=== PATIENT | female | born 1990 | race Two or more races ===

== ENCOUNTER 2020-05-29 12:18 | Inpatient (IN) | payer OTHER, SELFPAY ==
[2020-05-29 12:41] VITALS: BP 118/76; PULSE 97; RESP 19; TEMP 37.2; O2SAT 98; BMI 33.9
[2020-05-29 12:47] VITALS: BP 118/76; PULSE 97; RESP 19; TEMP 37.2; O2SAT 98
--- NOTE | 2020-05-29 12:51 | PC.NURSE ---
Pt cooperative with traveler changer, states she has been off her medications for months and that she lost her phone so she cannot fill her prescriptions. Pt reports that she took old medications this morning to try and calm her mind but that it made her body tired but did not stop the racing thoughts, pt took fluoxetine 20mg. depakote 500mg, olanzapine 10mg, clonazepan 1mg, prazosin 2mg . Pt reports auditory and visual hallucinations. Pt reports history of bipolar with psychosis, severe PTSD, and severe anxiety.
--- NOTE | 2020-05-29 13:00 | ED_ITS ---
HPI - Psych General Chief Complaint: Psychiatric Symptoms Stated Complaint: crisis Time Seen by Provider: 05/29/20 12:55 Source: patient Mode of arrival: ambulatory Limitations: no limitations History of Present Illness HPI Narrative: Annamarie at this point is 30 years old with past medical history that is significant for bipolar 2 disorder, PTSD, cannabis use with severe dependence presents via EMS c c/o SI/ Depression with plan to OD. Related Data Home Medications Medication Instructions Recorded Confirmed No Known Home Meds 05/29/20 05/29/20 Allergies Allergy/AdvReac Type Severity Reaction Status Date / Time Benadryl Allergy Severe anaphylaxis Unverified 11/14/19 00:00 diphenhydramine Allergy Severe ANAPHYLAXIS Unverified 04/19/20 19:20 [From BENADRYL] risperidone [RISPERIDONE] Allergy Severe PSYCHOTIC/HARMFUL Unverified 04/19/20 19:20 BEHAVIOR/BLACKOUTS latex [LATEX] Allergy Intermediate RASH Unverified 04/19/20 19:20 latex Allergy Unknown Unverified 11/14/19 00:00 Review of Systems Review of Systems: Constitutional: No Weight loss, No Fever, No Chills, No Night Sweats, No Fatigue, No Malaise ENT/Mouth: No Hearing loss, No Ear Pain, No Nasal Congestion, No Sinus Pain, No Hoarseness, No sore throat, No Rhinorrhea, No Swallowing Difficulty Eyes: No Eye Pain, No Swelling, No Redness, No Foreign Body, No Discharge, No Vision Changes Cardiovascular: No Chest Pain, No SOB, No Dyspnea on Exertion, No Orthopnea, No Edema, No Palpitations Respiratory: No Cough, No Sputum, No Wheezing, No Smoke Exposure, No Dyspnea Gastrointestinal: No Nausea, No Vomiting, No Diarrhea, No Constipation, No abdominal Pain, No Hematochezia, No Melena Genitourinary: no irregular bleeding, No Dysuria, No Urinary Frequency, No Hematuria, No Urinary Incontinence, No Urgency, No Flank Pain, No Urinary Flow Changes, No Hesitancy Musculoskeletal: No joint pain, No Myalgias, No Joint Swelling Skin: No Skin Lesions, No rash Neuro: No Weakness, No Numbness, No Paresthesias, No Loss of Consciousness, No Dizziness, No Headache Psych: As noted Heme/Lymph: No Bruising, No Bleeding,No Lymphadenopathy Endocrine: No Polyuria, No Polydipsia, No Temperature Intolerance Yes all other systems are reviewed and are negative [facility] Past Medical History Attestation statement: The following information was validated with the patient. Medical History (Updated 05/29/20 @ 21:32 by Mason Wade NP) Anxiety Bipolar disorder Psychosis PTSD (post-traumatic stress disorder) Social History Social History Alcohol intake: unknown Smoking Status: Former smoker Smoked in Last 30 Days: No Use of substances other than those prescribed or required for medical reasons: No Advance Directives: No Advance Directives Information Provided: No Physical Exam 2 Vital Signs: Vital Signs: Vital Signs Temp Pulse Resp BP Pulse Ox 05/29/20 19:05 97.9 F 66 20 110/65 100 05/29/20 16:29 98 F 78 20 109/68 99 05/29/20 12:47 98.9 F 97 19 118/76 98 05/29/20 12:41 98.9 F 97 19 118/76 98 Body Mass Index 33.9 Reviewed Const: General: cooperative and healthy appearing; No acute distress or intoxicated appearing Nutritional Appearance: average body habitus Orientation/consciousness: patient oriented x3 HENMT: Head: Yes normal to inspection Ears: hearing grossly normal bilaterally Eyes: General: appearance normal, both eyes and all related structures Visual Thompson: normal visual thomspon by confrontation Neck: Neck: Yes normal visual inspection and No tender Thyroid: Thyroid normal Chest: Chest palpation & inspection: normal inspection of the chest Resp: Effort & Inspection: normal respiratory effort Cardio: Jugular venous distension: no JVD GI: Inspection: Yes normal to inspection Percussion: Yes normal to percussion Auscultation: normal bowel sounds : General: Yes no CVA tenderness Back/Spine/Pelvis: Back: no CVA tenderness Skin: General skin exam: no rashes or lesions noted Neuro: General: patient oriented x3 Extrem: General: Yes normal to inspection Course Course Course Narrative: Labs stable. Resting comfortably pending psych eval 2131 s/o pending BHN eval MDM - Psych Restraints Face to Face Assessment: Face to Face Assessment: Current Situation: After assessment of the patient, a review of the pertinent medical record and a discussion with nursing staff, I feel the patient requires a restrain intervention. Reaction To: [] Medical Condition: [] Behavioral State: [] Continued Need: [] Lab Data Attestation: I reviewed the patient's lab results. Result diagrams: 05/29/20 13:26 05/29/20 13:26 Labs: Lab Results 05/29/20 05/29/20 05/29/20 Range/Units 13:06 13:06 13:26 WBC (4.8-10.8) X10*3/uL RBC (4.20-5.50) X10*6/uL Hgb (12.0-16.0) g/dl Hct (37-47) % MCV (80-98) fL MCH (27.0-33.0) pg MCHC (31.0-35.0) g/dl RDW (11.0-16.0) % Plt Count (160-400) X10*3/uL MPV (9.4-12.3) fL Immature Gran % (Auto) (0.0-0.4) % Neut % (Auto) (45-73) % Lymph % (Auto) (20-40) % [place] % (Auto) (2-11) % Eos % (Auto) (0-4) % Baso % (Auto) (0-2) % Lymph # (Auto) (1.2-4.9) X10*3/uL [place] # (Auto) (0.1-1.2) X10*3/uL Eos # (Auto) (0.0-0.4) X10*3/uL Baso # (Auto) (0.0-0.2) X10*3/uL Abs Immat Gran (auto) (0.00-0.03) X10*3/uL Absolute Neuts (auto) (2.0-8.3) X10*3/uL Absolute Nucleated RBC (0.0-0.012) X10*3/uL Nucleated RBC % (auto) (0.0-0.2) /100WBC PT (10.8-13.0) SEC INR (0.9-1.1) APTT (24.1-38.0) SEC Sodium (135-145) mmol/L Potassium (3.3-5.1) mmol/l Chloride (96-108) mmol/L Carbon Dioxide (22-29) mmol/L Anion Gap (12-20) BUN (9-16) mg/dL Creatinine (0.5-1.4) mg/dL Estim Creat Clear Calc Estimated GFR Random Glucose (60-115) mg/dL Calcium (8.4-10.2) mg/dL Total Bilirubin (0.0-1.0) mg/dL AST (5-31) U/L ALT (0-31) U/L Alkaline Phosphatase (39-117) U/L Total Protein (6.5-8.0) g/dL Albumin (3.5-5.0) g/dL Urine Color YELLOW Urine Appearance HAZY Urine pH 7.0 (5.0-8.0) Ur Specific [place] 1.020 (1.005-1.025) Urine Protein NEG (NEG-TRACE) MG/DL Urine Glucose (UA) NEG (NEG) MG/DL Urine Ketones NEG (NEG) MG/DL Urine Blood NEG (NEG) Urine Nitrite POS H (NEG) Ur Leukocyte Esterase NEG (NEG) Urine RBC 0 (0) /HPF Urine WBC 10-14 H (0-4) /HPF Ur Squamous Epith Cells 2+ /LPF Urine Bacteria 1+ /LPF Urine Mucus 2+ /LPF Urine Test NEGATIVE (NEGATIVE) Salicylates < 5.0 L (15-30) mg/dL Urine Opiates Screen Not Detected (Not Detect) Acetaminophen < 1 (<30) mcg/mL Ur Barbiturates Screen Not Detected (Not Detect) Valproic Acid 11.8 L (50.0-100.0) mcg/mL Ur Phencyclidine Scrn Not Detected (Not Detect) Ur Amphetamines Screen Not Detected (Not Detect) U Benzodiazepines Scrn Not Detected (Not Detect) Urine Cocaine Screen Not Detected (Not Detect) U Marijuana (THC) Screen POSITIVE H (Not Detect) Ethyl Alcohol mg/dL 05/29/20 05/29/20 05/29/20 Range/Units 13:26 13:26 13:26 WBC 7.0 (4.8-10.8) X10*3/uL RBC 4.40 (4.20-5.50) X10*6/uL Hgb 12.2 (12.0-16.0) g/dl Hct 36.8 L (37-47) % MCV 83.6 (80-98) fL MCH 27.7 (27.0-33.0) pg MCHC 33.2 (31.0-35.0) g/dl RDW 14.0 (11.0-16.0) % Plt Count 211 (160-400) X10*3/uL MPV 10.8 (9.4-12.3) fL Immature Gran % (Auto) 0.3 (0.0-0.4) % Neut % (Auto) 58.4 (45-73) % Lymph % (Auto) 30.4 (20-40) % [place] % (Auto) 5.0 (2-11) % Eos % (Auto) 5.3 H (0-4) % Baso % (Auto) 0.6 (0-2) % Lymph # (Auto) 2.1 (1.2-4.9) X10*3/uL [place] # (Auto) 0.4 (0.1-1.2) X10*3/uL Eos # (Auto) 0.4 (0.0-0.4) X10*3/uL Baso # (Auto) 0.0 (0.0-0.2) X10*3/uL Abs Immat Gran (auto) 0.02 (0.00-0.03) X10*3/uL Absolute Neuts (auto) 4.1 (2.0-8.3) X10*3/uL Absolute Nucleated RBC 0.000 (0.0-0.012) X10*3/uL Nucleated RBC % (auto) 0.0 (0.0-0.2) /100WBC PT 12.7 (10.8-13.0) SEC INR 1.1 (0.9-1.1) APTT 36.2 (24.1-38.0) SEC Sodium 138 (135-145) mmol/L Potassium 3.8 (3.3-5.1) mmol/l Chloride 106 (96-108) mmol/L Carbon Dioxide 23 (22-29) mmol/L Anion Gap 13 (12-20) BUN 12 (9-16) mg/dL Creatinine 0.78 (0.5-1.4) mg/dL Estim Creat Clear Calc 122.7 Estimated GFR > 60 Random Glucose 89 (60-115) mg/dL Calcium 8.8 (8.4-10.2) mg/dL Total Bilirubin 0.5 (0.0-1.0) mg/dL AST 22 (5-31) U/L ALT 21 (0-31) U/L Alkaline Phosphatase 63 (39-117) U/L Total Protein 7.0 (6.5-8.0) g/dL Albumin 4.1 (3.5-5.0) g/dL Urine Color Urine Appearance Urine pH (5.0-8.0) Ur Specific [place] (1.005-1.025) Urine Protein (NEG-TRACE) MG/DL Urine Glucose (UA) (NEG) MG/DL Urine Ketones (NEG) MG/DL Urine Blood (NEG) Urine Nitrite (NEG) Ur Leukocyte Esterase (NEG) Urine RBC (0) /HPF Urine WBC (0-4) /HPF Ur Squamous Epith Cells /LPF Urine Bacteria /LPF Urine Mucus /LPF Urine Test (NEGATIVE) Salicylates (15-30) mg/dL Urine Opiates Screen (Not Detect) Acetaminophen (<30) mcg/mL Ur Barbiturates Screen (Not Detect) Valproic Acid (50.0-100.0) mcg/mL Ur Phencyclidine Scrn (Not Detect) Ur Amphetamines Screen (Not Detect) U Benzodiazepines Scrn (Not Detect) Urine Cocaine Screen (Not Detect) U Marijuana (THC) Screen (Not Detect) Ethyl Alcohol mg/dL 05/29/20 Range/Units 13:26 WBC (4.8-10.8) X10*3/uL RBC (4.20-5.50) X10*6/uL Hgb (12.0-16.0) g/dl Hct (37-47) % MCV (80-98) fL MCH (27.0-33.0) pg MCHC (31.0-35.0) g/dl RDW (11.0-16.0) % Plt Count (160-400) X10*3/uL MPV (9.4-12.3) fL Immature Gran % (Auto) (0.0-0.4) % Neut % (Auto) (45-73) % Lymph % (Auto) (20-40) % [place] % (Auto) (2-11) % Eos % (Auto) (0-4) % Baso % (Auto) (0-2) % Lymph # (Auto) (1.2-4.9) X10*3/uL [place] # (Auto) (0.1-1.2) X10*3/uL Eos # (Auto) (0.0-0.4) X10*3/uL Baso # (Auto) (0.0-0.2) X10*3/uL Abs Immat Gran (auto) (0.00-0.03) X10*3/uL Absolute Neuts (auto) (2.0-8.3) X10*3/uL Absolute Nucleated RBC (0.0-0.012) X10*3/uL Nucleated RBC % (auto) (0.0-0.2) /100WBC PT (10.8-13.0) SEC INR (0.9-1.1) APTT (24.1-38.0) SEC Sodium (135-145) mmol/L Potassium (3.3-5.1) mmol/l Chloride (96-108) mmol/L Carbon Dioxide (22-29) mmol/L Anion Gap (12-20) BUN (9-16) mg/dL Creatinine (0.5-1.4) mg/dL Estim Creat Clear Calc Estimated GFR Random Glucose (60-115) mg/dL Calcium (8.4-10.2) mg/dL Total Bilirubin (0.0-1.0) mg/dL AST (5-31) U/L ALT (0-31) U/L Alkaline Phosphatase (39-117) U/L Total Protein (6.5-8.0) g/dL Albumin (3.5-5.0) g/dL Urine Color Urine Appearance Urine pH (5.0-8.0) Ur Specific [place] (1.005-1.025) Urine Protein (NEG-TRACE) MG/DL Urine Glucose (UA) (NEG) MG/DL Urine Ketones (NEG) MG/DL Urine Blood (NEG) Urine Nitrite (NEG) Ur Leukocyte Esterase (NEG) Urine RBC (0) /HPF Urine WBC (0-4) /HPF Ur Squamous Epith Cells /LPF Urine Bacteria /LPF Urine Mucus /LPF Urine Test (NEGATIVE) Salicylates (15-30) mg/dL Urine Opiates Screen (Not Detect) Acetaminophen (<30) mcg/mL Ur Barbiturates Screen (Not Detect) Valproic Acid (50.0-100.0) mcg/mL Ur Phencyclidine Scrn (Not Detect) Ur Amphetamines Screen (Not Detect) U Benzodiazepines Scrn (Not Detect) Urine Cocaine Screen (Not Detect) U Marijuana (THC) Screen (Not Detect) Ethyl Alcohol < 10 mg/dL ECG Data Attestation: I personally reviewed and interpreted this ECG as follows: Interpretation: NSR HR [address] sig changes No chnage since 01/12/2019 Discharge Plan Discharge Clinical Impression: Depression, Bipolar disorder, Acute anxiety Prescriptions: No Action No Known Home Meds RF: 0
--- NOTE | 2020-05-29 13:03 | ECG_ITS ---
Test Reason : OVERDOSE Blood Pressure : / mmHG Vent. Rate : 077 BPM Atrial Rate : 077 BPM P-R Int : 152 ms QRS Dur : 080 ms QT Int : 392 ms P-R-T Axes : 046 053 038 degrees QTc Int : 443 ms Normal sinus rhythm Normal ECG When compared with ECG of 12-JAN-2019 10:09, No significant change was found Referred By: Mason Wade Electronically Signed By:HARRY RALPH MD
[2020-05-29 13:33] LABS: MANUAL DIFF FLAG NO
[2020-05-29 13:35] LABS: Basophils Percent Auto 0.6 % (0-2); Eosinophils Absolute Auto 0.4 X10*3/uL (0.0-0.4); Eosinophils Percent Auto 5.3 % (0-4); Hematocrit 36.8 % (37-47); Hemoglobin 12.2 g/dl (12.0-16.0); Imm Gran Abs Auto 0.02 X10*3/uL (0.00-0.03); Imm Gran Pct Auto 0.3 % (0.0-0.4); Lymphocytes Absolute Auto 2.1 X10*3/uL (1.2-4.9); Lymphocytes Percent Auto 30.4 % (20-40); Mean Corpuscular HGB Conc 33.2 g/dl (31.0-35.0); Mean Corpuscular Hemoglobin 27.7 pg (27.0-33.0); Mean Corpuscular Volume 83.6 fL (80-98); Mean Platelet Volume 10.8 fL (9.4-12.3); Monocytes Absolute Auto 0.4 X10*3/uL (0.1-1.2); Neutrophils Absolute Auto 4.1 X10*3/uL (2.0-8.3); Neutrophils Percent Auto 58.4 % (45-73); Platelet Count 211 X10*3/uL (160-400)
[2020-05-29 13:37] LABS: Glucose Urine UA NEG (NEG); Leukocyte Esterase Urine NEG (NEG); Nitrite Urine POS (NEG); Urine Blood NEG (NEG); Urine Ketones NEG (NEG); Urine Protein NEG (NEG-TRACE)
[2020-05-29 13:44] LABS: INTERNATIONAL NORM RATIO 1.1 (0.9-1.1); Prothrombin Time 12.7 SEC (10.8-13.0)
[2020-05-29 13:47] LABS: Partial Thromboplastin Time 36.2 SEC (24.1-38.0)
[2020-05-29 13:51] LABS: Appearance Urine HAZY; Color Urine YELLOW
[2020-05-29 13:52] LABS: Bacteria Urine 1+ /LPF; Mucus Urine 2+ /LPF; RBC Urine 0 /HPF (0); Squamous Epithelial Cell Urine 2+ /LPF
[2020-05-29 13:53] LABS: UPreg QC Valid YES; Urine Pregnancy NEGATIVE (NEGATIVE)
[2020-05-29 13:56] LABS: Ethanol < 10 mg/dL
[2020-05-29 13:57] LABS: Amphetamine Screen Urine Not Detected (Not Detect); Barbiturates, Urine Not Detected (Not Detect); Benzodiazepines Screen Urine Not Detected (Not Detect); Cannabinoid Screen Urine POSITIVE (Not Detect); Cocaine Screen Urine Not Detected (Not Detect); Opiate Screen Urine Not Detected (Not Detect); Phencyclidine Screen Urine Not Detected (Not Detect)
[2020-05-29 13:57] LABS: Acetaminophen LAB < 1 mcg/mL (<30); Salicylate < 5.0 mg/dL (15-30)
[2020-05-29 13:59] LABS: Alanine Aminotransferase 21 U/L (0-31); Albumin Level 4.1 g/dL (3.5-5.0); Alkaline Phosphatase 63 U/L (39-117); Anion Gap 13 (12-20); Aspartate Amino Transferase 22 U/L (5-31); Bilirubin Total 0.5 mg/dL (0.0-1.0); Blood Urea Nitrogen 12 mg/dL (9-16); Calcium 8.8 mg/dL (8.4-10.2); Carbon Dioxide 23 mmol/L (22-29); Chloride 106 mmol/L (96-108); Creatinine Clr Calc Pharmacy 122.7; Estimated Glomerular Filt Rate > 60; Glucose Random 89 mg/dL (60-115); Potassium 3.8 mmol/l (3.3-5.1); Sodium 138 mmol/L (135-145)
[2020-05-29 14:04] LABS: Valproate 11.8 mcg/mL (50.0-100.0)
[2020-05-29 16:29] VITALS: BP 109/68; PULSE 78; RESP 20; TEMP 36.6; O2SAT 99
[2020-05-29 19:05] VITALS: BP 110/65; PULSE 66; RESP 20; TEMP 36.6; O2SAT 100
[2020-05-29] MEDS: LORazepam 1 MG TABLET PO (19:21)
--- NOTE | 2020-05-29 20:20 | PC.NURSE ---
pt sleeping, door open lights and noise low. pt given a warm blanket and is now sleeping. skin pink warm and dry, rr even and reg. no s/s of distress, [plan pt is still waiting to be seen and understands it will be a while. pt is ok with this and is resting comfortably calm and cooperative steady gait. pt visable on the monitor.
--- NOTE | 2020-05-29 22:07 | PC.NURSE ---
CHAIM called/spoke with Ruby to check on patient's status, reported clinician is on the way. Per report, patient had good shift. Will continue to monitor.
[2020-05-29] MEDS: Nitrofurantoin Monohyd/M-Cryst 100 MG CAPSULE PO (22:36)
--- NOTE | 2020-05-29 23:48 | PC.NURSE ---
BHN completed assessment, section 12 in patient bed search.
[2020-05-30] VITALS (13 sets, daily range): BP systolic 103–148; BP diastolic 50–85; PULSE 77–107; RESP 16–20; TEMP 35.9–36.9; O2SAT 94–99
[2020-05-30] MEDS: traZODone HCL 50 MG TABLET PO (00:33)
--- NOTE | 2020-05-30 00:36 | PC.NURSE ---
Patient requested medication for help her sleep, patient reported she used to take Trazadone, checked past record, per record patient takes Trazadone 50 mg at bedtime for sleep, provider notified/ordered trazadone 50 mg/administered as ordered/compliant. Will continue to monitor.
--- NOTE | 2020-05-30 02:11 | PC.NURSE ---
Patient in bed appears sleeping, no distress observed/reported, respiration +/=/non-labored bilaterally. Will continue to monitor.
--- NOTE | 2020-05-30 04:05 | PC.NURSE ---
Patient in bed appears sleeping comfortably, no distress observed/reported, respiration +/=/non-labored bilaterally. Will continue to monitor.
--- NOTE | 2020-05-30 06:04 | PC.NURSE ---
Patient in bed appears sleeping, no distress observed/reported, respiration +/=/non-labored bilaterally, will continue to monitor and provide comfort.
--- NOTE | 2020-05-30 06:49 | PC.NURSE ---
Report recieved. Pt currently in the bathroom, calm and cooperative, denies complaints at this time. PT is inpatient bedsearch.
[2020-05-30] MEDS: LORazepam 1 MG TABLET PO (07:49)
[2020-05-30] MEDS: Nitrofurantoin Monohyd/M-Cryst 100 MG CAPSULE PO ×2 (09:06→22:33)
[2020-05-30] MEDS: OLANZapine 5 MG TABLET PO ×2 (09:06→14:33)
--- NOTE | 2020-05-30 09:10 | PC.NURSE ---
Addendum entered by Darleen Hyde 05/30/20 13:17: Pt appears to be responding internally, holding her head, crying and shaking. Provider aware, PT medicated per emar. Original Note: Pt appears to be responding internally, holding her head, crying and shaking. Provider aware
--- NOTE | 2020-05-30 12:20 | PC.NURSE ---
PT heard yelling in her room, pt shaking, crying, appears to be responding internally. Pt noted to hit her head against the wall, pt redirected. Provider aware.
[2020-05-30] MEDS: LORazepam 1 MG TABLET 2 MG PO ×2 (14:26→19:35)
--- NOTE | 2020-05-30 15:29 | P.CNPS_ITS ---
History of Present Illness Chief Complaint: crisis Reason for Consult: increasing agitation, self harming behaviors Requesting physician: Silvestre Jonas Discussed with referring provider: Yes Sources of Information: patient interviewed and chart reviewed HPI Narrative: Patient is a 30 year old female with history of PTSD. Currently in area of ED following suicidal statements in the community. Consult requested as patient was noted to be increasing anxious and agitated and at one point began banging her head against her wall and crying. Pt seen in common area of ED. Visibly anxious, wringing her hands, somewhat pressured describing sx, but clearly distressed as well. Pt stating that she is having racing thoughts, hearing voices, and having significant flashbacks of past trauma. She rpeorts that she had been taking her medications up until 2 months ago when she lost her phone and was unable to get in contact with her provider. She states she found and old prescription and took some medications in hopes that it would help the voices, but it did not. She reports that her suicidal ideation is related to not wanting to feel the abuse during her flashbacks, I just feel like I need to get out of this body, it's so disgusting . Past Psychiatric History: History of psychiatric admissions Medical Evaluation Reviewed: Yes Review of Systems Psychiatric: Reports abnormal sleep pattern, Reports anxiety, Reports depression, Reports difficulty concentrating, Reports auditory hallucinations, Reports hopelessness, Reports tactile hallucinations, Reports homicidal ideation (her parents ) and Reports suicidal ideation [facility] Medical History (Updated 05/30/20 @ 15:58 by Latosha Mittal CNP) Anxiety Bipolar disorder Psychosis PTSD (post-traumatic stress disorder) Diagnostics Vital Signs (24Hr): Vital Signs - 24 hr 05/29/20 16:29 05/29/20 19:05 05/30/20 00:10 Temperature 98 F 97.9 F 96.7 F L Pulse Rate 78 66 83 Respiratory Rate 20 20 16 Blood Pressure 109/68 110/65 110/60 Pulse Oximetry 99 100 99 05/30/20 06:53 05/30/20 07:50 05/30/20 09:19 Temperature 96.9 F 97.7 F 97 F Pulse Rate 86 90 85 Respiratory Rate 18 16 Blood Pressure 111/60 148/85 H 110/58 L Pulse Oximetry 98 98 Body Mass Index 33.9 Labs Results: 05/29/20 13:26 05/29/20 13:26 Labs: Laboratory Results - last 48 hr 05/29/20 05/29/20 05/29/20 13:06 13:06 13:26 WBC RBC Hgb Hct MCV MCH MCHC RDW Plt Count MPV Immature Gran % (Auto) Neut % (Auto) Lymph % (Auto) [place] % (Auto) Eos % (Auto) Baso % (Auto) Lymph # (Auto) [place] # (Auto) Eos # (Auto) Baso # (Auto) Abs Immat Gran (auto) Absolute Neuts (auto) Absolute Nucleated RBC Nucleated RBC % (auto) PT INR APTT Sodium Potassium Chloride Carbon Dioxide Anion Gap BUN Creatinine Estim Creat Clear Calc Estimated GFR Random Glucose Calcium Total Bilirubin AST ALT Alkaline Phosphatase Total Protein Albumin Urine Color YELLOW Urine Appearance HAZY Urine pH 7.0 Ur Specific [place] 1.020 Urine Protein NEG Urine Glucose (UA) NEG Urine Ketones NEG Urine Blood NEG Urine Nitrite POS H Ur Leukocyte Esterase NEG Urine RBC 0 Urine WBC 10-14 H Ur Squamous Epith Cells 2+ Urine Bacteria 1+ Urine Mucus 2+ Urine Test NEGATIVE Salicylates < 5.0 L Urine Opiates Screen Not Detected Acetaminophen < 1 Ur Barbiturates Screen Not Detected Valproic Acid 11.8 L Ur Phencyclidine Scrn Not Detected Ur Amphetamines Screen Not Detected U Benzodiazepines Scrn Not Detected Urine Cocaine Screen Not Detected U Marijuana (THC) Screen POSITIVE H Ethyl Alcohol 05/29/20 05/29/20 05/29/20 13:26 13:26 13:26 WBC 7.0 RBC 4.40 Hgb 12.2 Hct 36.8 L MCV 83.6 MCH 27.7 MCHC 33.2 RDW 14.0 Plt Count 211 MPV 10.8 Immature Gran % (Auto) 0.3 Neut % (Auto) 58.4 Lymph % (Auto) 30.4 [place] % (Auto) 5.0 Eos % (Auto) 5.3 H Baso % (Auto) 0.6 Lymph # (Auto) 2.1 [place] # (Auto) 0.4 Eos # (Auto) 0.4 Baso # (Auto) 0.0 Abs Immat Gran (auto) 0.02 Absolute Neuts (auto) 4.1 Absolute Nucleated RBC 0.000 Nucleated RBC % (auto) 0.0 PT 12.7 INR 1.1 APTT 36.2 Sodium 138 Potassium 3.8 Chloride 106 Carbon Dioxide 23 Anion Gap 13 BUN 12 Creatinine 0.78 Estim Creat Clear Calc 122.7 Estimated GFR > 60 Random Glucose 89 Calcium 8.8 Total Bilirubin 0.5 AST 22 ALT 21 Alkaline Phosphatase 63 Total Protein 7.0 Albumin 4.1 Urine Color Urine Appearance Urine pH Ur Specific [place] Urine Protein Urine Glucose (UA) Urine Ketones Urine Blood Urine Nitrite Ur Leukocyte Esterase Urine RBC Urine WBC Ur Squamous Epith Cells Urine Bacteria Urine Mucus Urine Test Salicylates Urine Opiates Screen Acetaminophen Ur Barbiturates Screen Valproic Acid Ur Phencyclidine Scrn Ur Amphetamines Screen U Benzodiazepines Scrn Urine Cocaine Screen U Marijuana (THC) Screen Ethyl Alcohol 05/29/20 13:26 WBC RBC Hgb Hct MCV MCH MCHC RDW Plt Count MPV Immature Gran % (Auto) Neut % (Auto) Lymph % (Auto) [place] % (Auto) Eos % (Auto) Baso % (Auto) Lymph # (Auto) [place] # (Auto) Eos # (Auto) Baso # (Auto) Abs Immat Gran (auto) Absolute Neuts (auto) Absolute Nucleated RBC Nucleated RBC % (auto) PT INR APTT Sodium Potassium Chloride Carbon Dioxide Anion Gap BUN Creatinine Estim Creat Clear Calc Estimated GFR Random Glucose Calcium Total Bilirubin AST ALT Alkaline Phosphatase Total Protein Albumin Urine Color Urine Appearance Urine pH Ur Specific [place] Urine Protein Urine Glucose (UA) Urine Ketones Urine Blood Urine Nitrite Ur Leukocyte Esterase Urine RBC Urine WBC Ur Squamous Epith Cells Urine Bacteria Urine Mucus Urine Test Salicylates Urine Opiates Screen Acetaminophen Ur Barbiturates Screen Valproic Acid Ur Phencyclidine Scrn Ur Amphetamines Screen U Benzodiazepines Scrn Urine Cocaine Screen U Marijuana (THC) Screen Ethyl Alcohol < 10 Mental Status Exam Mental Status Exam Patient Appearance: Well Grooomed Level of Consciousness: Awake, Appropriate and Alert Patient Behavior: Appropriate, Cooperative and Anxious Mood Description: Fearful and Anxious Affect Description: Fearful and Anxious Ability to Follow Directions: Excellent Speech Pattern: Clear Hallucinations: Auditory and Tactile Thought Process: Racing Thought Content: positive for Racing, positive for Obsessional Thoughts and positive for Perseveration Depressive Symptoms: Difficulty Sleeping, Feelings of Worthlessness, H opelessness and Thoughts of /Suicide Abnormal Motor Activity Signs and Symptoms: Agitation Judgement: Fair Medications Medications Current Medications Generic Name Dose Route Start Last Admin Trade Name Freq PRN Reason Stop Dose Admin Clonazepam 0.5 mg 05/31/20 09:00 Clonazepam 0.5 Mg Tablet PO BID@0900,1700 CATHERINE Nitrofurantoin Macrocrystals 100 mg 05/29/20 22:20 05/30/20 09:06 Nitrofurantoin Monohyd/M-Cryst 100 Mg Capsule PO 06/04/20 23:00 100 mg BID CATHERINE Administration Olanzapine 10 mg 05/31/20 21:00 Olanzapine 10 Mg Tablet PO BEDTIME CATHERINE Olanzapine 5 mg 05/31/20 09:00 Olanzapine 5 Mg Tablet PO DAILY CATHERINE Olanzapine 5 mg 05/30/20 21:00 Olanzapine 5 Mg Tablet PO BEDTIME PRN anxiety/restlessness Allergies Allergies Allergy/AdvReac Type Severity Reaction Status Date / Time Benadryl Allergy Severe anaphylaxis Verified 05/30/20 06:42 diphenhydramine Allergy Severe ANAPHYLAXIS Unverified 04/19/20 19:20 [From BENADRYL] risperidone [RISPERIDONE] Allergy Severe PSYCHOTIC/HARMFUL Unverified 04/19/20 19:20 BEHAVIOR/BLACKOUTS latex [LATEX] Allergy Intermediate RASH Unverified 04/19/20 19:20 latex Allergy Unknown Rash Unverified 05/30/20 06:42 Assessment & Plan Assessment & Plan (1) PTSD (post-traumatic stress disorder): Status: Acute Code(s): F43.10 - Post-traumatic stress disorder, unspecified Recommendations: Based on patient interview and chart review the following medications were restarted to address acute sx: * Olanzapine 5mg QD and 10mg QHS * Klonopin 0.5mg BID * If necessary may have 2.5mg Olanzapine as PRN for agitation/anxiety * Encouraged patient to use grounding and other coping strategies to deal with traumatic memories as they come up * Awaiting inpt admission. Greater than 50% of the session was spent on counseling and/or coordination of care
[2020-05-30] MEDS: LORazepam 2 MG/ML VIAL IM (18:10)
[2020-05-30] MEDS: Haloperidol Lactate 5 MG/ML VIAL IM (18:10)
--- NOTE | 2020-05-30 18:16 | PC.NURSE ---
After meeting with Nichelle pt became agitated, demanding to leave, pt yelling at staff, pushed open door and attempted to elope, pt struck security and was escorted back into the pod. PT continued fighting with staff and yelling, pt placed in restraints. Pt stated that she got upset after a phone call with her fiance, she stated that she thinks he is cheating on her so she wants to leave so she can get her kids. Pt apologetic for her behavior.
--- NOTE | 2020-05-30 19:54 | PC.NURSE ---
PT released from restraints at 1916. Agreement to comply with staff and the rules. Patient is calm and cooperative. Requested additional medications for anxiety after restraints were released. PT skin is pink, warm, dry, and intact at restraint sites. No other complaints at this time.
[2020-05-31 01:25] VITALS: RESP 17
--- NOTE | 2020-05-31 07:06 | PC.NURSE ---
Report received from SAHIL Solitario. Pt awake, affect even.
[2020-05-31 07:59] VITALS: BP 116/74; PULSE 92; RESP 17; TEMP 36.9; O2SAT 98
[2020-05-31] MEDS: OLANZapine 5 MG TABLET PO ×2 (08:00→17:16)
[2020-05-31] MEDS: Nitrofurantoin Monohyd/M-Cryst 100 MG CAPSULE PO ×2 (08:00→21:54)
[2020-05-31] MEDS: clonazePAM 0.5 MG TABLET PO ×2 (08:01→16:20)
--- NOTE | 2020-05-31 09:48 | PC.NURSE ---
Pt resting, resp unlabored.
[2020-05-31 14:16] LABS: SARS COV2 PCR INHOUSE NEGATIVE (Negative)
[2020-05-31 16:39] VITALS: BP 126/65; PULSE 70; RESP 20; TEMP 36.1; O2SAT 99
--- NOTE | 2020-05-31 16:58 | PC.NURSE ---
Report given to SAHIL Knox on M5.
--- NOTE | 2020-05-31 17:18 | PC.NURSE ---
Care team in to speak w/ pt
[2020-05-31] MEDS: LORazepam 1 MG TABLET PO (17:34)
--- NOTE | 2020-05-31 17:36 | PC.NURSE ---
Pt anxious, reports increase in AH, tearful. PRN zyprexa given early per provider. Pt continued to rock, and pace. Provider notified, given ativan as ordered.
[2020-05-31 18:00] VITALS: BP 118/80; PULSE 104; RESP 18; TEMP 36.6; O2SAT 99
[2020-05-31] MEDS: OLANZapine 10 MG TABLET PO (21:53)
[2020-05-31] MEDS: Flu Vacc QS2020-21(6mos up)/PF 0.5 ML SYRINGE IM (21:54)
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
--- NOTE | 2020-06-01 | XR_ITS ---
EXAMINATION: C-SPINE AND FACIAL BONES CLINICAL INFORMATION: Neck pain and facial pain status post trauma COMPARISON: None TECHNIQUE: 4 views cervical spine, 4 views facial bones FINDINGS: C-spine: Mild straightening of the cervical spine. Disc spaces are well preserved. No soft tissue swelling, fractures or subluxations are seen. The visualized lung apices are unremarkable. Facial bones: The patients meagan producing marked artifact overlying imaging. The paranasal sinuses are well aerated. No fractures are XR/XR cervical spine 3V IMPRESSION: No evidence of traumatic injury. The facial bone study is somewhat limited by the patient's meagan.
[2020-06-01 05:30] VITALS: BP 121/73; PULSE 101; RESP 18; TEMP 35.9; O2SAT 98
[2020-06-01] MEDS: Nicotine Polacrilex 2 MG GUM BUCCAL (05:35)
[2020-06-01] MEDS: clonazePAM 0.5 MG TABLET PO ×2 (06:51→19:12)
[2020-06-01] MEDS: Nitrofurantoin Monohyd/M-Cryst 100 MG CAPSULE PO ×2 (08:37→20:34)
[2020-06-01] MEDS: OLANZapine 5 MG TABLET PO (08:37)
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
[2020-06-01] MEDS: risperiDONE 1 MG TABLET PO ×2 (14:14→20:33)
[2020-06-01] MEDS: Lithium Carbonate 300 MG CAPSULE PO ×2 (14:14→20:34)
[2020-06-01 18:00] VITALS: BP 116/68; PULSE 99; TEMP 36.1
[2020-06-01] MEDS: Acetaminophen 325 MG TABLET 650 MG PO (19:12)
[2020-06-01] MEDS: traZODone HCL 50 MG TABLET PO (21:01)
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
[2020-06-02] MEDS: traZODone HCL 50 MG TABLET PO (01:12)
[2020-06-02 06:20] VITALS: BP 142/65; PULSE 107; RESP 18; TEMP 36.5
[2020-06-02] MEDS: Nitrofurantoin Monohyd/M-Cryst 100 MG CAPSULE PO ×2 (08:29→20:54)
[2020-06-02] MEDS: risperiDONE 1 MG TABLET PO ×2 (08:29→20:54)
[2020-06-02] MEDS: Lithium Carbonate 300 MG CAPSULE PO ×2 (08:29→20:54)
[2020-06-02] MEDS: clonazePAM 0.5 MG TABLET PO ×2 (08:29→16:49)
[2020-06-02] MEDS: Acetaminophen 325 MG TABLET 650 MG PO ×2 (09:47→17:39)
--- NOTE | 2020-06-02 10:58 | P.PNPSI_ITS ---
Subjective Subjective Date of Service: 06/02/20 Reason For Visit: mood/anxiety Subjective Notes: Conditional Voluntary Interim History: reporting am anxiety, after awakening in am after night terrors. also some anxiety thru day - would like another med for that had had prazosin in past would like to try clonidine for night casas, we discusse propranlol prn for physiologic sys of anxiety Medication Compliance: Yes Side effects from medications: No Attending Groups: Yes Review of Systems Acute medical concerns: No no hx asthma ok for beta george Medical Review of Systems: unchanged Review of Systems Review of Systems Yes all other systems are reviewed and are negative Mental Status Exam Mental Status Exam Patient Appearance: Well Grooomed and Appropriate Patient Orientation: Person, Place, Time and Situation Level of Consciousness: Awake and Appropriate Patient Behavior: Appropriate, Cooperative and Good Eye Contact Mood Description: Depressed and Anxious Affect Description: Constricted Patient Cognition Impaired: No Ability to Follow Directions: Good Speech Pattern: Clear Hallucinations: None Thought Process: Intact and Goal Oriented Thought Content: positive for Intact and positive for Goal Oriented Depressive Symptoms: Increased Anxiety, Muscle Tension, Difficulty Sleeping and Unhappiness Judgement: Fair Diagnostics Vital Signs (24Hr): Vital Signs - 24 hr 06/01/20 18:00 06/02/20 06:20 Temperature 96.9 F 97.7 F Pulse Rate 99 107 H Respiratory Rate 18 Blood Pressure 116/68 142/65 H Body Mass Index 33.9 Labs Results: 05/29/20 13:26 05/29/20 13:26 Labs: Laboratory Results - last 48 hr 05/31/20 11:40 Coronavirus (PCR) NEGATIVE Imaging Radiology Impressions: ITS Impressions Cervical Spine X-Ray 06/01/20 00:00 IMPRESSION: No evidence of traumatic injury. The facial bone study is somewhat limited by the patient's meagan. Face X-Ray 06/01/20 00:00 IMPRESSION: No evidence of traumatic injury. The facial bone study is somewhat limited by the patient's meagan. Medications Medications Current Medications Generic Name Dose Route Start Last Admin Trade Name Freq PRN Reason Stop Dose Admin Acetaminophen 650 mg 05/31/20 17:59 06/02/20 09:47 Acetaminophen 325 Mg Tablet PO 650 mg Q6H PRN Administration Headache/Pain Mild Scale (1-3) Al Hydroxide/Mg Hydroxide 30 ml 05/31/20 17:59 Magnesium Hydrox/Alum Hydrox 30 Ml Oral.Susp PO Q6H PRN Heartburn/Nausea Clonazepam 0.5 mg 05/31/20 09:00 06/02/20 08:29 Clonazepam 0.5 Mg Tablet PO 0.5 mg BID@0900,1700 CATHERINE Administration Ibuprofen 600 mg 06/01/20 21:23 Ibuprofen 600 Mg Tablet PO Q8H PRN Pain, Severe (Pain Scale 7-10) Winifred Carbonate 300 mg 06/01/20 13:55 06/02/20 08:29 Winifred Carbonate 300 Mg Capsule PO 300 mg BID CATHERINE Administration Magnesium Hydroxide 30 ml 05/31/20 17:59 Milk Of Magnesia 30 Ml Oral.Susp PO DAILY PRN Constipation Nicotine Polacrilex 2 mg 05/31/20 17:59 06/01/20 05:35 Nicotine Polacrilex 2 Mg Gum BUCCAL 2 mg Q2H PRN Administration Nicotine Cravings Nitrofurantoin Macrocrystals 100 mg 05/29/20 22:20 06/02/20 08:29 Nitrofurantoin Monohyd/M-Cryst 100 Mg Capsule PO 06/04/20 23:00 100 mg BID CATHERINE Administration Risperidone 1 mg 06/01/20 14:00 06/02/20 08:29 Risperidone 1 Mg Tablet PO 1 mg BID CATHERINE Administration Trazodone HCl 50 mg 06/01/20 20:47 06/02/20 01:12 Trazodone Hcl 50 Mg Tablet PO 50 mg BEDTIME MRX1 PRN Administration insomnia Allergies Allergies Allergy/AdvReac Type Severity Reaction Status Date / Time Benadryl Allergy Severe anaphylaxis Verified 05/30/20 06:42 diphenhydramine Allergy Severe ANAPHYLAXIS Unverified 04/19/20 19:20 [From BENADRYL] risperidone [RISPERIDONE] Allergy Severe PSYCHOTIC/HARMFUL Unverified 04/19/20 19:20 BEHAVIOR/BLACKOUTS latex [LATEX] Allergy Intermediate RASH Unverified 04/19/20 19:20 latex Allergy Unknown Rash Unverified 05/30/20 06:42 Assessment & Plan Assessment & Plan (1) PTSD (post-traumatic stress disorder): Status: Acute Code(s): F43.10 - Post-traumatic stress disorder, unspecified Assessment and Plan: compounded by restraint in ER - some muscle stiffness co night terrors and heightened anxiety discussed medication appraoches going to try clonidine at night for night terrors and propranlol in day (2) Bipolar disorder: Qualifiers: Active/Remission status: currently active Current bipolar episode type: depressed Current episode severity: severe Psychotic features: without psychotic features Qualified Code(s): F31.4 - Bipolar disorder, current episode depressed, severe, without psychotic features Status: Acute Code(s): F31.9 - Bipolar disorder, unspecified Assessment and Plan: taking lithium and risperdione denying any s/e (3) Jaw pain: Status: Acute Code(s): R68.84 - Jaw pain Assessment and Plan: no finding on xray of bones (4) Neck pain: Status: Acute Code(s): M54.2 - Cervicalgia Assessment and Plan: possibly muscular or soft tisshe pain -taking tylenol prn Greater than 50% of the session was spent on counseling and/or coordination of care
[2020-06-02 13:19] VITALS: BP 134/79; PULSE 100
[2020-06-02] MEDS: Propranolol HCL 10 MG TABLET PO (13:19)
[2020-06-02 20:54] VITALS: BP 127/76; PULSE 83
[2020-06-02] MEDS: cloNIDine HCL 0.1 MG TABLET PO (20:54)
[2020-06-02 20:56] VITALS: TEMP 36.2
[2020-06-03] MEDS: traZODone HCL 50 MG TABLET PO (00:16)
[2020-06-03 06:10] VITALS: BP 113/69; PULSE 113; RESP 16; TEMP 36.4
[2020-06-03 06:14] VITALS: BP 113/69; PULSE 113
[2020-06-03] MEDS: Propranolol HCL 10 MG TABLET PO ×2 (06:14→11:35)
[2020-06-03] MEDS: risperiDONE 1 MG TABLET PO (08:05)
[2020-06-03] MEDS: Lithium Carbonate 300 MG CAPSULE PO ×2 (08:05→20:47)
[2020-06-03] MEDS: clonazePAM 0.5 MG TABLET PO ×2 (08:05→16:44)
[2020-06-03] MEDS: Nitrofurantoin Monohyd/M-Cryst 100 MG CAPSULE PO ×2 (08:05→20:46)
[2020-06-03 11:35] VITALS: BP 118/72; PULSE 92
--- NOTE | 2020-06-03 15:06 | HO.PSYCHPN ---
Subjective Subjective Date of Service: 06/03/20 Reason For Visit: mood/anxiety Subjective Notes: Conditional Voluntary Interim History: felt clonidine helped - but woke up late , can take repeat dose already on risperidone 1mg bid - anxiety a bit better Medication Compliance: Yes Side effects from medications: No Attending Groups: Intermittent Review of Systems Review of Systems Yes all other systems are reviewed and are negative Mental Status Exam Mental Status Exam Narrative: Alert, walking the lovett, had visit with parents- reports ongoing anxiety and depression Patient Appearance: Well Grooomed Patient Orientation: Person, Place, Time and Situation Level of Consciousness: Awake Patient Behavior: Appropriate Mood Description: Anxious Affect Description: Depressed Patient Cognition Impaired: No Ability to Follow Directions: Good Speech Pattern: Clear Thought Process: Intact Thought Content: positive for Intact Depressive Symptoms: Difficulty Concentrating Judgement: Fair Diagnostics Vital Signs (24Hr): Vital Signs - 24 hr 06/02/20 20:54 06/02/20 20:56 06/03/20 06:10 Temperature 97.1 F 97.5 F Pulse Rate 83 113 H Respiratory Rate 16 Blood Pressure 127/76 113/69 06/03/20 06:14 06/03/20 11:35 Temperature Pulse Rate 113 H 92 Respiratory Rate Blood Pressure 113/69 118/72 Body Mass Index 33.9 Labs Results: 05/29/20 13:26 05/29/20 13:26 Imaging Radiology Impressions: ITS Impressions Cervical Spine X-Ray 06/01/20 00:00 IMPRESSION: No evidence of traumatic injury. The facial bone study is somewhat limited by the patient's meagan. Face X-Ray 06/01/20 00:00 IMPRESSION: No evidence of traumatic injury. The facial bone study is somewhat limited by the patient's meagan. Medications Medications Current Medications Generic Name Dose Route Start Last Admin Trade Name Freq PRN Reason Stop Dose Admin Acetaminophen 650 mg 05/31/20 17:59 06/02/20 17:39 Acetaminophen 325 Mg Tablet PO 650 mg Q6H PRN Administration Headache/Pain Mild Scale (1-3) Al Hydroxide/Mg Hydroxide 30 ml 05/31/20 17:59 Magnesium Hydrox/Alum Hydrox 30 Ml Oral.Susp PO Q6H PRN Heartburn/Nausea Clonazepam 0.5 mg 05/31/20 09:00 06/03/20 08:05 Clonazepam 0.5 Mg Tablet PO 0.5 mg BID@0900,1700 CATHERINE Administration Clonidine HCl 0.1 mg 06/02/20 21:00 06/03/20 05:39 Clonidine Hcl 0.1 Mg Tablet PO Not Given BEDTIME MRX1 CATHERINE Protocol [place] Carbonate 300 mg 06/01/20 13:55 06/03/20 08:05 [place] Carbonate 300 Mg Capsule PO 300 mg BID CATHERINE Administration Magnesium Hydroxide 30 ml 05/31/20 17:59 Milk Of Magnesia 30 Ml Oral.Susp PO DAILY PRN Constipation Nicotine Polacrilex 4 mg 06/03/20 11:53 Nicotine Polacrilex 2 Mg Gum BUCCAL Q2H PRN Nicotine Cravings Nitrofurantoin Macrocrystals 100 mg 05/29/20 22:20 06/03/20 08:05 Nitrofurantoin Monohyd/M-Cryst 100 Mg Capsule PO 06/04/20 23:00 100 mg BID CATHERINE Administration Propranolol HCl 10 mg 06/02/20 12:02 06/03/20 11:35 Propranolol Hcl 10 Mg Tablet PO 10 mg TID PRN Administration anxiety/racing heart Protocol Risperidone 1 mg 06/01/20 14:00 06/03/20 08:05 Risperidone 1 Mg Tablet PO 1 mg BID CATHERINE Administration Allergies Allergies Allergy/AdvReac Type Severity Reaction Status Date / Time Benadryl Allergy Severe anaphylaxis Verified 05/30/20 06:42 diphenhydramine Allergy Severe ANAPHYLAXIS Unverified 04/19/20 19:20 [From BENADRYL] risperidone [RISPERIDONE] Allergy Severe PSYCHOTIC/HARMFUL Unverified 04/19/20 19:20 BEHAVIOR/BLACKOUTS latex [LATEX] Allergy Intermediate RASH Unverified 04/19/20 19:20 latex Allergy Unknown Rash Unverified 05/30/20 06:42 Assessment & Plan Assessment & Plan (1) PTSD (post-traumatic stress disorder): Status: Acute Code(s): F43.10 - Post-traumatic stress disorder, unspecified Assessment and Plan: tolerating clonidine, and propranlol (2) Bipolar disorder: Qualifiers: Active/Remission status: currently active Current bipolar episode type: depressed Current episode severity: severe Psychotic features: without psychotic features Qualified Code(s): F31.4 - Bipolar disorder, current episode depressed, severe, without psychotic features Status: Acute Code(s): F31.9 - Bipolar disorder, unspecified Assessment and Plan: tolerating risperidone seroquel was the one she had a bad reaction to Greater than 50% of the session was spent on counseling and/or coordination of care
[2020-06-03 20:47] VITALS: BP 112/72; PULSE 94
[2020-06-03] MEDS: cloNIDine HCL 0.1 MG TABLET PO (20:47)
[2020-06-03 20:48] VITALS: TEMP 35.8
[2020-06-04 05:10] VITALS: BP 113/59; PULSE 105
[2020-06-04] MEDS: Propranolol HCL 10 MG TABLET PO ×2 (05:10→14:02)
[2020-06-04 05:13] VITALS: BP 113/59; PULSE 105; RESP 16; TEMP 36.2
[2020-06-04 08:13] LABS: Lithium 0.38 mmol/L (0.60-1.20)
[2020-06-04] MEDS: risperiDONE 1 MG TABLET PO ×2 (08:40→20:47)
[2020-06-04] MEDS: Lithium Carbonate 300 MG CAPSULE PO ×2 (08:40→20:47)
[2020-06-04] MEDS: clonazePAM 0.5 MG TABLET PO ×2 (08:40→17:25)
[2020-06-04] MEDS: Nitrofurantoin Monohyd/M-Cryst 100 MG CAPSULE PO ×2 (09:07→20:47)
--- NOTE | 2020-06-04 09:23 | P.PNPSI_ITS ---
Subjective Subjective Date of Service: 06/04/20 Reason For Visit: mood/anxiety Subjective Notes: Conditional Voluntary Interim History: Annamarie reports that she is is feeling signficantly improved. Medication Compliance: Yes Side effects from medications: No Attending Groups: Yes Review of Systems Acute medical concerns: No Medical Review of Systems: unchanged Mental Status Exam Mental Status Exam Narrative: Alert, walking the lovett Patient Appearance: Well Grooomed Patient Orientation: Person, Place, Time and Situation Level of Consciousness: Awake Patient Behavior: Appropriate Mood Description: Anxious Affect Description: Depressed Patient Cognition Impaired: No Ability to Follow Directions: Good Speech Pattern: Clear Memory Description: Intact Diagnostics Vital Signs (24Hr): Vital Signs - 24 hr 06/03/20 11:35 06/03/20 20:47 06/03/20 20:48 Temperature 96.5 F L Pulse Rate 92 94 Respiratory Rate Blood Pressure 118/72 112/72 06/04/20 05:10 06/04/20 05:13 Temperature 97.2 F Pulse Rate 105 H 105 H Respiratory Rate 16 Blood Pressure 113/59 L 113/59 L Body Mass Index 33.9 Labs Results: 05/29/20 13:26 05/29/20 13:26 Labs: Laboratory Results - last 48 hr 06/04/20 07:38 [place] 0.38 L Imaging Radiology Impressions: ITS Impressions Cervical Spine X-Ray 06/01/20 00:00 IMPRESSION: No evidence of traumatic injury. The facial bone study is somewhat limited by the patient's meagan. Face X-Ray 06/01/20 00:00 IMPRESSION: No evidence of traumatic injury. The facial bone study is somewhat limited by the patient's meagan. Medications Medications Current Medications Generic Name Dose Route Start Last Admin Trade Name Freq PRN Reason Stop Dose Admin Acetaminophen 650 mg 05/31/20 17:59 06/02/20 17:39 Acetaminophen 325 Mg Tablet PO 650 mg Q6H PRN Administration Headache/Pain Mild Scale (1-3) Al Hydroxide/Mg Hydroxide 30 ml 05/31/20 17:59 Magnesium Hydrox/Alum Hydrox 30 Ml Oral.Susp PO Q6H PRN Heartburn/Nausea Clonazepam 0.5 mg 05/31/20 09:00 06/04/20 08:40 Clonazepam 0.5 Mg Tablet PO 0.5 mg BID@0900,1700 CATHERINE Administration Clonidine HCl 0.1 mg 06/02/20 21:00 06/04/20 05:12 Clonidine Hcl 0.1 Mg Tablet PO Not Given BEDTIME MRX1 CATHERINE Protocol [place] Carbonate 300 mg 06/01/20 13:55 06/04/20 08:40 [place] Carbonate 300 Mg Capsule PO 300 mg BID CATHERINE Administration Magnesium Hydroxide 30 ml 05/31/20 17:59 Milk Of Magnesia 30 Ml Oral.Susp PO DAILY PRN Constipation Nicotine Polacrilex 4 mg 06/03/20 11:53 Nicotine Polacrilex 2 Mg Gum BUCCAL Q2H PRN Nicotine Cravings Nitrofurantoin Macrocrystals 100 mg 05/29/20 22:20 06/04/20 09:07 Nitrofurantoin Monohyd/M-Cryst 100 Mg Capsule PO 06/04/20 23:00 100 mg BID CATHERINE Administration Propranolol HCl 10 mg 06/02/20 12:02 06/04/20 05:10 Propranolol Hcl 10 Mg Tablet PO 10 mg TID PRN Administration anxiety/racing heart Protocol Risperidone 1 mg 06/01/20 14:00 06/04/20 08:40 Risperidone 1 Mg Tablet PO 1 mg BID CATHERINE Administration Allergies Allergies Allergy/AdvReac Type Severity Reaction Status Date / Time Benadryl Allergy Severe anaphylaxis Verified 05/30/20 06:42 diphenhydramine Allergy Severe ANAPHYLAXIS Unverified 04/19/20 19:20 [From BENADRYL] latex [LATEX] Allergy Intermediate RASH Unverified 04/19/20 19:20 latex Allergy Unknown Rash Unverified 05/30/20 06:42 Assessment & Plan Assessment & Plan (1) PTSD (post-traumatic stress disorder): Status: Acute Code(s): F43.10 - Post-traumatic stress disorder, unspecified Assessment and Plan: tolerating clonidine, and propranlol (2) Bipolar disorder: Qualifiers: Active/Remission status: currently active Current bipolar episode type: depressed Current episode severity: severe Psychotic features: without psychotic features Qualified Code(s): F31.4 - Bipolar disorder, current episode depressed, severe, without psychotic features Status: Acute Code(s): F31.9 - Bipolar disorder, unspecified Assessment and Plan: tolerating risperidone seroquel was the one she had a bad reaction to Greater than 50% of the session was spent on counseling and/or coordination of care
[2020-06-04 14:02] VITALS: BP 109/68; PULSE 103
[2020-06-04 14:07] VITALS: BP 109/68; PULSE 103
[2020-06-04 18:00] VITALS: BP 124/71; PULSE 94; TEMP 36.4
[2020-06-04 20:47] VITALS: BP 124/71; PULSE 94
[2020-06-04] MEDS: cloNIDine HCL 0.1 MG TABLET PO (20:47)
[2020-06-05 00:47] VITALS: BP 132/83; PULSE 97
[2020-06-05] MEDS: cloNIDine HCL 0.1 MG TABLET PO (00:47)
[2020-06-05 06:00] VITALS: BP 97/60; PULSE 84; RESP 16; TEMP 37.1
[2020-06-05 06:47] VITALS: BP 97/60; PULSE 84
[2020-06-05] MEDS: Propranolol HCL 10 MG TABLET PO (06:47)
[2020-06-05] MEDS: Lithium Carbonate 300 MG CAPSULE PO (08:30)
[2020-06-05] MEDS: clonazePAM 0.5 MG TABLET PO (08:30)
[2020-06-05] MEDS: risperiDONE 1 MG TABLET PO ×2 (08:30→21:07)
--- NOTE | 2020-06-05 09:30 | P.PNPSI_ITS ---
Subjective Subjective Date of Service: 06/05/20 Reason For Visit: mood/anxiety Subjective Notes: Conditional Voluntary Interim History: Annamarie reports that she is is feeling signficantly improved. However she is struggling with insomnia still and she would like to take all of the clonidine in one dose. Her BP will not support this with propranolol as a prn, and so will switch to ativan. Medication Compliance: Yes Side effects from medications: No Attending Groups: Yes Review of Systems Acute medical concerns: No Medical Review of Systems: unchanged Mental Status Exam Mental Status Exam Narrative: Appears comfortable and ease Patient Appearance: Well Grooomed Patient Orientation: Person, Place, Time and Situation Level of Consciousness: Awake Patient Behavior: Appropriate Mood Description: Anxious Affect Description: Depressed Patient Cognition Impaired: No Ability to Follow Directions: Good Speech Pattern: Clear Memory Description: Intact Hallucinations: None Delusions: Not Present Thought Process: Intact Thought Content: positive for Circumstantial, negative for Suicidal Ideation and negative for Homicidal Ideation Judgement: Fair Diagnostics Vital Signs (24Hr): Vital Signs - 24 hr 06/04/20 14:02 06/04/20 14:07 06/04/20 18:00 Temperature 97.5 F Pulse Rate 103 H 103 H 94 Respiratory Rate Blood Pressure 109/68 109/68 124/71 06/04/20 20:47 06/05/20 00:47 06/05/20 06:00 Temperature 98.7 F Pulse Rate 94 97 84 Respiratory Rate 16 Blood Pressure 124/71 132/83 97/60 06/05/20 06:47 Temperature Pulse Rate 84 Respiratory Rate Blood Pressure 97/60 Body Mass Index 33.9 Labs Results: 05/29/20 13:26 05/29/20 13:26 Labs: Laboratory Results - last 48 hr 06/04/20 07:38 [place] 0.38 L Imaging Radiology Impressions: ITS Impressions Cervical Spine X-Ray 06/01/20 00:00 IMPRESSION: No evidence of traumatic injury. The facial bone study is somewhat limited by the patient's meagan. Face X-Ray 06/01/20 00:00 IMPRESSION: No evidence of traumatic injury. The facial bone study is somewhat limited by the patient's meagan. Medications Medications Current Medications Generic Name Dose Route Start Last Admin Trade Name Freq PRN Reason Stop Dose Admin Acetaminophen 650 mg 05/31/20 17:59 06/02/20 17:39 Acetaminophen 325 Mg Tablet PO 650 mg Q6H PRN Administration Headache/Pain Mild Scale (1-3) Al Hydroxide/Mg Hydroxide 30 ml 05/31/20 17:59 Magnesium Hydrox/Alum Hydrox 30 Ml Oral.Susp PO Q6H PRN Heartburn/Nausea Clonidine HCl 0.1 mg 06/02/20 21:00 06/05/20 00:47 Clonidine Hcl 0.1 Mg Tablet PO 0.1 mg BEDTIME MRX1 CATHERINE Administration Protocol [place] Carbonate 300 mg 06/01/20 13:55 06/05/20 08:30 [place] Carbonate 300 Mg Capsule PO 300 mg BID CATHERINE Administration Magnesium Hydroxide 30 ml 05/31/20 17:59 Milk Of Magnesia 30 Ml Oral.Susp PO DAILY PRN Constipation Nicotine Polacrilex 4 mg 06/03/20 11:53 Nicotine Polacrilex 2 Mg Gum BUCCAL Q2H PRN Nicotine Cravings Propranolol HCl 10 mg 06/02/20 12:02 06/05/20 06:47 Propranolol Hcl 10 Mg Tablet PO 10 mg TID PRN Administration anxiety/racing heart Protocol Risperidone 1 mg 06/01/20 14:00 06/05/20 08:30 Risperidone 1 Mg Tablet PO 1 mg BID CATHERINE Administration Allergies Allergies Allergy/AdvReac Type Severity Reaction Status Date / Time Benadryl Allergy Severe anaphylaxis Verified 05/30/20 06:42 diphenhydramine Allergy Severe ANAPHYLAXIS Unverified 04/19/20 19:20 [From BENADRYL] latex [LATEX] Allergy Intermediate RASH Unverified 04/19/20 19:20 latex Allergy Unknown Rash Unverified 05/30/20 06:42 Assessment & Plan Assessment & Plan (1) PTSD (post-traumatic stress disorder): Status: Acute Code(s): F43.10 - Post-traumatic stress disorder, unspecified (2) Bipolar disorder: Qualifiers: Active/Remission status: currently active Current bipolar episode type: depressed Current episode severity: severe Psychotic features: without psychotic features Qualified Code(s): F31.4 - Bipolar disorder, current episode depressed, severe, without psychotic features Status: Acute Code(s): F31.9 - Bipolar disorder, unspecified Assessment and Plan: DC propranolol Ativan prn Refer to PHP Greater than 50% of the session was spent on counseling and/or coordination of care Patient educated on: diagnosis and medication risk/benefits Informed Consent: further education needed Reason for contiued inpatient stay Substantial Risk for: rapid decompensation
[2020-06-05 16:39] VITALS: BP 117/58; PULSE 112; TEMP 36.6
[2020-06-05] MEDS: LORazepam 0.5 MG TABLET PO ×2 (17:41→22:24)
[2020-06-05] MEDS: Lithium Carbonate 300 MG CAPSULE 600 MG PO (21:07)
[2020-06-05 21:08] VITALS: BP 117/58; PULSE 112
[2020-06-05] MEDS: cloNIDine HCL 0.1 MG TABLET 0.2 MG PO (21:08)
[2020-06-06] MEDS: LORazepam 0.5 MG TABLET PO ×3 (02:20→12:02)
[2020-06-06 06:00] VITALS: BP 97/54; PULSE 82; RESP 18; TEMP 36.8
[2020-06-06] MEDS: Lithium Carbonate 300 MG CAPSULE 600 MG PO (08:31)
[2020-06-06] MEDS: risperiDONE 1 MG TABLET PO (08:31)
[2020-06-06 08:47] LABS: Estimated Average Glucose 94 mg/dL; Hemoglobin A1c % 4.9 %
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
[2020-06-06 09:38] LABS: Cholesterol 135 mg/dL; HDL Cholesterol 45 mg/dL; LDL Cholesterol Calculated 80 mg/dl; Triglycerides 53 mg/dL
== END 2020-06-06 13:04 | disposition home or self-care (01) | DRG 753 ==
LOC: HO.ED 05-31 18:20 → HO.PM5 05-31 18:22
PROVIDERS: Nurse Practitioner Primary Care; Physician Assistant; Admitting Provider Psychiatry & Neurology Psychiatry; Emergency Provider Internal Medicine; PCP Physician Assistant; Visit Provider Psychiatry & Neurology Psychiatry
DX: F31.81 Bipolar II disorder (principal); F12.20 Cannabis dependence, uncomplicated; F17.210 Nicotine dependence, cigarettes, uncomplicated; F43.10 Post-traumatic stress disorder, unspecified; J45.909 Unspecified asthma, uncomplicated; M54.2 Cervicalgia; R68.84 Jaw pain; Z20.828 Contact with and (suspected) exposure to other viral communicable diseases; Z86.11 Personal history of tuberculosis; Z71.6 Tobacco abuse counseling; Z79.899 Other long term (current) drug therapy
CPT/HCPCS: 36415; 70150; 72040; 80053; 80061; 80164; 80178; 80307; 80320; 81001; 81025; 83036; 83695; 85025; 85610; 85730; 87635; 90686; 93005; 96372; 99232; 99233; 99283; 99285; G0480; J2060

== ENCOUNTER 2020-06-13 08:40 | Outpatient (REF) | payer OTHER, SELFPAY ==
[2020-06-13 09:49] LABS: Lithium 0.83 mmol/L (0.60-1.20)
== END 2020-06-13 08:41 | disposition home or self-care (01) ==
LOC: HO.LAB 08:40
PROVIDERS: PCP Physician Assistant; Visit Provider Psychiatry & Neurology Psychiatry
DX: F43.10 Post-traumatic stress disorder, unspecified (principal); F31.9 Bipolar disorder, unspecified
CPT/HCPCS: 80178

== ENCOUNTER 2020-06-15 09:59 | Outpatient (REF) | payer OTHER, SELFPAY ==
[2020-06-15 11:22] LABS: Lithium 0.79 mmol/L (0.60-1.20)
[2020-06-15 11:28] LABS: Anion Gap 11 (12-20); Blood Urea Nitrogen 14 mg/dL (9-16); Carbon Dioxide 25 mmol/L (22-29); Chloride 105 mmol/L (96-108); Estimated Glomerular Filt Rate > 60; Glucose Fasting 77 mg/dL (60-99); Potassium 4.4 mmol/l (3.3-5.1); Sodium 137 mmol/L (135-145)
[2020-06-15 11:52] LABS: Thyroid Stimulating Hormone 2.19 uIU/mL (0.32-4.0)
--- NOTE | 2020-06-15 15:16 | P.PNPSP_ITS ---
Subjective Subjective Date of Service: 06/15/20 Reason For Visit: F31.4 Interim History: Annamarie reports some decrease in symptoms with anxiety/insomnia still effecting her. Labs today, Li level 0.79. Finding group helpful and supportive. Review of medications-finding Risperdal useful. Discussed titration. Medication Compliance: Yes Side effects from medications: No Attending Groups: Yes Review of Systems Review of Systems Yes all other systems are reviewed and are negative Psychiatric: Reports abnormal sleep pattern and Reports anxiety Mental Status Exam Mental Status Exam Patient Orientation: Person, Place, Time and Situation Level of Consciousness: Awake, Appropriate and Alert Patient Behavior: Appropriate Mood Description: Anxious Affect Description: Flat Patient Cognition Impaired: No Ability to Follow Directions: Excellent Speech Pattern: Clear and Long Pauses Memory Description: Intact Hallucinations: None Delusions: Not Present Thought Content: positive for Intact and positive for Slowed Thinking (at times) Depressive Symptoms: Increased Anxiety, Insomnia and Difficulty Sleeping Judgement: Fair Diagnostics Labs Results: 06/15/20 10:16 06/15/20 10:16 Labs: Laboratory Results - last 48 hr 06/15/20 06/15/20 10:16 10:16 Sodium 137 Potassium 4.4 Chloride 105 Carbon Dioxide 25 Anion Gap 11 L BUN 14 Creatinine 1.00 Estim Creat Clear Calc Not Reportable Estimated GFR > 60 Fasting Glucose 77 Calcium 9.0 TSH 2.19 [place] 0.79 Assessment & Plan Patient educated on: medication risk/benefits (Increase Risperdal to 1 mg a.m. 1.5 mg HS) and therapeutic strategies Informed Consent: further education needed Reason for contiued partial hosp. stay Substantial Risk for: inability to function and rapid decompensation Certification I certify that partial hospital treatment is medically necessary due to the symptoms and problems resulting from the patient's mental illness and the failure to treat the patient at the partial hospital level of care would likely result in the patient requiring inpatient psychiatric care which could not be prevented at a less intensive level of care. Greater than 50% of the session was spent on counseling and/or coordination of care Discharge Plan Discharge Primary Care Provider: Humberto Morrow Patient Disposition: Home, Self-Care Discharge Date/Time: 06/15/20 10:00 Referrals: Humberto Morrow PA-C [Primary Care Provider] - Discharge Medications: New risperidone [Risperdal] 1 mg tablet 1 mg PO QAM Qty: 14 RF: 1 risperidone [Risperdal] 1 mg tablet 1.5 mg PO BEDTIME Qty: 21 RF: 1 Continued clonidine HCl 0.1 mg Tablet 0.2 mg PO BEDTIME Qty: 15 RF: 1 lithium carbonate 300 mg capsule 600 mg PO BID Qty: 60 RF: 0 oxcarbazepine [Trileptal] 300 mg tablet 300 mg PO BID Qty: 14 RF: 1 Discontinued risperidone 1 mg Tablet 1 mg PO BID Qty: 60 RF: 0 No Action lorazepam 0.5 mg Tablet 0.5 mg PO Q4H PRN (Reason: Anxiety) Qty: 30 RF: 0
--- NOTE | 2020-07-09 15:18 | HO.PHPPROGNO ---
Subjective Subjective Date of Service: 07/09/20 Reason For Visit: F31.4 Interim History: Yen plans discharge today. She will meet with her out patient med provider Aug 2020. Reports she has been struggling over the weekend with anger, night terrors, feeling uncomfortable and unprotected in her home due to PTSD exacerbation. Reports mid-day she feels agitated. Sleep is increased in consideration of sx of night terrors. Reports a decrease in shaking/tremor SE experienced from ? Risperdal. Has not had labs completed yet. States she will go this week for levels. Discussed medication changes to address current sx. Medication Compliance: Yes Side effects from medications: No Attending Groups: Yes Review of Systems Psychiatric: Reports abnormal sleep pattern (night terrors), Reports anxiety, Reports depression, Reports difficulty concentrating, Reports irritability, Reports anhedonia, Reports mood swings, Reports panic attacks and Reports other (PTSD sx exacerbation) Mental Status Exam Mental Status Exam Patient Orientation: Person, Place, Time and Situation Level of Consciousness: Awake, Appropriate and Alert Patient Behavior: Appropriate, Talkative, Cooperative, Anxious, Fearful (at times, when alone she reports), Fatigued, Distractible and Isolative Mood Description: Withdrawn, Appropriate, Depressed, Fearful, Anxious, Flat, Nervous and Apprehensive Affect Description: Anxious, Nervous and Apprehensive Patient Cognition Impaired: No Ability to Follow Directions: Excellent Speech Pattern: Clear, Appropriate, Spontaneous Speech and Soft-Spoken Memory Description: Intact Hallucinations: None Delusions: Not Present Thought Process: Intact Thought Content: positive for Intact Depressive Symptoms: Increased Anxiety, Increased Irritability, Difficulty Sleeping (night terrors), Hopelessness and Increased Fatigue Judgement: Good Diagnostics Labs Results: 06/15/20 10:16 06/15/20 10:16 Labs: Annamarie reports she has not had labs drawn yet. Plans to attend to this during the coming week. Assessment & Plan Assessment & Plan (1) Bipolar disorder: Status: Acute Code(s): F31.9 - Bipolar disorder, unspecified Assessment and Plan: Annamarie has not had her labs completed as yet. We discussed the importance of this and she will complete them this week. Continue [place] 600 mg bid Olanzapine 10 mg hs Trileptal 600 mg bid Benztropine 1 mg daily Lorazepam 0.5 mg bid prn Begin Olanzapine 5 mg a.m. to assist in lability, PTSD sx mgt Discontinue Clonidine as pt is experiencing night terrors. Begin Prazosin 1 mg hs to assist in mgt of night terrors. Pt plans discharge today. She will meet with her out pt team in Aug 2019. She will call as needed. Call to [facility] to review regime, changes, additions and discontinuations of medications. Prescriptions sent to [facility] (2) PTSD (post-traumatic stress disorder): Status: Acute Code(s): F43.10 - Post-traumatic stress disorder, unspecified Assessment and Plan: Discontinue Clonidine. Begin Prazosin 1 mg hs to assist in mgt of night terrors. Begin Olanzapine 5 mg in a.m. to assist in lability, PTSD sx mgt. Certification I certify that partial hospital treatment is medically necessary due to the symptoms and problems resulting from the patient's mental illness and the failure to treat the patient at the partial hospital level of care would likely result in the patient requiring inpatient psychiatric care which could not be prevented at a less intensive level of care. Greater than 50% of the session was spent on counseling and/or coordination of care Discharge Plan Discharge Primary Care Provider: Humberto Morrow Patient Disposition: Home, Self-Care Discharge Date/Time: 06/15/20 10:00 Referrals: Humberto Morrow PA-C [Primary Care Provider] - Discharge Medications: New olanzapine 10 mg tablet 10 mg PO BEDTIME Qty: 14 RF: 0 lithium carbonate 600 mg capsule 600 mg PO BID Qty: 30 RF: 0 oxcarbazepine [Trileptal] 600 mg tablet 600 mg PO BID Qty: 14 RF: 0 Continued prazosin 1 mg capsule 1 mg PO BEDTIME Qty: 14 RF: 1 olanzapine 5 mg tablet 5 mg PO QAM Qty: 30 RF: 0 olanzapine 10 mg tablet 10 mg PO BEDTIME Qty: 30 RF: 0 lithium carbonate 600 mg capsule 600 mg PO BID Qty: 60 RF: 0 benztropine 1 mg tablet 1 mg PO DAILY Qty: 30 RF: 0 oxcarbazepine [Trileptal] 600 mg tablet 600 mg PO BID Qty: 60 RF: 0 Discontinued lithium carbonate 300 mg capsule 600 mg PO BID RF: 0 clonidine HCl 0.1 mg Tablet 0.2 mg PO BEDTIME RF: 0 No Action lorazepam 0.5 mg Tablet 0.5 mg PO Q4H PRN (Reason: Anxiety) Qty: 14 RF: 0
== END 2020-06-15 10:00 | disposition home or self-care (01) ==
LOC: HO.LAB 09:59
PROVIDERS: PCP Physician Assistant; Visit Provider Clinical Nurse Specialist Psychiatric/Mental Health, Adult
DX: F31.4 Bipolar disorder, current episode depressed, severe, without psychotic features (principal); Z79.899 Other long term (current) drug therapy
CPT/HCPCS: 80048; 80178; 84443; 99213

== ENCOUNTER 2020-07-11 09:15 | Outpatient (RCR) | payer OTHER, SELFPAY ==
--- NOTE | 2020-06-07 11:55 | PC.NURSE ---
I tried to call pt after the first group. I received a message that the phone is no longer in service ([phone]). I sent pt an email letting her know this, and giving her my number.
--- NOTE | 2020-06-07 14:32 | PC.NURSE ---
Unable to get a hold of patient by telephone, as telephone recording states phone is not active.
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
--- NOTE | 2020-06-08 09:45 | PC.NURSE ---
Pt called out for PHP this morning. 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 She also shared about getting a call from [facility] yesterday stating her new therapist will longer be a therapist there , and that [facility] will now assign her to someone else. She reported feeling upset that she will again have to repeat her story to a new therapist, but said she is not sad about losing this therapist.
[2020-06-08 09:48] VITALS: BMI 32.3
--- NOTE | 2020-06-08 10:14 | PC.ADMIT ---
Patient is a 30 year old female who started the PHP program yesterday. Unable to contact patient via phone yesterday as the number the patient gave to staff was not active. Patient gave new number to staff that is active and was able to call patient today to complete nursing assessment. 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 Unable to complete medication reconciliation at this time as patient stated she will be home at 1400 and will call me back to complete as her medications are at home. Patient was referred to [facility] by M/5 where patient was hospitalized d/t depression and was making suicidal statements. Patient reportedly stopped her medications and was experiencing AH. She was feeling overwhelmed taking care of 5 children during the pandemic and recently lost her therapist with who she had a connection with. Patient is alert and oriented x4. Calm and cooperative. Denied SI of thoughts to harm herself, Denied AH. Patient stated she is here, to get better and to get more support . Reports poor sleep and appetite. Patient gave verbal permission to email her a copy of her safety plan and agrees to utilize this if needed. Patient also stated she has the crisis number if needed.
--- NOTE | 2020-06-08 14:13 | PC.NURSE ---
Segundo Young APRN is aware that patient is taking [place] 600 BID. Patient stated she will be starting Trileptal tonight.
--- NOTE | 2020-06-11 15:12 | HO.PHPPROGNO ---
Subjective Subjective Date of Service: 06/11/20 Reason For Visit: depression Interim History: Yen reports some improvement, however, is still experiencing anxiety, panic and lability of mood. Trileptal is tolerated and helpful with sleep. Discussed adding a daytime dosage for assistance with mood symptoms which she agrees is worth a trial Medication Compliance: Yes Side effects from medications: No Attending Groups: Yes Review of Systems Review of Systems Yes all other systems are reviewed and are negative Psychiatric: Reports anxiety, Reports irritability, Reports mood swings and Reports panic attacks Mental Status Exam Mental Status Exam Patient Orientation: Person, Place, Time and Situation Level of Consciousness: Awake and Alert Patient Behavior: Appropriate, Talkative, Cooperative and Anxious Mood Description: Anxious Affect Description: Constricted Patient Cognition Impaired: No Ability to Follow Directions: Excellent Speech Pattern: Clear, Appropriate and Spontaneous Speech Memory Description: Intact Hallucinations: None Delusions: Not Present Thought Process: Intact and Goal Oriented Thought Content: positive for Intact Depressive Symptoms: Increased Anxiety and Increased Irritability Judgement: Good Diagnostics Vital Signs (24Hr): Body Mass Index 32.3 Assessment & Plan Patient educated on: medication risk/benefits and therapeutic strategies Informed Consent: understands and further education needed Reason for contiued partial hosp. stay Substantial Risk for: rapid decompensation Certification I certify that partial hospital treatment is medically necessary due to the symptoms and problems resulting from the patient's mental illness and the failure to treat the patient at the partial hospital level of care would likely result in the patient requiring inpatient psychiatric care which could not be prevented at a less intensive level of care. Greater than 50% of the session was spent on counseling and/or coordination of care Discharge Plan Discharge Attending provider: Austyn Stephens Additional Instructions: Increase Trileptal to 300 mg bid for attention to mood lability, anxiety Medications: New oxcarbazepine [Trileptal] 300 mg tablet 300 mg PO BID Qty: 14 RF: 0 No Action lorazepam 0.5 mg Tablet 0.5 mg PO Q4H PRN (Reason: Anxiety) Qty: 30 RF: 0 risperidone 1 mg Tablet 1 mg PO BID Qty: 60 RF: 0 lithium carbonate 300 mg capsule 600 mg PO BID RF: 0 clonidine HCl 0.1 mg Tablet 0.2 mg PO BEDTIME RF: 0
--- NOTE | 2020-06-11 15:42 | PC.NURSE ---
Pt informed staff that her new therapist at [facility] (Tayla Egan) has left the agency and will no longer be seeing pt. Pt called and spoke to me about this, and expressed concern about getting a new therapist in a timely manner. I called [facility] at pt's request. I spoke to Yaneth, who informed me that [facility] will be assigning pt to a therapist by the name of Eri Lucas. I was transferred to [facility] and left her a message asking if I can get an appt for pt to see [facility] for aftercare. I asked her to pls call me back.
--- NOTE | 2020-06-19 14:52 | P.PNPSP_ITS ---
Subjective Subjective Date of Service: 06/19/20 Reason For Visit: depression Interim History: Sleep is so hard for me. Reports [place] 3-4 a.m, denies napping. Reports struggling for 4 months and still feeling tired with mind racing. Reports lauren is at home to respond to the children if needed at night. Discussed making a change to Olanzapine to assist in decreasing racing thoughts and assist her in sleep. Also, reports some SE- feels twitching of neck, mouth at times. Medication Compliance: Yes Side effects from medications: Yes (as noted) Attending Groups: Yes Review of Systems Constitutional: Reports difficulty sleeping, Reports fatigue and Reports lethargy Reports Neuro-related abnormal movements (intermittent twitching of neck, mouth) Psychiatric: Reports abnormal sleep pattern Endocrine: Reports fatigue Mental Status Exam Mental Status Exam Patient Orientation: Person, Place, Time and Situation Level of Consciousness: Awake, Appropriate and Alert Patient Behavior: Appropriate and Talkative Mood Description: Flat Affect Description: Flat Patient Cognition Impaired: No Ability to Follow Directions: Good Speech Pattern: Clear, Appropriate and Spontaneous Speech Memory Description: Intact Hallucinations: None Delusions: Not Present Thought Process: Intact and Goal Oriented Thought Content: positive for Intact and positive for Racing (per report) Depressive Symptoms: Insomnia, Difficulty Sleeping, Increased Fatigue and Loss of Energy Judgement: Good Diagnostics Vital Signs (24Hr): Body Mass Index 32.3 Assessment & Plan Patient educated on: medication risk/benefits Informed Consent: further education needed Reason for contiued partial hosp. stay Substantial Risk for: inability to function and rapid decompensation Certification I certify that partial hospital treatment is medically necessary due to the symptoms and problems resulting from the patient's mental illness and the failure to treat the patient at the partial hospital level of care would likely result in the patient requiring inpatient psychiatric care which could not be prevented at a less intensive level of care. Greater than 50% of the session was spent on counseling and/or coordination of care Discharge Plan Discharge Attending provider: Austyn Stephens Additional Instructions: Increase Trileptal to 300 mg bid for attention to mood lability, anxiety *Appt with Jose Alberto Addison for medication management at [facility] on 06/26/2020 06/19/20: Discontinue Risperdal- SE of twitching of neck, mouth-intermittent and not assisting with calming racing thoughts at 2.5 md daily. Begin Olanzapine 5 mg hs. Medications: New oxcarbazepine [Trileptal] 300 mg tablet 300 mg PO BID Qty: 14 RF: 0 olanzapine 5 mg tablet 5 mg PO BEDTIME Qty: 10 RF: 0 Discontinued risperidone 1 mg Tablet 1 mg PO BID Qty: 60 RF: 0 No Action lorazepam 0.5 mg Tablet 0.5 mg PO Q4H PRN (Reason: Anxiety) Qty: 30 RF: 0 clonidine HCl 0.1 mg Tablet 0.2 mg PO BEDTIME Qty: 15 RF: 1 lithium carbonate 300 mg capsule 600 mg PO BID Qty: 60 RF: 0
--- NOTE | 2020-06-21 15:39 | HO.PHPPROGNO ---
Subjective Subjective Date of Service: 06/21/20 Reason For Visit: depression Interim History: Yen has taken one dose of Olanzapine. She reports minimal sleep, ongoing tremor and asks for changes. She did miss one night of dosing between changing Risperdal to Olanzapine Medication Compliance: Yes Side effects from medications: Yes Attending Groups: Yes Review of Systems Constitutional: Reports difficulty sleeping, Reports fatigue, Reports lethargy and Reports malaise Musculoskeletal: Reports other (tremor) Reports Neuro-related abnormal movements (intermittent twitching of neck, mouth) and Reports tremor(s) Comments: Reports twitching in hands and feet Psychiatric: Reports abnormal sleep pattern, Reports depression, Reports difficulty concentrating, Reports hopelessness and Reports irritability Endocrine: Reports fatigue Mental Status Exam Mental Status Exam Patient Orientation: Person, Place, Time and Situation Level of Consciousness: Awake, Appropriate and Alert Patient Behavior: Appropriate, Talkative, Cooperative and Restless Mood Description: Depressed and Angry Affect Description: Flat Patient Cognition Impaired: No Ability to Follow Directions: Excellent Speech Pattern: Clear, Appropriate, Spontaneous Speech and Soft-Spoken Memory Description: Intact Hallucinations: None Delusions: Not Present Thought Process: Intact Thought Content: positive for Intact, positive for [place], positive for Circumstantial and positive for Logical Depressive Symptoms: Insomnia, Increased Irritability and Difficulty Sleeping Judgement: Good Diagnostics Vital Signs (24Hr): Body Mass Index 32.3 Assessment & Plan Patient educated on: medication risk/benefits and therapeutic strategies Informed Consent: understands Reason for contiued partial hosp. stay Substantial Risk for: inability to function and rapid decompensation Certification I certify that partial hospital treatment is medically necessary due to the symptoms and problems resulting from the patient's mental illness and the failure to treat the patient at the partial hospital level of care would likely result in the patient requiring inpatient psychiatric care which could not be prevented at a less intensive level of care. Greater than 50% of the session was spent on counseling and/or coordination of care Discharge Plan Discharge Attending provider: Austyn Stephens Additional Instructions: Increase Trileptal to 300 mg bid for attention to mood lability, anxiety *Appt with Jose Alberto Addison for medication management at [facility] on 06/26/2020 06/19/20: Discontinue Risperdal- SE of twitching of neck, mouth-intermittent and not assisting with calming racing thoughts at 2.5 md daily. Begin Olanzapine 5 mg hs. 06/21/20: Increase Olanzapine to 10 mg hs Begin Benztropine 1 mg hs To address pt reports of insomnia w/racing thoughts, twitching/?akathesia sx. Medications: New oxcarbazepine [Trileptal] 300 mg tablet 300 mg PO BID Qty: 14 RF: 0 olanzapine 10 mg tablet 10 mg PO BEDTIME Qty: 14 RF: 0 benztropine 1 mg tablet 1 mg PO DAILY Qty: 14 RF: 0 Discontinued risperidone 1 mg Tablet 1 mg PO BID Qty: 60 RF: 0 No Action lorazepam 0.5 mg Tablet 0.5 mg PO Q4H PRN (Reason: Anxiety) Qty: 30 RF: 0 clonidine HCl 0.1 mg Tablet 0.2 mg PO BEDTIME Qty: 15 RF: 1 lithium carbonate 300 mg capsule 600 mg PO BID Qty: 60 RF: 0
--- NOTE | 2020-06-25 15:43 | P.PNPSP_ITS ---
Subjective Subjective Date of Service: 06/25/20 Reason For Visit: depression Interim History: Annamarie reports improvement. She reports she is able to sleep from 12am-6am without interruption. She denies feeling sedate during the day and believes we are on the appropriate track for mood stabilization. Discussed having labs this week and she concurs. Denies SE, Reports twitching experienced last week is diminished. Medication Compliance: Yes Side effects from medications: Yes ( twitching is decreasing) Attending Groups: Yes Review of Systems Reports Neuro-related abnormal movements (intermittent twitching of neck, mouth has decreased) Psychiatric: Reports no additional psychiatric complaints, Reports as per HPI and Reports other (denies sx today, Reports feeling improved.) Mental Status Exam Mental Status Exam Patient Orientation: Person, Place, Time and Situation Level of Consciousness: Awake, Appropriate and Alert Patient Behavior: Passive Mood Description: Calm Affect Description: Calm Patient Cognition Impaired: No Ability to Follow Directions: Good Speech Pattern: Clear, Appropriate, Spontaneous Speech and Soft-Spoken Memory Description: Intact Hallucinations: None Delusions: Not Present Thought Process: Intact Thought Content: positive for Intact Depressive Symptoms: Increased Anxiety (PTSD related she reports) Judgement: Good Diagnostics Vital Signs (24Hr): Body Mass Index 32.3 Labs Labs: Will order for pt this week. Assessment & Plan Assessment & Plan (1) Bipolar disorder: Status: Acute Code(s): F31.9 - Bipolar disorder, unspecified Assessment and Plan: Continue current regime Labs this week- [place], CMP, CBC, A1C, TSH, FT4 Patient educated on: diagnosis and therapeutic strategies (continue [facility] plan of care) Informed Consent: understands Reason for contiued partial hosp. stay Substantial Risk for: harm to self, inability to function and rapid decompensation Certification I certify that partial hospital treatment is medically necessary due to the symptoms and problems resulting from the patient's mental illness and the failure to treat the patient at the partial hospital level of care would likely result in the patient requiring inpatient psychiatric care which could not be prevented at a less intensive level of care. Greater than 50% of the session was spent on counseling and/or coordination of care Discharge Plan Discharge Attending provider: Austyn Stephens Additional Instructions: Increase Trileptal to 300 mg bid for attention to mood lability, anxiety *Appt with Jose Alberto Addison for medication management at [facility] on 06/26/2020 06/19/20: Discontinue Risperdal- SE of twitching of neck, mouth-intermittent and not assisting with calming racing thoughts at 2.5 md daily. Begin Olanzapine 5 mg hs. 06/21/20: Increase Olanzapine to 10 mg hs Begin Benztropine 1 mg hs To address pt reports of insomnia w/racing thoughts, twitching/?akathesia sx. 06/25/20: Continue current plan. Medications: New oxcarbazepine [Trileptal] 300 mg tablet 300 mg PO BID Qty: 14 RF: 0 olanzapine 10 mg tablet 10 mg PO BEDTIME Qty: 14 RF: 0 benztropine 1 mg tablet 1 mg PO DAILY Qty: 14 RF: 0 Continued lorazepam 0.5 mg Tablet 0.5 mg PO Q4H PRN (Reason: Anxiety) Qty: 14 RF: 0 Discontinued risperidone 1 mg Tablet 1 mg PO BID Qty: 60 RF: 0 No Action clonidine HCl 0.1 mg Tablet 0.2 mg PO BEDTIME Qty: 15 RF: 1 lithium carbonate 300 mg capsule 600 mg PO BID Qty: 60 RF: 0
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
--- NOTE | 2020-07-02 09:18 | PC.NURSE ---
Pt did not show for morning meeting. I called and a man answered. He said she is out grocery shopping.
--- NOTE | 2020-07-02 16:45 | HO.PHPPROGNO ---
Subjective Subjective Date of Service: 07/03/20 Reason For Visit: depression Interim History: Annamarie reports she did not receive her medicine delivery on 06/27 and as a result has been out of medication since 06/29. We reviewed her regime and sent in Clonidine 0.2 mg HS; Lorazepam 0.5 mg bid prn, [place] 600 mg bid, Olanzapine 10 mg HS, Trileptal 600 mg bid. Benztropine was not sent as she believes tremors, possibly from Risperdal are resolved. Review of Systems Reports behavioral changes Psychiatric: Reports abnormal sleep pattern, Reports anxiety, Reports behavioral changes, Reports depression, Reports difficulty concentrating, Reports hopelessness and Reports mood swings Mental Status Exam Mental Status Exam Patient Orientation: Person, Place, Time and Situation Level of Consciousness: Awake, Appropriate and Alert Patient Behavior: Appropriate, Talkative, Cooperative and Anxious Mood Description: Withdrawn, Depressed, Anxious and Flat Affect Description: Flat Patient Cognition Impaired: No Ability to Follow Directions: Good Speech Pattern: Clear, Perseverating, Appropriate, Soft-Spoken and Delayed Memory Description: Intact Hallucinations: None Delusions: Not Present Perceptual Disturbances: Depersonalization (PTSD sx intermittent) Thought Process: Rumination Thought Content: positive for [place] Depressive Symptoms: Increased Anxiety, Insomnia, Crying Spells, Loss of Int. in Activity, Hopelessness and Unhappiness Judgement: Good Diagnostics Vital Signs (24Hr): Body Mass Index 32.3 Labs Labs: No results available. Labs ordered 06/27/20. Pt did not follow up yet. Assessment & Plan Assessment & Plan (1) Bipolar disorder: Status: Acute Code(s): F31.9 - Bipolar disorder, unspecified Assessment and Plan: Re-establish medication doses-Clonidine, [place], Lorazepam, Olanzapine, Trileptal. Encouraged pt to complete her lab work. Certification I certify that partial hospital treatment is medically necessary due to the symptoms and problems resulting from the patient's mental illness and the failure to treat the patient at the partial hospital level of care would likely result in the patient requiring inpatient psychiatric care which could not be prevented at a less intensive level of care. Greater than 50% of the session was spent on counseling and/or coordination of care Discharge Plan Discharge Attending provider: Austyn Stephens Additional Instructions: Increase Trileptal to 300 mg bid for attention to mood lability, anxiety *Appt with JoseA lberto Addison for medication management at [facility] on 06/26/2020 06/19/20: Discontinue Risperdal- SE of twitching of neck, mouth-intermittent and not assisting with calming racing thoughts at 2.5 md daily. Begin Olanzapine 5 mg hs. 06/21/20: Increase Olanzapine to 10 mg hs Begin Benztropine 1 mg hs To address pt reports of insomnia w/racing thoughts, twitching/?akathesia sx. 06/25/20: Continue current plan. Medications: New benztropine 1 mg tablet 1 mg PO DAILY Qty: 14 RF: 0 oxcarbazepine [Trileptal] 600 mg tablet 600 mg PO BID Qty: 30 RF: 0 olanzapine 10 mg tablet 10 mg PO BEDTIME Qty: 14 RF: 0 lithium carbonate 600 mg capsule 600 mg PO BID Qty: 30 RF: 0 clonidine HCl 0.2 mg tablet 0.2 mg PO BEDTIME Qty: 14 RF: 0 Continued lorazepam 0.5 mg Tablet 0.5 mg PO Q4H PRN (Reason: Anxiety) Qty: 14 RF: 0 Discontinued risperidone 1 mg Tablet 1 mg PO BID Qty: 60 RF: 0 lorazepam 0.5 mg tablet 0.5 mg PO BID PRN (Reason: anxiety) Qty: 14 RF: 0
--- NOTE | 2020-07-03 10:59 | PC.NURSE ---
I called and spoke to pt. because she did not attend group today or yesterday. She sounded anxious and reported shes having a very bad day. She said she did not attend group because she went to the pharmacy with her 5 kids this morning and was not back in time. She did leave a message on my voicemail at 9:30, asking if she might be able to get into group anyway. 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 She said she received a call from a very rude woman at the pharmacy who said they could not fill her meds because they have questions. She said she ended up hanging up on this woman. Annamarie said she is starting to see things and that shes not sleeping, and feels somewhat out of control of her thoughts. She said she is safe, and that her is home, and that she is going to take a bath. She was able to say the number for [facility] crisis and said she would call if unsafe. I let her know that if she does not attend tx tomorrow, we will have to discharge her. I spoke to Ruba Glover APRN, who is calling the pharmacy.
--- NOTE | 2020-07-04 13:43 | PC.NURSE ---
Pt did not attend the 3rd group today, and appeared to be struggling emotionally while in groups. I called and left her a message. After consulting with staff, I called and spoke with her emergency contact (her fiance). He said he is at work, but that he will call her to check on her and ask her to call me.
--- NOTE | 2020-07-05 15:47 | PC.NURSE ---
I called and spoke to pt to assess for safety and to create a plan for if she were to dissociate when her kids are home. She reported feeling safe and present now, and was able to list coping skills she has applied. She said her fiantwon works long hours and expressed fear that he might loose his job if he were to come home to care for her, but that she'd rather this happen than be at further risk for losing her kids. I let her know that we would have to call DCF if we cannot come up with a safe plan, and she shared that DCF is already involved and that she spoke to her DCF worker yesterday and told her about struggling with spacing out and losing time. Pt also shared that she feels much better, and less dissociated, since getting her medications and since they have had time to take effect. She agreed to talk to her fiance and ask him to come home from work if staff asked him to or of she needs him to. She agreed for me to call her fiance also, and for me to call her DCF worker. I called Pt's stef 9release on file) and he agreed to return home from work if staff calls or if pt calls him feeling unsafe in any way. he said he is eligible for FMLA, and I spoke to him about using it if needed so that he can protect his job.
--- NOTE | 2020-07-09 13:18 | HO.PHPPROGNO ---
Subjective Subjective Date of Service: 07/09/20 Reason For Visit: depression Review of Systems Reports Neuro-related abnormal movements (intermittent twitching of neck, mouth has decreased), Reports behavioral changes and Reports tremor(s) Psychiatric: Reports behavioral changes Diagnostics Vital Signs (24Hr): Body Mass Index 32.3 Assessment & Plan Certification I certify that partial hospital treatment is medically necessary due to the symptoms and problems resulting from the patient's mental illness and the failure to treat the patient at the partial hospital level of care would likely result in the patient requiring inpatient psychiatric care which could not be prevented at a less intensive level of care. Greater than 50% of the session was spent on counseling and/or coordination of care Discharge Plan Discharge Attending provider: Austyn Stephens Additional Instructions: Increase Trileptal to 300 mg bid for attention to mood lability, anxiety *Appt with Jose Alberto Addison for medication management at [facility] on 06/26/2020 06/19/20: Discontinue Risperdal- SE of twitching of neck, mouth-intermittent and not assisting with calming racing thoughts at 2.5 md daily. Begin Olanzapine 5 mg hs. 06/21/20: Increase Olanzapine to 10 mg hs Begin Benztropine 1 mg hs To address pt reports of insomnia w/racing thoughts, twitching/?akathesia sx. 06/25/20: Continue current plan. Medications: New prazosin 1 mg capsule 1 mg PO BEDTIME Qty: 14 RF: 1 olanzapine 5 mg tablet 5 mg PO QAM Qty: 30 RF: 0 Continued lorazepam 0.5 mg Tablet 0.5 mg PO Q4H PRN (Reason: Anxiety) Qty: 14 RF: 0 olanzapine 10 mg tablet 10 mg PO BEDTIME Qty: 30 RF: 0 lithium carbonate 600 mg capsule 600 mg PO BID Qty: 60 RF: 0 benztropine 1 mg tablet 1 mg PO DAILY Qty: 30 RF: 0 oxcarbazepine [Trileptal] 600 mg tablet 600 mg PO BID Qty: 60 RF: 0 Discontinued risperidone 1 mg Tablet 1 mg PO BID Qty: 60 RF: 0 lorazepam 0.5 mg tablet 0.5 mg PO BID PRN (Reason: anxiety) Qty: 14 RF: 0
--- NOTE | 2020-07-09 15:21 | PC.NURSE ---
At staff's request, I called [facility] to see if pt might get an earlier med visit than the one she has in August. I was transferred to Ernestina, steam trap man in [place], and I left a detailed msg.
--- NOTE | 2020-07-10 14:42 | PC.NURSE ---
Pt informed staff that she will ne absent from program tomorrow. Tomorrow is her scheduled last day. I called and left a message lettign ehr know that if she's out tomorrow she can come in for her last day. I asked her to pls. call me and let me know.
--- NOTE | 2020-07-11 14:53 | PC.NURSE ---
I called and LM for Eri pt's new therapist at [facility]
== END 2020-07-11 23:55 | disposition home or self-care (01) ==
LOC: HO.PHPA 09:15
PROVIDERS: Visit Provider Psychiatry & Neurology Psychiatry
DX: F31.9 Bipolar disorder, unspecified (principal); F43.10 Post-traumatic stress disorder, unspecified; Z79.899 Other long term (current) drug therapy
CPT/HCPCS: 90792; 90853; 99213; 99214

== ENCOUNTER 2021-11-18 12:25 | Inpatient (IN) | payer OTHER, SELFPAY ==
[2021-11-18 12:46] VITALS: BP 106/69; PULSE 82; RESP 16; TEMP 36.7; O2SAT 98; BMI 36.6
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
[2021-11-18 13:49] LABS: Appearance Urine CLOUDY; Color Urine YELLOW; Glucose Urine UA NEG (NEG); Leukocyte Esterase Urine NEG (NEG); Nitrite Urine NEG (NEG); Specific Gravity - Urine >= 1.030 (1.005-1.025); Urine Blood NEG (NEG); Urine Ketones NEG (NEG); Urine Protein NEG (NEG-TRACE)
[2021-11-18 13:52] LABS: UPreg QC Valid YES; Urine Pregnancy NEGATIVE (NEGATIVE)
[2021-11-18 13:57] LABS: MANUAL DIFF FLAG NO
[2021-11-18 13:58] LABS: Amphetamine Screen Urine Not Detected (Not Detect); Barbiturates, Urine Not Detected (Not Detect); Benzodiazepines Screen Urine POSITIVE (Not Detect); Cannabinoid Screen Urine POSITIVE (Not Detect); Cocaine Screen Urine POSITIVE (Not Detect); Fentanyl, urine Not Detected (Not Detect); Opiate Screen Urine Not Detected (Not Detect); Phencyclidine Screen Urine Not Detected (Not Detect)
[2021-11-18 14:03] LABS: Basophils Percent Auto 0.4 % (0-2); Eosinophils Absolute Auto 0.6 X10*3/uL (0.0-0.4); Eosinophils Percent Auto 6.1 % (0-4); Hematocrit 38.4 % (37.0-47.0); Hemoglobin 12.7 g/dl (12.0-16.0); Imm Gran Abs Auto 0.02 X10*3/uL (0.00-0.03); Imm Gran Pct Auto 0.2 % (0.0-0.4); Lymphocytes Absolute Auto 3.5 X10*3/uL (1.2-4.9); Lymphocytes Percent Auto 38.1 % (20-40); Mean Corpuscular HGB Conc 33.1 g/dl (31.0-35.0); Mean Corpuscular Hemoglobin 26.7 pg (27.0-33.0); Mean Corpuscular Volume 80.8 fL (80.0-98.0); Mean Platelet Volume 10.6 fL (9.4-12.3); Monocytes Absolute Auto 0.5 X10*3/uL (0.1-1.2); Monocytes Percent Auto 5.8 % (2-11); Neutrophils Absolute Auto 4.6 x10*3/uL (2.0-8.3); Neutrophils Percent Auto 49.4 % (45-73); Platelet Count 313 X10*3/uL (160-400); Red Blood Count 4.75 X10*6/uL (4.20-5.50); Red Cell Distribution Width 14.4 % (11.0-16.0); White Blood Count 9.3 X10*3/uL (4.8-10.8)
[2021-11-18 14:11] LABS: Ethanol < 10 mg/dL
[2021-11-18 14:13] LABS: Alanine Aminotransferase 16 U/L (0-31); Albumin Level 4.4 g/dL (3.5-5.0); Alkaline Phosphatase 65 U/L (39-117); Anion Gap 12 (12-20); Aspartate Amino Transferase 15 U/L (5-31); Bilirubin Direct 0.3 mg/dL (0.0-0.5); Bilirubin Total 0.6 mg/dL (0.0-1.0); Blood Urea Nitrogen 13 mg/dL (9-16); Calcium 9.8 mg/dL (8.4-10.2); Carbon Dioxide 21 mmol/L (22-29); Chloride 108 mmol/L (96-108); Creatinine Clr Calc Pharmacy 121.8; Estimated Glomerular Filt Rate > 60; Glucose Random 83 mg/dL (60-115); Magnesium 1.9 mg/dL (1.6-2.6); Sodium 137 mmol/L (135-145); Total Protein 7.6 g/dL (6.5-8.0)
[2021-11-18 14:15] LABS: COVID-19 Test Negative (Negative)
[2021-11-18] MEDS: LORazepam 1 MG TABLET PO (14:33)
--- NOTE | 2021-11-18 14:45 | PC.NURSE ---
N crisis referral completed
--- NOTE | 2021-11-18 14:51 | PHA.MEDREC ---
Pharmacy Consult ? Medication Reconciliation Pharmacy has completed the medication reconciliation. TALKED WITH PT AND REVIEWED HER BOTTLES
[2021-11-18] MEDS: Benztropine Mesylate 1 MG TABLET PO (20:27)
[2021-11-18] MEDS: Prazosin HCL 1 MG CAPSULE 4 MG PO (20:27)
[2021-11-18] MEDS: OLANZapine 10 MG TABLET 20 MG PO (20:27)
[2021-11-18 20:29] VITALS: BP 102/62; PULSE 83; RESP 20; TEMP 36.5; O2SAT 100
--- NOTE | 2021-11-19 | ECG_ITS ---
Test Reason : MEDICAL CLEARANCE Blood Pressure : / mmHG Vent. Rate : 081 BPM Atrial Rate : 081 BPM P-R Int : 176 ms QRS Dur : 080 ms QT Int : 380 ms P-R-T Axes : 044 061 052 degrees QTc Int : 441 ms Normal sinus rhythm Normal ECG When compared with ECG of 29-MAY-2020 13:14, No significant change was found Referred By: Hermila Cunningham Electronically Signed By:LONI PEREZ MD
[2021-11-19 03:53] VITALS: BP 108/77; PULSE 89; RESP 17; TEMP 36.4; O2SAT 100
[2021-11-19] MEDS: clonazePAM 0.5 MG TABLET PO ×2 (03:53→16:44)
[2021-11-19] MEDS: Acetaminophen 325 MG TABLET 650 MG PO (05:45)
[2021-11-19] MEDS: hydrOXYzine HCL 50 MG TABLET PO ×2 (05:45→23:38)
--- NOTE | 2021-11-19 05:54 | PC.NURSE ---
PT reported increased stress and anxiety, triggered by flashbacks from her past and thoughts of her children at home.
[2021-11-19 07:53] VITALS: BP 105/66; PULSE 116; RESP 16; TEMP 36.6; O2SAT 97
[2021-11-19] MEDS: Benztropine Mesylate 1 MG TABLET PO ×2 (08:09→20:19)
[2021-11-19] MEDS: Propranolol HCL 20 MG TABLET PO ×2 (08:09→13:32)
[2021-11-19 18:00] VITALS: BP 119/60; PULSE 76; TEMP 36.5
[2021-11-19 20:15] VITALS: BP 127/58; PULSE 84; RESP 18; TEMP 36.6; O2SAT 98
[2021-11-19] MEDS: OLANZapine 10 MG TABLET 20 MG PO (20:19)
[2021-11-19] MEDS: Prazosin HCL 1 MG CAPSULE 4 MG PO (20:19)
[2021-11-19] MEDS: traZODone HCL 50 MG TABLET PO (23:38)
[2021-11-20] MEDS: clonazePAM 0.5 MG TABLET PO (03:06)
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
[2021-11-20 08:17] VITALS: BP 108/64; PULSE 93; RESP 17; TEMP 36.4; O2SAT 98
[2021-11-20] MEDS: Propranolol HCL 20 MG TABLET PO ×2 (08:46→14:17)
[2021-11-20] MEDS: Benztropine Mesylate 1 MG TABLET PO ×2 (08:46→20:31)
[2021-11-20 09:21] LABS: Alanine Aminotransferase 14 U/L (0-31); Albumin Level 4.1 g/dL (3.5-5.0); Alkaline Phosphatase 64 U/L (39-117); Anion Gap 13 (12-20); Aspartate Amino Transferase 15 U/L (5-31); Bilirubin Total 0.3 mg/dL (0.0-1.0); Blood Urea Nitrogen 15 mg/dL (9-16); Calcium 9.8 mg/dL (8.4-10.2); Carbon Dioxide 21 mmol/L (22-29); Chloride 107 mmol/L (96-108); Cholesterol 147 mg/dL; Creatinine Clr Calc Pharmacy 110.8; Estimated Glomerular Filt Rate > 60; Glucose Fasting 91 mg/dL (60-99); HDL Cholesterol 43 mg/dL; LDL Cholesterol Calculated 96 mg/dl; Potassium 4.5 mmol/L (3.3-5.1); Sodium 136 mmol/L (135-145); Total Protein 7.2 g/dL (6.5-8.0); Triglycerides 44 mg/dL
[2021-11-20] MEDS: hydrOXYzine HCL 50 MG TABLET PO ×2 (10:35→21:48)
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
--- NOTE | 2021-11-20 18:27 | PC.NURSE ---
Patient reported to be a smoker for a pack a day. Patient declined nicotine replacement stating I don't need anything, I am not having any cravings .
[2021-11-20 20:18] VITALS: BP 119/80; PULSE 88; RESP 17; TEMP 36.6; O2SAT 100
[2021-11-20] MEDS: OLANZapine 10 MG TABLET 20 MG PO (20:31)
[2021-11-20] MEDS: Prazosin HCL 5 MG CAPSULE PO (20:32)
[2021-11-20] MEDS: traZODone HCL 50 MG TABLET PO (20:32)
[2021-11-21 07:00] VITALS: BMI 36.4
[2021-11-21 08:05] VITALS: BP 107/67; PULSE 126; RESP 17; TEMP 36.4; O2SAT 95
[2021-11-21] MEDS: Propranolol HCL 20 MG TABLET PO ×2 (08:07→14:48)
[2021-11-21] MEDS: Benztropine Mesylate 1 MG TABLET PO ×2 (08:07→20:59)
[2021-11-21] MEDS: clonazePAM 0.5 MG TABLET PO (12:09)
--- NOTE | 2021-11-21 14:37 | P.PNPSI_ITS ---
Subjective Subjective Date of Service: 11/21/21 Reason For Visit: psychosis self harm Interim History: pt reports she slept well last night, feels at ease and without anxiety, which she finds surprising. denies any nightmares last night. agreeable to continue with current regimen for the time being. per staff, had an anxiety attack yesterday morning as well as once in the evening. reported anx 8 and dep 6 yesterday morning, along with nightmares the night prior, sleeping only 1 hour. attending groups. took atarax with HS meds and slept through the night. Mental Status Exam Mental Status Exam Narrative: appropriately dressed, make-up. cooperative, no PMA/PMR. speech nml in rate, amount, loudness, tone, latency. thoughts linear and logical. affect constricted, normo-intense, non-labile. mood at ease. no SI/HI/AVH expressed. Diagnostics Vital Signs (24Hr): Vital Signs - 24 hr 11/20/21 20:18 11/21/21 08:05 Temperature 97.9 F 97.6 F Pulse Rate 88 126 H Respiratory Rate 17 17 Blood Pressure 119/80 107/67 Pulse Oximetry 100 95 BMI result Body Mass Index 36.6 Labs Results: 11/18/21 13:49 11/20/21 08:10 Labs: Laboratory Results - last 48 hr 11/20/21 08:10 Sodium 136 Potassium 4.5 Chloride 107 Carbon Dioxide 21 L Anion Gap 13 BUN 15 Creatinine 0.89 Estim Creat Clear Calc 110.8 Estimated GFR > 60 Fasting Glucose 91 Calcium 9.8 Total Bilirubin 0.3 AST 15 ALT 14 Alkaline Phosphatase 64 Total Protein 7.2 Albumin 4.1 Triglycerides 44 Cholesterol 147 LDL Cholesterol, Calc 96 HDL Cholesterol 43 Medications Medications Current Medications Acetaminophen (Acetaminophen 325 Mg Tablet) 650 mg PO Q6H PRN PRN Reason: Headache/Pain Mild Scale (1-3) Al Hydroxide/Mg Hydroxide (Magnesium Hydrox/Alum Hydrox 30 Ml Oral.Susp) 30 ml PO Q6H PRN PRN Reason: Heartburn/Nausea Benztropine Mesylate (Benztropine Mesylate 1 Mg Tablet) 1 mg PO BID CATHERINE Last Admin: 11/21/21 08:07 Dose: 1 mg Documented by: Clonazepam (Clonazepam 0.5 Mg Tablet) 0.5 mg PO BID PRN PRN Reason: anxiety Last Admin: 11/21/21 12:09 Dose: 0.5 mg Documented by: Hydroxyzine HCl (Hydroxyzine Hcl 50 Mg Tablet) 50 mg PO TID PRN PRN Reason: ANXIETY,PANIC,TWITCHING Last Admin: 11/20/21 21:48 Dose: 50 mg Documented by: Magnesium Hydroxide (Milk Of Magnesia 30 Ml Oral.Susp) 30 ml PO DAILY PRN PRN Reason: Constipation Olanzapine (Olanzapine 10 Mg Tablet) 20 mg PO BEDTIME CATHERINE Last Admin: 11/20/21 20:31 Dose: 20 mg Documented by: Prazosin HCl (Prazosin Hcl 5 Mg Capsule) 5 mg PO BEDTIME CATHERINE; Protocol Last Admin: 11/20/21 20:32 Dose: 5 mg Documented by: Propranolol HCl (Propranolol Hcl 20 Mg Tablet) 20 mg PO BID@0900,1400 [facility]; Protocol Last Admin: 11/21/21 08:07 Dose: 20 mg Documented by: Trazodone HCl (Trazodone Hcl 50 Mg Tablet) 50 mg PO BEDTIME PRN PRN Reason: Insomnia Last Admin: 11/20/21 20:32 Dose: 50 mg Documented by: Allergies Allergies Allergy/AdvReac Type Severity Reaction Status Date / Time Benadryl Allergy Severe anaphylaxis Verified 09/26/20 10:12 diphenhydramine Allergy Severe ANAPHYLAXIS Verified 09/26/20 10:12 [From BENADRYL] latex [LATEX] Allergy Intermediate RASH Verified 09/26/20 10:12 latex Allergy Unknown Rash Verified 09/26/20 10:12 Assessment & Plan Assessment & Plan (1) PTSD (post-traumatic stress disorder): Status: Acute Code(s): F43.10 - Post-traumatic stress disorder, unspecified Plan continue home regimen for now with the following exception: increased prazosin 4 mg to 5 mg at HS as of 11/20. I spent ___20___ minutes with the patient and/or on the patient floor today, greater than?50% of which was spent counseling/coordinating care. Reason for contiued inpatient stay Substantial Risk for: inability to function and rapid decompensation
[2021-11-21] MEDS: hydrOXYzine HCL 50 MG TABLET PO (19:05)
[2021-11-21 20:27] VITALS: BP 121/73; PULSE 90; RESP 17; TEMP 36.4; O2SAT 100
[2021-11-21] MEDS: OLANZapine 10 MG TABLET 20 MG PO (20:59)
[2021-11-21] MEDS: Prazosin HCL 5 MG CAPSULE PO (20:59)
[2021-11-22] MEDS: traZODone HCL 50 MG TABLET PO ×2 (01:54→21:16)
[2021-11-22] MEDS: clonazePAM 0.5 MG TABLET PO (04:25)
[2021-11-22] MEDS: Acetaminophen 325 MG TABLET 650 MG PO ×2 (06:06→21:16)
[2021-11-22] MEDS: Benztropine Mesylate 1 MG TABLET PO ×2 (08:19→21:17)
[2021-11-22] MEDS: Propranolol HCL 20 MG TABLET PO ×2 (08:19→14:19)
[2021-11-22 08:23] VITALS: BP 110/68; PULSE 80; RESP 17; TEMP 36.3; O2SAT 100
[2021-11-22] MEDS: hydrOXYzine HCL 50 MG TABLET PO ×2 (12:36→17:24)
[2021-11-22 14:18] VITALS: BP 112/63; PULSE 87
--- NOTE | 2021-11-22 15:05 | HO.PSYCHPN ---
Subjective Subjective Date of Service: 11/22/21 Reason For Visit: psychosis self harm Interim History: pt continues to feel well. went from 100 voices to 5 or 6 voices. starting to kind of clear out. feeling less overwhelmed, not anxious. denies SI/HI. feels her lack of sleep last night was circumstantial, having to do with getting a new roommate, and an anxious one at that, in the middle of the night. per staff, attending groups. periods of increased anxiety triggered by agitated manic peer. does better after taking PRNs. polite, pleasant. zero sleep last night. Mental Status Exam Mental Status Exam Narrative: appropriately dressed, make-up. cooperative, no PMA/PMR. speech nml in rate, amount, loudness, tone, latency. thoughts linear and logical. affect more flexible, normo-intense, non-labile. mood not anxious. no SI/HI. no AVH expressed. Diagnostics Vital Signs (24Hr): Vital Signs - 24 hr 11/21/21 20:27 11/22/21 08:23 11/22/21 14:18 Temperature 97.6 F 97.3 F Pulse Rate 90 80 87 Respiratory Rate 17 17 Blood Pressure 121/73 110/68 112/63 Pulse Oximetry 100 100 BMI result Body Mass Index 36.4 Labs Results: 11/18/21 13:49 11/20/21 08:10 Medications Medications Current Medications Acetaminophen (Acetaminophen 325 Mg Tablet) 650 mg PO Q6H PRN PRN Reason: Headache/Pain Mild Scale (1-3) Last Admin: 11/22/21 06:06 Dose: 650 mg Documented by: Al Hydroxide/Mg Hydroxide (Magnesium Hydrox/Alum Hydrox 30 Ml Oral.Susp) 30 ml PO Q6H PRN PRN Reason: Heartburn/Nausea Benztropine Mesylate (Benztropine Mesylate 1 Mg Tablet) 1 mg PO BID CATHERINE Last Admin: 11/22/21 08:19 Dose: 1 mg Documented by: Clonazepam (Clonazepam 0.5 Mg Tablet) 0.5 mg PO BID PRN PRN Reason: anxiety Last Admin: 11/22/21 04:25 Dose: 0.5 mg Documented by: Hydroxyzine HCl (Hydroxyzine Hcl 50 Mg Tablet) 50 mg PO TID PRN PRN Reason: ANXIETY,PANIC,TWITCHING Last Admin: 11/22/21 12:36 Dose: 50 mg Documented by: Magnesium Hydroxide (Milk Of Magnesia 30 Ml Oral.Susp) 30 ml PO DAILY PRN PRN Reason: Constipation Olanzapine (Olanzapine 10 Mg Tablet) 20 mg PO BEDTIME CATHERINE Last Admin: 11/21/21 20:59 Dose: 20 mg Documented by: Prazosin HCl (Prazosin Hcl 5 Mg Capsule) 5 mg PO BEDTIME CATHERINE; Protocol Last Admin: 11/21/21 20:59 Dose: 5 mg Documented by: Propranolol HCl (Propranolol Hcl 20 Mg Tablet) 20 mg PO BID@0900,1400 [facility]; Protocol Last Admin: 11/22/21 14:19 Dose: 20 mg Documented by: Trazodone HCl (Trazodone Hcl 50 Mg Tablet) 50 mg PO BEDTIME PRN PRN Reason: Insomnia Last Admin: 11/22/21 01:54 Dose: 50 mg Documented by: Allergies Allergies Allergy/AdvReac Type Severity Reaction Status Date / Time Benadryl Allergy Severe anaphylaxis Verified 09/26/20 10:12 diphenhydramine Allergy Severe ANAPHYLAXIS Verified 09/26/20 10:12 [From BENADRYL] latex [LATEX] Allergy Intermediate RASH Verified 09/26/20 10:12 latex Allergy Unknown Rash Verified 09/26/20 10:12 Assessment & Plan Assessment & Plan (1) PTSD (post-traumatic stress disorder): Status: Acute Code(s): F43.10 - Post-traumatic stress disorder, unspecified Plan continue home regimen for now with the following exception: increased prazosin 4 mg to 5 mg at HS as of 11/20. I spent __20____ minutes with the patient and/or on the patient floor today, greater than?50% of which was spent counseling/coordinating care. Reason for contiued inpatient stay Substantial Risk for: harm to self, inability to function and rapid decompensation
[2021-11-22 18:00] VITALS: BP 103/63; PULSE 93; RESP 18; TEMP 36.7; O2SAT 99
[2021-11-22] MEDS: OLANZapine 10 MG TABLET 20 MG PO (21:15)
[2021-11-22] MEDS: Prazosin HCL 5 MG CAPSULE PO (21:15)
[2021-11-23 07:55] VITALS: BP 128/61; PULSE 130; RESP 17; TEMP 36.3; O2SAT 97
[2021-11-23] MEDS: Benztropine Mesylate 1 MG TABLET PO ×2 (08:05→21:30)
[2021-11-23] MEDS: Propranolol HCL 20 MG TABLET PO ×2 (08:05→14:07)
[2021-11-23] MEDS: hydrOXYzine HCL 50 MG TABLET PO ×2 (08:05→19:48)
--- NOTE | 2021-11-23 11:16 | HO.PSYCHPN ---
Subjective Subjective Date of Service: 11/23/21 Reason For Visit: psychosis self harm Subjective Notes: Conditional Voluntary Interim History: 11/22:pt continues to feel well. went from 100 voices to 5 or 6 voices. starting to kind of clear out. feeling less overwhelmed, not anxious. denies SI/HI. feels her lack of sleep last night was circumstantial, having to do with getting a new roommate, and an anxious one at that, in the middle of the night. per staff, attending groups. periods of increased anxiety triggered by agitated manic peer. does better after taking PRNs. polite, pleasant. zero sleep last night. 11/23: Mood steadily improving but triggered by male peer flipping table. AH are better and reduced. Using coping skills. Visible in milieu. No increase in BB given current BP Medication Compliance: Yes Side effects from medications: No Review of Systems Review of Systems Constitutional: No Fever, No Chills ENT/Mouth: No sore throat, No Rhinorrhea, No Swallowing Difficulty Eyes: No Eye Pain, No Swelling, No Redness Cardiovascular: No Chest Pain, No SOB, No Orthopnea, No Edema Respiratory: No Cough, No Sputum, No Wheezing, No dyspnea Gastrointestinal: No Nausea, No Vomiting, No Diarrhea, No abdominal Pain, No Hematochezia, No Melena Genitourinary: No Dysuria, No Urinary Frequency, No Hematuria Musculoskeletal: No joint pain, No Myalgias Skin: No Skin Lesions, No rash Neuro: No Weakness, No Numbness, No Dizziness, + Headache Psych: + Anxiety/Panic, + Depression, +SI, +HI, +AH, +VH, +tactile hallucinations Heme/Lymph: No Bruising, No Lymphadenopathy Endocrine: No Polyuria, No Polydipsia Mental Status Exam Mental Status Exam Narrative: appropriately dressed, make-up. cooperative, no PMA/PMR. speech nml in rate, amount, loudness, tone, latency. thoughts linear and logical. affect more flexible, normo-intense, non-labile. mood not anxious. no SI/HI. no AVH expressed. Diagnostics Vital Signs (24Hr): Vital Signs - 24 hr 11/22/21 14:18 11/22/21 18:00 11/23/21 07:55 Temperature 98.1 F 97.4 F Pulse Rate 87 93 130 H Respiratory Rate 18 17 Blood Pressure 112/63 103/63 128/61 Pulse Oximetry 99 97 BMI result Body Mass Index 36.4 Labs Results: 11/18/21 13:49 11/20/21 08:10 Medications Medications Current Medications Acetaminophen (Acetaminophen 325 Mg Tablet) 650 mg PO Q6H PRN PRN Reason: Headache/Pain Mild Scale (1-3) Last Admin: 11/22/21 21:16 Dose: 650 mg Documented by: Al Hydroxide/Mg Hydroxide (Magnesium Hydrox/Alum Hydrox 30 Ml Oral.Susp) 30 ml PO Q6H PRN PRN Reason: Heartburn/Nausea Benztropine Mesylate (Benztropine Mesylate 1 Mg Tablet) 1 mg PO BID CATHERINE Last Admin: 11/23/21 08:05 Dose: 1 mg Documented by: Capsaicin (Capsaicin 0.025% Cream 60 Gm Tube) 1 appl TOPICAL TID PRN; Protocol PRN Reason: left shoulder Clonazepam (Clonazepam 0.5 Mg Tablet) 0.5 mg PO BID PRN PRN Reason: anxiety Last Admin: 11/22/21 04:25 Dose: 0.5 mg Documented by: Hydroxyzine HCl (Hydroxyzine Hcl 50 Mg Tablet) 50 mg PO TID PRN PRN Reason: ANXIETY,PANIC,TWITCHING Last Admin: 11/23/21 08:05 Dose: 50 mg Documented by: Magnesium Hydroxide (Milk Of Magnesia 30 Ml Oral.Susp) 30 ml PO DAILY PRN PRN Reason: Constipation Olanzapine (Olanzapine 10 Mg Tablet) 20 mg PO BEDTIME CATHERINE Last Admin: 11/22/21 21:15 Dose: 20 mg Documented by: Prazosin HCl (Prazosin Hcl 5 Mg Capsule) 5 mg PO BEDTIME CATHERINE; Protocol Last Admin: 11/22/21 21:15 Dose: 5 mg Documented by: Propranolol HCl (Propranolol Hcl 20 Mg Tablet) 20 mg PO BID@0900,1400 [facility]; Protocol Last Admin: 11/23/21 08:05 Dose: 20 mg Documented by: Trazodone HCl (Trazodone Hcl 50 Mg Tablet) 50 mg PO BEDTIME PRN PRN Reason: Insomnia Last Admin: 11/22/21 21:16 Dose: 50 mg Documented by: Allergies Allergies Allergy/AdvReac Type Severity Reaction Status Date / Time Benadryl Allergy Severe anaphylaxis Verified 09/26/20 10:12 diphenhydramine Allergy Severe ANAPHYLAXIS Verified 09/26/20 10:12 [From BENADRYL] latex [LATEX] Allergy Intermediate RASH Verified 09/26/20 10:12 latex Allergy Unknown Rash Verified 09/26/20 10:12 Assessment & Plan Assessment & Plan (1) PTSD (post-traumatic stress disorder): Status: Acute Code(s): F43.10 - Post-traumatic stress disorder, unspecified Plan continue home regimen for now with the following exception: increased prazosin 4 mg to 5 mg at HS as of 11/20. 11/23: Ct current plan I spent minutes with the patient and/or on the patient floor today, greater than?50% of which was spent counseling/coordinating care. Reason for contiued inpatient stay Substantial Risk for: harm to self and rapid decompensation
[2021-11-23] MEDS: clonazePAM 0.5 MG TABLET PO (16:01)
[2021-11-23 21:15] VITALS: BP 114/78; PULSE 83; RESP 18; TEMP 36.4; O2SAT 98
[2021-11-23] MEDS: traZODone HCL 50 MG TABLET PO ×2 (21:29→23:33)
[2021-11-23] MEDS: Prazosin HCL 5 MG CAPSULE PO (21:29)
[2021-11-23] MEDS: OLANZapine 10 MG TABLET 20 MG PO (21:30)
[2021-11-23] MEDS: Acetaminophen 325 MG TABLET 650 MG PO (23:33)
[2021-11-23] MEDS: Capsaicin 0.025% Cream 60 GM TUBE 1 APPL TOPICAL (23:34)
[2021-11-24] MEDS: Propranolol HCL 20 MG TABLET PO ×2 (08:26→13:24)
[2021-11-24] MEDS: Benztropine Mesylate 1 MG TABLET PO ×2 (08:26→22:37)
[2021-11-24] MEDS: Capsaicin 0.025% Cream 60 GM TUBE 1 APPL TOPICAL ×2 (08:26→20:05)
[2021-11-24 08:28] VITALS: BP 111/68; PULSE 108; RESP 17; TEMP 36.3; O2SAT 95
[2021-11-24 13:24] VITALS: BP 110/68; PULSE 95
[2021-11-24] MEDS: hydrOXYzine HCL 50 MG TABLET PO (14:13)
--- NOTE | 2021-11-24 15:01 | HO.PSYCHPN ---
Subjective Subjective Date of Service: 11/24/21 Reason For Visit: psychosis self harm Subjective Notes: Conditional Voluntary Interim History: 11/22:pt continues to feel well. went from 100 voices to 5 or 6 voices. starting to kind of clear out. feeling less overwhelmed, not anxious. denies SI/HI. feels her lack of sleep last night was circumstantial, having to do with getting a new roommate, and an anxious one at that, in the middle of the night. per staff, attending groups. periods of increased anxiety triggered by agitated manic peer. does better after taking PRNs. polite, pleasant. zero sleep last night 11/24: Much improved. AH are less. Slept better. Thoughts are clearer. Pleased with care on M3. Using coping skills Review of Systems Review of Systems Constitutional: No Fever, No Chills ENT/Mouth: No sore throat, No Rhinorrhea, No Swallowing Difficulty Eyes: No Eye Pain, No Swelling, No Redness Cardiovascular: No Chest Pain, No SOB, No Orthopnea, No Edema Respiratory: No Cough, No Sputum, No Wheezing, No dyspnea Gastrointestinal: No Nausea, No Vomiting, No Diarrhea, No abdominal Pain, No Hematochezia, No Melena Genitourinary: No Dysuria, No Urinary Frequency, No Hematuria Musculoskeletal: No joint pain, No Myalgias Skin: No Skin Lesions, No rash Neuro: No Weakness, No Numbness, No Dizziness, + Headache Psych: + Anxiety/Panic, + Depression, +SI, +HI, +AH, +VH, +tactile hallucinations Heme/Lymph: No Bruising, No Lymphadenopathy Endocrine: No Polyuria, No Polydipsia Mental Status Exam Mental Status Exam Narrative: appropriately dressed, make-up. cooperative, no PMA/PMR. speech nml in rate, amount, loudness, tone, latency. thoughts linear and logical. affect more flexible, normo-intense, non-labile. mood not anxious. no SI/HI. no AVH expressed. Diagnostics Vital Signs (24Hr): Vital Signs - 24 hr 11/23/21 21:15 11/24/21 08:28 11/24/21 13:24 Temperature 97.6 F 97.3 F Pulse Rate 83 108 H 95 Respiratory Rate 18 17 Blood Pressure 114/78 111/68 110/68 Pulse Oximetry 98 95 BMI result Body Mass Index 36.4 Labs Results: 11/18/21 13:49 11/20/21 08:10 Medications Medications Current Medications Acetaminophen (Acetaminophen 325 Mg Tablet) 650 mg PO Q6H PRN PRN Reason: Headache/Pain Mild Scale (1-3) Last Admin: 11/23/21 23:33 Dose: 650 mg Documented by: Al Hydroxide/Mg Hydroxide (Magnesium Hydrox/Alum Hydrox 30 Ml Oral.Susp) 30 ml PO Q6H PRN PRN Reason: Heartburn/Nausea Benztropine Mesylate (Benztropine Mesylate 1 Mg Tablet) 1 mg PO BID CATHERINE Last Admin: 11/24/21 08:26 Dose: 1 mg Documented by: Capsaicin (Capsaicin 0.025% Cream 60 Gm Tube) 1 appl TOPICAL TID PRN; Protocol PRN Reason: left shoulder Last Admin: 11/24/21 08:26 Dose: 1 appl Documented by: Hydroxyzine HCl (Hydroxyzine Hcl 50 Mg Tablet) 50 mg PO TID PRN PRN Reason: ANXIETY,PANIC,TWITCHING Last Admin: 11/24/21 14:13 Dose: 50 mg Documented by: Magnesium Hydroxide (Milk Of Magnesia 30 Ml Oral.Susp) 30 ml PO DAILY PRN PRN Reason: Constipation Olanzapine (Olanzapine 10 Mg Tablet) 20 mg PO BEDTIME CATHERINE Last Admin: 11/23/21 21:30 Dose: 20 mg Documented by: Prazosin HCl (Prazosin Hcl 5 Mg Capsule) 5 mg PO BEDTIME CATHERINE; Protocol Last Admin: 11/23/21 21:29 Dose: 5 mg Documented by: Propranolol HCl (Propranolol Hcl 20 Mg Tablet) 20 mg PO BID@0900,1400 [facility]; Protocol Last Admin: 11/24/21 13:24 Dose: 20 mg Documented by: Trazodone HCl (Trazodone Hcl 50 Mg Tablet) 50 mg PO BEDTIME PRN PRN Reason: Insomnia Last Admin: 11/23/21 23:33 Dose: 50 mg Documented by: Allergies Allergies Allergy/AdvReac Type Severity Reaction Status Date / Time Benadryl Allergy Severe anaphylaxis Verified 09/26/20 10:12 diphenhydramine Allergy Severe ANAPHYLAXIS Verified 09/26/20 10:12 [From BENADRYL] latex [LATEX] Allergy Intermediate RASH Verified 09/26/20 10:12 latex Allergy Unknown Rash Verified 09/26/20 10:12 Assessment & Plan Assessment & Plan (1) PTSD (post-traumatic stress disorder): Status: Acute Code(s): F43.10 - Post-traumatic stress disorder, unspecified Plan continue home regimen for now with the following exception: increased prazosin 4 mg to 5 mg at HS as of 11/20. 11/23: Ct current plan 11/24: Ct plan I spent minutes with the patient and/or on the patient floor today, greater than?50% of which was spent counseling/coordinating care. Reason for contiued inpatient stay Substantial Risk for: harm to self and inability to function
[2021-11-24] MEDS: clonazePAM 0.5 MG TABLET PO (20:02)
[2021-11-24 22:35] VITALS: BP 106/68; PULSE 81; RESP 18; TEMP 36.3; O2SAT 98
[2021-11-24] MEDS: Prazosin HCL 5 MG CAPSULE PO (22:37)
[2021-11-24] MEDS: traZODone HCL 50 MG TABLET PO (22:37)
[2021-11-24] MEDS: OLANZapine 10 MG TABLET 20 MG PO (22:37)
[2021-11-25 08:20] VITALS: BP 113/68; PULSE 85; RESP 17; TEMP 36.6; O2SAT 97
[2021-11-25] MEDS: Benztropine Mesylate 1 MG TABLET PO ×2 (08:37→21:45)
[2021-11-25] MEDS: Propranolol HCL 20 MG TABLET PO ×2 (08:37→15:51)
[2021-11-25] MEDS: Capsaicin 0.025% Cream 60 GM TUBE 1 APPL TOPICAL ×3 (08:37→21:42)
--- NOTE | 2021-11-25 15:34 | HO.PSYCHPN ---
Subjective Subjective Date of Service: 11/25/21 Reason For Visit: psychosis self harm Interim History: pt feeling well, interested in discharge tomorrow. no nightmares, no anxiety, no panic attacks. per staff, slept well. no nightmares, no anxiety. +AH, but i can handle them. relaxed, socializing. got trazodoen PRN and slept all NOC. Mental Status Exam Mental Status Exam Narrative: appropriately dressed, make-up. cooperative, no PMA/PMR. speech nml in rate, amount, loudness, tone, latency. thoughts linear and logical. affect more flexible, normo-intense, non-labile. mood not anxious. no SI/HI. no AVH expressed. Diagnostics Vital Signs (24Hr): Vital Signs - 24 hr 11/24/21 22:35 11/25/21 08:20 Temperature 97.3 F 97.8 F Pulse Rate 81 85 Respiratory Rate 18 17 Blood Pressure 106/68 113/68 Pulse Oximetry 98 97 BMI result Body Mass Index 36.4 Labs Results: 11/18/21 13:49 11/20/21 08:10 Medications Medications Current Medications Acetaminophen (Acetaminophen 325 Mg Tablet) 650 mg PO Q6H PRN PRN Reason: Headache/Pain Mild Scale (1-3) Last Admin: 11/23/21 23:33 Dose: 650 mg Documented by: Al Hydroxide/Mg Hydroxide (Magnesium Hydrox/Alum Hydrox 30 Ml Oral.Susp) 30 ml PO Q6H PRN PRN Reason: Heartburn/Nausea Benztropine Mesylate (Benztropine Mesylate 1 Mg Tablet) 1 mg PO BID CATHERINE Last Admin: 11/25/21 08:37 Dose: 1 mg Documented by: Capsaicin (Capsaicin 0.025% Cream 60 Gm Tube) 1 appl TOPICAL TID PRN; Protocol PRN Reason: left shoulder Last Admin: 11/25/21 13:41 Dose: 1 appl Documented by: Clonazepam (Clonazepam 0.5 Mg Tablet) 0.5 mg PO BID PRN PRN Reason: Anxiety Last Admin: 11/24/21 20:02 Dose: 0.5 mg Documented by: Hydroxyzine HCl (Hydroxyzine Hcl 50 Mg Tablet) 50 mg PO TID PRN PRN Reason: ANXIETY,PANIC,TWITCHING Last Admin: 11/24/21 14:13 Dose: 50 mg Documented by: Magnesium Hydroxide (Milk Of Magnesia 30 Ml Oral.Susp) 30 ml PO DAILY PRN PRN Reason: Constipation Olanzapine (Olanzapine 10 Mg Tablet) 20 mg PO BEDTIME CATHERINE Last Admin: 11/24/21 22:37 Dose: 20 mg Documented by: Prazosin HCl (Prazosin Hcl 5 Mg Capsule) 5 mg PO BEDTIME CATHERINE; Protocol Last Admin: 11/24/21 22:37 Dose: 5 mg Documented by: Propranolol HCl (Propranolol Hcl 20 Mg Tablet) 20 mg PO BID@0900,1400 CATHERINE; Protocol Last Admin: 11/25/21 08:37 Dose: 20 mg Documented by: Trazodone HCl (Trazodone Hcl 50 Mg Tablet) 50 mg PO BEDTIME PRN PRN Reason: Insomnia Last Admin: 11/24/21 22:37 Dose: 50 mg Documented by: Allergies Allergies Allergy/AdvReac Type Severity Reaction Status Date / Time Benadryl Allergy Severe anaphylaxis Verified 09/26/20 10:12 diphenhydramine Allergy Severe ANAPHYLAXIS Verified 09/26/20 10:12 [From BENADRYL] latex [LATEX] Allergy Intermediate RASH Verified 09/26/20 10:12 latex Allergy Unknown Rash Verified 09/26/20 10:12 Assessment & Plan Assessment & Plan (1) PTSD (post-traumatic stress disorder): Status: Acute Code(s): F43.10 - Post-traumatic stress disorder, unspecified Plan continue home regimen for now with the following exception: increased prazosin 4 mg to 5 mg at HS as of 11/20. 11/23: Ct current plan 11/24: Ct plan I spent __20____ minutes with the patient and/or on the patient floor today, greater than?50% of which was spent counseling/coordinating care. Reason for contiued inpatient stay Substantial Risk for: harm to self
[2021-11-25 21:35] VITALS: BP 120/83; PULSE 100; RESP 18; TEMP 36.6; O2SAT 99
[2021-11-25] MEDS: Prazosin HCL 5 MG CAPSULE PO (21:45)
[2021-11-25] MEDS: OLANZapine 10 MG TABLET 20 MG PO (21:45)
[2021-11-25] MEDS: traZODone HCL 50 MG TABLET PO ×2 (21:45→23:25)
[2021-11-25] MEDS: clonazePAM 0.5 MG TABLET PO (23:25)
[2021-11-25] MEDS: hydrOXYzine HCL 50 MG TABLET PO (23:26)
[2021-11-26] MEDS: Acetaminophen 325 MG TABLET 650 MG PO (08:21)
[2021-11-26] MEDS: Capsaicin 0.025% Cream 60 GM TUBE 1 APPL TOPICAL (08:21)
[2021-11-26] MEDS: Benztropine Mesylate 1 MG TABLET PO (08:22)
[2021-11-26] MEDS: Propranolol HCL 20 MG TABLET PO (08:22)
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
--- NOTE | 2021-11-26 11:03 | PC.NURSE ---
Patient is alert, fully oriented, pleasant and cooperative with discharge process. She denies ideation, plan or intent to harm self or others. She denies perceptual disturbance. Annamarie reports sleep sleep is significantly improved, good appetite and focus is notably good as well. She verbalizes understanding of prescribed medications and upcoming appointments. She denies physical complaint.
== END 2021-11-26 11:33 | disposition home or self-care (01) | DRG 756 ==
LOC: HO.ED 11-19 12:27 → HO.PADLT16 11-19 14:40
PROVIDERS: Physician Assistant; Psychiatry & Neurology Psychiatry; Admitting Provider Psychiatry & Neurology Psychiatry; Emergency Provider Emergency Medicine; Visit Provider Psychiatry & Neurology Psychiatry
DX: F41.9 Anxiety disorder, unspecified (principal); R45.851 Suicidal ideations; R45.850 Homicidal ideations; F43.12 Post-traumatic stress disorder, chronic; F17.210 Nicotine dependence, cigarettes, uncomplicated; M79.7 Fibromyalgia; J45.909 Unspecified asthma, uncomplicated; G43.909 Migraine, unspecified, not intractable, without status migrainosus; Z20.822 Contact with and (suspected) exposure to COVID-19; Z23 Encounter for immunization; Z87.820 Personal history of traumatic brain injury; Z98.51 Tubal ligation status; Z71.6 Tobacco abuse counseling; Z91.040 Latex allergy status; Z88.8 Allergy status to other drugs, medicaments and biological substances; Z79.899 Other long term (current) drug therapy
CPT/HCPCS: 36415; 80048; 80053; 80061; 80076; 80307; 81003; 81025; 82077; 83735; 85025; 87635; 90686; 93005; 99285

== ENCOUNTER 2022-05-27 13:44 | Inpatient (IN) | payer OTHER, SELFPAY ==
--- NOTE | 2022-05-27 | ECG_ITS ---
Test Reason : MED CLEAR Blood Pressure : / mmHG Vent. Rate : 067 BPM Atrial Rate : 067 BPM P-R Int : 154 ms QRS Dur : 082 ms QT Int : 378 ms P-R-T Axes : 007 054 049 degrees QTc Int : 399 ms Normal sinus rhythm with sinus arrhythmia Normal ECG When compared with ECG of 19-NOV-2021 13:48, No significant change was found Referred By: Coco Hutton Electronically Signed By:HARRY RALPH MD
[2022-05-27 13:49] VITALS: BP 137/79; PULSE 109; RESP 20; TEMP 35.9; O2SAT 97; BMI 35.8
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
[2022-05-27 16:00] VITALS: RESP 18
[2022-05-27] MEDS: LORazepam 1 MG TABLET 2 MG PO (16:03)
[2022-05-27 17:46] LABS: UPreg QC Valid YES; Urine Pregnancy NEGATIVE (NEGATIVE)
[2022-05-27 18:00] VITALS: RESP 18
[2022-05-27 18:03] LABS: Amphetamine Screen Urine Not Detected (Not Detect); Barbiturates, Urine Not Detected (Not Detect); Benzodiazepines Screen Urine Not Detected (Not Detect); COVID-19 Test Negative (Negative); Cannabinoid Screen Urine POSITIVE (Not Detect); Cocaine Screen Urine Not Detected (Not Detect); Fentanyl, urine Not Detected (Not Detect); IDNOW Serial# 16C4AD1C; Opiate Screen Urine Not Detected (Not Detect); Phencyclidine Screen Urine Not Detected (Not Detect)
[2022-05-27 18:53] LABS: IDNOW Serial# 16C4AD1C; Influenza A Negative (Negative); Influenza B2 Negative (Negative)
[2022-05-27 22:44] VITALS: BP 126/63; PULSE 72; RESP 16; TEMP 36.3; O2SAT 99
[2022-05-27 22:47] VITALS: TEMP 36.6
[2022-05-27] MEDS: hydrOXYzine HCL 25 MG TABLET PO (23:49)
[2022-05-27] MEDS: Acetaminophen 325 MG TABLET 650 MG PO (23:49)
[2022-05-27] MEDS: OLANZapine 5 MG TABLET PO (23:49)
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
[2022-05-28] MEDS: OLANZapine 5 MG TABLET PO ×5 (04:50→23:33)
[2022-05-28] MEDS: hydrOXYzine HCL 25 MG TABLET PO ×3 (08:28→23:32)
[2022-05-28 09:58] LABS: Estimated Average Glucose 94 mg/dL; Hemoglobin A1c % 4.9 %
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
[2022-05-28 10:48] LABS: Cholesterol 144 mg/dL; HDL Cholesterol 40 mg/dL; LDL Cholesterol Calculated 94 mg/dl; Magnesium 1.8 mg/dL (1.6-2.6); Triglycerides 54 mg/dL
[2022-05-28 11:01] LABS: Free T4 (Free Thyroxine) 1.05 ng/dL (0.71-1.85); Thyroid Stimulating Hormone 1.37 uIU/mL (0.32-4.0)
[2022-05-28 11:24] LABS: Folate 4.8 ng/mL (> or = 4.0); Vitamin B12 389 pg/mL (200-900)
[2022-05-28 11:48] VITALS: BP 114/59; PULSE 83; RESP 16; TEMP 36.6; O2SAT 99
[2022-05-28] MEDS: Baclofen 10 MG TABLET PO ×2 (16:10→20:49)
[2022-05-28] MEDS: LORazepam 1 MG TABLET 2 MG PO (16:10)
[2022-05-28 20:45] VITALS: BP 118/69; PULSE 99; RESP 18; TEMP 36.3; O2SAT 97
[2022-05-28] MEDS: Acetaminophen 325 MG TABLET 650 MG PO (20:49)
[2022-05-28] MEDS: Prazosin HCL 1 MG CAPSULE 2 MG PO (20:50)
[2022-05-28] MEDS: LORazepam 0.5 MG TABLET PO (20:51)
[2022-05-28] MEDS: chlorproMAZINE HCl 25 MG TABLET PO (20:54)
[2022-05-29] MEDS: OLANZapine 5 MG TABLET PO ×4 (06:55→21:09)
[2022-05-29] MEDS: hydrOXYzine HCL 25 MG TABLET PO ×3 (06:55→21:10)
[2022-05-29 08:00] VITALS: BP 117/69; PULSE 110; TEMP 36.6; O2SAT 98; BMI 35.4
[2022-05-29] MEDS: Baclofen 10 MG TABLET PO ×3 (08:28→21:09)
[2022-05-29] MEDS: Prazosin HCL 1 MG CAPSULE 2 MG PO ×3 (08:29→21:10)
[2022-05-29] MEDS: LORazepam 0.5 MG TABLET PO ×3 (08:30→21:09)
--- NOTE | 2022-05-29 10:14 | P.PNPSI_ITS ---
Subjective Subjective Date of Service: 05/29/22 Reason For Visit: Paranoia disorganized Subjective Notes: Conditional Voluntary and 3 Day Interim History: Pt reports feeling slightly less anxious. She reports less AH, mainly voices calling her name. She reports nightmares. She reports less anxiety during the day. She states she hopes she is better by next Thursday now that she restarted medications that she knows have worked in the past. No SI/HI. Still restless and pacing when meeting with this junior technical writer. Some cogwheel which is related to antipsychotic, so will lower dose of olanzapine. give dose of c Medication Compliance: Yes Review of Systems Review of Systems Yes all other systems are reviewed and are negative Mental Status Exam Mental Status Exam Narrative: Appearance: casually groomed, fair hygiene in NAD Behavior: cooperative psychomotor: pacing, restless Speech:clear, normal rate/rhythm, spontaneous Thought process:linear Thought content:hopeless, anxious Mood: anxious Affect: congruent SI:passive HI:none VH/AH:+AH, no VH. No CAH Delusions:none Insight/judgment:fair x 2. Memory/cog: alert, oriented x 3. grossly intact to conversational testing. but not formally tested. Diagnostics Vital Signs (24Hr): Vital Signs - 24 hr 05/29/22 21:01 05/30/22 09:50 Temperature 97.0 F 98.1 F Pulse Rate 93 100 Respiratory Rate 18 16 Blood Pressure 114/65 134/72 Pulse Oximetry 99 97 Oxygen Delivery Method Room Air Room Air BMI result Body Mass Index 35.4 Labs Labs: Laboratory Results - last 48 hr 05/28/22 05/28/22 09:16 09:16 Magnesium 1.8 Triglycerides 54 Cholesterol 144 LDL Cholesterol, Calc 94 HDL Cholesterol 40 Vitamin B12 389 Folate 4.8 TSH 1.37 Free T4 1.05 Medications Medications Current Medications Acetaminophen (Acetaminophen 325 Mg Tablet) 650 mg PO Q6H PRN PRN Reason: Headache/Pain Mild Scale (1-3) Last Admin: 05/30/22 08:31 Dose: 650 mg Al Hydroxide/Mg Hydroxide (Magnesium Hydrox/Alum Hydrox 30 Ml Oral.Susp) 30 ml PO Q6H PRN PRN Reason: Heartburn/Nausea Baclofen (Baclofen 10 Mg Tablet) 10 mg PO TID [facility] Last Admin: 05/30/22 08:31 Dose: 10 mg Gabapentin (Gabapentin 300 Mg Capsule) 300 mg PO BID [facility] Last Admin: 05/30/22 08:31 Dose: 300 mg Hydroxyzine HCl (Hydroxyzine Hcl 25 Mg Tablet) 25 mg PO Q6H PRN PRN Reason: Anxiety Last Admin: 05/29/22 21:10 Dose: 25 mg Lorazepam (Lorazepam 0.5 Mg Tablet) 0.5 mg PO TID [facility] Last Admin: 05/30/22 08:31 Dose: 0.5 mg Magnesium Hydroxide (Milk Of Magnesia 30 Ml Oral.Susp) 30 ml PO DAILY PRN PRN Reason: Constipation Olanzapine (Olanzapine 5 Mg Tablet) 5 mg PO Q4H PRN PRN Reason: agitation, psychosis, anxiety Last Admin: 05/30/22 08:31 Dose: 5 mg Olanzapine (Olanzapine 2.5 Mg Tablet) 2.5 mg PO TID [facility] Last Admin: 05/30/22 08:31 Dose: 2.5 mg Prazosin HCl (Prazosin Hcl 1 Mg Capsule) 2 mg PO TID [facility]; Protocol Last Admin: 05/30/22 08:31 Dose: 2 mg Trazodone HCl (Trazodone Hcl 100 Mg Tablet) 100 mg PO BEDTIME PRN PRN Reason: Insomnia Last Admin: 05/29/22 23:39 Dose: 100 mg Allergies Allergies Allergy/AdvReac Type Severity Reaction Status Date / Time Benadryl Allergy Severe anaphylaxis Verified 09/26/20 10:12 diphenhydramine Allergy Severe ANAPHYLAXIS Verified 09/26/20 10:12 [From BENADRYL] latex [LATEX] Allergy Intermediate RASH Verified 09/26/20 10:12 latex Allergy Unknown Rash Verified 09/26/20 10:12 Assessment & Plan Assessment & Plan (1) PTSD (post-traumatic stress disorder): Status: Acute Code(s): F43.10 - Post-traumatic stress disorder, unspecified Plan Ms. davalos is a 32 year-old woman with hx of PTSD, known to through previous admission back in 11/2021. Self presented reporting SI, context of not having active psych prescriber and note able to take her usual medications. We discussed risks, benefits and alternative treatment options PLAN 1. Admit to , CV 15 min checks 2. restart olanzapine, prazosin, ativan 3. aftercare planning. 05/29 lower olanzapine to 2.5mg po TID, continue prazosin 2mg po TID, ativan 0.5mg po TID, baclofen for muscle spasm. I spent minutes with the patient and/or on the patient floor today, greater than?50% of which was spent counseling/coordinating care. Reason for contiued inpatient stay Substantial Risk for: harm to self
[2022-05-29] MEDS: Benztropine Mesylate 1 MG TABLET PO (11:53)
[2022-05-29] MEDS: Gabapentin 300 MG CAPSULE PO ×2 (11:54→21:09)
[2022-05-29] MEDS: OLANZapine 2.5 MG TABLET PO ×2 (15:06→21:09)
[2022-05-29 21:01] VITALS: BP 114/65; PULSE 93; RESP 18; TEMP 36.1; O2SAT 99
[2022-05-29] MEDS: traZODone HCL 100 MG TABLET PO ×2 (21:11→23:39)
[2022-05-30] MEDS: LORazepam 0.5 MG TABLET PO ×3 (08:31→19:30)
[2022-05-30] MEDS: OLANZapine 2.5 MG TABLET PO ×3 (08:31→19:30)
[2022-05-30] MEDS: Acetaminophen 325 MG TABLET 650 MG PO (08:31)
[2022-05-30] MEDS: Gabapentin 300 MG CAPSULE PO ×2 (08:31→19:30)
[2022-05-30] MEDS: Prazosin HCL 1 MG CAPSULE 2 MG PO ×2 (08:31→14:42)
[2022-05-30] MEDS: OLANZapine 5 MG TABLET PO (08:31)
[2022-05-30] MEDS: Baclofen 10 MG TABLET PO ×3 (08:31→19:29)
--- NOTE | 2022-05-30 09:31 | PC.NURSE ---
Patient offered nicotine replacement and she refused.
[2022-05-30 09:50] VITALS: BP 134/72; PULSE 100; RESP 16; TEMP 36.7; O2SAT 97
[2022-05-30] MEDS: hydrOXYzine HCL 25 MG TABLET PO (11:16)
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
[2022-05-30 18:00] VITALS: BP 142/68; PULSE 78; RESP 16; TEMP 36.6; O2SAT 97
[2022-05-30] MEDS: Divalproex Sodium 250 MG TABLET.DR PO (19:29)
[2022-05-30] MEDS: hydrOXYzine HCL 50 MG TABLET PO (19:30)
[2022-05-30] MEDS: Benztropine Mesylate 1 MG TABLET PO (19:30)
[2022-05-30] MEDS: Prazosin HCL 1 MG CAPSULE 3 MG PO (19:31)
[2022-05-31] MEDS: traZODone HCL 100 MG TABLET PO ×2 (00:01→23:40)
[2022-05-31] MEDS: hydrOXYzine HCL 50 MG TABLET PO ×8 (00:02→23:00)
[2022-05-31] MEDS: Prazosin HCL 1 MG CAPSULE 3 MG PO ×3 (08:10→21:06)
[2022-05-31] MEDS: Baclofen 10 MG TABLET PO ×3 (08:10→21:07)
[2022-05-31] MEDS: Divalproex Sodium 250 MG TABLET.DR PO ×2 (08:10→21:07)
[2022-05-31] MEDS: LORazepam 0.5 MG TABLET PO ×3 (08:11→21:08)
[2022-05-31] MEDS: Benztropine Mesylate 1 MG TABLET PO ×2 (08:11→21:08)
[2022-05-31] MEDS: OLANZapine 2.5 MG TABLET PO ×3 (08:11→21:08)
[2022-05-31] MEDS: Gabapentin 300 MG CAPSULE PO ×2 (08:11→21:08)
[2022-05-31 08:13] VITALS: BP 117/63; PULSE 121; RESP 18; TEMP 36.4; O2SAT 94
[2022-05-31] MEDS: OLANZapine 5 MG TABLET PO ×4 (09:00→22:57)
--- NOTE | 2022-05-31 12:32 | HO.PSYCHPN ---
Subjective Subjective Date of Service: 05/31/22 Reason For Visit: Paranoia disorganized Interim History: Patient seen and discussed. Says she is feeling anxious, having flashbacks and I have to wait another hour for my PRN medication. Upon review patient on anxiolytics, alpha agonist, Zyprexa and Hydroxyzine. Encouraged to use coping skills. Pt reports she had nightmares, hypervigilant, very anxious. Pt reports passive SI, no plan or intent. No HI. No AH. Review of Systems Review of Systems Yes all other systems are reviewed and are negative Mental Status Exam Mental Status Exam Narrative: Appearance: casually groomed, fair hygiene in NAD Behavior: cooperative psychomotor: pacing, restless Speech:clear, normal rate/rhythm, spontaneous Thought process:linear Thought content:hopeless, anxious Mood: anxious Affect: congruent SI:passive HI:none VH/AH:+AH, no VH. No CAH Delusions:none Insight/judgment:fair x 2. Memory/cog: alert, oriented x 3. grossly intact to conversational testing. but not formally tested. Diagnostics Vital Signs (24Hr): Vital Signs - 24 hr 05/30/22 18:00 05/31/22 08:13 Temperature 97.8 F 97.6 F Pulse Rate 78 121 H Respiratory Rate 16 18 Blood Pressure 142/68 H 117/63 Pulse Oximetry 97 94 Oxygen Delivery Method Room Air Room Air BMI result Body Mass Index 35.4 Medications Medications Current Medications Acetaminophen (Acetaminophen 325 Mg Tablet) 650 mg PO Q6H PRN PRN Reason: Headache/Pain Mild Scale (1-3) Last Admin: 05/30/22 08:31 Dose: 650 mg Al Hydroxide/Mg Hydroxide (Magnesium Hydrox/Alum Hydrox 30 Ml Oral.Susp) 30 ml PO Q6H PRN PRN Reason: Heartburn/Nausea Baclofen (Baclofen 10 Mg Tablet) 10 mg PO TID [facility] Last Admin: 05/31/22 08:10 Dose: 10 mg Benztropine Mesylate (Benztropine Mesylate 1 Mg Tablet) 1 mg PO BID [facility] Last Admin: 05/31/22 08:11 Dose: 1 mg Divalproex Sodium (Divalproex Sodium 250 Mg Tablet.Dr) 250 mg PO BID [facility] Last Admin: 05/31/22 08:10 Dose: 250 mg Gabapentin (Gabapentin 300 Mg Capsule) 300 mg PO BID [facility] Last Admin: 05/31/22 08:11 Dose: 300 mg Hydroxyzine HCl (Hydroxyzine Hcl 50 Mg Tablet) 50 mg PO Q4H PRN PRN Reason: Anxiety Last Admin: 05/31/22 09:01 Dose: 50 mg Hydroxyzine HCl (Hydroxyzine Hcl 50 Mg Tablet) 50 mg PO TID [facility] Last Admin: 05/31/22 08:11 Dose: 50 mg Lorazepam (Lorazepam 0.5 Mg Tablet) 0.5 mg PO TID [facility] Last Admin: 05/31/22 08:11 Dose: 0.5 mg Magnesium Hydroxide (Milk Of Magnesia 30 Ml Oral.Susp) 30 ml PO DAILY PRN PRN Reason: Constipation Olanzapine (Olanzapine 5 Mg Tablet) 5 mg PO Q4H PRN PRN Reason: agitation, psychosis, anxiety Last Admin: 05/31/22 09:00 Dose: 5 mg Olanzapine (Olanzapine 2.5 Mg Tablet) 2.5 mg PO TID [facility] Last Admin: 05/31/22 08:11 Dose: 2.5 mg Prazosin HCl (Prazosin Hcl 1 Mg Capsule) 3 mg PO TID [facility]; Protocol Last Admin: 05/31/22 08:10 Dose: 3 mg Trazodone HCl (Trazodone Hcl 100 Mg Tablet) 100 mg PO BEDTIME PRN PRN Reason: Insomnia Last Admin: 05/31/22 00:01 Dose: 100 mg Allergies Allergies Allergy/AdvReac Type Severity Reaction Status Date / Time Benadryl Allergy Severe anaphylaxis Verified 09/26/20 10:12 diphenhydramine Allergy Severe ANAPHYLAXIS Verified 09/26/20 10:12 [From BENADRYL] latex [LATEX] Allergy Intermediate RASH Verified 09/26/20 10:12 latex Allergy Unknown Rash Verified 09/26/20 10:12 Assessment & Plan Assessment & Plan (1) PTSD (post-traumatic stress disorder): Status: Acute Code(s): F43.10 - Post-traumatic stress disorder, unspecified Plan Ms. davalos is a 32 year-old woman with hx of PTSD, known to through previous admission back in 11/2021. Self presented reporting SI, context of not having active psych prescriber and note able to take her usual medications. We discussed risks, benefits and alternative treatment options PLAN 1. Admit to , CV 15 min checks 2. restart olanzapine, prazosin, ativan 3. aftercare planning. 05/29 lower olanzapine to 2.5mg po TID, continue prazosin 2mg po TID, ativan 0.5mg po TID, baclofen for muscle spasm. 05/30 increase prazosin to 3mg po TID, continue ativan, add scheduled hydroxizyne 50mg po TID, cogentin 1mg po BID. she wants to be restarted on depakote. 05/31: Continue current treatment plan. Encourage coping skills. I spent minutes with the patient and/or on the patient floor today, greater than?50% of which was spent counseling/coordinating care. Reason for contiued inpatient stay Substantial Risk for: harm to self and rapid decompensation
[2022-05-31 14:31] VITALS: BP 111/82; PULSE 102
[2022-05-31 15:02] LABS: Anti Nuclear Antibody Screen NEGATIVE (NEGATIVE)
[2022-05-31 21:05] VITALS: BP 107/61; PULSE 112; TEMP 36.4
[2022-06-01] MEDS: OLANZapine 5 MG TABLET PO ×3 (06:41→15:52)
[2022-06-01] MEDS: hydrOXYzine HCL 50 MG TABLET PO ×7 (06:41→23:29)
[2022-06-01] MEDS: Divalproex Sodium 250 MG TABLET.DR PO ×2 (08:02→21:25)
[2022-06-01] MEDS: Gabapentin 300 MG CAPSULE PO ×2 (08:02→21:26)
[2022-06-01] MEDS: LORazepam 0.5 MG TABLET PO ×3 (08:02→21:26)
[2022-06-01] MEDS: Baclofen 10 MG TABLET PO ×3 (08:02→21:24)
[2022-06-01] MEDS: OLANZapine 2.5 MG TABLET PO ×3 (08:02→21:24)
[2022-06-01] MEDS: Benztropine Mesylate 1 MG TABLET PO ×2 (08:02→21:25)
[2022-06-01] MEDS: Prazosin HCL 1 MG CAPSULE 3 MG PO ×3 (08:02→21:22)
[2022-06-01 08:07] VITALS: BP 112/63; PULSE 115; RESP 16; TEMP 36.2; O2SAT 97
--- NOTE | 2022-06-01 14:15 | P.PNPSI_ITS ---
Subjective Subjective Date of Service: 06/01/22 Reason For Visit: Paranoia disorganized Interim History: Patient seen and discussed. Says that today she feels better than she did yesterday. Says she needs combination of Zyprexa and Hydroxyzine together to help her. Says she continues to have flashbacks and anxiety but able to tolerate better. Pt reports passive SI, no plan or intent. No HI. No AH. Review of Systems Review of Systems Yes all other systems are reviewed and are negative Mental Status Exam Mental Status Exam Narrative: Appearance: casually groomed, fair hygiene in NAD Behavior: cooperative psychomotor: pacing, restless Speech:clear, normal rate/rhythm, spontaneous Thought process:linear Thought content:hopeless, anxious Mood: anxious Affect: congruent SI:passive HI:none VH/AH:+AH, no VH. No CAH Delusions:none Insight/judgment:fair x 2. Memory/cog: alert, oriented x 3. grossly intact to conversational testing. but not formally tested. Diagnostics Vital Signs (24Hr): Vital Signs - 24 hr 05/31/22 21:05 06/01/22 08:07 06/01/22 14:26 Temperature 97.5 F 97.2 F Pulse Rate 112 H 115 H 115 H Respiratory Rate 16 Blood Pressure 107/61 112/63 105/65 Pulse Oximetry 97 Oxygen Delivery Method Room Air BMI result Body Mass Index 35.4 Labs Labs: Laboratory Results - last 48 hr 05/29/22 07:53 DWAYNE Screen NEGATIVE DWAYNE Titer TNP DWAYNE Titer 2 TNP [facility] Titer 3 TNP [facility] Pattern TNP [facility] Pattern 2 TNP [facility] Pattern 3 TNP Medications Medications Current Medications Acetaminophen (Acetaminophen 325 Mg Tablet) 650 mg PO Q6H PRN PRN Reason: Headache/Pain Mild Scale (1-3) Last Admin: 05/30/22 08:31 Dose: 650 mg Al Hydroxide/Mg Hydroxide (Magnesium Hydrox/Alum Hydrox 30 Ml Oral.Susp) 30 ml PO Q6H PRN PRN Reason: Heartburn/Nausea Baclofen (Baclofen 10 Mg Tablet) 10 mg PO TID [facility] Last Admin: 06/01/22 14:23 Dose: 10 mg Benztropine Mesylate (Benztropine Mesylate 1 Mg Tablet) 1 mg PO BID [facility] Last Admin: 06/01/22 08:02 Dose: 1 mg Divalproex Sodium (Divalproex Sodium 250 Mg Tablet.Dr) 250 mg PO BID [facility] Last Admin: 06/01/22 08:02 Dose: 250 mg Gabapentin (Gabapentin 300 Mg Capsule) 300 mg PO BID [facility] Last Admin: 06/01/22 08:02 Dose: 300 mg Hydroxyzine HCl (Hydroxyzine Hcl 50 Mg Tablet) 50 mg PO Q4H PRN PRN Reason: Anxiety Last Admin: 06/01/22 15:49 Dose: 50 mg Hydroxyzine HCl (Hydroxyzine Hcl 50 Mg Tablet) 50 mg PO TID [facility] Last Admin: 06/01/22 14:23 Dose: 50 mg Lorazepam (Lorazepam 0.5 Mg Tablet) 0.5 mg PO TID [facility] Last Admin: 06/01/22 14:23 Dose: 0.5 mg Magnesium Hydroxide (Milk Of Magnesia 30 Ml Oral.Susp) 30 ml PO DAILY PRN PRN Reason: Constipation Olanzapine (Olanzapine 5 Mg Tablet) 5 mg PO Q4H PRN PRN Reason: agitation, psychosis, anxiety Last Admin: 06/01/22 15:52 Dose: 5 mg Olanzapine (Olanzapine 2.5 Mg Tablet) 2.5 mg PO TID [facility] Last Admin: 06/01/22 14:23 Dose: 2.5 mg Prazosin HCl (Prazosin Hcl 1 Mg Capsule) 3 mg PO TID [facility]; Protocol Last Admin: 06/01/22 14:23 Dose: 3 mg Trazodone HCl (Trazodone Hcl 100 Mg Tablet) 100 mg PO BEDTIME PRN PRN Reason: Insomnia Last Admin: 05/31/22 23:40 Dose: 100 mg Allergies Allergies Allergy/AdvReac Type Severity Reaction Status Date / Time Benadryl Allergy Severe anaphylaxis Verified 09/26/20 10:12 diphenhydramine Allergy Severe ANAPHYLAXIS Verified 09/26/20 10:12 [From BENADRYL] latex [LATEX] Allergy Intermediate RASH Verified 09/26/20 10:12 latex Allergy Unknown Rash Verified 09/26/20 10:12 Assessment & Plan Assessment & Plan (1) PTSD (post-traumatic stress disorder): Status: Acute Code(s): F43.10 - Post-traumatic stress disorder, unspecified Plan Ms. davalos is a 32 year-old woman with hx of PTSD, known to through previous admission back in 11/2021. Self presented reporting SI, context of not having active psych prescriber and note able to take her usual medications. We dis cussed risks, benefits and alternative treatment options PLAN 1. Admit to M3, CV 15 min checks 2. restart olanzapine, prazosin, ativan 3. aftercare planning. 05/29 lower olanzapine to 2.5mg po TID, continue prazosin 2mg po TID, ativan 0.5mg po TID, baclofen for muscle spasm. 05/30 increase prazosin to 3mg po TID, continue ativan, add scheduled hydroxizyne 50mg po TID, cogentin 1mg po BID. she wants to be restarted on depakote. 05/31: Continue current treatment plan. Encourage coping skills. 06/01: Continue treatment plan. I spent minutes with the patient and/or on the patient floor today, greater than?50% of which was spent counseling/coordinating care. Reason for contiued inpatient stay Substantial Risk for: harm to self, inability to function and rapid decompensation
[2022-06-01 14:26] VITALS: BP 105/65; PULSE 115
[2022-06-01 20:20] VITALS: BP 111/56; PULSE 101; TEMP 36.4
[2022-06-01] MEDS: traZODone HCL 100 MG TABLET PO (23:29)
[2022-06-02] MEDS: OLANZapine 5 MG TABLET PO ×2 (05:35→12:33)
[2022-06-02] MEDS: hydrOXYzine HCL 50 MG TABLET PO ×3 (05:35→12:32)
[2022-06-02 06:00] VITALS: BP 115/74; PULSE 95; RESP 18; TEMP 36.6; O2SAT 99
[2022-06-02] MEDS: Prazosin HCL 1 MG CAPSULE 3 MG PO (08:45)
[2022-06-02] MEDS: OLANZapine 2.5 MG TABLET PO (08:45)
[2022-06-02] MEDS: Benztropine Mesylate 1 MG TABLET PO (08:46)
[2022-06-02] MEDS: Baclofen 10 MG TABLET PO (08:46)
[2022-06-02] MEDS: Gabapentin 300 MG CAPSULE PO (08:46)
[2022-06-02] MEDS: Divalproex Sodium 250 MG TABLET.DR PO (08:46)
[2022-06-02] MEDS: LORazepam 0.5 MG TABLET PO (08:46)
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
== END 2022-06-02 14:18 | disposition home or self-care (01) | DRG 755 ==
LOC: HO.ED 16:43 → HO.PADLT16 22:57 → HO.PM5 05-30 10:15
PROVIDERS: Registered Nurse; Admitting Provider Psychiatry & Neurology Psychiatry; Emergency Provider Emergency Medicine Emergency Medical Services; Visit Provider Social Worker
DX: F43.10 Post-traumatic stress disorder, unspecified (principal); R45.850 Homicidal ideations; R45.851 Suicidal ideations; F17.210 Nicotine dependence, cigarettes, uncomplicated; M79.7 Fibromyalgia; Z71.6 Tobacco abuse counseling; Z98.51 Tubal ligation status; Z20.822 Contact with and (suspected) exposure to COVID-19; Z62.810 Personal history of physical and sexual abuse in childhood; Z23 Encounter for immunization; Z91.52 Personal history of nonsuicidal self-harm; Z91.040 Latex allergy status; Z88.0 Allergy status to penicillin; Z79.899 Other long term (current) drug therapy
CPT/HCPCS: 36415; 80061; 80307; 81025; 82607; 82746; 83036; 83735; 84439; 84443; 86038; 86039; 87502; 87635; 90686; 93005; 99285

== ENCOUNTER 2022-07-22 11:15 | Emergency (ER) | payer OTHER, SELFPAY ==
[2022-07-22 11:28] VITALS: BP 111/67; PULSE 83; RESP 18; TEMP 36.6; O2SAT 97; BMI 32.3
[2022-07-22 12:23] LABS: Amphetamine Screen Urine Not Detected (Not Detect); Barbiturates, Urine Not Detected (Not Detect); Benzodiazepines Screen Urine Not Detected (Not Detect); Cannabinoid Screen Urine POSITIVE (Not Detect); Cocaine Screen Urine Not Detected (Not Detect); Fentanyl, urine Not Detected (Not Detect); Opiate Screen Urine Not Detected (Not Detect); Phencyclidine Screen Urine Not Detected (Not Detect)
[2022-07-22 12:28] LABS: COVID-19 Test Negative (Negative); IDNOW Serial# 9DB6401D
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
== END 2022-07-22 14:21 | disposition home or self-care (01) ==
PROVIDERS: Emergency Provider Emergency Medicine Emergency Medical Services; PCP Physician Assistant
DX: F32.A Depression, unspecified (principal); Z20.822 Contact with and (suspected) exposure to COVID-19; F17.210 Nicotine dependence, cigarettes, uncomplicated; F12.90 Cannabis use, unspecified, uncomplicated; F43.10 Post-traumatic stress disorder, unspecified; Z72.89 Other problems related to lifestyle; Z63.4 Disappearance and death of family member; Z79.899 Other long term (current) drug therapy
CPT/HCPCS: 80307; 87635; 99284

== ENCOUNTER 2022-08-07 16:22 | Emergency (ER) | payer OTHER, SELFPAY ==
[2022-08-07 16:55] VITALS: BP 105/84; PULSE 101; RESP 20; TEMP 36.8; O2SAT 99; BMI 32.3
[2022-08-07 17:30] LABS: MANUAL DIFF FLAG NO
[2022-08-07 17:39] LABS: Appearance Urine Clear; Color Urine Dark Yellow; Glucose Urine UA Negative (Negative); Leukocyte Esterase Urine Trace (Negative); Nitrite Urine Negative (Negative); PH 5.5 (5.0-9.0); Specific Gravity - Urine >= 1.030 (1.005-1.025); UMIC TRIGGER UACC YES; Urine Blood Negative (Negative); Urine Ketones 15 mg/dL (Negative); Urine Protein 100 (2+) mg/dL (Neg-Trace)
[2022-08-07 17:41] LABS: UPreg QC Valid YES; Urine Pregnancy NEGATIVE (NEGATIVE)
[2022-08-07 17:42] LABS: Basophils Percent Auto 0.2 % (0-2); Eosinophils Absolute Auto 0.1 X10*3/uL (0.0-0.4); Eosinophils Percent Auto 1.1 % (0-4); Hematocrit 38.3 % (37.0-47.0); Hemoglobin 12.7 g/dl (12.0-16.0); Imm Gran Abs Auto 0.04 X10*3/uL (0.00-0.03); Imm Gran Pct Auto 0.3 % (0.0-0.4); Lymphocytes Percent Auto 41.2 % (20-40); Mean Corpuscular HGB Conc 33.2 g/dl (31.0-35.0); Mean Corpuscular Hemoglobin 26.7 pg (27.0-33.0); Mean Corpuscular Volume 80.6 fL (80.0-98.0); Mean Platelet Volume 10.5 fL (9.4-12.3); Monocytes Absolute Auto 0.7 X10*3/uL (0.1-1.2); Neutrophils Absolute Auto 6.2 x10*3/uL (2.0-8.3); Neutrophils Percent Auto 51.2 % (45-73); Platelet Count 249 X10*3/uL (160-400); Red Blood Count 4.75 X10*6/uL (4.20-5.50)
[2022-08-07 17:42] LABS: Bacteria Urine Trace (None Seen); RBC Urine 0-2 /HPF (0-2); WBC Urine 0-5 /HPF (0-5)
[2022-08-07 17:51] LABS: Alanine Aminotransferase 14 U/L (0-31); Albumin Level 4.3 g/dL (3.5-5.0); Alkaline Phosphatase 64 U/L (39-117); Anion Gap 13 (12-20); Aspartate Amino Transferase 12 U/L (5-31); Bilirubin Total 0.3 mg/dL (0.0-1.0); Blood Urea Nitrogen 11 mg/dL (9-16); Calcium 9.3 mg/dL (8.4-10.2); Carbon Dioxide 22 mmol/L (22-29); Chloride 107 mmol/L (96-108); Creatinine Clr Calc Pharmacy 97.4; Estimated Glomerular Filt Rate > 60; Glucose Random 88 mg/dL (60-115); Potassium 3.5 mmol/L (3.3-5.1); Sodium 138 mmol/L (135-145); Total Protein 7.2 g/dL (6.5-8.0)
[2022-08-07 18:31] LABS: Influenza A PCR NEGATIVE (Negative); Influenza B PCR NEGATIVE (Negative); Resp Syncy Virus RNA Qual PCR NEGATIVE (Negative); SARS COV2 PCR INHOUSE NEGATIVE (Negative)
[2022-08-07 20:58] VITALS: BP 96/67; PULSE 67; RESP 16; TEMP 36.7; O2SAT 96
--- NOTE | 2022-08-07 21:37 | ED_ITS ---
HPI - Nausea/Vomiting/Diarrhea General Chief complaint: Nausea/Vomiting/Diarrhea Stated complaint: Abdominal Pain/ Vomiting Blood/ Chest Pain Time Seen by Provider: 08/07/22 21:36 Source: patient Mode of arrival: ambulatory Limitations: no limitations History of Present Illness HPI Narrative: Patient history of depression, bipolar disorder, asthma, PTSD comes here for nausea vomiting diarrhea last 4 days patient does smoke marijuana Related Data Previous Rx's Medication Instructions Recorded acetaminophen 325 mg tablet 650 mg PO Q6H PRN Headache/Pain 06/02/22 Mild Scale (1-3) #30 tabs baclofen 10 mg tablet 10 mg PO TID #90 tabs 06/02/22 benztropine 1 mg tablet 1 mg PO BID #60 tabs 07/23/22 divalproex 250 mg tablet,delayed 250 mg PO BID #60 tabs 07/23/22 release (Depakote) gabapentin 300 mg capsule 300 mg PO BID #60 caps 07/29/22 hydroxyzine HCl 50 mg tablet 50 mg PO QID PRN anxiety #60 tabs 07/29/22 lorazepam 0.5 mg tablet 0.5 mg PO TID PRN anxiety #42 tabs 07/29/22 mirtazapine 7.5 mg tablet 7.5 mg PO BEDTIME #7 tabs 07/29/22 prazosin 1 mg capsule 1 mg PO BID #60 caps 07/29/22 prazosin 2 mg capsule 2 mg PO BID #60 caps 07/29/22 olanzapine 5 mg tablet See Rx Instructions .Route 08/05/22 .COMPLEX #21 tabs ondansetron 4 mg disintegrating 4 mg PO Q6-8H PRN nausea and 08/07/22 tablet vomiting #10 tabs Allergies Allergy/AdvReac Type Severity Reaction Status Date / Time Benadryl Allergy Severe anaphylaxis Verified 09/26/20 10:12 diphenhydramine Allergy Severe ANAPHYLAXIS Verified 09/26/20 10:12 [From BENADRYL] latex [LATEX] Allergy Intermediate RASH Verified 09/26/20 10:12 latex Allergy Unknown Rash Verified 09/26/20 10:12 Review of Systems Review of Systems: Yes all other systems are reviewed and are negative PMFSH Past Medical History Medical History Anemia Anxiety Asthma Bipolar disorder Breast cyst Fibromyalgia Migraine Psychosis PTSD (post-traumatic stress disorder) TBI (traumatic brain injury) Surgical History History of surgery History of tubal ligation Hx of section Family History Family History Father No problems noted. Mother Liver cancer Sister Breast cancer Maternal Grandmother Breast cancer Social History Social History Household Members: Significant Other and Children Housing: Apartment Housing Other:: section 8 Do you presently have visiting nurse or other home services: No Alcohol intake: unknown Patient Tobacco Use Status: Current everyday Tobacco user Tobacco use type: Cigarette Cigarette Packs Per Day: 1 Cigarettes Per Day: 5 Years Smoked: 23 e-Cigarette/Vaping Use: Currently Using Second Hand Smoke Exposure: Yes Substance Use Type: Marijuana Advance Directives: No Advance Directives Information Provided: Yes service: No Sexual orientation: Don't Know Physical Exam Vital Signs: Vital Signs: Last Vital Signs Temp 98.0 F 08/07/22 22:00 Pulse 68 08/07/22 22:00 Resp 16 08/07/22 22:00 BP 92/63 08/07/22 22:00 Pulse Ox 98 08/07/22 22:00 O2 Del Method 08/07/22 22:00 BMI result Body Mass Index 32.3 Appearance: Alert. Oriented X3. No acute distress. Eyes: PERRLA, No Nystagmus ENT: Pharynx normal. Oral Mucosa moist Neck: Normal inspection. Neck supple. CVS: Normal heart rate and rhythm. Pulses normal. Respiratory: No respiratory distress. Equal air entry bilateral, no wheezing/rales/rhonchi Abdomen: Soft and nontender. Bowel sounds are present, no mass palpable, no CVA tenderness Skin: Skin warm and dry. Normal skin color. Normal skin turgor. Extremities: No lower extremity edema. No calf tenderness Neuro: Oriented X 3. No motor deficit. No sensory deficit.No cerebellar signs , cranial nerves II-XII intact Medications Administered Discontinued Medications Generic Name Dose Route Start Last Admin Trade Name Freq PRN Reason Stop Dose Admin Ondansetron HCl 4 mg 08/07/22 21:50 08/07/22 22:11 Ondansetron Odt 4 Mg Tab.Rapdis TRANSLINGU 08/07/22 21:51 4 mg ONCE ONE Administration Medical Decision Making Lab Data 08/07/22 17:22 08/07/22 17:22 Labs: Lab Results 08/07/22 08/07/22 08/07/22 Range/Units 17:20 17:20 17:22 WBC 12.0 H (4.8-10.8) X10*3/uL RBC 4.75 (4.20-5.50) X10*6/uL Hgb 12.7 (12.0-16.0) g/dl Hct 38.3 (37.0-47.0) % MCV 80.6 (80.0-98.0) fL MCH 26.7 L (27.0-33.0) pg MCHC 33.2 (31.0-35.0) g/dl RDW 15.0 (11.0-16.0) % Plt Count 249 (160-400) X10*3/uL MPV 10.5 (9.4-12.3) fL Immature Gran % (Auto) 0.3 (0.0-0.4) % Neut % (Auto) 51.2 (45-73) % Lymph % (Auto) 41.2 H (20-40) % [place] % (Auto) 6.0 (2-11) % Eos % (Auto) 1.1 (0-4) % Baso % (Auto) 0.2 (0-2) % Lymph # (Auto) 5.0 H (1.2-4.9) X10*3/uL [place] # (Auto) 0.7 (0.1-1.2) X10*3/uL Eos # (Auto) 0.1 (0.0-0.4) X10*3/uL Baso # (Auto) 0.0 (0.0-0.2) X10*3/uL Abs Immat Gran (auto) 0.04 H (0.00-0.03) X10*3/uL Absolute Neuts (auto) 6.2 (2.0-8.3) x10*3/uL Absolute Nucleated RBC 0.000 (0.0-0.012) X10*3/uL Nucleated RBC % (auto) 0.0 (0.0-0.2) /100WBC Sodium (135-145) mmol/L Potassium (3.3-5.1) mmol/L Chloride (96-108) mmol/L Carbon Dioxide (22-29) mmol/L Anion Gap (12-20) BUN (9-16) mg/dL Creatinine (0.5-1.4) mg/dL Estim Creat Clear Calc Estimated GFR Random Glucose (60-115) mg/dL Calcium (8.4-10.2) mg/dL Total Bilirubin (0.0-1.0) mg/dL AST (5-31) U/L ALT (0-31) U/L Alkaline Phosphatase (39-117) U/L Total Protein (6.5-8.0) g/dL Albumin (3.5-5.0) g/dL Urine Color Dark Yellow Urine Appearance Clear Urine pH 5.5 (5.0-9.0) Ur Specific [place] >= 1.030 H (1.005-1.025) Urine Protein 100 (2+) H (Neg-Trace) mg/dL Urine Glucose (UA) Negative (Negative) mg/dL Urine Ketones 15 (Negative) mg/dL Urine Blood Negative (Negative) Urine Nitrite Negative (Negative) Ur Leukocyte Esterase Trace H (Negative) Urine RBC 0-2 (0-2) /HPF Urine WBC 0-5 (0-5) /HPF Ur Squamous Epith Cells 11-20 (0-2) /HPF Urine Bacteria Trace (None Seen) Hyaline Casts 3-5 (0-2) /LPF Urine Test NEGATIVE (NEGATIVE) Influenza Type A (PCR) (Negative) Influenza Type B (PCR) (Negative) RSV RNA Qual (PCR) (Negative) SARS-CoV-2 RNA (RT-PCR) (Negative) 08/07/22 08/07/22 Range/Units 17:22 17:22 WBC (4.8-10.8) X10*3/uL RBC (4.20-5.50) X10*6/uL Hgb (12.0-16.0) g/dl Hct (37.0-47.0) % MCV (80.0-98.0) fL MCH (27.0-33.0) pg MCHC (31.0-35.0) g/dl RDW (11.0-16.0) % Plt Count (160-400) X10*3/uL MPV (9.4-12.3) fL Immature Gran % (Auto) (0.0-0.4) % Neut % (Auto) (45-73) % Lymph % (Auto) (20-40) % [place] % (Auto) (2-11) % Eos % (Auto) (0-4) % Baso % (Auto) (0-2) % Lymph # (Auto) (1.2-4.9) X10*3/uL [place] # (Auto) (0.1-1.2) X10*3/uL Eos # (Auto) (0.0-0.4) X10*3/uL Baso # (Auto) (0.0-0.2) X10*3/uL Abs Immat Gran (auto) (0.00-0.03) X10*3/uL Absolute Neuts (auto) (2.0-8.3) x10*3/uL Absolute Nucleated RBC (0.0-0.012) X10*3/uL Nucleated RBC % (auto) (0.0-0.2) /100WBC Sodium 138 (135-145) mmol/L Potassium 3.5 D (3.3-5.1) mmol/L Chloride 107 (96-108) mmol/L Carbon Dioxide 22 (22-29) mmol/L Anion Gap 13 (12-20) BUN 11 (9-16) mg/dL Creatinine 0.94 (0.5-1.4) mg/dL Estim Creat Clear Calc 97.4 Estimated GFR > 60 Random Glucose 88 (60-115) mg/dL Calcium 9.3 (8.4-10.2) mg/dL Total Bilirubin 0.3 (0.0-1.0) mg/dL AST 12 (5-31) U/L ALT 14 (0-31) U/L Alkaline Phosphatase 64 (39-117) U/L Total Protein 7.2 (6.5-8.0) g/dL Albumin 4.3 (3.5-5.0) g/dL Urine Color Urine Appearance Urine pH (5.0-9.0) Ur Specific [place] (1.005-1.025) Urine Protein (Neg-Trace) mg/dL Urine Glucose (UA) (Negative) mg/dL Urine Ketones (Negative) mg/dL Urine Blood (Negative) Urine Nitrite (Negative) Ur Leukocyte Esterase (Negative) Urine RBC (0-2) /HPF Urine WBC (0-5) /HPF Ur Squamous Epith Cells (0-2) /HPF Urine Bacteria (None Seen) Hyaline Casts (0-2) /LPF Urine Test (NEGATIVE) Influenza Type A (PCR) NEGATIVE (Negative) Influenza Type B (PCR) NEGATIVE (Negative) RSV RNA Qual (PCR) NEGATIVE (Negative) SARS-CoV-2 RNA (RT-PCR) NEGATIVE (Negative) Discharge Plan Discharge Clinical Impression: Cannabis abuse, Vomiting Patient Disposition: Home, Self-Care Instructions: Cannabis Abuse (ED) Additional Instructions: 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 Do not use cannabis Nausea medication as prescribed Prescriptions: New ondansetron 4 mg tablet,disintegrating 4 mg PO Q6-8H PRN (Reason: nausea and vomiting) Qty: 10 0RF No Action acetaminophen 325 mg Tablet 650 mg PO Q6H PRN (Reason: Headache/Pain Mild Scale (1-3)) Qty: 30 0RF baclofen 10 mg Tablet 10 mg PO TID Qty: 90 0RF benztropine 1 mg tablet 1 mg PO BID Qty: 60 0RF divalproex [Depakote] 250 mg tablet,delayed release (DR/EC) 250 mg PO BID Qty: 60 0RF gabapentin 300 mg capsule 300 mg PO BID Qty: 60 0RF prazosin 1 mg capsule 1 mg PO BID Qty: 60 0RF Rx Instructions: take with prazosin 2mg BID, for total daily dose of 3mg BID. Hold for systolic BP <90 prazosin 2 mg capsule 2 mg PO BID Qty: 60 0RF Rx Instructions: take with prazosin 1mg for total daily dose prazosin 3mg BID. Hold for systolic BP <90 hydroxyzine HCl 50 mg tablet 50 mg PO QID PRN (Reason: anxiety) Qty: 60 0RF mirtazapine 7.5 mg tablet 7.5 mg PO BEDTIME Qty: 7 0RF lorazepam 0.5 mg tablet 0.5 mg PO TID PRN (Reason: anxiety) Qty: 42 0RF olanzapine 5 mg tablet See Rx Instructions .ROUTE .COMPLEX Qty: 21 0RF Rx Instructions: Take 5mg twice daily scheduled, and an additional 5mg once daily as needed for paranaoia, intrusive thoughts, auditory and visual hallucinations Interventions: ED Discharge Assessment Last Done: 08/07/22 23:07 Discharge Date/Time: 08/07/22 23:07
[2022-08-07 22:00] VITALS: BP 92/63; PULSE 68; RESP 16; TEMP 36.7; O2SAT 98
[2022-08-07] MEDS: Ondansetron ODT 4 MG TAB.RAPDIS TRANSLINGU (22:11)
== END 2022-08-07 23:07 | disposition home or self-care (01) ==
PROVIDERS: Emergency Provider Internal Medicine; PCP Physician Assistant
DX: F12.188 Cannabis abuse with other cannabis-induced disorder (principal); R11.10 Vomiting, unspecified; Z20.822 Contact with and (suspected) exposure to COVID-19; Z79.899 Other long term (current) drug therapy
CPT/HCPCS: 0241U; 80053; 81001; 81025; 85025; 99283

== ENCOUNTER 2022-08-13 10:58 | Outpatient (REF) | payer OTHER, SELFPAY ==
[2022-08-13 11:11] LABS: MANUAL DIFF FLAG NO
[2022-08-13 11:24] LABS: Ammonia 21 umol/L (13-55)
[2022-08-13 11:55] LABS: Basophils Percent Auto 0.4 % (0-2); Eosinophils Absolute Auto 0.2 X10*3/uL (0.0-0.4); Eosinophils Percent Auto 1.9 % (0-4); Hematocrit 37.6 % (37.0-47.0); Hemoglobin 12.2 g/dl (12.0-16.0); Imm Gran Abs Auto 0.02 X10*3/uL (0.00-0.03); Imm Gran Pct Auto 0.2 % (0.0-0.4); Lymphocytes Absolute Auto 3.7 X10*3/uL (1.2-4.9); Lymphocytes Percent Auto 39.1 % (20-40); Mean Corpuscular HGB Conc 32.4 g/dl (31.0-35.0); Mean Corpuscular Hemoglobin 26.5 pg (27.0-33.0); Mean Corpuscular Volume 81.7 fL (80.0-98.0); Mean Platelet Volume 11.2 fL (9.4-12.3); Monocytes Absolute Auto 0.5 X10*3/uL (0.1-1.2); Monocytes Percent Auto 5.2 % (2-11); Neutrophils Percent Auto 53.2 % (45-73); Platelet Count 274 X10*3/uL (160-400); Red Cell Distribution Width 14.9 % (11.0-16.0); White Blood Count 9.4 X10*3/uL (4.8-10.8)
[2022-08-13 12:28] LABS: Valproate 48.1 mcg/mL (50.0-100.0)
[2022-08-13 13:30] LABS: Alanine Aminotransferase 17 U/L (0-31); Albumin Level 4.2 g/dL (3.5-5.0); Alkaline Phosphatase 60 U/L (39-117); Anion Gap 14 (12-20); Aspartate Amino Transferase 15 U/L (5-31); Bilirubin Total 0.3 mg/dL (0.0-1.0); Blood Urea Nitrogen 13 mg/dL (9-16); Calcium 9.5 mg/dL (8.4-10.2); Carbon Dioxide 24 mmol/L (22-29); Chloride 106 mmol/L (96-108); Estimated Glomerular Filt Rate > 60; Glucose Random 78 mg/dL (60-115); Potassium 3.9 mmol/L (3.3-5.1); Sodium 140 mmol/L (135-145); Total Protein 7.2 g/dL (6.5-8.0)
[2022-08-13 13:36] LABS: Thyroid Stimulating Hormone 1.03 uIU/mL (0.32-4.0)
== END 2022-08-13 10:59 | disposition home or self-care (01) ==
LOC: HO.LAB 10:58
PROVIDERS: PCP Physician Assistant; Visit Provider Nurse Practitioner Psychiatric/Mental Health
DX: Z79.899 Other long term (current) drug therapy (principal)
CPT/HCPCS: 36415; 80053; 80164; 82140; 84443; 85025

== ENCOUNTER 2022-08-29 11:00 | Outpatient (RCR) | payer OTHER, SELFPAY ==
--- NOTE | 2022-07-22 11:12 | P.EN_ITS ---
Event Note Date of Service: 07/22/22 Event Note: This fiction and nonfiction prose writer met with patient at 10:45 today to complete initial evaluation for PHP, as she started program today. However, patient reports she has not been able to take her medications for past 3 weeks due to unable to get them refilled. Reports auditory and visual hallucinations constantly. States she has had these since she found her brother On Thanksgiving. Active SI at this time with a plan to slit wrists in an X pattern so that ?it cannot be stitched up ?, and that ?if it does not work, I am going to jump off a bridge ?. Care team notified, PHP safety and health manager notified. Clinician walking patient over to be assessed by care team at this time. Time Spent With Patient Time: Total time managing care of this patient today __15__ minutes.
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
--- NOTE | 2022-07-24 15:55 | HO.PHPIOP ---
Case opened in treatment team.
--- NOTE | 2022-07-25 10:55 | PC.NURSE ---
Patient did not show up to the program today. I called and staff called patient several times and left voice messages for patient to call us back. Patient has not returned phone calls. Called patient's emergency casino floor person Jennie however unable to get hold of him or leave a message as there is no voice mail. Called [place] [employer] and gave them patient information and requested a wellness check as we are concerned about her safety. They will have the patient reach out to me. [facility] staff are aware.
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
[2022-07-29 12:01] VITALS: BP 116/64; PULSE 96; TEMP 37.1; BMI 34.7
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
--- NOTE | 2022-08-05 13:25 | P.PNPSP_ITS ---
Subjective Subjective Date of Service: 08/05/22 Reason For Visit: PTSD,MDD Medical Problems Affecting Mental Status: No Interim History: States I have been experiencing so many emotions, feel drained . Intrusive thoughts, some paranoia. Auditory and visual hallucinations, voices, faces. Frequent dissociation. No SI, feels safe. Sleep and appetite improved. Current prazosin dose working well, no nightmares. Medication Compliance: Yes Side effects from medications: No Attending Groups: Yes Review of Systems Acute medical concerns: No Medical Review of Systems: changed Review of Systems Review of Systems Yes all other systems are reviewed and are negative Constitutional: Reports no additional constitutional complaints Psychiatric: Reports visual hallucinations and Reports hallucinations Mental Status Exam Mental Status Exam Narrative: +AH, +VH, seeing faces, thinking her baby is crawling under her feet when really not there. No SI/HI, feels safe. Patient Appearance: Unkempt Patient Orientation: Person, Place, Time and Situation Level of Consciousness: Appropriate Patient Behavior: Appropriate, Cooperative and Good Eye Contact Mood Description: Depressed Affect Description: Withdrawn and Depressed Patient Cognition Impaired: No Ability to Follow Directions: Good Speech Pattern: Clear Memory Description: Intact Hallucinations: Auditory and Visual Delusions: Paranoid Ideation and Present (afraid to eat meat, believes will get food poisoning from it.) Perceptual Disturbances: Depersonalization Thought Process: Intact Thought Content: positive for [place] Depressive Symptoms: Increased Anxiety, Loss of Int. in Activity, Feelings of Guilt, Increased Fatigue, Low Self Esteem and Loss of Energy Judgement: Fair Diagnostics Vital Signs (24Hr): BMI result Body Mass Index 34.7 Assessment & Plan Assessment & Plan (1) Bipolar disorder: Qualifiers: Active/Remission status: currently active Current bipolar episode type: depressed Current episode severity: moderate Qualified Code(s): F31.32 - Bipolar disorder, current episode depressed, moderate Status: Acute Code(s): F31.9 - Bipolar disorder, unspecified Assessment and Plan: States I have been experiencing so many emotions, feel drained . Glad holidays are over. Kids and house back to regular routine, which she says helps her. Intrusive thoughts, some paranoia. We discussed changing olanzapine dose to 5mg BID, with 5mg as a daily prn. She was agreeable to this. Auditory and visual hallucinations, voices, faces. Says they come and go . Envisions her brothers face, and imagines her baby is crawling in front of her on the floor. Frequent dissociation. PTSD related. Aware when she is doing it, using grounding techniques. No SI, feels safe. Sleep and appetite improved. Has not been utilizing both scheduled and p.r.n. hydroxyzine, states that she does not need it scheduled. Current prazosin dose working well, no nightmares. No side effects. (2) PTSD (post-traumatic stress disorder): Status: Acute Code(s): F43.10 - Post-traumatic stress disorder, unspecified Plan 1. Continue with current [facility] plan of care. 2. Discontinue scheduled hydroxyzine, as she has p.r.n. doses available. 3. Increase olanzapine to 5 mg b.i.d., keep 5 mg p.r.n. as needed for breakthrough symptoms. 4. Follow-up as per protocol. Patient educated on: diagnosis, medication risk/benefits and therapeutic strategies Informed Consent: understands Reason for contiued partial hosp. stay Substantial Risk for: harm to self, inability to function and rapid decompensation Certification I certify that partial hospital treatment is medically necessary due to the symptoms and problems resulting from the patient's mental illness and the failure to treat the patient at the partial hospital level of care would likely result in the patient requiring inpatient psychiatric care which could not be prevented at a less intensive level of care. Total time managing care of this patient today ___20_ minutes. Discharge Plan Discharge Attending provider: Dylon Trinidad Medications: New benztropine 1 mg tablet 1 mg PO BID Qty: 60 0RF divalproex [Depakote] 250 mg tablet,delayed release (DR/EC) 250 mg PO BID Qty: 60 0RF gabapentin 300 mg capsule 300 mg PO BID Qty: 60 0RF prazosin 1 mg capsule 1 mg PO BID Qty: 60 0RF Rx Instructions: take with prazosin 2mg BID, for total daily dose of 3mg BID. Hold for systolic BP <90 prazosin 2 mg capsule 2 mg PO BID Qty: 60 0RF Rx Instructions: take with prazosin 1mg for total daily dose prazosin 3mg BID. Hold for systolic BP <90 hydroxyzine HCl 50 mg tablet 50 mg PO QID PRN (Reason: anxiety) Qty: 60 0RF mirtazapine 7.5 mg tablet 7.5 mg PO BEDTIME Qty: 7 0RF lorazepam 0.5 mg tablet 0.5 mg PO TID PRN (Reason: anxiety) Qty: 42 0RF olanzapine 5 mg tablet See Rx Instructions .ROUTE .COMPLEX Qty: 21 0RF Rx Instructions: Take 5mg twice daily scheduled, and an additional 5mg once daily as needed for [place], intrusive thoughts, auditory and visual hallucinations Discontinued divalproex 250 mg Tablet,Delayed Release (Dr/Ec) 250 mg PO BID Qty: 60 0RF prazosin 1 mg Capsule 3 mg PO TID Qty: 189 0RF Protocol: Hold for SBP< HOLD for SBP < : 90 hydroxyzine HCl 50 mg Tablet 50 mg PO TID Qty: 90 0RF olanzapine 2.5 mg Tablet 2.5 mg PO TID Qty: 90 0RF lorazepam 0.5 mg Tablet 0.5 mg PO TID Qty: 45 0RF trazodone 100 mg Tablet 100 mg PO BEDTIME PRN (Reason: Insomnia) Qty: 30 0RF benztropine 1 mg Tablet 1 mg PO BID Qty: 60 0RF gabapentin 300 mg Capsule 300 mg PO BID Qty: 60 0RF olanzapine 5 mg Tablet 5 mg PO Q4H PRN (Reason: agitation, psychosis, anxiety) Qty: 60 0RF hydroxyzine HCl 50 mg Tablet 50 mg PO Q4H PRN (Reason: Anxiety) Qty: 30 0RF No Action acetaminophen 325 mg Tablet 650 mg PO Q6H PRN (Reason: Headache/Pain Mild Scale (1-3)) Qty: 30 0RF baclofen 10 mg Tablet 10 mg PO TID Qty: 90 0RF Stand Alone Forms: Patient Portal Discharge page
--- NOTE | 2022-08-07 11:31 | PC.NURSE ---
Patient reports she has been vomiting since Thursday and thought she had food poisoning however no one in her family is sick. She stated she vomited up blood yesterday and has not been able to keep any food in her system. She did state she has been drinking a lot of water however vomits this up at times. Stated she has stomach cramps and heartburn. Patient did not want to go to the ER. She did however call her PCP's office at [facility] and reviewed the above symptoms with them. She is waiting for a call back from [facility] regarding a f/u appointment.
--- NOTE | 2022-08-08 12:59 | PC.NURSE ---
Patient did not show up to the program this morning. I called and spoke to Annamarie who stated she went to the ER yesterday after the program to f/u with GI issues. She stated she was diagnosed with Cannabis Hyperemesis Syndrome and was discharged at 2:00 am. Stated she was tired and would be back on Thursday. Spoke to Annamarie about having her fiance manage her medications until she feels more stable. She reports he has done this in the past and she is in agreement with the plan. Her fiance is also in agreement with the plan. PHP team is aware of above information.
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
--- NOTE | 2022-08-12 12:30 | HO.PHPPROGNO ---
Subjective Subjective Date of Service: 08/12/22 Reason For Visit: PTSD,MDD Medical Problems Affecting Mental Status: No Interim History: Has been struggling with PTSD sx, depressed mood. Confusion over medications, has not been taking them as ordered. Experiencing AH,VH, more dissociation. States I lost the whole weekend Describes current stressor as new police /DCF involvement, court date in 2 days. Medication Compliance: Intermittent Side effects from medications: No Attending Groups: Yes Review of Systems Acute medical concerns: No Medical Review of Systems: unchanged Review of Systems Review of Systems Yes all other systems are reviewed and are negative Constitutional: Reports no additional constitutional complaints Mental Status Exam Mental Status Exam Narrative: +AH, +VH, thoughts of wanting to harm others (no plan or intent). No SI/HI, feels safe. Patient Appearance: Appropriate Patient Orientation: Person, Place, Time and Situation Level of Consciousness: Appropriate Patient Behavior: Appropriate, Cooperative and Poor Eye Contact (intermittent eye contact) Mood Description: Depressed Affect Description: Withdrawn and Depressed Patient Cognition Impaired: No Ability to Follow Directions: Good Speech Pattern: Clear Memory Description: Intact Hallucinations: Auditory and Visual Delusions: Paranoid Ideation Perceptual Disturbances: Depersonalization and Hallucinations Thought Process: Intact Thought Content: positive for [place] and positive for Obsessional Thoughts Depressive Symptoms: Increased Anxiety, Loss of Int. in Activity, Feelings of Guilt, Increased Fatigue, Low Self Esteem, Loss of Energy and Difficulty Concentrating Judgement: Fair Diagnostics Vital Signs (24Hr): BMI result Body Mass Index 34.7 Assessment & Plan Assessment & Plan (1) PTSD (post-traumatic stress disorder): Status: Acute Code(s): F43.10 - Post-traumatic stress disorder, unspecified Assessment and Plan: Continues anxious. No SI/HI, no safety concerns. Appetite okay, sleep good. Increased hydroxyzine helping, but not enough. Tolerating lamotrigine well, no concerns. Continues with hypervigilance, irritability, hyperarousal. Reviewed medication schedule with patient. Has not been taking olanzapine, prazosin, depakote as ordered. Instructed patient regarding what to take, when. She had difficulty following along, overwhelmed. Has multiple medications at home, some with changed doses, some discontinued, etc. (2) Depression: Status: Acute Code(s): F32.A - Depression, unspecified (3) Bipolar disorder: Qualifiers: Active/Remission status: currently active Current bipolar episode type: depressed Current episode severity: moderate Qualified Code(s): F31.32 - Bipolar disorder, current episode depressed, moderate Status: Acute Code(s): F31.9 - Bipolar disorder, unspecified Assessment and Plan: Has not been taking prescribed depokote as ordered. Has had some mood fluctuations. Plan 1. Continue current [facility] plan of care. 2. Patient instructed (and provided written instructions regarding medication regime. 3. Mirtazapine discontinued. 4. Patient to bring in medications tomorrow, to be sorted and organized with nurse or myself. 5. Follow-up as per protocol. Patient educated on: diagnosis, medication risk/benefits and therapeutic strategies Informed Consent: further education needed Reason for contiued partial hosp. stay Substantial Risk for: harm to self, harm to others, inability to function, rapid decompensation and med/psych decompensation Certification I certify that partial hospital treatment is medically necessary due to the symptoms and problems resulting from the patient's mental illness and the failure to treat the patient at the partial hospital level of care would likely result in the patient requiring inpatient psychiatric care which could not be prevented at a less intensive level of care. Total time managing care of this patient today __30__ minutes. Discharge Plan Discharge Attending provider: Dylon Trinidad Medications: New benztropine 1 mg tablet 1 mg PO BID Qty: 60 0RF divalproex [Depakote] 250 mg tablet,delayed release (DR/EC) 250 mg PO BID Qty: 60 0RF gabapentin 300 mg capsule 300 mg PO BID Qty: 60 0RF prazosin 1 mg capsule 1 mg PO BID Qty: 60 0RF Rx Instructions: take with prazosin 2mg BID, for total daily dose of 3mg BID. Hold for systolic BP <90 prazosin 2 mg capsule 2 mg PO BID Qty: 60 0RF Rx Instructions: take with prazosin 1mg for total daily dose prazosin 3mg BID. Hold for systolic BP <90 hydroxyzine HCl 50 mg tablet 50 mg PO QID PRN (Reason: anxiety) Qty: 60 0RF lorazepam 0.5 mg tablet 0.5 mg PO TID PRN (Reason: anxiety) Qty: 42 0RF olanzapine 5 mg tablet See Rx Instructions .ROUTE .COMPLEX Qty: 21 0RF Rx Instructions: Take 5mg twice daily scheduled, and an additional 5mg once daily as needed for [place], intrusive thoughts, auditory and visual hallucinations Discontinued divalproex 250 mg Tablet,Delayed Release (Dr/Ec) 250 mg PO BID Qty: 60 0RF prazosin 1 mg Capsule 3 mg PO TID Qty: 189 0RF Protocol: Hold for SBP< HOLD for SBP < : 90 hydroxyzine HCl 50 mg Tablet 50 mg PO TID Qty: 90 0RF olanzapine 2.5 mg Tablet 2.5 mg PO TID Qty: 90 0RF lorazepam 0.5 mg Tablet 0.5 mg PO TID Qty: 45 0RF trazodone 100 mg Tablet 100 mg PO BEDTIME PRN (Reason: Insomnia) Qty: 30 0RF benztropine 1 mg Tablet 1 mg PO BID Qty: 60 0RF gabapentin 300 mg Capsule 300 mg PO BID Qty: 60 0RF olanzapine 5 mg Tablet 5 mg PO Q4H PRN (Reason: agitation, psychosis, anxiety) Qty: 60 0RF hydroxyzine HCl 50 mg Tablet 50 mg PO Q4H PRN (Reason: Anxiety) Qty: 30 0RF No Action ondansetron 4 mg tablet,disintegrating 4 mg PO Q6-8H PRN (Reason: nausea and vomiting) Qty: 10 0RF acetaminophen 325 mg Tablet 650 mg PO Q6H PRN (Reason: Headache/Pain Mild Scale (1-3)) Qty: 30 0RF baclofen 10 mg Tablet 10 mg PO TID Qty: 90 0RF Stand Alone Forms: Patient Portal Discharge page
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
--- NOTE | 2022-08-18 16:01 | HO.PHPPROGNO ---
Subjective Subjective Date of Service: 08/18/22 Reason For Visit: PTSD,MDD Medical Problems Affecting Mental Status: No Interim History: Describes mood as anxious, depressed. Broke up with stef on Thursday. Continues abstinent from cannabis. Finding groups helpful, opening up in sharing, reports she is working to be more active, accept feedback. No SI, no HI, feels safe. Taking medications as prescribed, no concerns. Medication Compliance: Yes Side effects from medications: No Attending Groups: Yes Review of Systems Acute medical concerns: No Medical Review of Systems: unchanged Review of Systems Review of Systems Yes all other systems are reviewed and are negative Constitutional: Reports no additional constitutional complaints Mental Status Exam Mental Status Exam Narrative: Well-developed, well-nourished, in NAD. Fully engaged in conversation. Patient Appearance: Appropriate Patient Orientation: Person, Place, Time and Situation Level of Consciousness: Appropriate and Alert Patient Behavior: Appropriate, Cooperative and Good Eye Contact Mood Description: Depressed and Anxious Affect Description: Depressed (less so) and Anxious Patient Cognition Impaired: No Ability to Follow Directions: Good Speech Pattern: Clear, Appropriate and Coherent Memory Description: Intact Delusions: Not Present Perceptual Disturbances: Depersonalization Thought Process: Intact Thought Content: positive for Intact Depressive Symptoms: Increased Anxiety, Loss of Int. in Activity, Increased Fatigue, Low Self Esteem and Difficulty Concentrating Judgement: Fair Diagnostics Vital Signs (24Hr): BMI result Body Mass Index 34.7 Assessment & Plan Assessment & Plan (1) PTSD (post-traumatic stress disorder): Status: Acute Code(s): F43.10 - Post-traumatic stress disorder, unspecified Assessment and Plan: Patient has had medications schedule clarified last week. Since then, she appears more clear, engageable, less depressed, less anxious. No AH/VH, no SI. Feels safe. Has broken up with boyfriend, feels this decision good be beneficial to both her and her children. Finding herself participating more in groups today. Satisfied with current medication regimen. (2) Cannabis use disorder: Status: Acute Code(s): F12.90 - Cannabis use, unspecified, uncomplicated Assessment and Plan: Continues to remain abstinent from cannabis. Denies any concerns. (3) Bipolar disorder: Qualifiers: Active/Remission status: currently active Current bipolar episode type: depressed Current episode severity: moderate Qualified Code(s): F31.32 - Bipolar disorder, current episode depressed, moderate Status: Acute Code(s): F31.9 - Bipolar disorder, unspecified Plan 1. Continue with current [facility] plan of care. 2. Continue with current medications as prescribed. 3. Follow-up as per protocol. Patient educated on: diagnosis, medication risk/benefits, substance abuse and therapeutic strategies Informed Consent: understands Reason for contiued partial hosp. stay Substantial Risk for: harm to self, inability to function and rapid decompensation Certification I certify that partial hospital treatment is medically necessary due to the symptoms and problems resulting from the patient's mental illness and the failure to treat the patient at the partial hospital level of care would likely result in the patient requiring inpatient psychiatric care which could not be prevented at a less intensive level of care. Total time managing care of this patient today ___20_ minutes. Discharge Plan Discharge Attending provider: Dylon Trinidad Medications: New benztropine 1 mg tablet 1 mg PO BID Qty: 60 0RF divalproex [Depakote] 250 mg tablet,delayed release (DR/EC) 250 mg PO BID Qty: 60 0RF gabapentin 300 mg capsule 300 mg PO BID Qty: 60 0RF prazosin 1 mg capsule 1 mg PO BID Qty: 60 0RF Rx Instructions: take with prazosin 2mg BID, for total daily dose of 3mg BID. Hold for systolic BP <90 prazosin 2 mg capsule 2 mg PO BID Qty: 60 0RF Rx Instructions: take with prazosin 1mg for total daily dose prazosin 3mg BID. Hold for systolic BP <90 hydroxyzine HCl 50 mg tablet 50 mg PO QID PRN (Reason: anxiety) Qty: 60 0RF lorazepam 0.5 mg tablet 0.5 mg PO TID PRN (Reason: anxiety) Qty: 42 0RF olanzapine 5 mg tablet See Rx Instructions .ROUTE .COMPLEX Qty: 21 0RF Rx Instructions: Take 5mg twice daily scheduled, and an additional 5mg once daily as needed for [place], intrusive thoughts, auditory and visual hallucinations lorazepam 0.5 mg tablet 0.5 mg PO TID PRN (Reason: anxiety) Qty: 60 0RF Discontinued divalproex 250 mg Tablet,Delayed Release (Dr/Ec) 250 mg PO BID Qty: 60 0RF prazosin 1 mg Capsule 3 mg PO TID Qty: 189 0RF Protocol: Hold for SBP< HOLD for SBP < : 90 hydroxyzine HCl 50 mg Tablet 50 mg PO TID Qty: 90 0RF olanzapine 2.5 mg Tablet 2.5 mg PO TID Qty: 90 0RF lorazepam 0.5 mg Tablet 0.5 mg PO TID Qty: 45 0RF trazodone 100 mg Tablet 100 mg PO BEDTIME PRN (Reason: Insomnia) Qty: 30 0RF benztropine 1 mg Tablet 1 mg PO BID Qty: 60 0RF gabapentin 300 mg Capsule 300 mg PO BID Qty: 60 0RF olanzapine 5 mg Tablet 5 mg PO Q4H PRN (Reason: agitation, psychosis, anxiety) Qty: 60 0RF hydroxyzine HCl 50 mg Tablet 50 mg PO Q4H PRN (Reason: Anxiety) Qty: 30 0RF No Action ondansetron 4 mg tablet,disintegrating 4 mg PO Q6-8H PRN (Reason: nausea and vomiting) Qty: 10 0RF acetaminophen 325 mg Tablet 650 mg PO Q6H PRN (Reason: Headache/Pain Mild Scale (1-3)) Qty: 30 0RF baclofen 10 mg Tablet 10 mg PO TID Qty: 90 0RF Stand Alone Forms: Patient Portal Discharge page
--- NOTE | 2022-08-20 09:33 | PC.NURSE ---
Patient stated she is feeling better after quitting marijuana for the past 2 weeks. GI issues improved. Stated her fiance is having a hard time with her quitting as she stated he uses marijuana as well. Reports he is controlling. Reports getting support from the groups at [facility].
--- NOTE | 2022-08-29 10:29 | HO.PHPPROGNO ---
Subjective Subjective Date of Service: 08/29/22 Reason For Visit: PTSD,MDD Medical Problems Affecting Mental Status: No Interim History: Describes mood as ?aggravated?. Multiple life stressors continue. No SI, no safety concerns. States that ?I feel safe ?. Taking medications as prescribed. Working with therapist weekly. Overall ready for discharge from [facility] today. Medication Compliance: Yes Side effects from medications: No Attending Groups: Yes Review of Systems Acute medical concerns: No Medical Review of Systems: unchanged Review of Systems Review of Systems Yes all other systems are reviewed and are negative Constitutional: Reports no additional constitutional complaints Mental Status Exam Mental Status Exam Narrative: NAD Patient Appearance: Appropriate Patient Orientation: Person, Place, Time and Situation Level of Consciousness: Appropriate and Alert Patient Behavior: Appropriate, Cooperative and Good Eye Contact Mood Description: Anxious Affect Description: Anxious Patient Cognition Impaired: No Ability to Follow Directions: Good Speech Pattern: Clear, Appropriate and Coherent Memory Description: Intact Hallucinations: None Delusions: Not Present Perceptual Disturbances: Depersonalization Thought Process: Intact Thought Content: positive for Intact Depressive Symptoms: Increased Anxiety, Low Self Esteem and Difficulty Concentrating Judgement: Good Diagnostics Vital Signs (24Hr): BMI result Body Mass Index 34.7 Assessment & Plan Assessment & Plan (1) PTSD (post-traumatic stress disorder): Status: Acute Code(s): F43.10 - Post-traumatic stress disorder, unspecified Assessment and Plan: Describes mood as ?aggravated?. Multiple life stressors continue. Working with DCF, who have removed children from her custody. Broke up with lauren. Working with outreach workers regarding housing, etc.. No SI, no safety concerns. States that ?I feel safe ?. No evidence of any type of hallucinations during visit, none reported. Taking medications as prescribed. That satisfied with current medication regimen, will discuss this with outpatient provider going forward. Needs refill of olanzapine. Working with therapist weekly, finding this helpful. Overall ready for discharge from [facility] today. (2) Cannabis use disorder: Status: Acute Code(s): F12.90 - Cannabis use, unspecified, uncomplicated Assessment and Plan: Patient has been actively working to reduce/stop cannabis use. Plan 1. Patient appears ready for discharge from [facility] at this time. 2. Refill of olanzapine sent to pharmacy. 3. Patient to follow-up with outpatient providers going forward. Patient educated on: diagnosis, medication risk/benefits, substance abuse and therapeutic strategies Reason for contiued partial hosp. stay Substantial Risk for: stable for discharge Certification I certify that partial hospital treatment is medically necessary due to the symptoms and problems resulting from the patient's mental illness and the failure to treat the patient at the partial hospital level of care would likely result in the patient requiring inpatient psychiatric care which could not be prevented at a less intensive level of care. Total time managing care of this patient today __20__ minutes. Discharge Plan Discharge Attending provider: Dylon Trinidad Medications: New benztropine 1 mg tablet 1 mg PO BID Qty: 60 0RF divalproex [Depakote] 250 mg tablet,delayed release (DR/EC) 250 mg PO BID Qty: 60 0RF gabapentin 300 mg capsule 300 mg PO BID Qty: 60 0RF prazosin 1 mg capsule 1 mg PO BID Qty: 60 0RF Rx Instructions: take with prazosin 2mg BID, for total daily dose of 3mg BID. Hold for systolic BP <90 prazosin 2 mg capsule 2 mg PO BID Qty: 60 0RF Rx Instructions: take with prazosin 1mg for total daily dose prazosin 3mg BID. Hold for systolic BP <90 hydroxyzine HCl 50 mg tablet 50 mg PO QID PRN (Reason: anxiety) Qty: 60 0RF lorazepam 0.5 mg tablet 0.5 mg PO TID PRN (Reason: anxiety) Qty: 42 0RF lorazepam 0.5 mg tablet 0.5 mg PO TID PRN (Reason: anxiety) Qty: 60 0RF olanzapine 5 mg tablet See Rx Instructions .ROUTE .COMPLEX Qty: 90 0RF Rx Instructions: 5 mg orally twice daily scheduled, and and additional 5 mg once daily as needed for breakthrough symptoms of paranoia, intrusive thoughts, auditory and visual hallucinations. Discontinued divalproex 250 mg Tablet,Delayed Release (Dr/Ec) 250 mg PO BID Qty: 60 0RF prazosin 1 mg Capsule 3 mg PO TID Qty: 189 0RF Protocol: Hold for SBP< HOLD for SBP < : 90 hydroxyzine HCl 50 mg Tablet 50 mg PO TID Qty: 90 0RF olanzapine 2.5 mg Tablet 2.5 mg PO TID Qty: 90 0RF lorazepam 0.5 mg Tablet 0.5 mg PO TID Qty: 45 0RF trazodone 100 mg Tablet 100 mg PO BEDTIME PRN (Reason: Insomnia) Qty: 30 0RF benztropine 1 mg Tablet 1 mg PO BID Qty: 60 0RF gabapentin 300 mg Capsule 300 mg PO BID Qty: 60 0RF olanzapine 5 mg Tablet 5 mg PO Q4H PRN (Reason: agitation, psychosis, anxiety) Qty: 60 0RF hydroxyzine HCl 50 mg Tablet 50 mg PO Q4H PRN (Reason: Anxiety) Qty: 30 0RF No Action ondansetron 4 mg tablet,disintegrating 4 mg PO Q6-8H PRN (Reason: nausea and vomiting) Qty: 10 0RF acetaminophen 325 mg Tablet 650 mg PO Q6H PRN (Reason: Headache/Pain Mild Scale (1-3)) Qty: 30 0RF baclofen 10 mg Tablet 10 mg PO TID Qty: 90 0RF Stand Alone Forms: Patient Portal Discharge page Patient Education: Depression (DC), Cannabis Abuse (DC)
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
== END 2022-08-29 23:59 | disposition home or self-care (01) ==
LOC: HO.PHPA 11:00
PROVIDERS: Visit Provider Psychiatry & Neurology Psychiatry
DX: F43.10 Post-traumatic stress disorder, unspecified (principal); F31.32 Bipolar disorder, current episode depressed, moderate
CPT/HCPCS: 90791; 90853

== ENCOUNTER 2022-09-02 19:43 | Inpatient (IN) | payer OTHER, SELFPAY ==
[2022-09-02 19:49] VITALS: BP 117/73; PULSE 105; RESP 18; TEMP 36.5; O2SAT 98; BMI 35.5
--- NOTE | 2022-09-02 20:29 | ED.PSYCH ---
HPI - Psych General Chief Complaint: Psychiatric Symptoms <TRANG Smith - Last Filed: 09/02/22 22:00> Stated Complaint: Crisis <TRANG Smith - Last Filed: 09/02/22 22:00> Time Seen by Provider: 09/02/22 20:09 <TRANG Smith - Last Filed: 09/02/22 22:00> Source: patient <TRANG Smith - Last Filed: 09/02/22 22:00> Mode of arrival: ambulatory <TRANG Smith - Last Filed: 09/02/22 22:00> Limitations: no limitations <TRANG Smith - Last Filed: 09/02/22 22:00> History of Present Illness HPI Narrative: This is a 32-year-old female history of bipolar disorder, migraines, asthma, fibromyalgia, PTSD, depression, cannabis use disorder presenting to the emergency department requesting a psychiatric evaluation, patient tells me for the past few months she has been struggling with her mental health. Patient tells me she is having visual and auditory hallucinations, suicidal ideation, homicidal ideation, anxiety, depression. Patient reports increasing life stressors, she tells me she found her brother on Thanksgiving, she has been hallucinating and talking to her brother, she tells me she is hearing voices and seeing shadows. Patient reports that she has a therapist and a psychiatrist and is currently enrolled in outpatient psychiatric program which has not been helping her she tells me it may be making it worse, they have made a few medication adjustments which patient reports have not helped her. Patient does not have a specific plan on how she would want to harm herself nor does she have a plan on how she would want to harm others. She tells me he is having command auditory hallucinations that are telling her to kill herself and others. Denies drugs, alcohol and tobacco. No medical complaints at this time. Seeking psychiatric admission. <TRANG Smith - Last Filed: 09/02/22 22:00> Related Data Home Medications: Home Medications Medication Instructions Recorded Confirmed benztropine 1 mg tablet 1 tab PO BID 09/02/22 09/02/22 divalproex 250 mg tablet,delayed 1 tab PO BID 09/02/22 09/02/22 release gabapentin 300 mg capsule 300 mg PO BID 09/02/22 09/02/22 hydroxyzine HCl 50 mg tablet 1 tab PO QID PRN Anxiety 09/02/22 09/02/22 olanzapine 2.5 mg tablet 2.5 mg PO TID PRN Agitation 09/02/22 09/02/22 prazosin 1 mg capsule 1 cap PO BID 09/02/22 09/02/22 prazosin 2 mg capsule 1 cap PO BID 09/02/22 09/02/22 Previous Rx's Medication Instructions Recorded acetaminophen 325 mg tablet 650 mg PO Q6H PRN Headache/Pain 06/02/22 Mild Scale (1-3) #30 tabs lorazepam 0.5 mg tablet 0.5 mg PO TID PRN anxiety #42 tabs 07/29/22 <TRANG Smith - Last Filed: 09/02/22 22:00> Allergies/Adverse Reactions: Allergies Allergy/AdvReac Type Severity Reaction Status Date / Time Benadryl Allergy Severe anaphylaxis Verified 09/02/22 19:54 diphenhydramine Allergy Severe ANAPHYLAXIS Verified 09/02/22 19:54 [From BENADRYL] latex [LATEX] Allergy Intermediate RASH Verified 09/02/22 19:54 latex Allergy Unknown Rash Verified 09/02/22 19:54 <TRANG Smith - Last Filed: 09/02/22 22:00> Review of Systems Review of Systems: Constitutional : No Weight loss, No Fever, No Chills, No Fatigue, No Malaise ENT/Mouth : No sore throat, No Rhinorrhea Eyes: No Eye Pain, No Swelling, No Redness Cardiovascular : No Chest Pain, No SOB, No Dyspnea on Exertion, No Orthopnea, No Edema, No Palpitations Respiratory : No Cough, No Sputum, No Wheezing Gastrointestinal : No Nausea, No Vomiting, No Diarrhea, No Constipation, No abdominal Pain, No Hematochezia, No Melena Genitourinary : No Dysuria, No Urinary Frequency, No Hematuria, Musculoskeletal : No joint pain, No Myalgias, No Joint Swelling Skin : No Skin Lesions, No rash Neuro : No Weakness, No Numbness, No Dizziness, No Headache Psych : + Anxiety/Panic, + Depression, + VH/AH, + SI and HI All other systems reviewed and are negative <TRANG Smith - Last Filed: 09/02/22 22:00> Yes all other systems are reviewed and are negative <TRANG Smith - Last Filed: 09/02/22 22:00> [facility] Past Medical History Attestation statement: The following information was validated with the patient. <TRANG Smith - Last Filed: 09/02/22 22:00> Source: old records reviewed and nursing notes reviewed <TRANG Smith - Last Filed: 09/02/22 22:00> Medical History: Medical History Anemia Anxiety Asthma Bipolar disorder Breast cyst Fibromyalgia Migraine Psychosis PTSD (post-traumatic stress disorder) TBI (traumatic brain injury) <TRANG Smith - Last Filed: 09/02/22 22:00> Surgical History: Surgical History History of surgery History of tubal ligation Hx of section <TRANG Smith - Last Filed: 09/02/22 22:00> Family History Family History: Family History Father No problems noted. Mother Liver cancer Sister Breast cancer Maternal Grandmother Breast cancer <TRANG Smith - Last Filed: 09/02/22 22:00> Social History Social History: Social History Household Members: Significant Other and Children Housing: Apartment Housing Other:: section 8 Do you presently have visiting nurse or other home services: No Alcohol intake: unknown Patient Tobacco Use Status: Current everyday Tobacco user Tobacco use type: Cigarette Cigarette Packs Per Day: 1 Cigarettes Per Day: 5 Years Smoked: 23 e-Cigarette/Vaping Use: Currently Using Second Hand Smoke Exposure: Yes Substance Use Type: Marijuana Advance Directives: No Advance Directives Information Provided: Yes service: No Sexual orientation: Don't Know <TRANG Smith - Last Filed: 09/02/22 22:00> Physical Exam Vital Signs: Vital Signs: Last Vital Signs Temp 97.7 F 09/02/22 19:49 Pulse 105 H 09/02/22 19:49 Resp 18 09/02/22 19:49 BP 117/73 09/02/22 19:49 Pulse Ox 98 09/02/22 19:49 O2 Del Method 09/02/22 19:49 BMI result Body Mass Index 35.5 Vital signs stable <TRANG Smith - Last Filed: 09/02/22 22:00> Vital Signs: Last Vital Signs Temp 97.7 F 09/02/22 19:49 Pulse 105 H 09/02/22 19:49 Resp 18 09/02/22 19:49 BP 117/73 09/02/22 19:49 Pulse Ox 98 09/02/22 19:49 O2 Del Method 09/02/22 19:49 BMI result Body Mass Index 35.5 <Analia Patrick MD - Last Filed: 09/03/22 06:48> Appearance: Alert.? Oriented X3.? No acute distress.? Head: Normocephalic, atraumatic, no step-offs or deformities Eyes: Pupils equal, round and reactive to light.? ENT: Pharynx normal.? Neck: Normal inspection.? Neck supple.? CVS: Normal heart rate and rhythm.? Pulses normal.? Respiratory: No respiratory distress.? Breath sounds normal.? Abdomen: Soft and nontender.? Skin: Skin warm and dry.? Normal skin color.? Normal skin turgor.? Extremities: No lower extremity edema.? No calf ttp. 5/5 strength to bilateral upper and lower extremities Neuro: Oriented X 3.? No motor deficit.? No sensory deficit. CN 2-12 intact <TRANG Smith - Last Filed: 09/02/22 22:00> Course Reevaluation(s) Reevaluation #1: CBC appears to be within normal limits. Chemistry with no acute findings requiring intervention. UA without infection. Urine toxicology positive for cocaine and marijuana. Salicylates acetaminophen negative. At this time patient will be placed into physician observation to allow more time to be evaluated by the behavioral health team. At time observation was started patient common cooperative no acute distress with a 1 on 1 sitter at the bedside. <TRANG Smith - Last Filed: 09/02/22 22:00> Time: 21:58 <TRANG Smith - Last Filed: 09/02/22 22:00> Reevaluation #2: Continued physician observation, no acute events overnight, pending care team evaluation, patient's presentation for suicidal and homicidal ideation <Analia Patrick MD - Last Filed: 09/03/22 06:48> Time: 06:46 <Analia Patrick MD - Last Filed: 09/03/22 06:48> Medications Administered Generic Name Dose Route Start Last Admin Trade Name Freq PRN Reason Stop Dose Admin Lorazepam 0.5 mg 09/02/22 21:56 09/02/22 22:31 Lorazepam 0.5 Mg Tablet PO 0.5 mg TID PRN Administration anxiety Olanzapine 2.5 mg 09/02/22 21:56 09/02/22 22:31 Olanzapine 2.5 Mg Tablet PO 2.5 mg TID PRN Administration Agitation <TRANG Smith - Last Filed: 09/02/22 22:00> Medications Administered Generic Name Dose Route Start Last Admin Trade Name Freq PRN Reason Stop Dose Admin Lorazepam 0.5 mg 09/02/22 21:56 09/02/22 22:31 Lorazepam 0.5 Mg Tablet PO 0.5 mg TID PRN Administration anxiety Olanzapine 2.5 mg 09/02/22 21:56 09/02/22 22:31 Olanzapine 2.5 Mg Tablet PO 2.5 mg TID PRN Administration Agitation <Analia Patrick MD - Last Filed: 09/03/22 06:48> Medical Decision Making Medical Decision Making MDM Narrative: 2030 This is a 32-year-old female presenting with anxiety, depression, suicidal ideation, homicidal ideation, visual and auditory hallucinations times a few months. Reports increasing life stressors. Physical exam benign. Likely bipolar disorder with depression and PTSD. Unlikely metabolic causes. Plan medical clearance evaluation by the behavioral health team. Will place patient on a 1-1 <TRANG Smith Last Filed: 09/02/22 22:00> Differential Diagnosis Differential Diagnoses: The differential diagnosis associated with the presentation includes <TRANG Smith Last Filed: 09/02/22 22:00> Likely bipolar disorder with depression and PTSD. Unlikely metabolic causes. <TRANG Smith - Last Filed: 09/02/22 22:00> Admission/Observation Consideration of admission/observation: Escalation of care including admission/observation considered <TRANG Smith - Last Filed: 09/02/22 22:00> Likely indicated <TRANG Smith - Last Filed: 09/02/22 22:00> Lab Data MDM Lab Attestation statement: I reviewed the patient's lab results. <TRANG Smith - Last Filed: 09/02/22 22:00> Result Diagrams: 09/02/22 21:22 09/02/22 21:22 <TRANG Smith - Last Filed: 09/02/22 22:00> Labs: Lab Results 09/02/22 09/02/22 09/02/22 Range/Units 20:01 20:32 20:32 WBC (4.8-10.8) X10*3/uL RBC (4.20-5.50) X10*6/uL Hgb (12.0-16.0) g/dl Hct (37.0-47.0) % MCV (80.0-98.0) fL MCH (27.0-33.0) pg MCHC (31.0-35.0) g/dl RDW (11.0-16.0) % Plt Count (160-400) X10*3/uL MPV (9.4-12.3) fL Absolute Nucleated RBC (0.0-0.012) X10*3/uL Nucleated RBC % (auto) (0.0-0.2) /100WBC Sodium (135-145) mmol/L Potassium (3.3-5.1) mmol/L Chloride (96-108) mmol/L Carbon Dioxide (22-29) mmol/L Anion Gap (12-20) BUN (9-16) mg/dL Creatinine (0.5-1.4) mg/dL Estim Creat Clear Calc Estimated GFR Random Glucose (60-115) mg/dL Calcium (8.4-10.2) mg/dL Total Bilirubin (0.0-1.0) mg/dL AST (5-31) U/L ALT (0-31) U/L Alkaline Phosphatase (39-117) U/L Total Protein (6.5-8.0) g/dL Albumin (3.5-5.0) g/dL Urine Color Yellow Urine Appearance Clear Urine pH 5.5 (5.0-9.0) Ur Specific [place] 1.020 (1.005-1.025) Urine Protein Negative (Neg-Trace) mg/dL Urine Glucose (UA) Negative (Negative) mg/dL Urine Ketones Trace (Negative) mg/dL Urine Blood Negative (Negative) Urine Nitrite Negative (Negative) Ur Leukocyte Esterase Negative (Negative) Urine Test NEGATIVE (NEGATIVE) Salicylates (15-30) mg/dL Urine Opiates Screen (Not Detect) Urine Fentanyl Screen (Not Detect) Acetaminophen (<30) mcg/mL Ur Barbiturates Screen (Not Detect) Valproic Acid (50.0-100.0) mcg/mL Ur Phencyclidine Scrn (Not Detect) Ur Amphetamines Screen (Not Detect) U Benzodiazepines Scrn (Not Detect) Urine Cocaine Screen (Not Detect) U Marijuana (THC) Screen (Not Detect) Ethyl Alcohol mg/dL COVID-19 (BALDO) Negative (Negative) COVID-19 Clin Com See Note 09/02/22 09/02/22 09/02/22 Range/Units 21:22 21:22 21:24 WBC 7.7 (4.8-10.8) X10*3/uL RBC 4.48 (4.20-5.50) X10*6/uL Hgb 12.0 (12.0-16.0) g/dl Hct 35.9 L (37.0-47.0) % MCV 80.1 (80.0-98.0) fL MCH 26.8 L (27.0-33.0) pg MCHC 33.4 (31.0-35.0) g/dl RDW 15.1 (11.0-16.0) % Plt Count 223 (160-400) X10*3/uL MPV 11.0 (9.4-12.3) fL Absolute Nucleated RBC 0.000 (0.0-0.012) X10*3/uL Nucleated RBC % (auto) 0.0 (0.0-0.2) /100WBC Sodium 141 (135-145) mmol/L Potassium 3.7 (3.3-5.1) mmol/L Chloride 108 (96-108) mmol/L Carbon Dioxide 22 (22-29) mmol/L Anion Gap 15 (12-20) BUN 10 (9-16) mg/dL Creatinine 0.78 (0.5-1.4) mg/dL Estim Creat Clear Calc 123.3 Estimated GFR > 60 Random Glucose 82 (60-115) mg/dL Calcium 9.4 (8.4-10.2) mg/dL Total Bilirubin 0.3 (0.0-1.0) mg/dL AST 11 (5-31) U/L ALT 9 (0-31) U/L Alkaline Phosphatase 56 (39-117) U/L Total Protein 6.9 (6.5-8.0) g/dL Albumin 4.1 (3.5-5.0) g/dL Urine Color Urine Appearance Urine pH (5.0-9.0) Ur Specific [place] (1.005-1.025) Urine Protein (Neg-Trace) mg/dL Urine Glucose (UA) (Negative) mg/dL Urine Ketones (Negative) mg/dL Urine Blood (Negative) Urine Nitrite (Negative) Ur Leukocyte Esterase (Negative) Urine Test (NEGATIVE) Salicylates < 5.0 L (15-30) mg/dL Urine Opiates Screen (Not Detect) Urine Fentanyl Screen (Not Detect) Acetaminophen < 17 (<30) mcg/mL Ur Barbiturates Screen (Not Detect) Valproic Acid (50.0-100.0) mcg/mL Ur Phencyclidine Scrn (Not Detect) Ur Amphetamines Screen (Not Detect) U Benzodiazepines Scrn (Not Detect) Urine Cocaine Screen (Not Detect) U Marijuana (THC) Screen (Not Detect) Ethyl Alcohol < 10 mg/dL COVID-19 (BALDO) (Negative) COVID-19 Clin Com 09/02/22 09/02/22 Range/Units 21:26 21:58 WBC (4.8-10.8) X10*3/uL RBC (4.20-5.50) X10*6/uL Hgb (12.0-16.0) g/dl Hct (37.0-47.0) % MCV (80.0-98.0) fL MCH (27.0-33.0) pg MCHC (31.0-35.0) g/dl RDW (11.0-16.0) % Plt Count (160-400) X10*3/uL MPV (9.4-12.3) fL Absolute Nucleated RBC (0.0-0.012) X10*3/uL Nucleated RBC % (auto) (0.0-0.2) /100WBC Sodium (135-145) mmol/L Potassium (3.3-5.1) mmol/L Chloride (96-108) mmol/L Carbon Dioxide (22-29) mmol/L Anion Gap (12-20) BUN (9-16) mg/dL Creatinine (0.5-1.4) mg/dL Estim Creat Clear Calc Estimated GFR Random Glucose (60-115) mg/dL Calcium (8.4-10.2) mg/dL Total Bilirubin (0.0-1.0) mg/dL AST (5-31) U/L ALT (0-31) U/L Alkaline Phosphatase (39-117) U/L Total Protein (6.5-8.0) g/dL Albumin (3.5-5.0) g/dL Urine Color Urine Appearance Urine pH (5.0-9.0) Ur Specific [place] (1.005-1.025) Urine Protein (Neg-Trace) mg/dL Urine Glucose (UA) (Negative) mg/dL Urine Ketones (Negative) mg/dL Urine Blood (Negative) Urine Nitrite (Negative) Ur Leukocyte Esterase (Negative) Urine Test (NEGATIVE) Salicylates (15-30) mg/dL Urine Opiates Screen Not Detected (Not Detect) Urine Fentanyl Screen Not Detected (Not Detect) Acetaminophen (<30) mcg/mL Ur Barbiturates Screen Not Detected (Not Detect) Valproic Acid 30.4 L (50.0-100.0) mcg/mL Ur Phencyclidine Scrn Not Detected (Not Detect) Ur Amphetamines Screen Not Detected (Not Detect) U Benzodiazepines Scrn Not Detected (Not Detect) Urine Cocaine Screen POSITIVE H (Not Detect) U Marijuana (THC) Screen POSITIVE H (Not Detect) Ethyl Alcohol mg/dL COVID-19 (BALDO) (Negative) COVID-19 Clin Com <TRANG Smith - Last Filed: 09/02/22 22:00> Lab Results 09/02/22 09/02/22 09/02/22 Range/Units 20:01 20:32 20:32 WBC (4.8-10.8) X10*3/uL RBC (4.20-5.50) X10*6/uL Hgb (12.0-16.0) g/dl Hct (37.0-47.0) % MCV (80.0-98.0) fL MCH (27.0-33.0) pg MCHC (31.0-35.0) g/dl RDW (11.0-16.0) % Plt Count (160-400) X10*3/uL MPV (9.4-12.3) fL Absolute Nucleated RBC (0.0-0.012) X10*3/uL Nucleated RBC % (auto) (0.0-0.2) /100WBC Sodium (135-145) mmol/L Potassium (3.3-5.1) mmol/L Chloride (96-108) mmol/L Carbon Dioxide (22-29) mmol/L Anion Gap (12-20) BUN (9-16) mg/dL Creatinine (0.5-1.4) mg/dL Estim Creat Clear Calc Estimated GFR Random Glucose (60-115) mg/dL Calcium (8.4-10.2) mg/dL Total Bilirubin (0.0-1.0) mg/dL AST (5-31) U/L ALT (0-31) U/L Alkaline Phosphatase (39-117) U/L Total Protein (6.5-8.0) g/dL Albumin (3.5-5.0) g/dL Urine Color Yellow Urine Appearance Clear Urine pH 5.5 (5.0-9.0) Ur Specific [place] 1.020 (1.005-1.025) Urine Protein Negative (Neg-Trace) mg/dL Urine Glucose (UA) Negative (Negative) mg/dL Urine Ketones Trace (Negative) mg/dL Urine Blood Negative (Negative) Urine Nitrite Negative (Negative) Ur Leukocyte Esterase Negative (Negative) Urine Test NEGATIVE (NEGATIVE) Salicylates (15-30) mg/dL Urine Opiates Screen (Not Detect) Urine Fentanyl Screen (Not Detect) Acetaminophen (<30) mcg/mL Ur Barbiturates Screen (Not Detect) Valproic Acid (50.0-100.0) mcg/mL Ur Phencyclidine Scrn (Not Detect) Ur Amphetamines Screen (Not Detect) U Benzodiazepines Scrn (Not Detect) Urine Cocaine Screen (Not Detect) U Marijuana (THC) Screen (Not Detect) Ethyl Alcohol mg/dL COVID-19 (BALDO) Negative (Negative) COVID-19 Clin Com See Note 09/02/22 09/02/22 09/02/22 Range/Units 21:22 21:22 21:24 WBC 7.7 (4.8-10.8) X10*3/uL RBC 4.48 (4.20-5.50) X10*6/uL Hgb 12.0 (12.0-16.0) g/dl Hct 35.9 L (37.0-47.0) % MCV 80.1 (80.0-98.0) fL MCH 26.8 L (27.0-33.0) pg MCHC 33.4 (31.0-35.0) g/dl RDW 15.1 (11.0-16.0) % Plt Count 223 (160-400) X10*3/uL MPV 11.0 (9.4-12.3) fL Absolute Nucleated RBC 0.000 (0.0-0.012) X10*3/uL Nucleated RBC % (auto) 0.0 (0.0-0.2) /100WBC Sodium 141 (135-145) mmol/L Potassium 3.7 (3.3-5.1) mmol/L Chloride 108 (96-108) mmol/L Carbon Dioxide 22 (22-29) mmol/L Anion Gap 15 (12-20) BUN 10 (9-16) mg/dL Creatinine 0.78 (0.5-1.4) mg/dL Estim Creat Clear Calc 123.3 Estimated GFR > 60 Random Glucose 82 (60-115) mg/dL Calcium 9.4 (8.4-10.2) mg/dL Total Bilirubin 0.3 (0.0-1.0) mg/dL AST 11 (5-31) U/L ALT 9 (0-31) U/L Alkaline Phosphatase 56 (39-117) U/L Total Protein 6.9 (6.5-8.0) g/dL Albumin 4.1 (3.5-5.0) g/dL Urine Color Urine Appearance Urine pH (5.0-9.0) Ur Specific [place] (1.005-1.025) Urine Protein (Neg-Trace) mg/dL Urine Glucose (UA) (Negative) mg/dL Urine Ketones (Negative) mg/dL Urine Blood (Negative) Urine Nitrite (Negative) Ur Leukocyte Esterase (Negative) Urine Test (NEGATIVE) Salicylates < 5.0 L (15-30) mg/dL Urine Opiates Screen (Not Detect) Urine Fentanyl Screen (Not Detect) Acetaminophen < 17 (<30) mcg/mL Ur Barbiturates Screen (Not Detect) Valproic Acid (50.0-100.0) mcg/mL Ur Phencyclidine Scrn (Not Detect) Ur Amphetamines Screen (Not Detect) U Benzodiazepines Scrn (Not Detect) Urine Cocaine Screen (Not Detect) U Marijuana (THC) Screen (Not Detect) Ethyl Alcohol < 10 mg/dL COVID-19 (BALDO) (Negative) COVID-19 Clin Com 09/02/22 09/02/22 Range/Units 21:26 21:58 WBC (4.8-10.8) X10*3/uL RBC (4.20-5.50) X10*6/uL Hgb (12.0-16.0) g/dl Hct (37.0-47.0) % MCV (80.0-98.0) fL MCH (27.0-33.0) pg MCHC (31.0-35.0) g/dl RDW (11.0-16.0) % Plt Count (160-400) X10*3/uL MPV (9.4-12.3) fL Absolute Nucleated RBC (0.0-0.012) X10*3/uL Nucleated RBC % (auto) (0.0-0.2) /100WBC Sodium (135-145) mmol/L Potassium (3.3-5.1) mmol/L Chloride (96-108) mmol/L Carbon Dioxide (22-29) mmol/L Anion Gap (12-20) BUN (9-16) mg/dL Creatinine (0.5-1.4) mg/dL Estim Creat Clear Calc Estimated GFR Random Glucose (60-115) mg/dL Calcium (8.4-10.2) mg/dL Total Bilirubin (0.0-1.0) mg/dL AST (5-31) U/L ALT (0-31) U/L Alkaline Phosphatase (39-117) U/L Total Protein (6.5-8.0) g/dL Albumin (3.5-5.0) g/dL Urine Color Urine Appearance Urine pH (5.0-9.0) Ur Specific [place] (1.005-1.025) Urine Protein (Neg-Trace) mg/dL Urine Glucose (UA) (Negative) mg/dL Urine Ketones (Negative) mg/dL Urine Blood (Negative) Urine Nitrite (Negative) Ur Leukocyte Esterase (Negative) Urine Test (NEGATIVE) Salicylates (15-30) mg/dL Urine Opiates Screen Not Detected (Not Detect) Urine Fentanyl Screen Not Detected (Not Detect) Acetaminophen (<30) mcg/mL Ur Barbiturates Screen Not Detected (Not Detect) Valproic Acid 30.4 L (50.0-100.0) mcg/mL Ur Phencyclidine Scrn Not Detected (Not Detect) Ur Amphetamines Screen Not Detected (Not Detect) U Benzodiazepines Scrn Not Detected (Not Detect) Urine Cocaine Screen POSITIVE H (Not Detect) U Marijuana (THC) Screen POSITIVE H (Not Detect) Ethyl Alcohol mg/dL COVID-19 (BALDO) (Negative) COVID-19 Clin Com <Analia Patrick MD - Last Filed: 09/03/22 06:48> Radiology Impression Discussion of test interpretation with radiology: I have reviewed the radiologist's reading. <TRANG Smith - Last Filed: 09/02/22 22:00> Core Measures AMI core measures followed: Yes <TRANG Smith - Last Filed: 09/02/22 22:00> Measure exclusions: not indicated <TRANG Smith - Last Filed: 09/02/22 22:00> Critical Care Time Critical Care Time Critical Care Time: No <TRANG Smith - Last Filed: 09/02/22 22:00> Discharge Plan Discharge Clinical Impression: Suicidal ideation, Bipolar disorder, Depression <TRANG Smith - Last Filed: 09/02/22 22:00> Patient Disposition: Still a Patient <TRANG Smith - Last Filed: 09/02/22 22:00> Prescriptions: No Action acetaminophen 325 mg Tablet 650 mg PO Q6H PRN (Reason: Headache/Pain Mild Scale (1-3)) Qty: 30 0RF lorazepam 0.5 mg tablet 0.5 mg PO TID PRN (Reason: anxiety) Qty: 42 0RF divalproex 250 mg tablet,delayed release (DR/EC) 1 tab PO BID prazosin 1 mg capsule 1 cap PO BID hydroxyzine HCl 50 mg tablet 1 tab PO QID PRN (Reason: Anxiety) olanzapine 2.5 mg tablet 2.5 mg PO TID PRN (Reason: Agitation) benztropine 1 mg tablet 1 tab PO BID gabapentin 300 mg capsule 300 mg PO BID prazosin 2 mg capsule 1 cap PO BID <TRANG Smith - Last Filed: 09/02/22 22:00> Interventions: [place]-Suicide Risk Severity Scale Last Done: 09/02/22 22:49 <TRANG Smith - Last Filed: 09/02/22 22:00>
[2022-09-02 20:30] LABS: COVID-19 Test Negative (Negative); IDNOW Serial# 16C4AD1C
[2022-09-02 20:39] LABS: Appearance Urine Clear; Color Urine Yellow; Glucose Urine UA Negative (Negative); Leukocyte Esterase Urine Negative (Negative); Nitrite Urine Negative (Negative); PH 5.5 (5.0-9.0); Urine Blood Negative (Negative); Urine Ketones Trace mg/dL (Negative); Urine Protein Negative (Neg-Trace)
[2022-09-02 20:43] LABS: UPreg QC Valid YES; Urine Pregnancy NEGATIVE (NEGATIVE)
[2022-09-02 21:29] LABS: Hematocrit 35.9 % (37.0-47.0); Mean Corpuscular HGB Conc 33.4 g/dl (31.0-35.0); Mean Corpuscular Hemoglobin 26.8 pg (27.0-33.0); Mean Corpuscular Volume 80.1 fL (80.0-98.0); Platelet Count 223 X10*3/uL (160-400); Red Blood Count 4.48 X10*6/uL (4.20-5.50); Red Cell Distribution Width 15.1 % (11.0-16.0); White Blood Count 7.7 X10*3/uL (4.8-10.8)
--- NOTE | 2022-09-02 21:39 | PHA.MEDREC ---
Pharmacy Consult ? Medication Reconciliation Pharmacy has completed the medication reconciliation.spoke with patient and she had a medication list.
[2022-09-02 21:44] LABS: Alanine Aminotransferase 9 U/L (0-31); Albumin Level 4.1 g/dL (3.5-5.0); Alkaline Phosphatase 56 U/L (39-117); Anion Gap 15 (12-20); Aspartate Amino Transferase 11 U/L (5-31); Bilirubin Total 0.3 mg/dL (0.0-1.0); Blood Urea Nitrogen 10 mg/dL (9-16); Calcium 9.4 mg/dL (8.4-10.2); Carbon Dioxide 22 mmol/L (22-29); Chloride 108 mmol/L (96-108); Creatinine Clr Calc Pharmacy 123.3; Estimated Glomerular Filt Rate > 60; Glucose Random 82 mg/dL (60-115); Potassium 3.7 mmol/L (3.3-5.1); Sodium 141 mmol/L (135-145); Total Protein 6.9 g/dL (6.5-8.0)
[2022-09-02 21:45] LABS: Acetaminophen LAB < 17 mcg/mL (<30); Salicylate < 5.0 mg/dL (15-30)
[2022-09-02 21:45] LABS: Amphetamine Screen Urine Not Detected (Not Detect); Barbiturates, Urine Not Detected (Not Detect); Benzodiazepines Screen Urine Not Detected (Not Detect); Cannabinoid Screen Urine POSITIVE (Not Detect); Cocaine Screen Urine POSITIVE (Not Detect); Fentanyl, urine Not Detected (Not Detect); Opiate Screen Urine Not Detected (Not Detect); Phencyclidine Screen Urine Not Detected (Not Detect)
[2022-09-02 22:18] LABS: Valproate 30.4 mcg/mL (50.0-100.0)
[2022-09-02] MEDS: OLANZapine 2.5 MG TABLET PO (22:31)
[2022-09-02] MEDS: LORazepam 0.5 MG TABLET PO (22:31)
[2022-09-02 23:19] LABS: Ethanol < 10 mg/dL
--- NOTE | 2022-09-03 05:37 | PC.NURSE ---
Patient slept through the night, no distress observed/reported, care team consult ordered pending evaluation, VSS, behavior non concerning, medication compliant, patient is on 1:1 while awake, will continue to monitor.
[2022-09-03 07:08] VITALS: RESP 18
[2022-09-03 07:40] VITALS: BP 105/68; PULSE 82; RESP 12; TEMP 36.6; O2SAT 100
[2022-09-03] MEDS: Prazosin HCL 1 MG CAPSULE 2 MG PO ×2 (07:44→22:21)
[2022-09-03] MEDS: Divalproex Sodium 250 MG TABLET.DR PO ×2 (07:44→22:20)
[2022-09-03] MEDS: Prazosin HCL 1 MG CAPSULE PO ×2 (07:44→22:21)
[2022-09-03] MEDS: Benztropine Mesylate 1 MG TABLET PO ×2 (07:44→22:20)
[2022-09-03] MEDS: Gabapentin 300 MG CAPSULE PO ×2 (07:44→22:21)
--- NOTE | 2022-09-03 08:14 | PC.NURSE ---
care team at bedside.
--- NOTE | 2022-09-03 08:24 | ECG_ITS ---
Test Reason : + COCAINE Blood Pressure : / mmHG Vent. Rate : 074 BPM Atrial Rate : 074 BPM P-R Int : 146 ms QRS Dur : 078 ms QT Int : 382 ms P-R-T Axes : 023 056 042 degrees QTc Int : 424 ms Normal sinus rhythm Normal ECG When compared with ECG of 27-MAY-2022 22:25, No significant change was found Referred By: Analia Patrick Electronically Signed By:Nick Cramer
[2022-09-03] MEDS: OLANZapine 2.5 MG TABLET PO ×2 (11:37→20:07)
[2022-09-03] MEDS: LORazepam 0.5 MG TABLET PO ×2 (11:37→20:07)
[2022-09-03 14:00] VITALS: RESP 18
[2022-09-03 17:21] VITALS: BP 112/80; PULSE 88; RESP 16; TEMP 36.7; O2SAT 99
--- NOTE | 2022-09-03 17:57 | PC.NURSE ---
The patient has been admitted to [facility] on a CV for increased SI, Vague HI, and PTSD. She self presented to [facility] ED with increased SI which she believes is due to medications changes. Her medications were changed at a PIP program she was utilizing and since than (about 4-6 weeks ago) she has had an increase in the unwanted symptoms mentioned previously. She is alert and oriented x4. She has been to this unit before. Denies any active medical problems. Thought process is linear. Organized. Dress is neat. Mood is pleasant. 15 min chekcs.
[2022-09-03 22:15] VITALS: BP 117/76; PULSE 84; RESP 18; TEMP 36.6; O2SAT 100
[2022-09-04] MEDS: LORazepam 0.5 MG TABLET PO ×4 (02:07→22:42)
[2022-09-04] MEDS: OLANZapine 2.5 MG TABLET PO ×3 (02:07→14:37)
[2022-09-04 06:00] VITALS: BP 111/66; PULSE 91; RESP 20; TEMP 36.7; O2SAT 99
[2022-09-04 09:00] VITALS: BMI 34.8
[2022-09-04] MEDS: Divalproex Sodium 250 MG TABLET.DR PO ×2 (09:16→22:43)
[2022-09-04] MEDS: Gabapentin 300 MG CAPSULE PO ×2 (09:16→22:43)
[2022-09-04 09:30] LABS: Estimated Average Glucose 88 mg/dL; Hemoglobin A1c % 4.7 %
[2022-09-04 10:10] LABS: Alanine Aminotransferase 8 U/L (0-31); Albumin Level 4.2 g/dL (3.5-5.0); Alkaline Phosphatase 55 U/L (39-117); Anion Gap 10 (12-20); Aspartate Amino Transferase 11 U/L (5-31); Bilirubin Total 0.4 mg/dL (0.0-1.0); Blood Urea Nitrogen 9 mg/dL (9-16); Calcium 9.4 mg/dL (8.4-10.2); Carbon Dioxide 26 mmol/L (22-29); Chloride 107 mmol/L (96-108); Cholesterol 138 mg/dL; Creatinine Clr Calc Pharmacy 117.4; Estimated Glomerular Filt Rate > 60; Glucose Fasting 73 mg/dL (60-99); HDL Cholesterol 37 mg/dL; LDL Cholesterol Calculated 92 mg/dl; Potassium 4.5 mmol/L (3.3-5.1); Sodium 138 mmol/L (135-145); Triglycerides 48 mg/dL
[2022-09-04 10:33] LABS: Thyroid Stimulating Hormone 1.62 uIU/mL (0.32-4.0); Vitamin B12 505 pg/mL (200-900)
[2022-09-04] MEDS: Prazosin HCL 1 MG CAPSULE PO (10:52)
[2022-09-04] MEDS: Prazosin HCL 1 MG CAPSULE 2 MG PO (10:52)
[2022-09-04] MEDS: Benztropine Mesylate 1 MG TABLET PO ×2 (10:54→22:43)
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
--- NOTE | 2022-09-04 16:36 | PC.NURSE ---
Yen states that she is an everyday smoker who is not interested in nicotine replacement. I don't have any cravings.
[2022-09-04 22:43] VITALS: BP 100/59; PULSE 77; RESP 18; TEMP 36.7; O2SAT 99
[2022-09-04] MEDS: Prazosin HCL 1 MG CAPSULE 3 MG PO (22:43)
[2022-09-05] MEDS: OLANZapine 5 MG TABLET PO ×3 (06:41→17:40)
[2022-09-05 08:00] VITALS: BP 118/72; PULSE 95; TEMP 36.5; O2SAT 99
[2022-09-05] MEDS: Benztropine Mesylate 1 MG TABLET PO ×2 (09:00→21:43)
[2022-09-05] MEDS: Gabapentin 300 MG CAPSULE PO ×2 (09:02→21:43)
[2022-09-05] MEDS: Divalproex Sodium 250 MG TABLET.DR PO ×2 (09:02→21:43)
[2022-09-05] MEDS: LORazepam 0.5 MG TABLET PO ×2 (09:02→12:41)
[2022-09-05] MEDS: Prazosin HCL 1 MG CAPSULE 3 MG PO ×2 (09:04→21:11)
[2022-09-05] MEDS: LORazepam 1 MG TABLET PO ×2 (14:38→21:43)
--- NOTE | 2022-09-05 15:29 | HO.PSYCHPN ---
Subjective Subjective Date of Service: 09/05/22 Reason For Visit: SI Interim History: seen with ANTHONY briggs in [place]. calm, cooperative. happy with med changes aside from ativan dosing. agrees to increase dosing to 1 TID (pharmacy was unable to very outpatient prescriber's intent for pt to be at that dose, as outpt prescriber had written a script for it and then cancelled the script. unclear what the reason was, but it may have been bcse pt entered PHP at that time). slept better last night. c/o anxiety but feeling improved since admission. per staff anxiety. denies depression. c/o AVH. safe. slept. Mental Status Exam Mental Status Exam Narrative: appropriately dressed, and groomed. cooperative, no PMA/PMR. speech decr in rate, loudness. nml amount, incr latency. decreased prosody. thoughts linear and logical. affect constricted, normo-intense, non-labile. mood anxious. no SI/SIBI/HI/AVH expressed. Diagnostics Vital Signs (24Hr): Vital Signs - 24 hr 09/04/22 22:43 09/05/22 08:00 Temperature 98.0 F 97.7 F Pulse Rate 77 95 Respiratory Rate 18 Blood Pressure 100/59 L 118/72 Pulse Oximetry 99 99 Oxygen Delivery Method Room Air Room Air BMI result Body Mass Index 34.8 Labs 09/02/22 21:22 09/04/22 08:53 Labs: Laboratory Results - last 48 hr 09/04/22 09/04/22 08:53 08:53 Sodium 138 Potassium 4.5 D Chloride 107 Carbon Dioxide 26 Anion Gap 10 L BUN 9 Creatinine 0.82 Estim Creat Clear Calc 117.4 Estimated GFR > 60 Fasting Glucose 73 Estimat Average Glucose 88 Hemoglobin A1c % 4.7 Calcium 9.4 Total Bilirubin 0.4 AST 11 ALT 8 Alkaline Phosphatase 55 Total Protein 7.0 Albumin 4.2 Triglycerides 48 Cholesterol 138 LDL Cholesterol, Calc 92 HDL Cholesterol 37 Vitamin B12 505 TSH 1.62 Medications Medications Current Medications Acetaminophen (Acetaminophen 325 Mg Tablet) 650 mg PO Q6H PRN PRN Reason: Headache/Pain Mild Scale (1-3) Al Hydroxide/Mg Hydroxide (Magnesium Hydrox/Alum Hydrox 30 Ml Oral.Susp) 30 ml PO Q6H PRN PRN Reason: Heartburn/Nausea Benztropine Mesylate (Benztropine Mesylate 1 Mg Tablet) 1 mg PO BID [facility] Last Admin: 09/05/22 09:00 Dose: 1 mg Divalproex Sodium (Divalproex Sodium 250 Mg Tablet.Dr) 250 mg PO BID [facility] Last Admin: 09/05/22 09:02 Dose: 250 mg Gabapentin (Gabapentin 300 Mg Capsule) 300 mg PO BID [facility] Last Admin: 09/05/22 09:02 Dose: 300 mg Lorazepam (Lorazepam 1 Mg Tablet) 1 mg PO TID [facility] Last Admin: 09/05/22 14:38 Dose: 1 mg Magnesium Hydroxide (Milk Of Magnesia 30 Ml Oral.Susp) 30 ml PO DAILY PRN PRN Reason: Constipation Olanzapine (Olanzapine 5 Mg Tablet) 5 mg PO Q4H PRN PRN Reason: Agitation/Anxiety Last Admin: 09/05/22 13:19 Dose: 5 mg Prazosin HCl (Prazosin Hcl 1 Mg Capsule) 3 mg PO BID [facility]; Protocol Last Admin: 09/05/22 09:04 Dose: 3 mg Trazodone HCl (Trazodone Hcl 100 Mg Tablet) 100 mg PO BEDTIME PRN PRN Reason: Insomnia Allergies Allergies Allergy/AdvReac Type Severity Reaction Status Date / Time diphenhydramine Allergy Severe Anaphylaxis Verified 09/05/22 09:05 [From Benadryl] latex [LATEX] Allergy Intermediate RASH Verified 09/02/22 19:54 Assessment & Plan Assessment & Plan (1) Suicidal ideation: Status: Acute Code(s): R45.851 - Suicidal ideations (2) Depression: Status: Acute Code(s): F32.A - Depression, unspecified (3) PTSD (post-traumatic stress disorder): Status: Acute Code(s): F43.10 - Post-traumatic stress disorder, unspecified Plan 2/2: modify medications regimen per pt request. continues meds as Rxed from [facility] aside from as follows: add trazodone 100 mg QHS PRN increase zyprexa to 5 mg BID with 5 mg PRN (this is what [facility] was Rxing, but pt had been taking half that dosing) pt reports she was on ativan 1 mg TID, will investigate with pharmacy. if outpt prescriber does prescribe it at that strength, i will return dosing to that strength. otherwise continue home meds regimen. 2/3: increase ativan from 0.5 TID to 1 TID. increase availability of zyprexa PRNs to 5 mg Q4H. otherwise continue current mgmt. Reason for contiued inpatient stay Substantial Risk for: harm to self, inability to function and rapid decompensation Time Spent With Patient Time: Total time managing care of this patient today _25___ minutes.
[2022-09-05 21:05] VITALS: BP 114/60; PULSE 84; RESP 18; TEMP 36.8; O2SAT 99
[2022-09-06] MEDS: OLANZapine 5 MG TABLET PO ×6 (02:11→22:40)
[2022-09-06] MEDS: traZODone HCL 100 MG TABLET PO ×3 (02:11→22:39)
[2022-09-06 08:00] VITALS: BP 112/70; PULSE 101; RESP 16; TEMP 36.6; O2SAT 100
[2022-09-06] MEDS: Prazosin HCL 1 MG CAPSULE 3 MG PO ×2 (08:18→22:45)
[2022-09-06] MEDS: Gabapentin 300 MG CAPSULE PO ×2 (08:18→22:39)
[2022-09-06] MEDS: LORazepam 1 MG TABLET PO ×3 (08:18→22:38)
[2022-09-06] MEDS: Divalproex Sodium 250 MG TABLET.DR PO ×2 (08:19→22:40)
[2022-09-06] MEDS: Benztropine Mesylate 1 MG TABLET PO (08:19)
[2022-09-06] MEDS: Milk of Magnesia 30 ML ORAL.SUSP PO (08:31)
[2022-09-06] MEDS: Acetaminophen 325 MG TABLET 650 MG PO ×2 (08:31→22:41)
--- NOTE | 2022-09-06 17:04 | HO.PSYCHPN ---
Subjective Subjective Date of Service: 09/06/22 Reason For Visit: SI Interim History: calm, cooperative. states her mood has become more irritable and labile in the past day. on review of medications it appears zyprexa 5 BID was dropped yesterday; this was reinstated. also cogentin was decreased to 0.5 mg BID for amelioration of constipation and with the assumption that lower dose will suffice as EPS prophylaxis. per staff, 02/09 SANZ, constipation. took MOM. attending groups. slept, no issues. pushing boundaries with peers. Mental Status Exam Mental Status Exam Narrative: appropriately dressed, and groomed. cooperative, no PMA/PMR. speech decr in rate, loudness. nml amount, incr latency. decreased prosody. thoughts linear and logical. affect constricted, normo-intense, non-labile. mood aggravated. no SI/SIBI/HI/AVH expressed. Diagnostics Vital Signs (24Hr): Vital Signs - 24 hr 09/05/22 21:05 09/06/22 08:00 Temperature 98.2 F 97.9 F Pulse Rate 84 101 H Respiratory Rate 18 16 Blood Pressure 114/60 112/70 Pulse Oximetry 99 100 Oxygen Delivery Method Room Air Room Air BMI result Body Mass Index 34.8 Labs 09/02/22 21:22 09/04/22 08:53 Medications Medications Current Medications Acetaminophen (Acetaminophen 325 Mg Tablet) 650 mg PO Q6H PRN PRN Reason: Headache/Pain Mild Scale (1-3) Last Admin: 09/06/22 08:31 Dose: 650 mg Al Hydroxide/Mg Hydroxide (Magnesium Hydrox/Alum Hydrox 30 Ml Oral.Susp) 30 ml PO Q6H PRN PRN Reason: Heartburn/Nausea Benztropine Mesylate (Benztropine Mesylate 0.5 Mg Tablet) 0.5 mg PO BID [facility] Divalproex Sodium (Divalproex Sodium 250 Mg Tablet.Dr) 250 mg PO BID [facility] Last Admin: 09/06/22 08:19 Dose: 250 mg Gabapentin (Gabapentin 300 Mg Capsule) 300 mg PO BID [facility] Last Admin: 09/06/22 08:18 Dose: 300 mg Lorazepam (Lorazepam 1 Mg Tablet) 1 mg PO TID [facility] Last Admin: 09/06/22 14:55 Dose: 1 mg Magnesium Hydroxide (Milk Of Magnesia 30 Ml Oral.Susp) 30 ml PO DAILY PRN PRN Reason: Constipation Last Admin: 09/06/22 08:31 Dose: 30 ml Olanzapine (Olanzapine 5 Mg Tablet) 5 mg PO Q4H PRN PRN Reason: Agitation/Anxiety Last Admin: 09/06/22 13:12 Dose: 5 mg Olanzapine (Olanzapine 5 Mg Tablet) 5 mg PO BID [facility] Prazosin HCl (Prazosin Hcl 1 Mg Capsule) 3 mg PO BID [facility]; Protocol Last Admin: 09/06/22 08:18 Dose: 3 mg Trazodone HCl (Trazodone Hcl 100 Mg Tablet) 100 mg PO BEDTIME [facility] Allergies Allergies Allergy/AdvReac Type Severity Reaction Status Date / Time diphenhydramine Allergy Severe Anaphylaxis Verified 09/05/22 09:05 [From Benadryl] latex [LATEX] Allergy Intermediate RASH Verified 09/02/22 19:54 Assessment & Plan Assessment & Plan (1) Suicidal ideation: Status: Acute Code(s): R45.851 - Suicidal ideations (2) Depression: Status: Acute Code(s): F32.A - Depression, unspecified (3) PTSD (post-traumatic stress disorder): Status: Acute Code(s): F43.10 - Post-traumatic stress disorder, unspecified Plan 2/2: modify medications regimen per pt request. continues meds as Rxed from [facility] aside from as follows: add trazodone 100 mg QHS PRN increase zyprexa to 5 mg BID with 5 mg PRN (this is what PHP was Rxing, but pt had been taking half that dosing) pt reports she was on ativan 1 mg TID, will investigate with pharmacy. if outpt prescriber does prescribe it at that strength, i will return dosing to that strength. otherwise continue home meds regimen. 2/3: increase ativan from 0.5 TID to 1 TID. increase availability of zyprexa PRNs to 5 mg Q4H. otherwise continue current mgmt. 2/4: reinstate dropped Rx of zyprexa 5 mg BID; pt c/o increase irritability in the past 24H. decrease cogentin to 0.5 BID to minimize anti-ACh side effects, such as constipation. Reason for contiued inpatient stay Substantial Risk for: harm to self, harm to others, inability to function and rapid decompensation Time Spent With Patient Time: Total time managing care of this patient today __15__ minutes.
--- NOTE | 2022-09-06 18:03 | PC.NURSE ---
At 1743 PC reported to RN that pt told her that she had put a tampon in her vagina last night for the first time in her life and has been unable to remove it. She says that she has not been able to find the string or the tampon. Dr Cochran informed via [employer] text at 1744. Ch[employer] Therapy Specialist informed at 1746 by phone
--- NOTE | 2022-09-06 19:54 | PC.NURSE ---
Pt signed a 3 day notice today and will be up on 09/10/22.
[2022-09-06] MEDS: Benztropine Mesylate 0.5 MG TABLET PO (22:38)
[2022-09-06 23:33] VITALS: BP 115/61; PULSE 89; RESP 18; TEMP 36.4; O2SAT 97
--- NOTE | 2022-09-07 02:30 | PC.NURSE ---
PA came up from ED with city driver and examined pt in treatment room. No tampon was present.
[2022-09-07 08:10] VITALS: BP 129/73; PULSE 84; RESP 16; TEMP 36.4; O2SAT 100
[2022-09-07] MEDS: LORazepam 1 MG TABLET PO ×3 (08:19→21:20)
[2022-09-07] MEDS: Divalproex Sodium 250 MG TABLET.DR PO ×2 (08:19→21:20)
[2022-09-07] MEDS: OLANZapine 5 MG TABLET PO ×4 (08:19→21:20)
[2022-09-07] MEDS: Prazosin HCL 1 MG CAPSULE 3 MG PO ×2 (08:19→21:20)
[2022-09-07] MEDS: Benztropine Mesylate 0.5 MG TABLET PO ×2 (08:19→21:20)
[2022-09-07] MEDS: Gabapentin 300 MG CAPSULE PO ×2 (08:19→21:20)
[2022-09-07] MEDS: Acetaminophen 325 MG TABLET 650 MG PO (10:52)
[2022-09-07] MEDS: FLUoxetine HCl 20 MG CAPSULE PO (15:57)
--- NOTE | 2022-09-07 16:25 | P.PNPSI_ITS ---
Subjective Subjective Date of Service: 09/07/22 Reason For Visit: SI Interim History: calm, subdued. states she had a breakdown yesterday, apologizes. refers to having used a cigarette in the shower area. feeling very contrite, says she'll never do that again. c/o emotional numbenss and feeling both physically and emotionally drained. it was noted pt is not on an anti-depressant medication, agrees to start prozac. per staff, c/o no urination on a daily basis and having gone for a month without defecating. no [facility]ampser[facility]io located in [facility] by ED MD on thursday night. feeling angry/agitated this morning. c/o having multiple personalities and is going to have an outburst. c/o CAH to kill herself and others. Mental Status Exam Mental Status Exam Narrative: appropriately dressed, and groomed. cooperative, general PMR. speech decr in rate, loudness. nml amount, incr latency. decreased prosody. thoughts linear and logical. affect constricted, normo-intense, non-labile. mood depressed, no SI/SIBI/HI/AVH expressed. Diagnostics Vital Signs (24Hr): Vital Signs - 24 hr 09/06/22 23:33 09/07/22 08:10 Temperature 97.6 F 97.5 F Pulse Rate 89 84 Respiratory Rate 18 16 Blood Pressure 115/61 129/73 Pulse Oximetry 97 100 Oxygen Delivery Method Room Air Room Air BMI result Body Mass Index 34.8 Labs 09/02/22 21:22 09/04/22 08:53 Medications Medications Current Medications Acetaminophen (Acetaminophen 325 Mg Tablet) 650 mg PO Q6H PRN PRN Reason: Headache/Pain Mild Scale (1-3) Last Admin: 09/07/22 10:52 Dose: 650 mg Al Hydroxide/Mg Hydroxide (Magnesium Hydrox/Alum Hydrox 30 Ml Oral.Susp) 30 ml PO Q6H PRN PRN Reason: Heartburn/Nausea Benztropine Mesylate (Benztropine Mesylate 0.5 Mg Tablet) 0.5 mg PO BID [facility] Last Admin: 09/07/22 08:19 Dose: 0.5 mg Divalproex Sodium (Divalproex Sodium 250 Mg Tablet.) 250 mg PO BID [facility] Last Admin: 09/07/22 08:19 Dose: 250 mg Fluoxetine HCl (Fluoxetine Hcl 20 Mg Capsule) 20 mg PO DAILY [facility] Last Admin: 09/07/22 15:57 Dose: 20 mg Gabapentin (Gabapentin 300 Mg Capsule) 300 mg PO BID [facility] Last Admin: 09/07/22 08:19 Dose: 300 mg Lorazepam (Lorazepam 1 Mg Tablet) 1 mg PO TID [facility] Last Admin: 09/07/22 14:58 Dose: 1 mg Magnesium Hydroxide (Milk Of Magnesia 30 Ml Oral.Susp) 30 ml PO DAILY PRN PRN Reason: Constipation Last Admin: 09/06/22 08:31 Dose: 30 ml Olanzapine (Olanzapine 5 Mg Tablet) 5 mg PO Q4H PRN PRN Reason: Agitation/Anxiety Last Admin: 09/07/22 10:52 Dose: 5 mg Olanzapine (Olanzapine 5 Mg Tablet) 5 mg PO TID [facility] Prazosin HCl (Prazosin Hcl 1 Mg Capsule) 3 mg PO BID [facility]; Protocol Last Admin: 09/07/22 08:19 Dose: 3 mg Trazodone HCl (Trazodone Hcl 100 Mg Tablet) 100 mg PO BEDTIME [facility] Last Admin: 09/06/22 22:39 Dose: 100 mg Allergies Allergies Allergy/AdvReac Type Severity Reaction Status Date / Time diphenhydramine Allergy Severe Anaphylaxis Verified 09/05/22 09:05 [From Benadryl] latex [LATEX] Allergy Intermediate RASH Verified 09/02/22 19:54 Assessment & Plan Assessment & Plan (1) Suicidal ideation: Status: Acute Code(s): R45.851 - Suicidal ideations (2) Depression: Status: Acute Code(s): F32.A - Depression, unspecified (3) PTSD (post-traumatic stress disorder): Status: Acute Code(s): F43.10 - Post-traumatic stress disorder, unspecified Plan 2/2: modify medications regimen per pt request. continues meds as Rxed from [facility] aside from as follows: add trazodone 100 mg QHS PRN increase zyprexa to 5 mg BID with 5 mg PRN (this is what [facility] was Rxing, but pt had been taking half that dosing) pt reports she was on ativan 1 mg TID, will investigate with pharmacy. if outpt prescriber does prescribe it at that strength, i will return dosing to that strength. otherwise continue home meds regimen. 2/3: increase ativan from 0.5 TID to 1 TID. increase availability of zyprexa PRNs to 5 mg Q4H. otherwise continue current mgmt. 09/06: reinstate dropped Rx of zyprexa 5 mg BID; pt c/o increase irritability in the past 24H. decrease cogentin to 0.5 BID to minimize anti-ACh side effects, such as constipation. 09/07: pt reported tampon lost in vagina; none found on examination. c/o multiple personalities and suggesting she is going to have an outburst. reports she does not urinate every day, and that she has not defecated in a month. smoked in the bathroom last night. pt appears to be engaging in a number of provocative, attention-seeking behaviors. continue current mgmt. Reason for contiued inpatient stay Substantial Risk for: harm to self, inability to function and rapid decompensation Time Spent With Patient Time: Total time managing care of this patient today ____ minutes.
[2022-09-07] MEDS: traZODone HCL 100 MG TABLET PO (21:20)
[2022-09-07 21:30] VITALS: BP 122/68; PULSE 96; RESP 16; TEMP 36.2; O2SAT 95
[2022-09-08] MEDS: OLANZapine 5 MG TABLET PO ×6 (03:52→20:05)
[2022-09-08 08:00] VITALS: BP 121/63; PULSE 82; TEMP 36.2; O2SAT 98
[2022-09-08] MEDS: Benztropine Mesylate 0.5 MG TABLET PO ×2 (08:18→20:06)
[2022-09-08] MEDS: Gabapentin 300 MG CAPSULE PO ×2 (08:19→20:06)
[2022-09-08] MEDS: Prazosin HCL 1 MG CAPSULE 3 MG PO ×2 (08:19→20:05)
[2022-09-08] MEDS: Divalproex Sodium 250 MG TABLET.DR PO ×2 (08:20→20:06)
[2022-09-08] MEDS: FLUoxetine HCl 20 MG CAPSULE PO (08:20)
[2022-09-08] MEDS: LORazepam 1 MG TABLET PO ×3 (08:20→20:06)
[2022-09-08] MEDS: Acetaminophen 325 MG TABLET 650 MG PO (08:23)
[2022-09-08] MEDS: Sennosides/Docusate Sodium TABLET 2 TAB PO ×2 (12:47→20:06)
--- NOTE | 2022-09-08 14:57 | P.PNPSI_ITS ---
Subjective Subjective Date of Service: 09/08/22 Reason For Visit: SI Interim History: calm, cooperative. heavy eye make-up. feeling really good since addition of prozac yesterday. eating well, sleeping well. states her outpt therapist is looking into grieving groups for her. her hearing has been deferred from 09/05 to 09/19. planning for discharge weds, then later approaches MD and asks about tomorrow, saying her son's bday is weds. per staff, 3-day notice up weds. having negative thoughts, anxious. thought-blocking, CAH to end it, and take as many other people out with her as she can. Mental Status Exam Mental Status Exam Narrative: appropriately dressed, and groomed. cooperative, general PMR. speech nml in rate, loudness, amount, latency. decreased prosody. thoughts linear and logical. affect more flexible, normo-intense, non-labile. mood really good. happy a little bit, no SI/SIBI/HI/AVH expressed. Diagnostics Vital Signs (24Hr): Vital Signs - 24 hr 09/07/22 21:30 09/08/22 08:00 Temperature 97.2 F 97.2 F Pulse Rate 96 82 Respiratory Rate 16 Blood Pressure 122/68 121/63 Pulse Oximetry 95 98 Oxygen Delivery Method Room Air Room Air BMI result Body Mass Index 34.8 Labs 09/02/22 21:22 09/04/22 08:53 Medications Medications Current Medications Acetaminophen (Acetaminophen 325 Mg Tablet) 650 mg PO Q6H PRN PRN Reason: Headache/Pain Mild Scale (1-3) Last Admin: 09/08/22 08:23 Dose: 650 mg Al Hydroxide/Mg Hydroxide (Magnesium Hydrox/Alum Hydrox 30 Ml Oral.Susp) 30 ml PO Q6H PRN PRN Reason: Heartburn/Nausea Benztropine Mesylate (Benztropine Mesylate 0.5 Mg Tablet) 0.5 mg PO BID COUNT INCLUDES THE [facility] Last Admin: 09/08/22 08:18 Dose: 0.5 mg Divalproex Sodium (Divalproex Sodium 250 Mg Tablet.) 250 mg PO BID COUNT INCLUDES THE [facility] Last Admin: 09/08/22 08:20 Dose: 250 mg Fluoxetine HCl (Fluoxetine Hcl 20 Mg Capsule) 20 mg PO DAILY COUNT INCLUDES THE [facility] Last Admin: 09/08/22 08:20 Dose: 20 mg Gabapentin (Gabapentin 300 Mg Capsule) 300 mg PO BID COUNT INCLUDES THE [facility] Last Admin: 09/08/22 08:19 Dose: 300 mg Lorazepam (Lorazepam 1 Mg Tablet) 1 mg PO TID COUNT INCLUDES THE [facility] Last Admin: 09/08/22 14:48 Dose: 1 mg Magnesium Hydroxide (Milk Of Magnesia 30 Ml Oral.Susp) 30 ml PO DAILY PRN PRN Reason: Constipation Last Admin: 09/06/22 08:31 Dose: 30 ml Olanzapine (Olanzapine 5 Mg Tablet) 5 mg PO Q4H PRN PRN Reason: Agitation/Anxiety Last Admin: 09/08/22 12:14 Dose: 5 mg Olanzapine (Olanzapine 5 Mg Tablet) 5 mg PO TID COUNT INCLUDES THE [facility] Last Admin: 09/08/22 14:48 Dose: 5 mg Prazosin HCl (Prazosin Hcl 1 Mg Capsule) 3 mg PO BID COUNT INCLUDES THE [facility]; Protocol Last Admin: 09/08/22 08:19 Dose: 3 mg Senna/Docusate Sodium (Sennosides/Docusate Sodium Tablet) 2 tab PO BID COUNT INCLUDES THE [facility] Last Admin: 09/08/22 12:47 Dose: 2 tab Trazodone HCl (Trazodone Hcl 100 Mg Tablet) 100 mg PO BEDTIME COUNT INCLUDES THE [facility] Last Admin: 09/07/22 21:20 Dose: 100 mg Allergies Allergies Allergy/AdvReac Type Severity Reaction Status Date / Time diphenhydramine Allergy Severe Anaphylaxis Verified 09/05/22 09:05 [From Benadryl] latex [LATEX] Allergy Intermediate RASH Verified 09/02/22 19:54 Assessment & Plan Assessment & Plan (1) Suicidal ideation: Status: Acute Code(s): R45.851 - Suicidal ideations (2) Depression: Status: Acute Code(s): F32.A - Depression, unspecified (3) PTSD (post-traumatic stress disorder): Status: Acute Code(s): F43.10 - Post-traumatic stress disorder, unspecified Plan 2/2: modify medications regimen per pt request. continues meds as Rxed from [facility] aside from as follows: add trazodone 100 mg QHS PRN increase zyprexa to 5 mg BID with 5 mg PRN (this is what [facility] was Rxing, but pt had been taking half that dosing) pt reports she was on ativan 1 mg TID, will investigate with pharmacy. if outpt prescriber does prescribe it at that strength, i will return dosing to that strength. otherwise continue home meds regimen. 2: increase ativan from 0.5 TID to 1 TID. increase availability of zyprexa PRNs to 5 mg Q4H. otherwise continue current mgmt. 2: reinstate dropped Rx of zyprexa 5 mg BID; pt c/o increase irritability in the past 24H. decrease cogentin to 0.5 BID to minimize anti-ACh side effects, such as constipation. 09/07: pt reported tampon lost in vagina; none found on examination. c/o mult iple personalities and suggesting she is going to have an outburst. reports she does not urinate every day, and that she has not defecated in a month. smoked in the bathroom last night. pt appears to be engaging in a number of provocative, attention-seeking behaviors. discuss her lack of anti-depressant, R/B of SSRIs discussed, pt agrees to start prozac. otherwise continue current mgmt. 09/08: feeling much better today, attributed to start of prozac yesterday. more flexible affect, more active on unit, better eye contact. planning to discharge tomorrow or thursday. Reason for contiued inpatient stay Substantial Risk for: inability to function and rapid decompensation Time Spent With Patient Time: Total time managing care of this patient today _25___ minutes.
[2022-09-08 20:00] VITALS: BP 114/73; PULSE 85; RESP 16; TEMP 36.3; O2SAT 100
[2022-09-08] MEDS: traZODone HCL 100 MG TABLET PO (20:05)
[2022-09-09] MEDS: OLANZapine 5 MG TABLET PO ×4 (04:52→14:34)
[2022-09-09 08:00] VITALS: BP 113/68; PULSE 85; RESP 18; TEMP 36.6; O2SAT 100
[2022-09-09] MEDS: LORazepam 1 MG TABLET PO ×2 (09:09→14:34)
[2022-09-09] MEDS: FLUoxetine HCl 20 MG CAPSULE PO (09:10)
[2022-09-09] MEDS: Gabapentin 300 MG CAPSULE PO (09:10)
[2022-09-09] MEDS: Sennosides/Docusate Sodium TABLET 2 TAB PO (09:10)
[2022-09-09] MEDS: Divalproex Sodium 250 MG TABLET.DR PO (09:11)
[2022-09-09] MEDS: Benztropine Mesylate 0.5 MG TABLET PO (09:11)
[2022-09-09] MEDS: Prazosin HCL 1 MG CAPSULE 3 MG PO (09:12)
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
== END 2022-09-09 15:00 | disposition home or self-care (01) | DRG 754 ==
LOC: HO.ED 09-03 15:12 → HO.PADLT16 09-03 16:27
PROVIDERS: Physician Assistant; Social Worker; Admitting Provider Psychiatry & Neurology Psychiatry; Emergency Provider Student in an Organized Health Care Education/Training Program; PCP Physician Assistant; Visit Provider Psychiatry & Neurology Psychiatry
DX: F32.A Depression, unspecified (principal); R45.851 Suicidal ideations; F41.9 Anxiety disorder, unspecified; F43.12 Post-traumatic stress disorder, chronic; Z20.822 Contact with and (suspected) exposure to COVID-19; Z87.820 Personal history of traumatic brain injury; Z91.040 Latex allergy status; Z79.899 Other long term (current) drug therapy
CPT/HCPCS: 36415; 80053; 80061; 80143; 80164; 80179; 80307; 81003; 81025; 82077; 82607; 83036; 84443; 85027; 87635; 93005; 99285; S9485

== ENCOUNTER 2022-12-06 10:45 | Emergency (ER) | payer OTHER, SELFPAY ==
[2022-12-06 10:48] VITALS: BP 135/92; PULSE 91; RESP 20; TEMP 36.6; O2SAT 98; BMI 35.5
--- NOTE | 2022-12-06 11:13 | ED_ITS ---
HPI - General Adult General Chief complaint: Psychiatric Symptoms <TRANG Castillo - Last Filed: 12/06/22 11:15> Stated complaint: not feeling well, haven' taken medicine in awhile <TRANG Castillo - Last Filed: 12/06/22 11:15> Time Seen by Provider: 12/06/22 11:12 <TRANG Castillo - Last Filed: 12/06/22 11:15> Source: patient <TRANG Castillo - Last Filed: 12/06/22 11:15> patient <Matt Penaloza MD - Last Filed: 12/06/22 11:37> Mode of arrival: ambulatory <TRANG Castillo - Last Filed: 12/06/22 11:15> Limitations: no limitations <TRANG Castillo - Last Filed: 12/06/22 11:15> History of Present Illness HPI narrative: This is a 32 years old female with history of bipolar disorder, multiple psycho hospitalization in the past, she is here because increasing anxiety and aggression She has no SI or HI at this time <Matt Penaloza MD - Last Filed: 12/06/22 11:37> Onset (ago): day(s) (1) <Matt Penaloza MD - Last Filed: 12/06/22 11:37> Radiation: non-radiation <Matt Penaloza MD - Last Filed: 12/06/22 11:37> Severity: moderate <Matt Penaloza MD - Last Filed: 12/06/22 11:37> Related Data Home medications: Previous Rx's Medication Instructions Recorded acetaminophen 325 mg tablet 650 mg PO Q6H PRN Headache/Pain 06/02/22 Mild Scale (1-3) #30 tabs benztropine 0.5 mg tablet 0.5 mg PO BID 30 days #60 tabs 09/09/22 divalproex 250 mg tablet,delayed 1 tab PO BID 30 days #60 tabs 09/09/22 release fluoxetine 20 mg capsule 20 mg PO DAILY 30 days #30 caps 09/09/22 gabapentin 300 mg capsule 300 mg PO BID 30 days #60 caps 09/09/22 lorazepam 1 mg tablet 1 mg PO TID 15 days #45 tabs 09/09/22 olanzapine 5 mg tablet 5 mg PO DAILY PRN 09/09/22 Agitation/Anxiety 30 days #30 tabs olanzapine 5 mg tablet 5 mg PO TID 30 days #90 tabs 09/09/22 prazosin 1 mg capsule 3 mg PO BID 30 days #180 caps 09/09/22 sennosides 8.6 mg-docusate sodium 2 tab PO BID 30 days #120 tabs 09/09/22 50 mg tablet (Senna Plus) trazodone 100 mg tablet 100 mg PO BEDTIME 30 days #30 tabs 09/09/22 <TRANG Castillo - Last Filed: 12/06/22 11:15> Allergies/adverse reactions: Allergies Allergy/AdvReac Type Severity Reaction Status Date / Time diphenhydramine Allergy Severe Anaphylaxis Verified 12/06/22 10:55 [From Benadryl] latex [LATEX] Allergy Intermediate RASH Verified 12/06/22 10:55 <TRANG Castillo - Last Filed: 12/06/22 11:15> Review of Systems Constitutional: Constitutional: Reports no additional constitutional complaints <Matt Penaloza MD - Last Filed: 12/06/22 11:37> Cardiovascular: Cardiovascular: Reports no additional cardiovascular complaints <Matt Penaloza MD - Last Filed: 12/06/22 11:37> Neurologic: Reports system reviewed and no additional complaints, except as documented <Matt Penaloza MD - Last Filed: 12/06/22 11:37> PMFSH Past Medical History Medical History: Medical History Anemia Anxiety Asthma Bipolar disorder Breast cyst Fibromyalgia Migraine Psychosis PTSD (post-traumatic stress disorder) TBI (traumatic brain injury) <TRANG Castillo - Last Filed: 12/06/22 11:15> Surgical History: Surgical History History of surgery History of tubal ligation Hx of section <TRANG Castillo - Last Filed: 12/06/22 11:15> Family History Family History: Family History Father No problems noted. Mother Liver cancer Sister Breast cancer Maternal Grandmother Breast cancer <TRANG Castillo - Last Filed: 12/06/22 11:15> Social History Social History: Social History Household Members: Family Housing: Apartment Housing Other:: section 8 Do you presently have visiting nurse or other home services: No Unable to assess alcohol history related to: Unknown Alcohol intake: unknown Patient Tobacco Use Status: Current someday Tobacco user Tobacco use type: Cigarette Cigarette Packs Per Day: 1 Cigarettes Per Day: 5 Years Smoked: 23 e-Cigarette/Vaping Use: Currently Using Second Hand Smoke Exposure: Yes Substance Use Type: Crack/Cocaine and Marijuana Advance Directives: No Advance Directives Information Provided: Yes service: No Sexual orientation: Don't Know <TRANG Castillo - Last Filed: 12/06/22 11:15> Physical Exam ED Vital Signs: Vital Signs - 24 hr 12/06/22 10:48 Temperature 98 F Pulse Rate 91 Respiratory Rate 20 Blood Pressure 135/92 H Pulse Oximetry 98 Oxygen Delivery Method Room Air BMI result Body Mass Index 35.5 <TRANG Castillo - Last Filed: 12/06/22 11:15> Vital Signs - 24 hr 12/06/22 10:48 Temperature 98 F Pulse Rate 91 Respiratory Rate 20 Blood Pressure 135/92 H Pulse Oximetry 98 Oxygen Delivery Method Room Air BMI result Body Mass Index 35.5 <Mtat Penaloza MD - Last Filed: 12/06/22 11:37> Vital Signs - 24 hr 12/06/22 10:48 Temperature 98 F Pulse Rate 91 Respiratory Rate 20 Blood Pressure 135/92 H Pulse Oximetry 98 Oxygen Delivery Method Room Air BMI result Body Mass Index 35.5 <TRANG Smith - Last Filed: 12/06/22 17:20> Const General: cooperative <Matt Penaloza MD - Last Filed: 12/06/22 11:37> Nutritional Appearance: well nourished <Matt Penaloza MD - Last Filed: 12/06/22 11:37> Orientation/consciousness: patient oriented x3 <Matt Penaloza MD - Last Filed: 12/06/22 11:37> Limitations: no limitations <Matt Penaloza MD - Last Filed: 12/06/22 11:37> HENME Head: Yes normal to inspection <Matt Penaloza MD - Last Filed: 12/06/22 11:37> General nose exam: Normal external nose present <Matt Penaloza MD - Last Filed: 12/06/22 11:37> Face and sinus: Yes normal facial exam <Matt Penaloza MD - Last Filed: 12/06/22 11:37> Neck Neck: Yes normal visual inspection and Yes full ROM <Matt Penaloza MD - Last Filed: 12/06/22 11:37> Chest Chest palpation & inspection: normal inspection of the chest <Matt Penaloza MD - Last Filed: 12/06/22 11:37> Resp Effort & Inspection: normal respiratory effort <Matt Penaloza MD - Last Filed: 12/06/22 11:37> Cardio Jugular venous distension: no JVD <Matt Penaloza MD - Last Filed: 12/06/22 11:37> Rate: regular rate <Matt Penaloza MD - Last Filed: 12/06/22 11:37> Rhythm: regular rhythm <Matt Penaloza MD - Last Filed: 12/06/22 11:37> GI Inspection: Yes normal to inspection <Matt Penaloza MD - Last Filed: 12/06/22 11:37> Palpation (GI): Soft to palpation, not firm, nontender and no guarding <Matt Penaloza MD - Last Filed: 12/06/22 11:37> Skin General skin exam: no rashes or lesions noted, elasticity normal and turgor normal <Matt Penaloza MD - Last Filed: 12/06/22 11:37> Neuro General: patient oriented x3 <Matt Penaloza MD - Last Filed: 12/06/22 11:37> Cranial nerves: Yes CN's II-XII intact bilaterally <Matt Penaloza MD - Last Filed: 12/06/22 11:37> Course Reevaluation(s) Reevaluation #1: Urgent out patient pscyh follow up and therapist will be provided within 24 hours met with care team who feels appropriate for dc w/ out patient provider. I agree. <TRANG Smith - Last Filed: 12/06/22 17:20> Time: 17:16 <TRANG Smith - Last Filed: 12/06/22 17:20> Medications Administered Discontinued Medications Generic Name Dose Route Start Last Admin Trade Name Freq PRN Reason Stop Dose Admin Lorazepam 1 mg 12/06/22 11:26 12/06/22 11:30 Lorazepam 1 Mg Tablet PO 12/06/22 11:27 1 mg ONCE ONE Administration <TRANG Castillo - Last Filed: 12/06/22 11:15> Medications Administered Discontinued Medications Generic Name Dose Route Start Last Admin Trade Name Freq PRN Reason Stop Dose Admin Lorazepam 1 mg 12/06/22 11:26 12/06/22 11:30 Lorazepam 1 Mg Tablet PO 12/06/22 11:27 1 mg ONCE ONE Administration <Matt Penaloza MD - Last Filed: 12/06/22 11:37> Medications Administered Discontinued Medications Generic Name Dose Route Start Last Admin Trade Name Freq PRN Reason Stop Dose Admin Lorazepam 1 mg 12/06/22 11:26 12/06/22 11:30 Lorazepam 1 Mg Tablet PO 12/06/22 11:27 1 mg ONCE ONE Administration <TRANG Smith - Last Filed: 12/06/22 17:20> Medical Decision Making Medical Decision Making MDM Narrative: patient presented with increased anxiety, depression, she has history of bipolar multiple psychiatric hospitalization will get psych consult <Matt Penaloza MD - Last Filed: 12/06/22 11:37> Differential Diagnosis Differential Diagnoses: The differential diagnosis associated with the presentation includes <Matt Penaloza MD - Last Filed: 12/06/22 11:37> Anxiety/depression/psychosis <Matt Penaloza MD - Last Filed: 12/06/22 11:37> Lab Data Result Diagrams: 12/06/22 12:03 12/06/22 12:03 <TRANG Castillo - Last Filed: 12/06/22 11:15> Labs: Lab Results 12/06/22 12/06/22 12/06/22 Range/Units 11:13 12:03 12:03 WBC 10.8 (4.8-10.8) X10*3/uL RBC 4.43 (4.20-5.50) X10*6/uL Hgb 11.7 L (12.0-16.0) g/dl Hct 35.8 L (37.0-47.0) % MCV 80.8 (80.0-98.0) fL MCH 26.4 L (27.0-33.0) pg MCHC 32.7 (31.0-35.0) g/dl RDW 16.1 H (11.0-16.0) % Plt Count 213 (160-400) X10*3/uL MPV 11.4 (9.4-12.3) fL Immature Gran % (Auto) 0.5 H (0.0-0.4) % Neut % (Auto) 59.8 (45-73) % Lymph % (Auto) 27.9 (20-40) % Robertson % (Auto) 5.4 (2-11) % Eos % (Auto) 5.9 H (0-4) % Baso % (Auto) 0.5 (0-2) % Lymph # (Auto) 3.0 (1.2-4.9) X10*3/uL Robertson # (Auto) 0.6 (0.1-1.2) X10*3/uL Eos # (Auto) 0.6 H (0.0-0.4) X10*3/uL Baso # (Auto) 0.1 (0.0-0.2) X10*3/uL Abs Immat Gran (auto) 0.05 H (0.00-0.03) X10*3/uL Absolute Neuts (auto) 6.5 (2.0-8.3) x10*3/uL Absolute Nucleated RBC 0.000 (0.0-0.012) X10*3/uL Nucleated RBC % (auto) 0.0 (0.0-0.2) /100WBC Sodium 140 (135-145) mmol/L Potassium 4.2 (3.3-5.1) mmol/L Chloride 111 H (96-108) mmol/L Carbon Dioxide 23 (22-29) mmol/L Anion Gap 10 L (12-20) BUN 14 (9-16) mg/dL Creatinine 0.75 (0.5-1.4) mg/dL Estim Creat Clear Calc 128.3 Estimated GFR > 60 Random Glucose 78 (60-115) mg/dL Calcium 9.0 (8.4-10.2) mg/dL Total Bilirubin 0.2 (0.0-1.0) mg/dL AST 11 (5-31) U/L ALT 11 (0-31) U/L Alkaline Phosphatase 59 (39-117) U/L Total Protein 6.9 (6.5-8.0) g/dL Albumin 3.8 (3.5-5.0) g/dL Urine Color Urine Appearance Urine pH (5.0-9.0) Ur Specific [place] (1.005-1.025) Urine Protein (Neg-Trace) mg/dL Urine Glucose (UA) (Negative) mg/dL Urine Ketones (Negative) mg/dL Urine Blood (Negative) Urine Nitrite (Negative) Ur Leukocyte Esterase (Negative) Urine RBC (0-2) /HPF Urine WBC (0-5) /HPF Ur Squamous Epith Cells (0-2) /HPF Urine Bacteria (None Seen) Hyaline Casts (0-2) /LPF Urine Test (NEGATIVE) Salicylates < 5.0 L (15-30) mg/dL Urine Opiates Screen (Not Detect) Urine Fentanyl Screen (Not Detect) Acetaminophen < 17 (<30) mcg/mL Ur Barbiturates Screen (Not Detect) Valproic Acid (50.0-100.0) mcg/mL Ur Phencyclidine Scrn (Not Detect) Ur Amphetamines Screen (Not Detect) U Benzodiazepines Scrn (Not Detect) Urine Cocaine Screen (Not Detect) U Marijuana (THC) Screen (Not Detect) Ethyl Alcohol < 10 mg/dL COVID-19 (BALDO) Negative (Negative) COVID-19 Clin Com See Note 12/06/22 12/06/22 12/06/22 Range/Units 12:03 12:03 12:03 WBC (4.8-10.8) X10*3/uL RBC (4.20-5.50) X10*6/uL Hgb (12.0-16.0) g/dl Hct (37.0-47.0) % MCV (80.0-98.0) fL MCH (27.0-33.0) pg MCHC (31.0-35.0) g/dl RDW (11.0-16.0) % Plt Count (160-400) X10*3/uL MPV (9.4-12.3) fL Immature Gran % (Auto) (0.0-0.4) % Neut % (Auto) (45-73) % Lymph % (Auto) (20-40) % Robertson % (Auto) (2-11) % Eos % (Auto) (0-4) % Baso % (Auto) (0-2) % Lymph # (Auto) (1.2-4.9) X10*3/uL [place] # (Auto) (0.1-1.2) X10*3/uL Eos # (Auto) (0.0-0.4) X10*3/uL Baso # (Auto) (0.0-0.2) X10*3/uL Abs Immat Gran (auto) (0.00-0.03) X10*3/uL Absolute Neuts (auto) (2.0-8.3) x10*3/uL Absolute Nucleated RBC (0.0-0.012) X10*3/uL Nucleated RBC % (auto) (0.0-0.2) /100WBC Sodium (135-145) mmol/L Potassium (3.3-5.1) mmol/L Chloride (96-108) mmol/L Carbon Dioxide (22-29) mmol/L Anion Gap (12-20) BUN (9-16) mg/dL Creatinine (0.5-1.4) mg/dL Estim Creat Clear Calc Estimated GFR Random Glucose (60-115) mg/dL Calcium (8.4-10.2) mg/dL Total Bilirubin (0.0-1.0) mg/dL AST (5-31) U/L ALT (0-31) U/L Alkaline Phosphatase (39-117) U/L Total Protein (6.5-8.0) g/dL Albumin (3.5-5.0) g/dL Urine Color Yellow Urine Appearance Clear Urine pH 6.0 (5.0-9.0) Ur Specific [place] 1.025 (1.005-1.025) Urine Protein Negative (Neg-Trace) mg/dL Urine Glucose (UA) Negative (Negative) mg/dL Urine Ketones Trace (Negative) mg/dL Urine Blood Large (3+) H (Negative) Urine Nitrite Negative (Negative) Ur Leukocyte Esterase Negative (Negative) Urine RBC >20 H (0-2) /HPF Urine WBC 0-5 (0-5) /HPF Ur Squamous Epith Cells 0-2 (0-2) /HPF Urine Bacteria None Seen (None Seen) Hyaline Casts 0-2 (0-2) /LPF Urine Test NEGATIVE (NEGATIVE) Salicylates (15-30) mg/dL Urine Opiates Screen Not Detected (Not Detect) Urine Fentanyl Screen Not Detected (Not Detect) Acetaminophen (<30) mcg/mL Ur Barbiturates Screen Not Detected (Not Detect) Valproic Acid (50.0-100.0) mcg/mL Ur Phencyclidine Scrn Not Detected (Not Detect) Ur Amphetamines Screen Not Detected (Not Detect) U Benzodiazepines Scrn Not Detected (Not Detect) Urine Cocaine Screen Not Detected (Not Detect) U Marijuana (THC) Screen POSITIVE H (Not Detect) Ethyl Alcohol mg/dL COVID-19 (BALDO) (Negative) COVID-19 Clin Com 12/06/22 Range/Units 12:03 WBC (4.8-10.8) X10*3/uL RBC (4.20-5.50) X10*6/uL Hgb (12.0-16.0) g/dl Hct (37.0-47.0) % MCV (80.0-98.0) fL MCH (27.0-33.0) pg MCHC (31.0-35.0) g/dl RDW (11.0-16.0) % Plt Count (160-400) X10*3/uL MPV (9.4-12.3) fL Immature Gran % (Auto) (0.0-0.4) % Neut % (Auto) (45-73) % Lymph % (Auto) (20-40) % Robertson % (Auto) (2-11) % Eos % (Auto) (0-4) % Baso % (Auto) (0-2) % Lymph # (Auto) (1.2-4.9) X10*3/uL Robertson # (Auto) (0.1-1.2) X10*3/uL Eos # (Auto) (0.0-0.4) X10*3/uL Baso # (Auto) (0.0-0.2) X10*3/uL Abs Immat Gran (auto) (0.00-0.03) X10*3/uL Absolute Neuts (auto) (2.0-8.3) x10*3/uL Absolute Nucleated RBC (0.0-0.012) X10*3/uL Nucleated RBC % (auto) (0.0-0.2) /100WBC Sodium (135-145) mmol/L Potassium (3.3-5.1) mmol/L Chloride (96-108) mmol/L Carbon Dioxide (22-29) mmol/L Anion Gap (12-20) BUN (9-16) mg/dL Creatinine (0.5-1.4) mg/dL Estim Creat Clear Calc Estimated GFR Random Glucose (60-115) mg/dL Calcium (8.4-10.2) mg/dL Total Bilirubin (0.0-1.0) mg/dL AST (5-31) U/L ALT (0-31) U/L Alkaline Phosphatase (39-117) U/L Total Protein (6.5-8.0) g/dL Albumin (3.5-5.0) g/dL Urine Color Urine Appearance Urine pH (5.0-9.0) Ur Specific [place] (1.005-1.025) Urine Protein (Neg-Trace) mg/dL Urine Glucose (UA) (Negative) mg/dL Urine Ketones (Negative) mg/dL Urine Blood (Negative) Urine Nitrite (Negative) Ur Leukocyte Esterase (Negative) Urine RBC (0-2) /HPF Urine WBC (0-5) /HPF Ur Squamous Epith Cells (0-2) /HPF Urine Bacteria (None Seen) Hyaline Casts (0-2) /LPF Urine Test (NEGATIVE) Salicylates (15-30) mg/dL Urine Opiates Screen (Not Detect) Urine Fentanyl Screen (Not Detect) Acetaminophen (<30) mcg/mL Ur Barbiturates Screen (Not Detect) Valproic Acid < 12.5 L (50.0-100.0) mcg/mL Ur Phencyclidine Scrn (Not Detect) Ur Amphetamines Screen (Not Detect) U Benzodiazepines Scrn (Not Detect) Urine Cocaine Screen (Not Detect) U Marijuana (THC) Screen (Not Detect) Ethyl Alcohol mg/dL COVID-19 (BALDO) (Negative) COVID-19 Clin Com <TRANG Castillo - Last Filed: 12/06/22 11:15> Lab Results 12/06/22 12/06/22 12/06/22 Range/Units 11:13 12:03 12:03 WBC 10.8 (4.8-10.8) X10*3/uL RBC 4.43 (4.20-5.50) X10*6/uL Hgb 11.7 L (12.0-16.0) g/dl Hct 35.8 L (37.0-47.0) % MCV 80.8 (80.0-98.0) fL MCH 26.4 L (27.0-33.0) pg MCHC 32.7 (31.0-35.0) g/dl RDW 16.1 H (11.0-16.0) % Plt Count 213 (160-400) X10*3/uL MPV 11.4 (9.4-12.3) fL Immature Gran % (Auto) 0.5 H (0.0-0.4) % Neut % (Auto) 59.8 (45-73) % Lymph % (Auto) 27.9 (20-40) % Robertson % (Auto) 5.4 (2-11) % Eos % (Auto) 5.9 H (0-4) % Baso % (Auto) 0.5 (0-2) % Lymph # (Auto) 3.0 (1.2-4.9) X10*3/uL Robertson # (Auto) 0.6 (0.1-1.2) X10*3/uL Eos # (Auto) 0.6 H (0.0-0.4) X10*3/uL Baso # (Auto) 0.1 (0.0-0.2) X10*3/uL Abs Immat Gran (auto) 0.05 H (0.00-0.03) X10*3/uL Absolute Neuts (auto) 6.5 (2.0-8.3) x10*3/uL Absolute Nucleated RBC 0.000 (0.0-0.012) X10*3/uL Nucleated RBC % (auto) 0.0 (0.0-0.2) /100WBC Sodium 140 (135-145) mmol/L Potassium 4.2 (3.3-5.1) mmol/L Chloride 111 H (96-108) mmol/L Carbon Dioxide 23 (22-29) mmol/L Anion Gap 10 L (12-20) BUN 14 (9-16) mg/dL Creatinine 0.75 (0.5-1.4) mg/dL Estim Creat Clear Calc 128.3 Estimated GFR > 60 Random Glucose 78 (60-115) mg/dL Calcium 9.0 (8.4-10.2) mg/dL Total Bilirubin 0.2 (0.0-1.0) mg/dL AST 11 (5-31) U/L ALT 11 (0-31) U/L Alkaline Phosphatase 59 (39-117) U/L Total Protein 6.9 (6.5-8.0) g/dL Albumin 3.8 (3.5-5.0) g/dL Urine Color Urine Appearance Urine pH (5.0-9.0) Ur Specific [place] (1.005-1.025) Urine Protein (Neg-Trace) mg/dL Urine Glucose (UA) (Negative) mg/dL Urine Ketones (Negative) mg/dL Urine Blood (Negative) Urine Nitrite (Negative) Ur Leukocyte Esterase (Negative) Urine RBC (0-2) /HPF Urine WBC (0-5) /HPF Ur Squamous Epith Cells (0-2) /HPF Urine Bacteria (None Seen) Hyaline Casts (0-2) /LPF Urine Test (NEGATIVE) Salicylates < 5.0 L (15-30) mg/dL Urine Opiates Screen (Not Detect) Urine Fentanyl Screen (Not Detect) Acetaminophen < 17 (<30) mcg/mL Ur Barbiturates Screen (Not Detect) Valproic Acid (50.0-100.0) mcg/mL Ur Phencyclidine Scrn (Not Detect) Ur Amphetamines Screen (Not Detect) U Benzodiazepines Scrn (Not Detect) Urine Cocaine Screen (Not Detect) U Marijuana (THC) Screen (Not Detect) Ethyl Alcohol < 10 mg/dL COVID-19 (BALDO) Negative (Negative) COVID-19 Clin Com See Note 0512/06/22 12/06/22 Range/Units 12:03 12:03 12:03 WBC (4.8-10.8) X10*3/uL RBC (4.20-5.50) X10*6/uL Hgb (12.0-16.0) g/dl Hct (37.0-47.0) % MCV (80.0-98.0) fL MCH (27.0-33.0) pg MCHC (31.0-35.0) g/dl RDW (11.0-16.0) % Plt Count (160-400) X10*3/uL MPV (9.4-12.3) fL Immature Gran % (Auto) (0.0-0.4) % Neut % (Auto) (45-73) % Lymph % (Auto) (20-40) % Robertson % (Auto) (2-11) % Eos % (Auto) (0-4) % Baso % (Auto) (0-2) % Lymph # (Auto) (1.2-4.9) X10*3/uL [place] # (Auto) (0.1-1.2) X10*3/uL Eos # (Auto) (0.0-0.4) X10*3/uL Baso # (Auto) (0.0-0.2) X10*3/uL Abs Immat Gran (auto) (0.00-0.03) X10*3/uL Absolute Neuts (auto) (2.0-8.3) x10*3/uL Absolute Nucleated RBC (0.0-0.012) X10*3/uL Nucleated RBC % (auto) (0.0-0.2) /100WBC Sodium (135-145) mmol/L Potassium (3.3-5.1) mmol/L Chloride (96-108) mmol/L Carbon Dioxide (22-29) mmol/L Anion Gap (12-20) BUN (9-16) mg/dL Creatinine (0.5-1.4) mg/dL Estim Creat Clear Calc Estimated GFR Random Glucose (60-115) mg/dL Calcium (8.4-10.2) mg/dL Total Bilirubin (0.0-1.0) mg/dL AST (5-31) U/L ALT (0-31) U/L Alkaline Phosphatase (39-117) U/L Total Protein (6.5-8.0) g/dL Albumin (3.5-5.0) g/dL Urine Color Yellow Urine Appearance Clear Urine pH 6.0 (5.0-9.0) Ur Specific [place] 1.025 (1.005-1.025) Urine Protein Negative (Neg-Trace) mg/dL Urine Glucose (UA) Negative (Negative) mg/dL Urine Ketones Trace (Negative) mg/dL Urine Blood Large (3+) H (Negative) Urine Nitrite Negative (Negative) Ur Leukocyte Esterase Negative (Negative) Urine RBC >20 H (0-2) /HPF Urine WBC 0-5 (0-5) /HPF Ur Squamous Epith Cells 0-2 (0-2) /HPF Urine Bacteria None Seen (None Seen) Hyaline Casts 0-2 (0-2) /LPF Urine Test NEGATIVE (NEGATIVE) Salicylates (15-30) mg/dL Urine Opiates Screen Not Detected (Not Detect) Urine Fentanyl Screen Not Detected (Not Detect) Acetaminophen (<30) mcg/mL Ur Barbiturates Screen Not Detected (Not Detect) Valproic Acid (50.0-100.0) mcg/mL Ur Phencyclidine Scrn Not Detected (Not Detect) Ur Amphetamines Screen Not Detected (Not Detect) U Benzodiazepines Scrn Not Detected (Not Detect) Urine Cocaine Screen Not Detected (Not Detect) U Marijuana (THC) Screen POSITIVE H (Not Detect) Ethyl Alcohol mg/dL COVID-19 (BALDO) (Negative) COVID-19 Clin Com 12/06/22 Range/Units 12:03 WBC (4.8-10.8) X10*3/uL RBC (4.20-5.50) X10*6/uL Hgb (12.0-16.0) g/dl Hct (37.0-47.0) % MCV (80.0-98.0) fL MCH (27.0-33.0) pg MCHC (31.0-35.0) g/dl RDW (11.0-16.0) % Plt Count (160-400) X10*3/uL MPV (9.4-12.3) fL Immature Gran % (Auto) (0.0-0.4) % Neut % (Auto) (45-73) % Lymph % (Auto) (20-40) % [place] % (Auto) (2-11) % Eos % (Auto) (0-4) % Baso % (Auto) (0-2) % Lymph # (Auto) (1.2-4.9) X10*3/uL [place] # (Auto) (0.1-1.2) X10*3/uL Eos # (Auto) (0.0-0.4) X10*3/uL Baso # (Auto) (0.0-0.2) X10*3/uL Abs Immat Gran (auto) (0.00-0.03) X10*3/uL Absolute Neuts (auto) (2.0-8.3) x10*3/uL Absolute Nucleated RBC (0.0-0.012) X10*3/uL Nucleated RBC % (auto) (0.0-0.2) /100WBC Sodium (135-145) mmol/L Potassium (3.3-5.1) mmol/L Chloride (96-108) mmol/L Carbon Dioxide (22-29) mmol/L Anion Gap (12-20) BUN (9-16) mg/dL Creatinine (0.5-1.4) mg/dL Estim Creat Clear Calc Estimated GFR Random Glucose (60-115) mg/dL Calcium (8.4-10.2) mg/dL Total Bilirubin (0.0-1.0) mg/dL AST (5-31) U/L ALT (0-31) U/L Alkaline Phosphatase (39-117) U/L Total Protein (6.5-8.0) g/dL Albumin (3.5-5.0) g/dL Urine Color Urine Appearance Urine pH (5.0-9.0) Ur Specific [place] (1.005-1.025) Urine Protein (Neg-Trace) mg/dL Urine Glucose (UA) (Negative) mg/dL Urine Ketones (Negative) mg/dL Urine Blood (Negative) Urine Nitrite (Negative) Ur Leukocyte Esterase (Negative) Urine RBC (0-2) /HPF Urine WBC (0-5) /HPF Ur Squamous Epith Cells (0-2) /HPF Urine Bacteria (None Seen) Hyaline Casts (0-2) /LPF Urine Test (NEGATIVE) Salicylates (15-30) mg/dL Urine Opiates Screen (Not Detect) Urine Fentanyl Screen (Not Detect) Acetaminophen (<30) mcg/mL Ur Barbiturates Screen (Not Detect) Valproic Acid < 12.5 L (50.0-100.0) mcg/mL Ur Phencyclidine Scrn (Not Detect) Ur Amphetamines Screen (Not Detect) U Benzodiazepines Scrn (Not Detect) Urine Cocaine Screen (Not Detect) U Marijuana (THC) Screen (Not Detect) Ethyl Alcohol mg/dL COVID-19 (BALDO) (Negative) COVID-19 Clin Com <Matt Penaloza MD - Last Filed: 12/06/22 11:37> Lab Results 12/06/22 12/06/22 12/06/22 Range/Units 11:13 12:03 12:03 WBC 10.8 (4.8-10.8) X10*3/uL RBC 4.43 (4.20-5.50) X10*6/uL Hgb 11.7 L (12.0-16.0) g/dl Hct 35.8 L (37.0-47.0) % MCV 80.8 (80.0-98.0) fL MCH 26.4 L (27.0-33.0) pg MCHC 32.7 (31.0-35.0) g/dl RDW 16.1 H (11.0-16.0) % Plt Count 213 (160-400) X10*3/uL MPV 11.4 (9.4-12.3) fL Immature Gran % (Auto) 0.5 H (0.0-0.4) % Neut % (Auto) 59.8 (45-73) % Lymph % (Auto) 27.9 (20-40) % Robertson % (Auto) 5.4 (2-11) % Eos % (Auto) 5.9 H (0-4) % Baso % (Auto) 0.5 (0-2) % Lymph # (Auto) 3.0 (1.2-4.9) X10*3/uL Robertson # (Auto) 0.6 (0.1-1.2) X10*3/uL Eos # (Auto) 0.6 H (0.0-0.4) X10*3/uL Baso # (Auto) 0.1 (0.0-0.2) X10*3/uL Abs Immat Gran (auto) 0.05 H (0.00-0.03) X10*3/uL Absolute Neuts (auto) 6.5 (2.0-8.3) x10*3/uL Absolute Nucleated RBC 0.000 (0.0-0.012) X10*3/uL Nucleated RBC % (auto) 0.0 (0.0-0.2) /100WBC Sodium 140 (135-145) mmol/L Potassium 4.2 (3.3-5.1) mmol/L Chloride 111 H (96-108) mmol/L Carbon Dioxide 23 (22-29) mmol/L Anion Gap 10 L (12-20) BUN 14 (9-16) mg/dL Creatinine 0.75 (0.5-1.4) mg/dL Estim Creat Clear Calc 128.3 Estimated GFR > 60 Random Glucose 78 (60-115) mg/dL Calcium 9.0 (8.4-10.2) mg/dL Total Bilirubin 0.2 (0.0-1.0) mg/dL AST 11 (5-31) U/L ALT 11 (0-31) U/L Alkaline Phosphatase 59 (39-117) U/L Total Protein 6.9 (6.5-8.0) g/dL Albumin 3.8 (3.5-5.0) g/dL Urine Color Urine Appearance Urine pH (5.0-9.0) Ur Specific [place] (1.005-1.025) Urine Protein (Neg-Trace) mg/dL Urine Glucose (UA) (Negative) mg/dL Urine Ketones (Negative) mg/dL Urine Blood (Negative) Urine Nitrite (Negative) Ur Leukocyte Esterase (Negative) Urine RBC (0-2) /HPF Urine WBC (0-5) /HPF Ur Squamous Epith Cells (0-2) /HPF Urine Bacteria (None Seen) Hyaline Casts (0-2) /LPF Urine Test (NEGATIVE) Salicylates < 5.0 L (15-30) mg/dL Urine Opiates Screen (Not Detect) Urine Fentanyl Screen (Not Detect) Acetaminophen < 17 (<30) mcg/mL Ur Barbiturates Screen (Not Detect) Valproic Acid (50.0-100.0) mcg/mL Ur Phencyclidine Scrn (Not Detect) Ur Amphetamines Screen (Not Detect) U Benzodiazepines Scrn (Not Detect) Urine Cocaine Screen (Not Detect) U Marijuana (THC) Screen (Not Detect) Ethyl Alcohol < 10 mg/dL COVID-19 (BALDO) Negative (Negative) COVID-19 Clin Com See Note 12/06/22 12/06/22 12/06/22 Range/Units 12:03 12:03 12:03 WBC (4.8-10.8) X10*3/uL RBC (4.20-5.50) X10*6/uL Hgb (12.0-16.0) g/dl Hct (37.0-47.0) % MCV (80.0-98.0) fL MCH (27.0-33.0) pg MCHC (31.0-35.0) g/dl RDW (11.0-16.0) % Plt Count (160-400) X10*3/uL MPV (9.4-12.3) fL Immature Gran % (Auto) (0.0-0.4) % Neut % (Auto) (45-73) % Lymph % (Auto) (20-40) % Robertson % (Auto) (2-11) % Eos % (Auto) (0-4) % Baso % (Auto) (0-2) % Lymph # (Auto) (1.2-4.9) X10*3/uL Robertson # (Auto) (0.1-1.2) X10*3/uL Eos # (Auto) (0.0-0.4) X10*3/uL Baso # (Auto) (0.0-0.2) X10*3/uL Abs Immat Gran (auto) (0.00-0.03) X10*3/uL Absolute Neuts (auto) (2.0-8.3) x10*3/uL Absolute Nucleated RBC (0.0-0.012) X10*3/uL Nucleated RBC % (auto) (0.0-0.2) /100WBC Sodium (135-145) mmol/L Potassium (3.3-5.1) mmol/L Chloride (96-108) mmol/L Carbon Dioxide (22-29) mmol/L Anion Gap (12-20) BUN (9-16) mg/dL Creatinine (0.5-1.4) mg/dL Estim Creat Clear Calc Estimated GFR Random Glucose (60-115) mg/dL Calcium (8.4-10.2) mg/dL Total Bilirubin (0.0-1.0) mg/dL AST (5-31) U/L ALT (0-31) U/L Alkaline Phosphatase (39-117) U/L Total Protein (6.5-8.0) g/dL Albumin (3.5-5.0) g/dL Urine Color Yellow Urine Appearance Clear Urine pH 6.0 (5.0-9.0) Ur Specific [place] 1.025 (1.005-1.025) Urine Protein Negative (Neg-Trace) mg/dL Urine Glucose (UA) Negative (Negative) mg/dL Urine Ketones Trace (Negative) mg/dL Urine Blood Large (3+) H (Negative) Urine Nitrite Negative (Negative) Ur Leukocyte Esterase Negative (Negative) Urine RBC >20 H (0-2) /HPF Urine WBC 0-5 (0-5) /HPF Ur Squamous Epith Cells 0-2 (0-2) /HPF Urine Bacteria None Seen (None Seen) Hyaline Casts 0-2 (0-2) /LPF Urine Test NEGATIVE (NEGATIVE) Salicylates (15-30) mg/dL Urine Opiates Screen Not Detected (Not Detect) Urine Fentanyl Screen Not Detected (Not Detect) Acetaminophen (<30) mcg/mL Ur Barbiturates Screen Not Detected (Not Detect) Valproic Acid (50.0-100.0) mcg/mL Ur Phencyclidine Scrn Not Detected (Not Detect) Ur Amphetamines Screen Not Detected (Not Detect) U Benzodiazepines Scrn Not Detected (Not Detect) Urine Cocaine Screen Not Detected (Not Detect) U Marijuana (THC) Screen POSITIVE H (Not Detect) Ethyl Alcohol mg/dL COVID-19 (BALDO) (Negative) COVID-19 Clin Com 12/06/22 Range/Units 12:03 WBC (4.8-10.8) X10*3/uL RBC (4.20-5.50) X10*6/uL Hgb (12.0-16.0) g/dl Hct (37.0-47.0) % MCV (80.0-98.0) fL MCH (27.0-33.0) pg MCHC (31.0-35.0) g/dl RDW (11.0-16.0) % Plt Count (160-400) X10*3/uL MPV (9.4-12.3) fL Immature Gran % (Auto) (0.0-0.4) % Neut % (Auto) (45-73) % Lymph % (Auto) (20-40) % [place] % (Auto) (2-11) % Eos % (Auto) (0-4) % Baso % (Auto) (0-2) % Lymph # (Auto) (1.2-4.9) X10*3/uL [place] # (Auto) (0.1-1.2) X10*3/uL Eos # (Auto) (0.0-0.4) X10*3/uL Baso # (Auto) (0.0-0.2) X10*3/uL Abs Immat Gran (auto) (0.00-0.03) X10*3/uL Absolute Neuts (auto) (2.0-8.3) x10*3/uL Absolute Nucleated RBC (0.0-0.012) X10*3/uL Nucleated RBC % (auto) (0.0-0.2) /100WBC Sodium (135-145) mmol/L Potassium (3.3-5.1) mmol/L Chloride (96-108) mmol/L Carbon Dioxide (22-29) mmol/L Anion Gap (12-20) BUN (9-16) mg/dL Creatinine (0.5-1.4) mg/dL Estim Creat Clear Calc Estimated GFR Random Glucose (60-115) mg/dL Calcium (8.4-10.2) mg/dL Total Bilirubin (0.0-1.0) mg/dL AST (5-31) U/L ALT (0-31) U/L Alkaline Phosphatase (39-117) U/L Total Protein (6.5-8.0) g/dL Albumin (3.5-5.0) g/dL Urine Color Urine Appearance Urine pH (5.0-9.0) Ur Specific [place] (1.005-1.025) Urine Protein (Neg-Trace) mg/dL Urine Glucose (UA) (Negative) mg/dL Urine Ketones (Negative) mg/dL Urine Blood (Negative) Urine Nitrite (Negative) Ur Leukocyte Esterase (Negative) Urine RBC (0-2) /HPF Urine WBC (0-5) /HPF Ur Squamous Epith Cells (0-2) /HPF Urine Bacteria (None Seen) Hyaline Casts (0-2) /LPF Urine Test (NEGATIVE) Salicylates (15-30) mg/dL Urine Opiates Screen (Not Detect) Urine Fentanyl Screen (Not Detect) Acetaminophen (<30) mcg/mL Ur Barbiturates Screen (Not Detect) Valproic Acid < 12.5 L (50.0-100.0) mcg/mL Ur Phencyclidine Scrn (Not Detect) Ur Amphetamines Screen (Not Detect) U Benzodiazepines Scrn (Not Detect) Urine Cocaine Screen (Not Detect) U Marijuana (THC) Screen (Not Detect) Ethyl Alcohol mg/dL COVID-19 (BALDO) (Negative) COVID-19 Clin Com <TRANG Smith - Last Filed: 12/06/22 17:20> Discharge Plan Discharge Clinical Impression: Bipolar 1 disorder <TRANG Castillo - Last Filed: 12/06/22 11:15> Patient Disposition: Home, Self-Care <TRANG Castillo - Last Filed: 12/06/22 11:15> Instructions: Bipolar Disorder (DC) <TRANG Castillo - Last Filed: 12/06/22 11:15> Additional Instructions: Take your medications as prescribed. If you were prescribed antibiotics today, it is important that you take your medication to their entirety, do not skip any doses, do not finish them early. Follow-up with your primary care provider this week. Return to the emergency department with new or worsening symptoms like suicidal or homicidal ideations In case of emergency call 911 <TRANG Castillo - Last Filed: 12/06/22 11:15> Prescriptions: No Action acetaminophen 325 mg Tablet 650 mg PO Q6H PRN (Reason: Headache/Pain Mild Scale (1-3)) Qty: 30 0RF benztropine 0.5 mg Tablet 0.5 mg PO BID 30 Days Qty: 60 0RF prazosin 1 mg Capsule 3 mg PO BID 30 Days Qty: 180 0RF Protocol: Hold for SBP< HOLD for SBP < : 90 olanzapine 5 mg Tablet 5 mg PO DAILY PRN (Reason: Agitation/Anxiety) 30 Days Qty: 30 0RF olanzapine 5 mg Tablet 5 mg PO TID 30 Days Qty: 90 0RF trazodone 100 mg Tablet 100 mg PO BEDTIME 30 Days Qty: 30 0RF lorazepam 1 mg Tablet 1 mg PO TID 15 Days Qty: 45 1RF fluoxetine 20 mg Capsule 20 mg PO DAILY 30 Days Qty: 30 0RF sennosides-docusate sodium [Senna Plus] 8.6-50 mg Tablet 2 tab PO BID 30 Days Qty: 120 0RF divalproex 250 mg tablet,delayed release (DR/EC) 1 tab PO BID 30 Days Qty: 60 0RF gabapentin 300 mg capsule 300 mg PO BID 30 Days Qty: 60 0RF <TRANG Castillo - Last Filed: 12/06/22 11:15> [facility] - 2 days <TRANG Castillo - Last Filed: 12/06/22 11:15> Interventions: [place]-Suicide Risk Severity Scale Last Done: 12/06/22 12:37 <TRANG Castillo - Last Filed: 12/06/22 11:15>
[2022-12-06] MEDS: LORazepam 1 MG TABLET PO (11:30)
[2022-12-06 12:34] LABS: MANUAL DIFF FLAG NO
[2022-12-06 12:39] LABS: Appearance Urine Clear; Basophils Absolute Auto 0.1 X10*3/uL (0.0-0.2); Basophils Percent Auto 0.5 % (0-2); Color Urine Yellow; Eosinophils Absolute Auto 0.6 X10*3/uL (0.0-0.4); Eosinophils Percent Auto 5.9 % (0-4); Glucose Urine UA Negative (Negative); Hematocrit 35.8 % (37.0-47.0); Hemoglobin 11.7 g/dl (12.0-16.0); Imm Gran Abs Auto 0.05 X10*3/uL (0.00-0.03); Imm Gran Pct Auto 0.5 % (0.0-0.4); Leukocyte Esterase Urine Negative (Negative); Lymphocytes Percent Auto 27.9 % (20-40); Mean Corpuscular HGB Conc 32.7 g/dl (31.0-35.0); Mean Corpuscular Hemoglobin 26.4 pg (27.0-33.0); Mean Corpuscular Volume 80.8 fL (80.0-98.0); Mean Platelet Volume 11.4 fL (9.4-12.3); Monocytes Absolute Auto 0.6 X10*3/uL (0.1-1.2); Monocytes Percent Auto 5.4 % (2-11); Neutrophils Absolute Auto 6.5 x10*3/uL (2.0-8.3); Neutrophils Percent Auto 59.8 % (45-73); Nitrite Urine Negative (Negative); Platelet Count 213 X10*3/uL (160-400); Red Blood Count 4.43 X10*6/uL (4.20-5.50); Red Cell Distribution Width 16.1 % (11.0-16.0); Specific Gravity - Urine 1.025 (1.005-1.025); UMIC TRIGGER UA YES; Urine Blood Large (3+) (Negative); Urine Ketones Trace mg/dL (Negative); Urine Protein Negative (Neg-Trace); White Blood Count 10.8 X10*3/uL (4.8-10.8)
[2022-12-06 12:42] LABS: UPreg QC Valid YES; Urine Pregnancy NEGATIVE (NEGATIVE)
[2022-12-06 12:44] LABS: Bacteria Urine None Seen (None Seen); Hyaline Casts Urine 0-2 /LPF (0-2); RBC Urine >20 /HPF (0-2); Squamous Epithelial Cell Urine 0-2 /HPF (0-2); WBC Urine 0-5 /HPF (0-5)
[2022-12-06 12:49] LABS: Amphetamine Screen Urine Not Detected (Not Detect); Barbiturates, Urine Not Detected (Not Detect); Benzodiazepines Screen Urine Not Detected (Not Detect); Cannabinoid Screen Urine POSITIVE (Not Detect); Cocaine Screen Urine Not Detected (Not Detect); Fentanyl, urine Not Detected (Not Detect); Opiate Screen Urine Not Detected (Not Detect); Phencyclidine Screen Urine Not Detected (Not Detect)
[2022-12-06 12:56] LABS: Acetaminophen LAB < 17 mcg/mL (<30); Alanine Aminotransferase 11 U/L (0-31); Albumin Level 3.8 g/dL (3.5-5.0); Alkaline Phosphatase 59 U/L (39-117); Anion Gap 10 (12-20); Aspartate Amino Transferase 11 U/L (5-31); Bilirubin Total 0.2 mg/dL (0.0-1.0); Blood Urea Nitrogen 14 mg/dL (9-16); Carbon Dioxide 23 mmol/L (22-29); Chloride 111 mmol/L (96-108); Creatinine Clr Calc Pharmacy 128.3; Estimated Glomerular Filt Rate > 60; Ethanol < 10 mg/dL; Glucose Random 78 mg/dL (60-115); Potassium 4.2 mmol/L (3.3-5.1); Salicylate < 5.0 mg/dL (15-30); Sodium 140 mmol/L (135-145); Total Protein 6.9 g/dL (6.5-8.0)
[2022-12-06 13:19] LABS: COVID-19 Test Negative (Negative); IDNOW Serial# 08D9AD1C
[2022-12-06 15:52] LABS: Valproate < 12.5 mcg/mL (50.0-100.0)
--- NOTE | 2022-12-07 13:40 | MHC.CARE ---
CARE team attempted to call pt for follow up, line was busy with each attempt.
--- NOTE | 2022-12-08 14:27 | MHC.CARE ---
CARE Team attempted to complete follow up call- Pts line was busy
== END 2022-12-06 17:28 | disposition home or self-care (01) ==
PROVIDERS: Physician Assistant Medical; Emergency Provider Emergency Medicine; PCP Physician Assistant
DX: F31.9 Bipolar disorder, unspecified (principal); Z20.822 Contact with and (suspected) exposure to COVID-19; F43.10 Post-traumatic stress disorder, unspecified; F41.9 Anxiety disorder, unspecified; R45.6 Violent behavior; F17.210 Nicotine dependence, cigarettes, uncomplicated; F12.90 Cannabis use, unspecified, uncomplicated; Z79.899 Other long term (current) drug therapy
CPT/HCPCS: 36415; 80053; 80143; 80164; 80179; 80307; 81001; 81025; 85025; 87635; 99284; S9485

== ENCOUNTER 2023-05-11 12:42 | Inpatient (IN) | payer OTHER, SELFPAY ==
[2023-05-11 12:51] VITALS: BP 154/94; PULSE 130; RESP 18; TEMP 37; O2SAT 96; BMI 32.3
--- NOTE | 2023-05-11 12:51 | ED.GENADULT ---
HPI - General Adult General Chief complaint: Psychiatric Symptoms Stated complaint: Hallucinations Hearing Voices Time Seen by Provider: 05/11/23 13:00 Source: patient and RN notes reviewed Mode of arrival: ambulatory Limitations: no limitations History of Present Illness HPI narrative: 33-year-old female with pmhx significant for TBI, bipolar disorder, depression, PTSD, cannabis use disorder, asthma, migraine, and fibromyalgia presents to the ED today with suicidal ideation secondary to recent life stressors. Patient reports that her physician recently took her off of all of her medications in attempt to detox her . Additionally patient states that her brother recently in her house and her children were taken away by the state. She currently endorses suicidal ideation with a plan to run out into traffic, and auditory hallucinations stating the voices are telling her to harm herself in to harm others. She has thoughts of harming herself by drinking bleach, cutting herself, and running out into traffic. Endorses visual hallucinations stating that she sees her brother who in her home 1 year ago. Endorses marijuana use. Denies other illicit drug use. Denies alcohol consumption. Has no physical complaints. Related Data Home Medications Medication Instructions Recorded Confirmed olanzapine 20 mg tablet 20 mg PO BEDTIME 05/11/23 05/11/23 trazodone 100 mg tablet 50 mg PO BEDTIME PRN Insomnia 05/11/23 05/11/23 Previous Rx's Medication Instructions Recorded acetaminophen 325 mg tablet 650 mg (2 x 325 mg) PO Q6H PRN 06/02/22 Headache/Pain Mild Scale (1-3) #30 tabs benztropine 0.5 mg tablet 0.5 mg PO BID 30 days #60 tabs 09/09/22 divalproex 250 mg tablet,delayed 1 tab PO BID 30 days #60 tabs 09/09/22 release fluoxetine 20 mg capsule 20 mg PO DAILY 30 days #30 caps 09/09/22 gabapentin 300 mg capsule 300 mg PO BID 30 days #60 caps 09/09/22 lorazepam 1 mg tablet 1 mg PO TID 15 days #45 tabs 09/09/22 olanzapine 5 mg tablet 5 mg PO DAILY PRN 09/09/22 Agitation/Anxiety 30 days #30 tabs olanzapine 5 mg tablet 5 mg PO TID 30 days #90 tabs 09/09/22 prazosin 1 mg capsule 3 mg PO BID 30 days #180 caps 09/09/22 sennosides 8.6 mg-docusate sodium 2 tab PO BID 30 days #120 tabs 09/09/22 50 mg tablet (Senna Plus) Allergies Allergy/AdvReac Type Severity Reaction Status Date / Time diphenhydramine Allergy Severe Anaphylaxis Verified 05/11/23 12:51 [From Benadryl] latex [LATEX] Allergy Intermediate RASH Verified 05/11/23 12:51 Review of Systems Review of Systems: Constitutional: No fever, chills, fatigue, night sweats, weight changes ENT/Mouth: No ear pain, hearing loss, nasal congestion, sinus pain, rhinorrhea, sore throat Eyes: No eye pain, swelling, redness, vision changes, discharge Cardio: No chest pain, palpitations, EARL, orthopnea, peripheral edema Pulm: No SOB, cough, sputum, wheezing, dyspnea, hemoptysis GI: No nausea, vomiting, hematemesis, abdominal pain, diarrhea, constipation, hematochezia, melena : No irregular bleeding, dysuria, frequency, urgency, hesitancy, hematuria, flank pain, urinary flow changes MSK: No back pain, neck pain, joint pain, myalgias Skin: No lesions, rashes Neuro: No weakness, numbness, paresthesias, LOC, dizziness, headache Psych: No anxiety/panic, depression, +SI, No HI, +AH and VH All other systems reviewed and are negative. [facility], [facility] Past Medical History Attestation statement: The following information was validated with the patient. Source: old records reviewed and nursing notes reviewed Medical History Breast cyst Anemia Asthma TBI (traumatic brain injury) Migraine Fibromyalgia PTSD (post-traumatic stress disorder) Psychosis Bipolar disorder Anxiety Surgical History History of surgery Hx of section History of tubal ligation Family History Family History Father No problems noted. Mother Liver cancer Sister Breast cancer Maternal Grandmother Breast cancer Social History Social History Household Members: Family Housing: Apartment Housing Other:: section 8 Do you presently have visiting nurse or other home services: No Unable to assess alcohol history related to: Unknown Alcohol intake: unknown Patient Tobacco Use Status: Current someday Tobacco user Tobacco use type: Cigarette Cigarette Packs Per Day: 1 Cigarettes Per Day: 5 Years Smoked: 23 e-Cigarette/Vaping Use: Currently Using Second Hand Smoke Exposure: Yes Substance Use Type: Crack/Cocaine and Marijuana Advance Directives: No Advance Directives Information Provided: No Healthcare Proxy: No Guardian: No service: No Sexual orientation: Don't Know Physical Exam ED Vital Signs: Vital Signs - 24 hr 05/11/23 12:51 05/11/23 14:29 05/11/23 22:38 Temperature 98.6 F 97.6 F Pulse Rate 130 H 88 82 Respiratory Rate 18 19 16 Blood Pressure 154/94 H 114/75 Pulse Oximetry 96 100 Oxygen Delivery Method Room Air Room Air 05/12/23 04:32 Temperature 97.6 F Pulse Rate 77 Respiratory Rate 16 Blood Pressure 115/79 Pulse Oximetry 99 Oxygen Delivery Method Room Air BMI result Body Mass Index 32.3 Patient initially tachycardic to 130 however WNL on repeat vitals. Vital signs stable. Const General: cooperative, no acute distress, alert and awake Orientation/consciousness: patient oriented x3 Limitations: no limitations HENMT Head: Yes normal to inspection Ears: hearing grossly normal bilaterally General nose exam: Normal external nose present Eyes General: appearance normal, both eyes and all related structures EOM: EOMs intact bilaterally Neck Neck: Yes normal visual inspection Resp Effort & Inspection: normal respiratory effort Auscultation: clear to auscultation bilaterally Cardio Rate: regular rate Rhythm: regular rhythm Heart sounds: S1 normal heart sound present and S2 normal heart sound present Peripheral pulses: Peripheral pulses 2+ throughout GI Inspection: Yes normal to inspection Skin General skin exam: no rashes or lesions noted Neuro General: patient oriented x3, gait normal and moves all extremities Cranial nerves: Yes CN's II-XII intact bilaterally Extrem General: Yes normal to inspection and Yes full ROM Psych Speech and movement: Normal speech and movement present Affect: Sad affect present Attitude: cooperative and Avoids eye contact (attititude/behavior) Thought process: Racing thoughts present Thought content: Suicidality present, Hallucination(s) present auditory and Depressive thoughts present Course Course Course Narrative: RME performed by Cely Romano PA-C. Patient is a 33 year old assigned female at presenting to the emergency department with acute stress after having her medical doctor decided to detox her from her medications, her brother in her house, and her children were taken by state. Labs ordered. Patient placed in the behavioral health POD. Reevaluation(s) Reevaluation #1: 1425-- mild leukocytosis to 11.6 without left shift, no anemia. UA with negative nitrites, trace leukocyte esterase and large amount of squamous epithelial cells > this is likely contamination and not true urinary tract infection. Patient denying fever, chills, dysuria, hematuria or flank pain. Urine negative. Urine toxicology is positive for marijuana, otherwise negative. Ethanol negative. COVID negative. >> hypokalemia to 3.2 > potassium repletion ordered. Chemistry without other acute electrolyte abnormalities requiring intervention. 1550-- Patient has been medically cleared for care team consult. Physician observation initiated at 3:50PM. 1554-- patient evaluated by Divya from care team > patient currently denying SI or HI. She will be inpatient bed search. 1623-- Patient signed out to my colleague, Silvestre BROWN, pending inpatient bed search. Reevaluation #2: Continue physician observation, patient is inpatient bed search, no acute events overnight. Time: 08:20 Medications Administered Discontinued Medications Generic Name Dose Route Start Last Admin Trade Name Freq PRN Reason Stop Dose Admin Lorazepam 1 mg 05/11/23 13:50 05/11/23 13:57 Lorazepam 1 Mg Tablet PO 05/11/23 13:51 1 mg ONCE ONE Administration Nicotine Polacrilex 2 mg 05/11/23 13:50 05/11/23 13:57 Nicotine Polacrilex 2 Mg Gum BUCCAL 05/11/23 13:51 2 mg ONCE ONE Administration Olanzapine 5 mg 05/11/23 13:50 05/11/23 13:57 Olanzapine 5 Mg Tablet PO 05/11/23 13:51 5 mg ONCE ONE Administration Potassium Chloride 60 meq 05/11/23 15:01 05/11/23 16:23 Potassium Chloride Packet 20 Meq Packet PO 05/11/23 15:02 60 meq ONCE ONE Administration Medical Decision Making Medical Decision Making MDM Narrative: 33-year-old female with pmhx significant for TBI, bipolar disorder, depression, PTSD, cannabis use disorder, asthma, migraine, and fibromyalgia presents to the ED today with suicidal ideation secondary to recent life stressors. VSS. Physical exam unremarkable. Patient currently expressing SI. Clinical concern for depression vs anxiety vs suicidal ideation vs polysubstance abuse. Plan at this time is basic labs, UDS, UA, EKG and medical clearance. Differential Diagnosis Differential Diagnoses: The differential diagnosis associated with the presentation includes As above. Admission/Observation Consideration of admission/observation: Escalation of care including admission/observation considered Inpatient bed search. Consult Healthcare Provider Management of the patient was discussed with: Behavioral Health Provider (Divya Polk from care team) Lab Data MDM Lab Attestation statement: I reviewed the patient's lab results. As above. 05/11/23 14:10 05/11/23 14:10 Labs: Lab Results 05/11/23 05/11/23 05/11/23 Range/Units 13:12 13:13 14:10 WBC 11.6 H (4.8-10.8) X10*3/uL RBC 4.75 (4.20-5.50) X10*6/uL Hgb 12.9 (12.0-16.0) g/dl Hct 38.9 (37.0-47.0) % MCV 81.9 (80.0-98.0) fL MCH 27.2 (27.0-33.0) pg MCHC 33.2 (31.0-35.0) g/dl RDW 15.5 (11.0-16.0) % Plt Count 249 (160-400) X10*3/uL MPV 11.0 (9.4-12.3) fL Immature Gran % (Auto) 0.3 (0.0-0.4) % Neut % (Auto) 59.4 (45-73) % Lymph % (Auto) 33.5 (20-40) % [place] % (Auto) 5.2 (2-11) % Eos % (Auto) 1.0 (0-4) % Baso % (Auto) 0.6 (0-2) % Lymph # (Auto) 3.9 (1.2-4.9) X10*3/uL [place] # (Auto) 0.6 (0.1-1.2) X10*3/uL Eos # (Auto) 0.1 (0.0-0.4) X10*3/uL Baso # (Auto) 0.1 (0.0-0.2) X10*3/uL Abs Immat Gran (auto) 0.04 H (0.00-0.03) X10*3/uL Absolute Neuts (auto) 6.9 (2.0-8.3) x10*3/uL Absolute Nucleated RBC 0.000 (0.0-0.012) X10*3/uL Nucleated RBC % (auto) 0.0 (0.0-0.2) /100WBC Sodium 140 (135-145) mmol/L Potassium 3.2 L D (3.3-5.1) mmol/L Chloride 104 (96-108) mmol/L Carbon Dioxide 24 (22-29) mmol/L Anion Gap 15 (12-20) BUN 12 (9-16) mg/dL Creatinine 0.80 (0.5-1.4) mg/dL Estim Creat Clear Calc 113.5 Estimated GFR > 60 Random Glucose 89 (60-115) mg/dL Calcium 10.1 D (8.4-10.2) mg/dL Total Bilirubin 0.4 (0.0-1.0) mg/dL AST 18 (5-31) U/L ALT 23 (0-31) U/L Alkaline Phosphatase 57 (39-117) U/L Total Protein 7.9 (6.5-8.0) g/dL Albumin 4.5 (3.5-5.0) g/dL Urine Color Dark Yellow Urine Appearance Cloudy Urine pH 6.0 (5.0-9.0) Ur Specific [place] >= 1.030 H (1.005-1.025) Urine Protein 30 (1+) H (Neg-Trace) mg/dL Urine Glucose (UA) Negative (Negative) mg/dL Urine Ketones Trace (Negative) mg/dL Urine Blood Negative (Negative) Urine Nitrite Negative (Negative) Ur Leukocyte Esterase Trace H (Negative) Urine RBC 0-2 (0-2) /HPF Urine WBC 0-5 (0-5) /HPF Ur Squamous Epith Cells >20 (0-2) /HPF Urine Bacteria 4+ (None Seen) Hyaline Casts 0-2 (0-2) /LPF Urine Test NEGATIVE (NEGATIVE) Salicylates < 5.0 L (15-30) mg/dL Urine Opiates Screen Not Detected (Not Detect) Urine Fentanyl Screen Not Detected (Not Detect) Acetaminophen < 17 (<30) mcg/mL Ur Barbiturates Screen Not Detected (Not Detect) Ur Phencyclidine Scrn Not Detected (Not Detect) Ur Amphetamines Screen Not Detected (Not Detect) U Benzodiazepines Scrn Not Detected (Not Detect) Urine Cocaine Screen Not Detected (Not Detect) U Marijuana (THC) Screen POSITIVE H (Not Detect) Ethyl Alcohol < 10 mg/dL COVID-19 (BALDO) Negative (Negative) COVID-19 Clin Com See Note Independent Interpretation I performed an independent interpretation of an: EKG Interpretation: EKG showing normal sinus rhythm with a rate of 88 bpm, QT 360, QRS 88, no acute ischemic changes. External Record Review External record reviewed: Inpatient record Prescription Management I considered prescription management with: Other (Anxiolytic ) Chronic Conditions Patient?s care impacted by: Other (Bipolar disorder, depression, PTSD) Critical Care Time Critical Care Time Critical Care Time: No Discharge Plan Discharge Clinical Impression: Suicidal ideation, Depression Patient Disposition: Still a Patient Prescriptions: No Action acetaminophen 325 mg Tablet 650 mg PO Q6H PRN (Reason: Headache/Pain Mild Scale (1-3)) Qty: 30 0RF benztropine 0.5 mg Tablet 0.5 mg PO BID 30 Days Qty: 60 0RF prazosin 1 mg Capsule 3 mg PO BID 30 Days Qty: 180 0RF Protocol: Hold for SBP< HOLD for SBP < : 90 olanzapine 5 mg Tablet 5 mg PO DAILY PRN (Reason: Agitation/Anxiety) 30 Days Qty: 30 0RF olanzapine 5 mg Tablet 5 mg PO TID 30 Days Qty: 90 0RF lorazepam 1 mg Tablet 1 mg PO TID 15 Days Qty: 45 1RF fluoxetine 20 mg Capsule 20 mg PO DAILY 30 Days Qty: 30 0RF sennosides-docusate sodium [Senna Plus] 8.6-50 mg Tablet 2 tab PO BID 30 Days Qty: 120 0RF divalproex 250 mg tablet,delayed release (DR/EC) 1 tab PO BID 30 Days Qty: 60 0RF gabapentin 300 mg capsule 300 mg PO BID 30 Days Qty: 60 0RF olanzapine 20 mg tablet 20 mg PO BEDTIME trazodone 100 mg tablet 50 mg PO BEDTIME MDD 100 PRN (Reason: Insomnia) Interventions: [place]-Suicide Risk Severity Scale Last Done: 05/12/23 07:27
--- NOTE | 2023-05-11 14:00 | PC.NURSE ---
addendum to triage:patient reports recently her provider tapering her off her meds slowly because its more natural (didnt seem correct) reported to me an unusually high dose of zyprexa (30 tid...) has fibromyalgia, reported walking here from [facility]. states also on meds for mood stability, but recently disassociating and milagros voices, some thoughts to hurt self but moreover HI. yany was living w fiancee and kids and then childen removed and was at mom and kids fdc and was about to lose housing. reports only drug/etoh-thc. reported brother in her home about 1 year ago. also had a hx of being on high dose of seroquel and that wasnt helpful
[2023-05-11 14:29] VITALS: PULSE 88; RESP 19
[2023-05-11 14:33] LABS: Alanine Aminotransferase 23 U/L (0-31); Albumin Level 4.5 g/dL (3.5-5.0); Alkaline Phosphatase 57 U/L (39-117); Anion Gap 15 (12-20); Aspartate Amino Transferase 18 U/L (5-31); Bilirubin Total 0.4 mg/dL (0.0-1.0); Blood Urea Nitrogen 12 mg/dL (9-16); Calcium 10.1 mg/dL (8.4-10.2); Carbon Dioxide 24 mmol/L (22-29); Chloride 104 mmol/L (96-108); Creatinine Clr Calc Pharmacy 113.5; Estimated Glomerular Filt Rate > 60; Ethanol < 10 mg/dL; Glucose Random 89 mg/dL (60-115); Potassium 3.2 mmol/L (3.3-5.1); Sodium 140 mmol/L (135-145); Total Protein 7.9 g/dL (6.5-8.0)
[2023-05-11 22:38] VITALS: BP 114/75; PULSE 82; RESP 16; TEMP 36.4; O2SAT 100
--- NOTE | 2023-05-12 03:32 | PC.NURSE ---
Addendum entered by Sheng Ervin RN 05/12/23 03:46: Entered in error under incorrect user. This RN assumed care at initial time of this note as follows: Assumed care of pt. Pt lying on stretcher, no acute medical or behavioral concerns at this time. Eyes closed, respirations even and unlabored. Continuing safety monitoring and plan of care. Original Note: Assumed care of pt. Pt lying on stretcher, no acute medical or behavioral concerns at this time. Eyes closed, respirations even and unlabored. Continuing safety monitoring and plan of care.
[2023-05-12 04:32] VITALS: BP 115/79; PULSE 77; RESP 16; TEMP 36.4; O2SAT 99
--- NOTE | 2023-05-12 06:13 | PC.NURSE ---
Pt lying on stretcher, no acute medical or behavioral concerns at this time. Eyes closed, respirations even and unlabored. Continuing safety monitoring and plan of care.
--- NOTE | 2023-05-12 09:20 | PHA.MEDREC ---
Pharmacy Consult ? Medication Reconciliation Pharmacy has completed the medication reconciliation. Called Dr Analia Quiroz, only on four meds. Was not told to come for med wash out Dylon
[2023-05-12 13:22] VITALS: BP 123/79; PULSE 93; RESP 16; TEMP 36.6; O2SAT 99
[2023-05-12 15:37] VITALS: BP 131/84; PULSE 91; RESP 16; TEMP 36.4; O2SAT 100; BMI 36.3
--- NOTE | 2023-05-12 17:20 | PC.NURSE ---
Annamarie was admitted to [facility] at 1515 from [facility] Pod on CV for treatment of psychosis and suicidality. Per patient her outpt provider took her off all of her psych meds then restarted just 3 - ativan, prazosin and zyprexa - at lower doses. Pt states she found depakote helpful but her proviider declined to order it. Other recent stressors include of pt's brother in her home 11 months ago, her 5 children were removed from her care and placed in DCF custody and she lost her housing On admission pt is oriented to day, date, time. It is difficult to ascertain if she is oriented to situation or her reports of persecution are delusional. Mood is depressed. Affect is sadShe reports visual perceptual disturbances in which anton and floors move, In addition she reports CAH to harm herself and other people. I don't want to hurt other people but then I think I'm not being myself if I don't. She agrees to report to staff if she is in imminent danger of harming self or others. Appetite is poor with recent 5 lb weight loss. Sleep is poor. I smoke marijuana to help but really I just don't sleep. It's my nerves. Yen denies medical Issues?She is on q 15 minute safety checks.
[2023-05-12 21:30] VITALS: BP 129/78; PULSE 101; RESP 18; TEMP 36.4; O2SAT 98
[2023-05-13 08:43] VITALS: BP 126/71; PULSE 92; RESP 16; TEMP 36.2; O2SAT 99
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
[2023-05-13 14:23] VITALS: BP 124/76; PULSE 101; RESP 16; TEMP 36.7; O2SAT 98
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
[2023-05-13] MEDS: hydrOXYzine HCL 50 MG TABLET PO ×2 (17:23→21:28)
[2023-05-13] MEDS: Acetaminophen 325 MG TABLET 650 MG PO (19:36)
[2023-05-13 22:00] VITALS: BP 123/71; PULSE 93; RESP 16; TEMP 36.6; O2SAT 99
[2023-05-13] MEDS: Gabapentin 300 MG CAPSULE PO (22:05)
[2023-05-13] MEDS: OLANZapine 10 MG TABLET PO (22:05)
[2023-05-13] MEDS: LORazepam 1 MG TABLET PO (22:06)
[2023-05-13] MEDS: Divalproex Sodium ER 250 MG TAB.ER.24H PO (22:06)
[2023-05-13] MEDS: Prazosin HCL 1 MG CAPSULE 2 MG PO (22:06)
[2023-05-14] MEDS: hydrOXYzine HCL 50 MG TABLET PO ×4 (06:43→20:31)
[2023-05-14 07:00] VITALS: BMI 35.9
[2023-05-14] MEDS: OLANZapine 5 MG TABLET PO ×2 (08:17→14:14)
[2023-05-14] MEDS: Gabapentin 300 MG CAPSULE PO ×2 (08:17→21:37)
[2023-05-14] MEDS: Divalproex Sodium ER 250 MG TAB.ER.24H PO ×2 (08:18→21:37)
[2023-05-14] MEDS: LORazepam 1 MG TABLET PO ×3 (08:18→21:37)
[2023-05-14] MEDS: Prazosin HCL 1 MG CAPSULE 2 MG PO ×3 (08:18→21:37)
[2023-05-14 08:27] VITALS: BP 115/78; PULSE 110; RESP 20; TEMP 36.1; O2SAT 98
--- NOTE | 2023-05-14 09:06 | HO.PSYCHPN ---
Subjective Subjective Date of Service: 05/14/23 Reason For Visit: mental health crisis Interim History: Met with patient; discussed with team; reviewed notes Patient says she is feeling much better now that she has been started on Depakote.. Patient shared that her mood is a little more calm, however she remains with much anxiety and frequent flashbacks to trauma throughout the day. She wears ear plugs which she says helps. She asks for additional medication to help with anxiety/agitation during the day and agrees to low-dose Zyprexa p.r.n.. Still having nightmares however wants to leave prazosin at current dose for now to see if he gets better. Despite anxiety, Patient discussed Ativan history and said she would eventually like to get off Ativan and find a replacement for it. Discussed increasing gabapentin which is being used for fibromyalgia and helping however she preferred to leave med regimen the weight is since she has just been restarted. Patient shared that when she gets anxious she starts to see dots on the side of her eyes and then blacks out; she describes frequent dissociated episodes however she reports trying hard to use coping skills to keep them from happening. Mental Status Exam Mental Status Exam Narrative: appropriately dressed, and groomed. cooperative, no PMA/PMR. speech nml in rate, loudness, prosody and amount; no latency. thoughts linear and logical. affect constricted, normo-intense, non-labile. mood more calm but anxious no SI/HI. Denies AH/VH; rather she says she hears/sees people from her life but they are just images/thoughts in her mind; judgment/insight impaired but improving. Diagnostics Vital Signs (24Hr): Vital Signs - 24 hr 05/13/23 14:23 05/13/23 22:00 05/14/23 08:27 Temperature 98.0 F 97.9 F 96.9 F Pulse Rate 101 H 93 110 H Respiratory Rate 16 16 20 Blood Pressure 124/76 123/71 115/78 Pulse Oximetry 98 99 98 Oxygen Delivery Method Room Air Room Air Room Air BMI result Body Mass Index 35.9 Labs 05/11/23 14:10 05/11/23 14:10 Medications Medications Current Medications Acetaminophen (Acetaminophen 325 Mg Tablet) 650 mg PO Q6H PRN PRN Reason: Headache/Pain Mild Scale (1-3) Last Admin: 05/13/23 19:36 Dose: 650 mg Al Hydroxide/Mg Hydroxide (Magnesium Hydrox/Alum Hydrox 30 Ml Oral.Susp) 30 ml PO Q6H PRN PRN Reason: Heartburn/Nausea Divalproex Sodium (Divalproex Sodium Er 250 Mg Tab.Er.24h) 250 mg PO BID [facility] Last Admin: 05/14/23 08:18 Dose: 250 mg Gabapentin (Gabapentin 300 Mg Capsule) 300 mg PO BID [facility] Last Admin: 05/14/23 08:17 Dose: 300 mg Hydroxyzine HCl (Hydroxyzine Hcl 50 Mg Tablet) 50 mg PO Q4H PRN PRN Reason: Anxiety Last Admin: 05/14/23 06:43 Dose: 50 mg Lorazepam (Lorazepam 1 Mg Tablet) 1 mg PO TID [facility] Last Admin: 05/14/23 08:18 Dose: 1 mg Magnesium Hydroxide (Milk Of Magnesia 30 Ml Oral.Susp) 30 ml PO DAILY PRN PRN Reason: Constipation Nicotine Polacrilex (Nicotine Polacrilex 2 Mg Gum) 4 mg BUCCAL Q2H PRN PRN Reason: Nicotine Cravings Last Admin: 05/13/23 14:22 Dose: 2 mg Olanzapine (Olanzapine 10 Mg Tablet) 10 mg PO BEDTIME [facility] Last Admin: 05/13/23 22:05 Dose: 10 mg Olanzapine (Olanzapine 5 Mg Tablet) 5 mg PO BID@0900,1500 [facility] Last Admin: 05/14/23 08:17 Dose: 5 mg Prazosin HCl (Prazosin Hcl 1 Mg Capsule) 2 mg PO TID [facility]; Protocol Last Admin: 05/14/23 08:18 Dose: 2 mg Senna/Docusate Sodium (Sennosides/Docusate Sodium Tablet) 2 tab PO BID PRN PRN Reason: constipation Trazodone HCl (Trazodone Hcl 50 Mg Tablet) 50 mg PO BEDTIME PRN PRN Reason: Insomnia Last Admin: 05/13/23 01:21 Dose: 50 mg Allergies Allergies Allergy/AdvReac Type Severity Reaction Status Date / Time diphenhydramine Allergy Severe Anaphylaxis Verified 05/11/23 12:51 [From Benadryl] latex [LATEX] Allergy Intermediate RASH Verified 05/11/23 12:51 Assessment & Plan Assessment & Plan (1) PTSD (post-traumatic stress disorder): Status: Acute Code(s): F43.10 - Post-traumatic stress disorder, unspecified Plan 33-year-old female with history of PTSD, mood lability, presenting for Hospital course: 05/14 Patient says she is feeling much better now that she has been started on Depakote.. Patient shared that her mood is a little more calm, however she remains with much anxiety and frequent flashbacks to trauma throughout the day. She wears ear plugs which she says helps. She asks for additional medication to help with anxiety/agitation during the day and agrees to low-dose Zyprexa p.r.n.. Still having nightmares however wants to leave prazosin at current dose for now to see if he gets better. Despite anxiety, Patient discussed Ativan history and said she would eventually like to get off Ativan and find a replacement for it. Discussed increasing gabapentin which is being used for fibromyalgia and helping however she preferred to leave med regimen the weight is since she has just been restarted. Patient shared that when she gets anxious she starts to see dots on the side of her eyes and then blacks out; she describes frequent dissociated episodes however she reports trying hard to use coping skills to keep them from happening. Plan: CV q15 min added zyprexa 2.5mg TID PRN for anxiety/agitation change zyprexa from 20 QHS to 12/05/09. restart gabapentin for BLE fibromyalgia pain, 300 BID restart VPA 250 BID collect collateral from Dr[facility] Velazco of [facility] Patient educated on: diagnosis, medication risk/benefits and therapeutic strategies Informed Consent: understands and further education needed Reason for continued inpatient stay Substantial Risk for: rapid decompensation Time Spent With Patient Time: Total time managing care of this patient today ____ minutes.
[2023-05-14 10:29] LABS: Anion Gap 12 (12-20); Blood Urea Nitrogen 9 mg/dL (9-16); Calcium 9.4 mg/dL (8.4-10.2); Carbon Dioxide 24 mmol/L (22-29); Chloride 107 mmol/L (96-108); Creatinine Clr Calc Pharmacy 124.6; Estimated Glomerular Filt Rate > 60; Glucose Random 94 mg/dL (60-115); Potassium 4.1 mmol/L (3.3-5.1); Sodium 139 mmol/L (135-145)
[2023-05-14 20:55] VITALS: BP 114/67; PULSE 101; RESP 16; TEMP 36.2; O2SAT 100
[2023-05-14] MEDS: OLANZapine 10 MG TABLET PO (21:37)
[2023-05-15] MEDS: OLANZapine 2.5 MG TABLET PO (02:08)
[2023-05-15] MEDS: hydrOXYzine HCL 50 MG TABLET PO ×3 (03:38→16:24)
[2023-05-15] MEDS: LORazepam 1 MG TABLET 2 MG PO (06:33)
[2023-05-15] MEDS: Prazosin HCL 1 MG CAPSULE 2 MG PO ×2 (08:02→14:15)
[2023-05-15] MEDS: LORazepam 1 MG TABLET PO ×3 (08:03→20:20)
[2023-05-15] MEDS: OLANZapine 5 MG TABLET PO ×3 (08:03→14:15)
[2023-05-15] MEDS: Divalproex Sodium ER 250 MG TAB.ER.24H PO ×2 (08:03→20:21)
[2023-05-15] MEDS: Gabapentin 300 MG CAPSULE PO ×2 (08:03→20:20)
[2023-05-15 08:17] VITALS: BP 128/76; PULSE 95; RESP 20; TEMP 36.2; O2SAT 100
[2023-05-15 09:01] LABS: Estimated Average Glucose 94 mg/dL; Hemoglobin A1c % 4.9 % (<6.0)
[2023-05-15 09:19] LABS: Cholesterol 111 mg/dL (<200); HDL Cholesterol 40 mg/dL (>40); LDL Cholesterol Calculated 62 mg/dL (<100); Triglycerides 45 mg/dL (<150)
[2023-05-15 10:38] LABS: Reflex LDLD? No
[2023-05-15 14:11] VITALS: BP 121/76; PULSE 114
--- NOTE | 2023-05-15 15:19 | P.PNPSI_ITS ---
Subjective Subjective Date of Service: 05/15/23 Reason For Visit: mental health crisis Interim History: c/o poor sleep, agrees to increase prazosin to 4 mg QHS and trazodone to 100. interested in PHP, unclear if she will be able to go. per staff, elevated anxiety. poor sleep. visible. + grps. safe. meds and meals compliant. up at 0200 for nightmare. got zyprexa, showered, hydroxyzine. up again at 0400. got ativan 2 mg at 0600. Mental Status Exam Mental Status Exam Narrative: appropriately dressed, and groomed. cooperative, no PMA/PMR. speech nml in rate, loudness, amount, latency. decreased prosody. thoughts linear and logical. affect constricted, normo-intense, non-labile. no SI/HI/AVH expressed. Diagnostics Vital Signs (24Hr): Vital Signs - 24 hr 05/14/23 20:55 05/15/23 08:17 05/15/23 14:11 Temperature 97.2 F 97.2 F Pulse Rate 101 H 95 114 H Respiratory Rate 16 20 Blood Pressure 114/67 128/76 121/76 Pulse Oximetry 100 100 Oxygen Delivery Method Room Air Room Air BMI result Body Mass Index 35.9 Labs 05/11/23 14:10 05/14/23 10:08 Labs: Laboratory Results - last 48 hr 05/14/23 05/15/23 10:08 08:30 Sodium 139 Potassium 4.1 D Chloride 107 Carbon Dioxide 24 Anion Gap 12 BUN 9 Creatinine 0.77 Estim Creat Clear Calc 124.6 Estimated GFR > 60 Random Glucose 94 Estimat Average Glucose 94 Hemoglobin A1c % 4.9 Calcium 9.4 D Triglycerides 45 Cholesterol 111 LDL Cholesterol, Calc 62 HDL Cholesterol 40 L Medications Medications Current Medications Acetaminophen (Acetaminophen 325 Mg Tablet) 650 mg PO Q6H PRN PRN Reason: Headache/Pain Mild Scale (1-3) Last Admin: 05/13/23 19:36 Dose: 650 mg Al Hydroxide/Mg Hydroxide (Magnesium Hydrox/Alum Hydrox 30 Ml Oral.Susp) 30 ml PO Q6H PRN PRN Reason: Heartburn/Nausea Divalproex Sodium (Divalproex Sodium Er 250 Mg Tab.Er.24h) 250 mg PO BID [facility] Last Admin: 05/15/23 08:03 Dose: 250 mg Gabapentin (Gabapentin 300 Mg Capsule) 300 mg PO BID [facility] Last Admin: 05/15/23 08:03 Dose: 300 mg Hydroxyzine HCl (Hydroxyzine Hcl 50 Mg Tablet) 50 mg PO Q4H PRN PRN Reason: Anxiety Last Admin: 05/15/23 11:05 Dose: 50 mg Lorazepam (Lorazepam 1 Mg Tablet) 1 mg PO TID [facility] Last Admin: 05/15/23 14:15 Dose: 1 mg Magnesium Hydroxide (Milk Of Magnesia 30 Ml Oral.Susp) 30 ml PO DAILY PRN PRN Reason: Constipation Nicotine Polacrilex (Nicotine Polacrilex 2 Mg Gum) 4 mg BUCCAL Q2H PRN PRN Reason: Nicotine Cravings Last Admin: 05/13/23 14:22 Dose: 2 mg Olanzapine (Olanzapine 10 Mg Tablet) 10 mg PO BEDTIME [facility] Last Admin: 05/14/23 21:37 Dose: 10 mg Olanzapine (Olanzapine 5 Mg Tablet) 5 mg PO BID@0900,1500 [facility] Last Admin: 05/15/23 14:15 Dose: 5 mg Olanzapine (Olanzapine 5 Mg Tablet) 5 mg PO BID PRN PRN Reason: anxiety/agitation Last Admin: 05/15/23 13:10 Dose: 5 mg Prazosin HCl (Prazosin Hcl 1 Mg Capsule) 2 mg PO BID@0900,1500 [facility]; Protocol Last Admin: 05/15/23 14:15 Dose: 2 mg Prazosin HCl (Prazosin Hcl 1 Mg Capsule) 4 mg PO BEDTIME [facility]; Protocol Senna/Docusate Sodium (Sennosides/Docusate Sodium Tablet) 2 tab PO BID PRN PRN Reason: constipation Trazodone HCl (Trazodone Hcl 50 Mg Tablet) 50 mg PO BEDTIME PRN PRN Reason: Insomnia Last Admin: 05/13/23 01:21 Dose: 50 mg Trazodone HCl (Trazodone Hcl 100 Mg Tablet) 100 mg PO BEDTIME [facility] Allergies Allergies Allergy/AdvReac Type Severity Reaction Status Date / Time diphenhydramine Allergy Severe Anaphylaxis Verified 05/11/23 12:51 [From Benadryl] latex [LATEX] Allergy Intermediate RASH Verified 05/11/23 12:51 Assessment & Plan Assessment & Plan (1) PTSD (post-traumatic stress disorder): Status: Acute Code(s): F43.10 - Post-traumatic stress disorder, unspecified Plan 33-year-old female with history of PTSD, mood lability, presenting for Hospital course: 05/14 Patient says she is feeling much better now that she has been started on Depakote.. Patient shared that her mood is a little more calm, however she remains with much anxiety and frequent flashbacks to trauma throughout the day. She wears ear plugs which she says helps. She asks for additional medication to help with anxiety/agitation during the day and agrees to low-dose Zyprexa p.r.n.. Still having nightmares however wants to leave prazosin at current dose for now to see if he gets better. Despite anxiety, Patient discussed Ativan history and said she would eventually like to get off Ativan and find a replacement for it. Discussed increasing gabapentin which is being used for fibromyalgia and helping however she preferred to leave med regimen the weight is since she has just been restarted. Patient shared that when she gets anxious she starts to see dots on the side of her eyes and then blacks out; she describes frequent dissociated episodes however she reports trying hard to use coping skills to keep them from happening. 05/13: change zyprexa from 20 QHS to 12/05/09. restart gabapentin for BLE fibromyalgia pain, 300 BID. restart VPA [address] Velazco of [facility]. 05/14: added zyprexa 2.5mg TID PRN for anxiety/agitation. 05/15: communicated with Juan A, consensus PTSD/BPD. increase prazosin to 4 mg and start trazodone 100 mg for insomnia/nightmares. otherwise continue current mgmt. Reason for continued inpatient stay Substantial Risk for: harm to self, inability to function and rapid decompensation Time Spent With Patient Time: Total time managing care of this patient today __25__ minutes.
[2023-05-15 18:00] VITALS: BP 123/62; PULSE 97; RESP 15; TEMP 36.3; O2SAT 100
[2023-05-15] MEDS: Prazosin HCL 1 MG CAPSULE 4 MG PO (20:20)
[2023-05-15] MEDS: traZODone HCL 100 MG TABLET PO (20:21)
[2023-05-15] MEDS: OLANZapine 10 MG TABLET PO (20:22)
[2023-05-16] MEDS: OLANZapine 5 MG TABLET PO ×4 (00:30→15:54)
[2023-05-16] MEDS: traZODone HCL 50 MG TABLET PO (00:32)
[2023-05-16] MEDS: Gabapentin 300 MG CAPSULE PO ×2 (08:20→20:56)
[2023-05-16] MEDS: Divalproex Sodium ER 250 MG TAB.ER.24H PO ×2 (08:20→20:56)
[2023-05-16] MEDS: Prazosin HCL 1 MG CAPSULE 2 MG PO ×2 (08:20→15:53)
[2023-05-16] MEDS: LORazepam 1 MG TABLET PO ×5 (08:20→20:57)
[2023-05-16 08:22] VITALS: BP 116/71; PULSE 96; RESP 16; TEMP 36.6; O2SAT 100
[2023-05-16] MEDS: hydrOXYzine HCL 50 MG TABLET PO (10:44)
[2023-05-16] MEDS: Topiramate 25 MG TABLET 50 MG PO ×2 (12:34→20:56)
[2023-05-16 15:52] VITALS: BP 132/77; PULSE 112
--- NOTE | 2023-05-16 16:46 | HO.PSYCHPN ---
Subjective Subjective Date of Service: 05/16/23 Reason For Visit: mental health crisis Interim History: Feels she is slowly getting better. Still irritable. Less hallucinations. No SI. Restlessness present- attributes this to fibromyalgia which she has experienced before and is gradually getting better. Sleep ok. Feeling supported. Discussed topomax for migraines and mood. Medication Compliance: Yes Side effects from medications: No Attending Groups: Yes Review of Systems Acute medical concerns: No Review of Systems Review of Systems fibromyalgia Mental Status Exam Mental Status Exam Narrative: appropriately dressed, and groomed. cooperative, no PMA/PMR. speech nml in rate, loudness, amount, latency. decreased prosody. thoughts linear and logical. affect constricted, normo-intense, non-labile. no SI/HI. Reports less AH. Insight and judgment fair Diagnostics Vital Signs (24Hr): Vital Signs - 24 hr 05/15/23 18:00 05/16/23 08:22 05/16/23 15:52 Temperature 97.3 F 97.9 F Pulse Rate 97 96 112 H Respiratory Rate 15 16 Blood Pressure 123/62 116/71 132/77 Pulse Oximetry 100 100 Oxygen Delivery Method Room Air Room Air BMI result Body Mass Index 35.9 Labs 05/11/23 14:10 05/14/23 10:08 Labs: Laboratory Results - last 48 hr 05/15/23 08:30 Estimat Average Glucose 94 Hemoglobin A1c % 4.9 Triglycerides 45 Cholesterol 111 LDL Cholesterol, Calc 62 HDL Cholesterol 40 L Medications Medications Current Medications Acetaminophen (Acetaminophen 325 Mg Tablet) 650 mg PO Q6H PRN PRN Reason: Headache/Pain Mild Scale (1-3) Last Admin: 05/13/23 19:36 Dose: 650 mg Al Hydroxide/Mg Hydroxide (Magnesium Hydrox/Alum Hydrox 30 Ml Oral.Susp) 30 ml PO Q6H PRN PRN Reason: Heartburn/Nausea Divalproex Sodium (Divalproex Sodium Er 250 Mg Tab.Er.24h) 250 mg PO BID [facility] Last Admin: 05/16/23 08:20 Dose: 250 mg Gabapentin (Gabapentin 300 Mg Capsule) 300 mg PO BID [facility] Last Admin: 05/16/23 08:20 Dose: 300 mg Lorazepam (Lorazepam 1 Mg Tablet) 1 mg PO QID [facility] Last Admin: 05/16/23 12:34 Dose: 1 mg Lorazepam (Lorazepam 1 Mg Tablet) 1 mg PO Q6H PRN PRN Reason: Anxiety Magnesium Hydroxide (Milk Of Magnesia 30 Ml Oral.Susp) 30 ml PO DAILY PRN PRN Reason: Constipation Nicotine Polacrilex (Nicotine Polacrilex 2 Mg Gum) 4 mg BUCCAL Q2H PRN PRN Reason: Nicotine Cravings Last Admin: 05/13/23 14:22 Dose: 2 mg Olanzapine (Olanzapine 10 Mg Tablet) 10 mg PO BEDTIME [facility] Last Admin: 05/15/23 20:22 Dose: 10 mg Olanzapine (Olanzapine 5 Mg Tablet) 5 mg PO BID@0900,1500 [facility] Last Admin: 05/16/23 15:54 Dose: 5 mg Olanzapine (Olanzapine 5 Mg Tablet) 5 mg PO BID PRN PRN Reason: anxiety/agitation Last Admin: 05/16/23 12:35 Dose: 5 mg Prazosin HCl (Prazosin Hcl 1 Mg Capsule) 2 mg PO BID@0900,1500 [facility]; Protocol Last Admin: 05/16/23 15:53 Dose: 2 mg Prazosin HCl (Prazosin Hcl 1 Mg Capsule) 4 mg PO BEDTIME [facility]; Protocol Last Admin: 05/15/23 20:20 Dose: 4 mg Senna/Docusate Sodium (Sennosides/Docusate Sodium Tablet) 2 tab PO BID PRN PRN Reason: constipation Topiramate (Topiramate 25 Mg Tablet) 50 mg PO BID [facility] Last Admin: 05/16/23 12:34 Dose: 50 mg Trazodone HCl (Trazodone Hcl 50 Mg Tablet) 50 mg PO BEDTIME PRN PRN Reason: Insomnia Last Admin: 05/16/23 00:32 Dose: 50 mg Trazodone HCl (Trazodone Hcl 100 Mg Tablet) 100 mg PO BEDTIME [facility] Last Admin: 05/15/23 20:21 Dose: 100 mg Allergies Allergies Allergy/AdvReac Type Severity Reaction Status Date / Time diphenhydramine Allergy Severe Anaphylaxis Verified 05/11/23 12:51 [From Benadryl] latex [LATEX] Allergy Intermediate RASH Verified 05/11/23 12:51 Assessment & Plan Assessment & Plan (1) PTSD (post-traumatic stress disorder): Status: Acute Code(s): F43.10 - Post-traumatic stress disorder, unspecified Plan 33-year-old female with history of PTSD, mood lability, presenting for Hospital course: 05/14 Patient says she is feeling much better now that she has been started on Depakote.. Patient shared that her mood is a little more calm, however she remains with much anxiety and frequent flashbacks to trauma throughout the day. She wears ear plugs which she says helps. She asks for additional medication to help with anxiety/agitation during the day and agrees to low-dose Zyprexa p.r.n.. Still having nightmares however wants to leave prazosin at current dose for now to see if he gets better. Despite anxiety, Patient discussed Ativan history and said she would eventually like to get off Ativan and find a replacement for it. Discussed increasing gabapentin which is being used for fibromyalgia and helping however she preferred to leave med regimen the weight is since she has just been restarted. Patient shared that when she gets anxious she starts to see dots on the side of her eyes and then blacks out; she describes frequent dissociated episodes however she reports trying hard to use coping skills to keep them from happening. 05/13: change zyprexa from 20 QHS to 12/05/09. restart gabapentin for BLE fibromyalgia pain, 300 BID. restart VPA 250 BID[address] collect collateral from Dr. Velazco of [facility]. 05/14: added zyprexa 2.5mg TID PRN for anxiety/agitation. 05/15: communicated with Juan A, consensus PTSD/BPD. increase prazosin to 4 mg and start trazodone 100 mg for insomnia/nightmares. otherwise continue current mgmt. 05/16: topomax for migraines and mood. Reason for continued inpatient stay Substantial Risk for: inability to function Time Spent With Patient Time: Total time managing care of this patient today ____ minutes.
[2023-05-16 20:50] VITALS: BP 121/70; PULSE 103; RESP 18; TEMP 36.3; O2SAT 99
[2023-05-16] MEDS: traZODone HCL 100 MG TABLET PO (20:56)
[2023-05-16] MEDS: Prazosin HCL 1 MG CAPSULE 4 MG PO (20:57)
[2023-05-16] MEDS: OLANZapine 10 MG TABLET PO (20:57)
[2023-05-17] MEDS: OLANZapine 5 MG TABLET PO ×4 (00:09→14:14)
[2023-05-17] MEDS: traZODone HCL 50 MG TABLET PO (00:09)
[2023-05-17 08:00] VITALS: BP 137/72; PULSE 98; RESP 16; TEMP 36.4; O2SAT 99
[2023-05-17] MEDS: LORazepam 1 MG TABLET PO ×5 (08:07→20:19)
[2023-05-17] MEDS: Prazosin HCL 1 MG CAPSULE 2 MG PO ×2 (08:07→14:14)
[2023-05-17] MEDS: Topiramate 25 MG TABLET 50 MG PO ×2 (08:07→20:20)
[2023-05-17] MEDS: Divalproex Sodium ER 250 MG TAB.ER.24H PO ×2 (08:07→20:18)
[2023-05-17] MEDS: Gabapentin 300 MG CAPSULE PO ×2 (08:07→20:19)
[2023-05-17 13:58] VITALS: BP 129/71; PULSE 99; RESP 18; O2SAT 99
--- NOTE | 2023-05-17 15:05 | HO.PSYCHPN ---
Subjective Subjective Date of Service: 05/17/23 Reason For Visit: mental health crisis Interim History: Feels she is slowly getting better. Slightly less irritable. Less hallucinations. No SI. Sleep ok. Feeling supported. Clarified meds- wants hydroxyzine along with ativan and topomax. Will add back hydroxyzine. Clarified can discuss dosing of ativan with primary team tomorrow. Medication Compliance: Yes Side effects from medications: No Attending Groups: Yes Review of Systems Acute medical concerns: No Review of Systems Review of Systems fibromyalgia Mental Status Exam Mental Status Exam Narrative: appropriately dressed, and groomed. cooperative, no PMA/PMR. speech nml in rate, loudness, amount, latency. decreased prosody. thoughts linear and logical. affect constricted, normo-intense, non-labile. no SI/HI. Reports less AH. Insight and judgment fair Diagnostics Vital Signs (24Hr): Vital Signs - 24 hr 05/16/23 15:52 05/16/23 20:50 05/17/23 08:00 Temperature 97.3 F 97.5 F Pulse Rate 112 H 103 H 98 Respiratory Rate 18 16 Blood Pressure 132/77 121/70 137/72 Pulse Oximetry 99 99 Oxygen Delivery Method Room Air Room Air 05/17/23 13:58 Temperature Pulse Rate 99 Respiratory Rate 18 Blood Pressure 129/71 Pulse Oximetry 99 Oxygen Delivery Method Room Air BMI result Body Mass Index 35.9 Labs 05/11/23 14:10 05/14/23 10:08 Medications Medications Current Medications Acetaminophen (Acetaminophen 325 Mg Tablet) 650 mg PO Q6H PRN PRN Reason: Headache/Pain Mild Scale (1-3) Last Admin: 05/13/23 19:36 Dose: 650 mg Al Hydroxide/Mg Hydroxide (Magnesium Hydrox/Alum Hydrox 30 Ml Oral.Susp) 30 ml PO Q6H PRN PRN Reason: Heartburn/Nausea Divalproex Sodium (Divalproex Sodium Er 250 Mg Tab.Er.24h) 250 mg PO BID [facility] Last Admin: 05/17/23 08:07 Dose: 250 mg Gabapentin (Gabapentin 300 Mg Capsule) 300 mg PO BID [facility] Last Admin: 05/17/23 08:07 Dose: 300 mg Hydroxyzine HCl (Hydroxyzine Hcl 50 Mg Tablet) 50 mg PO Q6H PRN PRN Reason: mild anxiety Lorazepam (Lorazepam 1 Mg Tablet) 1 mg PO QID [facility] Last Admin: 05/17/23 12:03 Dose: 1 mg Lorazepam (Lorazepam 1 Mg Tablet) 1 mg PO Q6H PRN PRN Reason: Anxiety Last Admin: 05/17/23 09:08 Dose: 1 mg Magnesium Hydroxide (Milk Of Magnesia 30 Ml Oral.Susp) 30 ml PO DAILY PRN PRN Reason: Constipation Nicotine Polacrilex (Nicotine Polacrilex 2 Mg Gum) 4 mg BUCCAL Q2H PRN PRN Reason: Nicotine Cravings Last Admin: 05/13/23 14:22 Dose: 2 mg Olanzapine (Olanzapine 10 Mg Tablet) 10 mg PO BEDTIME [facility] Last Admin: 05/16/23 20:57 Dose: 10 mg Olanzapine (Olanzapine 5 Mg Tablet) 5 mg PO BID@0900,1500 [facility] Last Admin: 05/17/23 14:14 Dose: 5 mg Olanzapine (Olanzapine 5 Mg Tablet) 5 mg PO BID PRN PRN Reason: anxiety/agitation Last Admin: 05/17/23 12:03 Dose: 5 mg Prazosin HCl (Prazosin Hcl 1 Mg Capsule) 2 mg PO BID@0900,1500 [facility]; Protocol Last Admin: 05/17/23 14:14 Dose: 2 mg Prazosin HCl (Prazosin Hcl 1 Mg Capsule) 4 mg PO BEDTIME [facility]; Protocol Last Admin: 05/16/23 20:57 Dose: 4 mg Senna/Docusate Sodium (Sennosides/Docusate Sodium Tablet) 2 tab PO BID PRN PRN Reason: constipation Topiramate (Topiramate 25 Mg Tablet) 50 mg PO BID [facility] Last Admin: 05/17/23 08:07 Dose: 50 mg Trazodone HCl (Trazodone Hcl 50 Mg Tablet) 50 mg PO BEDTIME PRN PRN Reason: Insomnia Last Admin: 05/17/23 00:09 Dose: 50 mg Trazodone HCl (Trazodone Hcl 100 Mg Tablet) 100 mg PO BEDTIME [facility] Last Admin: 05/16/23 20:56 Dose: 100 mg Allergies Allergies Allergy/AdvReac Type Severity Reaction Status Date / Time diphenhydramine Allergy Severe Anaphylaxis Verified 05/11/23 12:51 [From Benadryl] latex [LATEX] Allergy Intermediate RASH Verified 05/11/23 12:51 Assessment & Plan Assessment & Plan (1) PTSD (post-traumatic stress disorder): Status: Acute Code(s): F43.10 - Post-traumatic stress disorder, unspecified Plan 33-year-old female with history of PTSD, mood lability, presenting for Hospital course: 05/14 Patient says she is feeling much better now that she has been started on Depakote.. Patient shared that her mood is a little more calm, however she remains with much anxiety and frequent flashbacks to trauma throughout the day. She wears ear plugs which she says helps. She asks for additional medication to help with anxiety/agitation during the day and agrees to low-dose Zyprexa p.r.n.. Still having nightmares however wants to leave prazosin at current dose for now to see if he gets better. Despite anxiety, Patient discussed Ativan history and said she would eventually like to get off Ativan and find a replacement for it. Discussed increasing gabapentin which is being used for fibromyalgia and helping however she preferred to leave med regimen the weight is since she has just been restarted. Patient shared that when she gets anxious she starts to see dots on the side of her eyes and then blacks out; she describes frequent dissociated episodes however she reports trying hard to use coping skills to keep them from happening. 05/13: change zyprexa from 20 QHS to 12/05/09. restart gabapentin for BLE fibromyalgia pain, 300 BID. restart VPA [address] B[address] from [address] Velazco of [facility]. 05/14: added zyprexa 2.5mg TID PRN for anxiety/agitation. 05/15: communicated with Juan A, consensus PTSD/BPD. increase prazosin to 4 mg and start trazodone 100 mg for insomnia/nightmares. otherwise continue current mgmt. 05/16: topomax for migraines and mood. 05/17/23: Clarified meds- wants hydroxyzine along with ativan and topomax. Will add back hydroxyzine. Clarified can discuss dosing of ativan with primary team tomorrow. Reason for continued inpatient stay Substantial Risk for: inability to function Time Spent With Patient Time: Total time managing care of this patient today ____ minutes.
[2023-05-17] MEDS: hydrOXYzine HCL 50 MG TABLET PO (18:59)
[2023-05-17 19:02] VITALS: BP 118/70; PULSE 113; RESP 16; TEMP 36.5; O2SAT 100
[2023-05-17 20:17] VITALS: BP 119/88; PULSE 107; RESP 18; TEMP 36.6; O2SAT 100
[2023-05-17] MEDS: Prazosin HCL 1 MG CAPSULE 4 MG PO (20:18)
[2023-05-17] MEDS: traZODone HCL 100 MG TABLET PO (20:20)
[2023-05-17] MEDS: OLANZapine 10 MG TABLET PO (20:20)
[2023-05-18] MEDS: hydrOXYzine HCL 50 MG TABLET PO ×2 (06:53→17:25)
[2023-05-18] MEDS: LORazepam 1 MG TABLET PO ×3 (08:33→21:04)
[2023-05-18] MEDS: Gabapentin 300 MG CAPSULE PO ×2 (08:33→21:05)
[2023-05-18] MEDS: Topiramate 25 MG TABLET 50 MG PO ×2 (08:33→21:04)
[2023-05-18] MEDS: OLANZapine 5 MG TABLET PO ×3 (08:33→13:26)
[2023-05-18] MEDS: Prazosin HCL 1 MG CAPSULE 2 MG PO ×2 (08:33→13:29)
[2023-05-18] MEDS: Divalproex Sodium ER 250 MG TAB.ER.24H PO ×2 (08:33→21:05)
[2023-05-18 08:40] VITALS: BP 119/63; PULSE 104; RESP 16; TEMP 36.2; O2SAT 98
[2023-05-18 13:20] VITALS: BP 168/87; PULSE 146; RESP 32; O2SAT 98
--- NOTE | 2023-05-18 15:59 | HO.PSYCHPN ---
Subjective Subjective Date of Service: 05/18/23 Reason For Visit: mental health crisis Interim History: calm, cooperative. looking to have ativan 2 mg at a time. R/B of benzos discussed, indicates plan to move away from them. educated re therapies for PTSD and limits of medications for the same. still struggling with severe anxiety. agreeable to increase prazosin. per staff, upset re med changes made yesterday. also agitated re peer's behavior (standing on table in milieu). was punching anton, encouraged to try other coping skills. up with nightmare in the night. Mental Status Exam Mental Status Exam Narrative: appropriately dressed, and groomed. cooperative, no PMA/PMR. speech nml in rate, loudness, amount, latency. decreased prosody. thoughts linear and logical. affect constricted, normo-intense, non-labile. no SI/HI. Reports less AH. Insight and judgment fair Diagnostics Vital Signs (24Hr): Vital Signs - 24 hr 05/17/23 19:02 05/17/23 20:17 05/18/23 08:40 Temperature 97.7 F 97.9 F 97.2 F Pulse Rate 113 H 107 H 104 H Respiratory Rate 16 18 16 Blood Pressure 118/70 119/88 119/63 Pulse Oximetry 100 100 98 Oxygen Delivery Method Room Air Room Air Room Air BMI result Body Mass Index 35.9 Labs 05/11/23 14:10 05/14/23 10:08 Medications Medications Current Medications Acetaminophen (Acetaminophen 325 Mg Tablet) 650 mg PO Q6H PRN PRN Reason: Headache/Pain Mild Scale (1-3) Last Admin: 05/13/23 19:36 Dose: 650 mg Al Hydroxide/Mg Hydroxide (Magnesium Hydrox/Alum Hydrox 30 Ml Oral.Susp) 30 ml PO Q6H PRN PRN Reason: Heartburn/Nausea Divalproex Sodium (Divalproex Sodium Er 250 Mg Tab.Er.24h) 250 mg PO BID [facility] Last Admin: 05/18/23 08:33 Dose: 250 mg Gabapentin (Gabapentin 300 Mg Capsule) 300 mg PO BID [facility] Last Admin: 05/18/23 08:33 Dose: 300 mg Hydroxyzine HCl (Hydroxyzine Hcl 50 Mg Tablet) 50 mg PO Q4H PRN PRN Reason: mild anxiety (1-5) Lorazepam (Lorazepam 1 Mg Tablet) 1 mg PO TID [facility] Last Admin: 05/18/23 13:27 Dose: 1 mg Magnesium Hydroxide (Milk Of Magnesia 30 Ml Oral.Susp) 30 ml PO DAILY PRN PRN Reason: Constipation Nicotine Polacrilex (Nicotine Polacrilex 2 Mg Gum) 4 mg BUCCAL Q2H PRN PRN Reason: Nicotine Cravings Last Admin: 05/13/23 14:22 Dose: 2 mg Olanzapine (Olanzapine 10 Mg Tablet) 10 mg PO BEDTIME [facility] Last Admin: 05/17/23 20:20 Dose: 10 mg Olanzapine (Olanzapine 5 Mg Tablet) 5 mg PO BID@0900,1500 [facility] Last Admin: 05/18/23 13:26 Dose: 5 mg Olanzapine (Olanzapine 5 Mg Tablet) 5 mg PO BID PRN PRN Reason: anxiety/agitation Last Admin: 05/18/23 10:56 Dose: 5 mg Prazosin HCl (Prazosin Hcl 1 Mg Capsule) 2 mg PO BID@0900,1500 [facility]; Protocol Last Admin: 05/18/23 13:29 Dose: 2 mg Prazosin HCl (Prazosin Hcl 5 Mg Capsule) 5 mg PO BEDTIME [facility]; Protocol Senna/Docusate Sodium (Sennosides/Docusate Sodium Tablet) 2 tab PO BID PRN PRN Reason: constipation Topiramate (Topiramate 25 Mg Tablet) 50 mg PO BID [facility] Last Admin: 05/18/23 08:33 Dose: 50 mg Trazodone HCl (Trazodone Hcl 50 Mg Tablet) 50 mg PO BEDTIME PRN PRN Reason: Insomnia Last Admin: 05/17/23 00:09 Dose: 50 mg Trazodone HCl (Trazodone Hcl 100 Mg Tablet) 100 mg PO BEDTIME [facility] Last Admin: 05/17/23 20:20 Dose: 100 mg Allergies Allergies Allergy/AdvReac Type Severity Reaction Status Date / Time diphenhydramine Allergy Severe Anaphylaxis Verified 05/11/23 12:51 [From Benadryl] latex [LATEX] Allergy Intermediate RASH Verified 05/11/23 12:51 Assessment & Plan Assessment & Plan (1) PTSD (post-traumatic stress disorder): Status: Acute Code(s): F43.10 - Post-traumatic stress disorder, unspecified Plan 33-year-old female with history of PTSD, mood lability, presenting for Hospital course: 05/14 Patient says she is feeling much better now that she has been started on Depakote.. Patient shared that her mood is a little more calm, however she remains with much anxiety and frequent flashbacks to trauma throughout the day. She wears ear plugs which she says helps. She asks for additional medication to help with anxiety/agitation during the day and agrees to low-dose Zyprexa p.r.n.. Still having nightmares however wants to leave prazosin at current dose for now to see if he gets better. Despite anxiety, Patient discussed Ativan history and said she would eventually like to get off Ativan and find a replacement for it. Discussed increasing gabapentin which is being used for fibromyalgia and helping however she preferred to leave med regimen the weight is since she has just been restarted. Patient shared that when she gets anxious she starts to see dots on the side of her eyes and then blacks out; she describes frequent dissociated episodes however she reports trying hard to use coping skills to keep them from happening. 05/13: change zyprexa from 20 QHS to 12/05/09. restart gabapentin for BLE fibromyalgia pain, 300 BID. restart VPA [address] B[address] from [address] Velazco of [facility]. 05/14: added zyprexa 2.5mg TID PRN for anxiety/agitation. 05/15: communicated with Juan A, esteban PTSD/BPD. increase prazosin to 4 mg and start trazodone 100 mg for insomnia/nightmares. otherwise continue current mgmt. 05/16: topomax for migraines and mood. 05/17/23: Clarified meds- wants hydroxyzine along with ativan and topomax. Will add back hydroxyzine. Clarified can discuss dosing of ativan with primary team tomorrow. 05/18: ativan returned to 1 mg TID. prazosin increased to 5 mg. severe anxiety this afternoon after a visit was canceled. Reason for continued inpatient stay Substantial Risk for: harm to self, inability to function and rapid decompensation Time Spent With Patient Time: Total time managing care of this patient today _25___ minutes.
[2023-05-18] MEDS: Prazosin HCL 5 MG CAPSULE PO (21:04)
[2023-05-18] MEDS: traZODone HCL 100 MG TABLET PO (21:04)
[2023-05-18] MEDS: OLANZapine 10 MG TABLET PO (21:05)
[2023-05-18 21:10] VITALS: BP 122/80; PULSE 104; RESP 18; O2SAT 99
[2023-05-19] MEDS: OLANZapine 5 MG TABLET PO ×3 (02:14→14:15)
[2023-05-19] MEDS: Prazosin HCL 1 MG CAPSULE 2 MG PO ×2 (08:11→14:15)
[2023-05-19] MEDS: Gabapentin 300 MG CAPSULE PO ×2 (08:11→20:10)
[2023-05-19] MEDS: Topiramate 25 MG TABLET 50 MG PO ×2 (08:11→20:09)
[2023-05-19] MEDS: LORazepam 1 MG TABLET PO ×3 (08:11→20:10)
[2023-05-19] MEDS: Divalproex Sodium ER 250 MG TAB.ER.24H PO ×2 (08:11→20:11)
[2023-05-19 08:44] VITALS: BP 116/75; PULSE 109; RESP 18; TEMP 36; O2SAT 100
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
[2023-05-19] MEDS: hydrOXYzine HCL 50 MG TABLET PO ×2 (11:03→16:08)
[2023-05-19 18:00] VITALS: BP 131/64; PULSE 133; RESP 16; TEMP 36.2; O2SAT 98
[2023-05-19] MEDS: Prazosin HCL 5 MG CAPSULE PO (20:10)
[2023-05-19] MEDS: traZODone HCL 100 MG TABLET PO (20:10)
[2023-05-19] MEDS: OLANZapine 10 MG TABLET PO (20:11)
--- NOTE | 2023-05-19 22:34 | PC.NURSE ---
Patient appears anxious pacing halls with headphones on. States she feels her heart racing. Vital signs confirm tachycardia with runs into the 130's/140's. States she has been drinking plenty of fluids/water and denies any other symptoms such as dizzyness/ lightheadedness. Reports seeing dots and the floor moving sometimes but has been to an opthamologist or and they stated there was nothing wrong with her eyes.
[2023-05-20] MEDS: hydrOXYzine HCL 50 MG TABLET PO (00:55)
[2023-05-20] MEDS: traZODone HCL 50 MG TABLET PO (01:36)
[2023-05-20 07:15] VITALS: BP 119/82; PULSE 98; RESP 18; TEMP 36.5; O2SAT 100
[2023-05-20] MEDS: Divalproex Sodium ER 250 MG TAB.ER.24H PO (07:59)
[2023-05-20] MEDS: Gabapentin 300 MG CAPSULE PO (08:00)
[2023-05-20] MEDS: OLANZapine 5 MG TABLET PO (08:00)
[2023-05-20] MEDS: LORazepam 1 MG TABLET PO (08:00)
[2023-05-20] MEDS: Topiramate 25 MG TABLET 50 MG PO (08:00)
[2023-05-20] MEDS: Prazosin HCL 1 MG CAPSULE 2 MG PO (08:01)
[2023-05-20 08:52] LABS: MANUAL DIFF FLAG NO
[2023-05-20 08:59] LABS: Basophils Absolute Auto 0.1 X10*3/uL (0.0-0.2); Basophils Percent Auto 0.6 % (0-2); Eosinophils Absolute Auto 0.2 X10*3/uL (0.0-0.4); Eosinophils Percent Auto 2.7 % (0-4); Hematocrit 36.8 % (37.0-47.0); Hemoglobin 12.2 g/dl (12.0-16.0); Imm Gran Abs Auto 0.04 X10*3/uL (0.00-0.03); Imm Gran Pct Auto 0.4 % (0.0-0.4); Mean Corpuscular HGB Conc 33.2 g/dl (31.0-35.0); Mean Corpuscular Hemoglobin 26.5 pg (27.0-33.0); Mean Platelet Volume 10.5 fL (9.4-12.3); Monocytes Absolute Auto 0.7 X10*3/uL (0.1-1.2); Monocytes Percent Auto 7.5 % (2-11); Neutrophils Percent Auto 55.8 % (45-73); Platelet Count 242 X10*3/uL (160-400); Red Cell Distribution Width 15.9 % (11.0-16.0)
[2023-05-20 09:13] LABS: Valproate 26.8 mcg/mL (50.0-100.0)
[2023-05-20 09:15] LABS: Alanine Aminotransferase 13 U/L (0-31); Albumin Level 4.2 g/dL (3.5-5.0); Alkaline Phosphatase 60 U/L (39-117); Aspartate Amino Transferase 16 U/L (5-31); Bilirubin Direct < 0.2 mg/dL (0.0-0.5); Bilirubin Total 0.2 mg/dL (0.0-1.0); Total Protein 7.5 g/dL (6.5-8.0)
== END 2023-05-20 11:24 | disposition home or self-care (01) | DRG 751 ==
LOC: HO.ED 16:00 → HO.PADLT16 05-12 15:01
PROVIDERS: Physician Assistant Medical; Psychiatry & Neurology Psychiatry; Admitting Provider Psychiatry & Neurology Psychiatry; Emergency Provider Emergency Medicine; PCP Physician Assistant; Responsible Provider Registered Nurse; Visit Provider Psychiatry & Neurology Psychiatry
DX: F33.1 Major depressive disorder, recurrent, moderate (principal); R45.851 Suicidal ideations; F17.210 Nicotine dependence, cigarettes, uncomplicated; F43.10 Post-traumatic stress disorder, unspecified; M79.7 Fibromyalgia; Z20.822 Contact with and (suspected) exposure to COVID-19; Z23 Encounter for immunization; Z71.6 Tobacco abuse counseling; Z87.820 Personal history of traumatic brain injury; Z91.040 Latex allergy status; Z79.899 Other long term (current) drug therapy
CPT/HCPCS: 36415; 80048; 80053; 80061; 80076; 80143; 80164; 80179; 80307; 81001; 81025; 83036; 85025; 87635; 90686; 93005; 99285; S9485

== ENCOUNTER → 2023-05-12 14:51 | Outpatient (BNV) | payer OTHER, SELFPAY | PROVIDERS: Admitting Provider Psychiatry & Neurology Psychiatry; Emergency Provider Emergency Medicine; PCP Physician Assistant; Responsible Provider Registered Nurse; Visit Provider Psychiatry & Neurology Psychiatry | DX: F43.11 Post-traumatic stress disorder, acute (principal) | CPT/HCPCS: 90792; 99231; 99232; 99239 ==

== ENCOUNTER 2024-04-23 03:57 | Emergency (ER) | payer OTHER, SELFPAY ==
--- NOTE | ~2024-04-23 | XR_ITS ---
EXAMINATION: XR WRIST, RIGHT CLINICAL INFORMATION: Injury. Pain. COMPARISON: None available. TECHNIQUE: PA, lateral, and oblique views of the right wrist. FINDINGS: The bones and soft tissues are normal. No fracture. Alignment is anatomic with normal joint spaces. No erosions or abnormal soft tissue calcifications. XR/XR wrist RT min 3V IMPRESSION: No significant abnormality seen. Electronically signed by: Papi Mcbride MD 04/23/2024 06:46 AM EDT
[2024-04-23 04:07] VITALS: BP 130/101; PULSE 81; RESP 16; TEMP 36.7; O2SAT 98; BMI 28.2
--- OUTSIDE RECORDS SUMMARY | 2024-04-23 04:23 | XMS_ITS | Continuity of Care Document ---
Author Organization [facility] ter Address [address] [place] [address]- Care Team Providers Care Store Merchandiser Name Role Phone Humberto Howell Primary Care Physician [facility]counter [facility] Date(s): 08/24/23 - 09/23/[address] [address] Attending Physician: Jill Molina DO Admitting Physician: Jill Molina DO Referring Physician: Jill Molina DO Allergies, Adverse Reactions, Alerts Substance Reaction Severity Status Benadryl face swells, throat swells, angioedema Active Bee Stings face and throat swel ls, can't breathe, passes out Active Other Environmental Allergy detergents and soaps with dyes in them Active RisperDAL pyschosis Active Latex Rash Active Immunizations Given and Recorded Vaccine Date Status Refusal Reason influenza virus vaccine, inactivated 08/16/23 Give n influenza virus vaccine, inactivated 10/28/17 Give n influenza virus vaccine, inactivated 09/22/12 Give n influenza virus vaccine, inactivated 1 06/02/11 Gi emir tetanus/diphtheria/pertussis, acel(Tdap) 03/31/18 Given tetanus/diphtheria/pertussis, acel(Tdap) 2 02/26/13 Given tetanus/diphtheria/pertussis, acel(Tdap) 02/28/12 Given Measles/Mumps/Rubella Virus Vaccine 02/26/13 Given Human Papillomavirus Vaccine 3 06/11/11 Given influ virus vac, H1N1, inactive(oldterm) 06/05/09 Given 1Admin Note: VIS given 02/25/11 2Admin Note: vis given 3Admin Note: #1 in series. VIS given dated 10/30/2009 Medications busPIRone 5 mg oral tablet 5 mg, 1, tablet, By Mouth, 3 times a day, # 270 tablet, Refills 0, Maintenance, 08/15/23 16:26:00 EST, Partial fill upon patient request if the prescription is for a schedule II opioid drug. Start Date: 08/15/23 Status: Ordered divalproex sodium 250 mg oral tablet, extended release 2 tablet = 500 mg, By Mouth, Daily, # 180 tablet, 0 Refills, Maintenance, 08/15/23 16:26:00 EST, ERTablet, Partial fill upon patient request if the prescription is for a schedule II opioid drug. Start Date: 08/15/23 Status: Ordered gabapentin 300 mg oral capsule 300 mg, 1, capsule, By Mouth, Daily at bedtime, Refills 0, Maintenance, 08/15/23 16:26:00 EST, Partial fill upon patient request if the prescription is for a schedule II opioid drug. Start Date: 08/15/23 Status: Ordered LORazepam 1 mg oral tablet 1 tablet = 1 mg, By Mouth, Daily, 0 Refills, Maintenance, 08/15/23 16:25:00 EST, Tablet, Partial fill upon patient request if the prescription is for a schedule II opioid drug. Start Date: 08/15/23 Status: Ordered prazosin 5 mg oral capsule 5 mg, 1, capsule, By Mouth, 3 times a day, # 270 capsule, Refills 0, Maintenance, 08/15/23 16:25:00EST, Partial fill upon patient request if the prescription is for a schedule II opioid drug. Start Date: 08/15/23 Status: Ordered topiramate 25 mg oral tablet = 25 mg, TAKE 1 TABLET (25 mg) ONCE DAILY FOR THE FIRST WEEK, THEN TAKE 1 TABLET TWICE A DAY, # 49 tablet, 0 Refills, Maintenance, 08/15/23 16:25:00 EST, Partial fill upon patient request if the prescription is for a schedule II opioid drug. Start Date: 08/15/23 Status: Ordered traZODone 150 mg oral tablet 1 tablet = 150 mg, By Mouth, Daily at bedtime, please cancel rx for perphenazine, # 30 tablet, 2 Refills, Maintenance, 07/09/18 13:27:52 EST Start Date: 07/09/18 Status: Ordered ZyPREXA 2.5 mg oral tablet 2.5 mg, 1, tablet, By Mouth, 2 times a day, PRN, # 60 tablet, Refills 1, Tot. Refills 1, Maintenance, Agitation, 07/08/18 14:59:18 EST, Route to Pharmacy Electronically, [id number], [id number] Start Date: 07/08/18 Status: Ordered Problem List Condition Confirmation Course Effective Dates Status Health St atus Informant BMI 30+ - obesity 1 Confirmed Active Breast lump present Confirmed Active Marijuana use Confirmed Active History of delivery x3 Confirmed Active depression 2 Confirmed 2009 Active PTSD (post-traumatic stress disorder) Confirmed Active Severe obesity (BMI 35.0-39.9) with comorbidity Confirmed Active Tobacco use Confirmed Active Uterine scar x3 Confirmed Active 1BMI 39 2As per patient was diagnosed in a retirement Social History Social History Type Response Smoking Status Current every day sm felipe entered on: 07/22/16 Sex Patient Care team information Care Team Personnel Name: Amira Suero RN Position: S RN Member Role: Primary Care Nurse Name: Humberto Howell Position: Reference Physician Member Role: PCP Address: Address: [address] [place] [address] [address] [place] [address]- Name: Amira Madrid RN Position: Jordan OB RN Member Role: Primary Care Nurse Name: Gloria Melissa RN Position: S RN Member Role: Primary Care Nurse Care Team Related Persons Name: SANDOVAL MCINTOSH Address: home [address] [place] [address] Name: DEMARCUS MCINTOSH Address: home [address] [place] [address] Name: VALERY CAR Address: [address] Address: home [address] [address] Name: JASPAL CAR Address: [place] [address] Name: STEFFANIE CAR Address: [place] [address] Name: JASE DE OLIVEIRA
--- OUTSIDE RECORDS SUMMARY | 2024-04-23 04:23 | XMS_ITS | Continuity of Care Document ---
Author Organization [facility] Address [address] [facility] [place] [address]- Care Team Providers Care Final Canoe Inspector Name Role Phone Humberto Howell Primary Care Physician [phone] Encounter [facility] Date(s): 08/25/23 - 10/14/23 [facility] [address] [place] [address]- Attending Physician: La Landis MD Admitting Physician: La Landis MD Referring Physician: Humberto Howell Allergies, Adverse Reactions, Alerts Substance Reaction Severity Status Benadryl face swells, throat swells, angioedema Active Bee Stings face and throat swel ls, can't breathe, passes out Active RisperDAL pyschosis Active Latex Rash Active Other Environmental Allergy detergents and soaps with dyes in them Active Immunizations Given and Recorded Vaccine Date [...] 07/08/18 14:59:18 EST, Route to Pharmacy Electronically, [id number], [id number] Start Date: 07/08/18 Status: Ordered Problem List Condition Confirmation Course Effective Dates Status Health St atus Informant BMI 30+ - obesity 1 Confirmed Active Breast lump present Confirmed Active Marijuana use Confirmed Active History of delivery x3 Confirmed Active depression 2 Confirmed 2010 Active PTSD (post-traumatic stress disorder) Confirmed Active Severe obesity (BMI 35.0-39.9) with comorbidity Confirmed Active Tobacco use Confirmed Active Uterine scar x3 Confirmed Active 1BMI 39 2As per patient was diagnosed in a longterm Social History Social History Type Response Smoking Status Current every day felipe entered on: 07/22/16 Sex Patient Care team information Care Team Personnel Name: Amira Suero RN Position: S RN Member Role: Primary Care Nurse Name: Humberto Howell Position: Reference Physician Member Role: PCP Address: Address: [address] [place] [address] [address] [place] [address]- Name: Amira Madrid RN Position: Jordan OB RN Member Role: Primary Care Nurse Name: Gloria Melissa RN Position: S RN Member Role: Primary Care Nurse Care Team Related Persons Name: SANDOVAL MCINTOSH Address: home [address] [place] [address] Name: DEMARCUS MCINTOSH Address: home [address] [place] [address] Name: VALERY CAR Address: [address] Address: [address] [address] Name: JASPAL CAR Address: [place] [address] Name: STEFFANIE CAR Address: [place] [address] Name: JASE DE OLIVEIRA
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
--- OUTSIDE RECORDS SUMMARY | 2024-04-23 04:23 | XMS_ITS | Continuity of Care Document ---
Author Organization [facility] ter Address [address] [place] [id number]- Care Team Providers Care Shot Examiner Name Role Phone Humberto Howell Primary Care Physician Encounter [facility] Date(s): 09/04/23 - 09/04/[address] [address]- Discharge Disposition: A-D/C Home Attending Physician: Theodora Ariza MD Admitting Physician: Theodora Ariza MD Referring Physician: Theodora Ariza MD Allergies, Adverse Reactions, Alerts Substance Reaction Severity [...] opioid drug. Start Date: 08/15/23 Status: Ordered Oxycodone 5mg Oral Tablet (PACU ONLY) 5 mg, Tablet, By Mouth, Once, in PACU ONLY, PRN for Pain , Moderate, Routine, 09/04/23 10:40:00 EST Start Date: 09/04/23 Stop Date: 09/04/23 Status: Completed prazosin 5 mg oral capsule 5 mg, [...] 07/08/18 14:59:18 EST, Route to Pharmacy Electronically, [id number], [id number] Start Date: 07/08/18 Status: Ordered [...] 2As per patient was [facility] a [facility] Results Radiology Reports * Exam Date Time Procedure Performing Provider Status 09/04/23 10:53 AM MM Breast Specimen Left Iglesia Garza; Auth (Verified) Notes: (MM Breast Specimen Left) Reason For Exam: Specimen collection RESULT: MM Breast Specimen Left MM Breast Specimen Left INDICATION: Reason: Specimen collection COMPARISON: Localization images from the same date FINDINGS: Specimen radiograph demonstrates inclusion of the radioactive seed and biopsy marker clip within the excised tissue. 2-D imaging technique was obtained; within these confines there appears to be a mass/lymph node surrounding the seed and clip. IMPRESSION: Successful excision of radioactive seed and biopsy marker clip from the left axilla. WSN: [id number] Ordering Physician: Theodora Ariza Dictated By: Tana Coto MD Dictated Date/Time: 09/04/23 10:50 am Reviewed By: Tana Coto MD Signed By: Tana Coto MD Signed Date/Time: 09/04/23 10:50 am Transcribed By: GRAZYNA Marketing Lead Date/Time: 09/04/23 10:49 am Birads: * Exam Date Time Procedure Performing Provider Status 09/04/23 8:44 AM US Plmt wire/clip/se ed in Breast Left Susi Garza (Verified) Notes: (US Plmt wire/clip/seed in Breast Left) Reason For Exam: Left Axillary Atypical Lymphoid infli RESULT: US Plmt wire/clip/seed in Breast Left PROCEDURE: US Plmt wire/clip/seed in Breast Left CLINICAL INDICATION: Reason: Left Axillary Atypical Lymphoid infli HISTORY: Patient has a abnormal lymph node marked with a tissue clip in the left axilla for which excision will be performed. TECHNIQUE: Preoperative sonographically guided radioactive seed localization left axilla. A timeout procedure was done, confirming the correct patient and correct site for seed placement. An identification band with the text SEED was then placed on the left wrist. The procedure of preoperative I-125 radioactive seed localization was explained to the patient including risks and alternatives. She expressed understanding and informed consent was signed and witnessed. A preliminary survey of the room was done at one meter from the patient, revealing only normal background activity. FINDINGS: The lymph node with the adjacent marker clip was localized. The skin over the area was cleansed with Betadine. 1% lidocaine buffered with sodium bicarbonate was used as local anesthesia. A preloaded needle containing ONE I-125 seed, maximum activity of 0.15 millicuries was advanced into the lesion using real- time sonographic guidance. The seed was then deployed, the needle was removed and the seed remained in place as demonstrated during real-time sonographic imaging. A subsequent left MLO viewconfirms appropriate seed placement. The patient tolerated the procedure well. A repeat survey of the room one meter from the patient revealed only normal background activity. IMPRESSION: Successful preoperative sonographically guided RADIOACTIVE I-125 SEED localization of left axillarylymph node containing a Q shape clip in the left axilla. The patient will return for excision within the week. At that time a specimen radiograph will be obtained. WSN: [id number] Ordering Physician: Theodora Ariza Dictated By: Tana Coto MD Dictated Date/Time: 09/04/23 9:23 am Reviewed By: Tana Coto MD Signed By: Tana Coto MD Signed Date/Time: 09/04/23 9:23 am Transcribed By: GRAZYNA Transcribed Date/Time: 09/04/23 9:21 am Vital Signs Most recent to oldest [Reference Range]: 1 2 3 Height 167.64 cm (09/04/23 8:43 AM) 167.64 cm (09/02/23 12:21 PM) Weight 101.3 kg (09/04/23 8:43 AM) 95.45 kg (09/02/23 12:21 PM) Oxygen Saturation [94-100 %] 98 % (09/04/23 12:30 PM) 98 % (09/04/23 12:15 PM) 99 % (09/04/23 12:00 PM) Pulse Rate [55-90 bpm] 85 bpm (09/04/23 8:43 AM) Body Mass Index [18.5-24.99 kg/m2] 36.05 kg/m2 *>HHI* (09/04/23 8:43 AM) 33.96 kg/m2 *>HHI* (09/02/23 12:21 PM) Blood Pressure [90-138/55-84 mm Hg] 116/62mm Hg (09/04/23 12:15 PM) 108/74mm Hg (09/04/23 12:00 PM) 122/69mm Hg (09/04/23 11:45 AM) Respiratory Rate [16-30 br/min] 16 br/min (09/04/23 12:30 PM) 17 br/min (09/04/23 12:16 PM) 11 br/min *L* (09/04/23 12:00 PM) Temperature [96.8-100.4 DegF] 97.1 DegF (09/04/23 11:30 AM) 97.6 DegF (09/04/23 8:43 AM) Liters per Minute 5 L/min (09/04/23 11:30 AM) Mode of Delivery (Oxygen) Room air (09/04/23 12:30 PM) Room air (09/04/23 12:15 PM) Room air (09/04/23 12:00 PM) Blood pressure sites Arm, right (09/04/23 12:15 PM) Arm, right (09/04/23 12:00 PM) Arm, right (09/04/23 11:45 AM) Temperature Route Temporal (09/04/23 11:30 AM) Temporal (09/04/23 8:43 AM) Dry Weight 101.3 kg (09/04/23 8:43 AM) 95.45 kg (09/02/23 12:21 PM) Weight Obtained Via Standing scale (09/04/23 8:43 AM) Patient/family stated (09/02/23 12:21 PM) Dry Weight Obtained Via Standing scale (09/04/23 8:43 AM) Patient/family stated (09/02/23 12:21 PM) Social History Social History Type Response Smoking Status Current every day sm felipe entered on: 07/22/16 Sex Note * Navya Zuluaga RN: PERFORM Event Display: Discharge/Transfer Note Hospital Authored Date: [id number] Nursing Discharge Note Entered On: 09/04/2023 12:37 EST Performed On: 09/04/2023 12:37 EST by Navya Zuluaga RN Nursing Discharge Note 2 Discharge Time : 09/04/2023 12:37 EST Discharge Level of Care at Discharge : Home/Assisted/Foster Care Patient Left Unit Via : Wheelchair Patient Accompanied Off Unit with : Significant other, Responsible adult DC Instructions Provided & Signed by Pt : Yes Patient Understands D/C Instructions : Yes Patient Instructions Discharge Signed : Yes Did Pt have Specialty Bed or Wound Vac : No Navya Zuluaga RN - 09/04/2023 12:37 EST * Navya Zuluaga RN: PERFORM Event Display: Patient Education/Instruction Authored Date: [id number] Surgery Adult Discharge Instructions [place] [id number] Name: DENISE MCINTOSH : 1990?? Visit: 09/04/2023 08:00?? Current Date: 09/04/2023 11:50 ?? Account: [id number]?? Surgery Discharge Instructions We would like to thank you for allowing us to assist you with your healthcare needs. The following includes patient education materials and information regarding your injury/illness. Our entire staffstrives to provide an excellent experience for our patients and their families. PLEASE ENSURE YOU FOLLOW-UP PER THE INSTRUCTIONS BELOW! ?? YOUR OPINION IS IMPORTANT TO US! Please complete the survey you may receive by mail or email. Your feedback will be used to make improvements to the healthcare experiences of our patients and their families. Surveys are administered by [employer] ?? If further treatment with your primary care physician or another doctor is recommended, it is important for you to keep the appointment. Call your primary care physician or return to the Emergency Department immediately if your condition worsens, fails to improve, or new symptoms develop. If you need to find a doctor, you can call [facility] for a referral at [phone] or toll free at [email or web address] ([phone]) or log in to [email or web address].. ?? [facility], in keeping with [facility] guidance, no longer requires face masks for staff, patientsor visitors in most situations. Similiar to time spent indoors at other locations, there is the chance that you were exposed to repiratory viruses during your time with us (such as flu or COVID-19). If you develop symptoms concerning for a viral respiratory infection, please seek testing (and treatment if indicated) from your medical provider or home test kit. ?? You can view and manage your care through the patient portal or by using a health care marilia of your choosing. [employer] is a website that allows you to securely view your medical information including your hospital discharge summary, office visit summaries, medications and follow-up visits. You can also request appointments, renew medications, and request access to your medical information using a health care marilia of your choosing, or just ask a question. You are entitled to know the individuals who participated in your treatment. This information is available within your medical record and will be provided upon your request. You can enroll at [email or web address] or register d uring your next office visit. You have been discharged from [facility], Patient Care Unit: [facility]??. If you have any questions regarding these instructions after you leave, please call us and we will be happy to assist you. [facility] Your Care Team Attending Physician To RAMIREZ, Theodora Collins?? Consulting Providers Theodora Ariza MD?? Discharging Providers Edaurdo RAMIREZ, November Reason for Admission LEFT AXILLARY ATYPICAL LYMPHOID INFILTRATED DS CS Primary Care Provider Humberto Howell? Advance Directive Health Care Proxy on File Yes - Health Care Proxy What to do next Instructions From Your Doctor ?Discharge Instructions?If you develop fever, chills, increased pain, nausea, vomiting, bleeding, or increased redness or pus around the wound please call the surgery office at .?You may continue to take Extra Strength Tylenol 1000mg every 6-8 hours. Tomorrow, you maybegin??Ibuprofen 400mg every 8 hours with food for pain control if needed ? You may apply ice to wound for 20 minutes at a time over the next 24-48 hours if needed tohelp reduce pain and swelling ?Incisions are closed with absorbable sutures and overlying Steri- strips and gauze bandage. You may remove the gauze dressing 48 hours after surgery. Steri-strips are to remain in place and will fall off on their own usually within 1-2 weeks.?If you have any questions, please call the surgery office at ?Activity Instructions ?-No heavy lifting >7 lbs or a gallon of milk ?-Increase activity as tolerated avoiding activities that increase breast movement or repetitive??arm??movements ?-Encourage coughing and deep breathing, use of incentive spirometer ?-No tub baths until incision(s) has/have healed ?-May shower??48 hours after surgery. Remove binder and gauze dressing.?-No driving until off narcotics and cleared by Surgery ?? Orders?? Daystay Protocol, ??When Unit Discharge Criteria Met, ??09/04/23 11:41:00 EST?? Prescriptions??, ??09/04/23 11:41:00 EST?? Instructions from your Care Team You may shower in 48 hours.? Scheduled Follow-Up Appointments Thursday 9:00 AM EST ?? With: Jill Molina DO Where: [facility] [address] [place] [address]- Status: Pending You Need to Schedule the Following Appointments Follow Up with??Theodora Ariza Where: [address] [facility] [address] [facility] [place] [address]- Business (1) Follow Up with??Humberto Morrow When:??In 0 days Where: [address] [place] [address]- Business (1) Discharge Medications DENISE MCINTOSH :1990 Visit Date:09/04/2023 Medications: Please continue your medications until treatment is completed or stopped by your provider. You may resume your daily prescription medications. Discuss any questions related to medications with your provider. What How Much When Instructions Next Dose Unchanged BusPIRone (busPIRone 5 mg oral tablet) 1 tab(s) Oral 3 times a day Unchanged Divalproex Sodium (divalproex sodium 250 mg oral tablet, extended release) 2 tab(s) Oral Daily Unchanged Gabapentin (gabapentin 300 mg oral capsule) 1 capsule Oral Daily at Bedtime Unchanged Lorazepam (LORazepam 1 mg oral tablet) 1 tab(s) Oral Daily Unchanged Olanzapine (ZyPREXA 2.5 mg oral tablet) 1 tab(s) Oral Twice a day as needed for Agitation Unchanged Prazosin (prazosin 5 mg oral capsule) 1 capsule Oral 3 times a day Unchanged Topiramate (topiramate 25 mg oral tablet) 25 Milligram TAKE 1 TABLET (25 mg) ONCE DAILY FOR THE FIRST WEEK, THEN TAKE 1 TABLET TWICE A DAY ?? Unchanged Trazodone (traZODone 150 mg oral tablet) 1 tab(s) Oral Daily at Bedtime please cancel rx for perphenazine ?? Allergies (NKA means No Known Allergies) Bee Stings??(face and throat swells, can't breathe, passes out) Benadryl??(face swells, throat swells,, angioedema) Latex??(Rash) Other Environmental Allergy??(detergents and soaps with dyes in them) RisperDAL??(pyschosis) Education Materials Below is the list of Educational Leaflet Providered with your Discharge Instructions. [place] Lymph Node Biopsy?? Surgery Medical Daystay Surgical Overnight Discharge Instructions?? Valuables and Belongings I fully understand and agree that [facility] accepts no responsibility for all my personal property including clothing, toilet articles, radios, jewelry, dentures, hearing aids, rings, money, or any other property that is in my possession or is brought to me after admission. I understand certain valuables may be placed in a hospital safe for a short period of time. I understand that the hospital is not liable for loss or damage due to accident, fire, or other natural occurrence while said property is in the safe. I accept full responsibility for any personal property that I keep with me, and will not hold the hospital responsible in case of loss or disappearance. I acknowledge that i have been encouraged to send valuables and belongings home. ?? Review of Valuable and Belonging List: With patient Date for Pt to Sign Valuables/Belongings: 09/04/23 08:43:00 ?? Valuables & Belongings ?? Clothes Electronic devices Jewelry Monetary Items Personal devices Miscellaneous Medications (Valuables) Valuables at Bedside Jacket, Pants, Shirt, Shoes, Undergarments ? Valuables Sent Home ? Valuables Sent to Security ? Other Discharge Information ? Pulmonary Rehab Status?? Pulmonary Rehab Discharge Status?? Respiratory Rate:??10 br/min??Low ? Common Emergency Awareness Tips IS IT A STROKE? Act FAST and Check for these signs: FACE Does the face look uneven? ARM Does one arm drift down? SPEECH Does their speech sound strange? TIME Call at any sign of stroke ?? Heart Attack Signs Chest discomfort: Most heart attacks involve discomfort in the center of the chest and lasts more than a few minutes, or goes away and comes back. It can feel like uncomfortable pressure, squeezing, fullness or pain. Discomfort in upper body: Symptoms can include pain or discomfort in one or both arms, back, neck, jaw or stomach. Shortness of breath: With or without discomfort. Other signs: Breaking out in a cold sweat, nausea, or lightheaded. Remember, MINUTES DO MATTER. If you experience any of these heart attack warning signs, call to get immediate medical attention! ?? Smoking can increase your chances of developing chronic health problems and can cause harmful effects to other family members in your house. If you smoke, you are strongly encouraged to quit. Please call [facility] at [phone] or [phone] ([phone]) or log in to [email or web address] for referrals to smoking cessation programs. ?? The National Suicide Prevention Hotline is available 23/02 if you or someone you know needs to find a reason to keep living. By calling 8-714-489-[employer] (2603) you'll be connected to a skilled, trained counselor at a crisis center in your area. SURGERY DISCHARGE INSTRUCTIONS SIGNATURE PAGE DENISE MCINTOSH Location:[facility] Registration Date and Time:09/04/2023 08:00 [facility] Primary Care Physician: Humberto Howell, Attending Physician: Theodora Ariza MD, I DENISE MCINTOSH, have received the above patient education materials/instructions and have verbalized understanding. If ambulance or transport services are being used I further acknowledge being given a choice of service. ?? If you need to contact me, please call me at this number: . Patient/Mill Control Operator Name: Patient/Mill Control Operator Signature: Relationship to Patient: Witness Name/Signature: Date: * Lisa Billingsley RN: PERFORM, SIGN, VERIFY Event Display: Patient Education Handout Authored Date: [id number] * Eduardo RAMIREZ, November: PERFORM Event Display: Patient Education Leaflets Authored Date: [id number] [place] Lymph Node Biopsy ?? 23 [place] Lymph Node Biopsy What is a sentinel lymph node biopsy? A sentinel lymph node biopsy is a type of surgery done to remove the fewest number of lymph nodes needed to evaluate for cancer metastasis. It helps find out if and how far cancer has spread in the body while reducing side effects of bigger surgeries. Lymph nodes are part of the body???s lymphatic system. This system helps your body fight infections. A clear fluid called lymph moves through the lymphatic system. It carries infection-fighting whiteblood cells all through your body and picks up cell waste. The lymph flows to your lymph nodes. Lymph nodes are small, round organs along the lymph vessels. They filter lymph fluid. You have hundreds of them all over your body. Lymph nodes might become large, firmer, and painful when you have an infection. You might feel themin your neck, underarms, groin, belly (abdomen), and chest. Cancer cells can spread into lymph and be carried to a lymph node. Then the node may swell, feel hard, and might hurt. Or you may not feel it at all. When you have a cancerous tumor, the sentinel lymph node is the first node or nodes that the cancercells tend to spread to, before going to other lymph nodes. Looking at cells in the sentinel node(s) can give a lot of information about the cancer. A sentinel lymph node biopsy is a surgery to take out these nodes. Then they can be tested for cancer cells. ?? Why might I need a sentinel lymph node biopsy? The main reason for a sentinel lymph node biopsy is to find out if the cancer has spread beyond themain tumor. This will help decide the best treatment for you. With a sentinel lymph node biopsy, more lymph nodes will be removed if the sentinel nodes have cancer cells in them. If the sentinel nodes don't contain cancer cells, no other nodes are removed. Removing fewer nodes reduces the risk of long-term side effects after surgery. Whether a sentinel lymph node biopsy can be done depends on the type of cancer and where it is in the body. This type of biopsy is most often used for breast cancer and melanoma. It might also be used for penile and endometrial cancer, and it's being studied for many other kinds of cancer. ?? What are the risks of a sentinel lymph node biopsy? All surgery can have harmful side effects. But when fewer nodes are taken out, the risks are less than if a lot of nodes are removed. The most common risks include: ??? Pain and swelling at the biopsy site ??? Bruising at the biopsy site ??? Swelling from lymph buildup in the area ??? A pocket of lymph fluid (seroma) forming ??? Allergic reaction to the contrastdye used to do the biopsy ??? Short-term changes in urine color or stains on the skin from the dye There may be other risks, too. These depend on your overall health. Talk with your healthcare provider about your risks and any concerns you have.? How do I get ready for a sentinel lymph node biopsy? Tell your healthcare provider if you: ??? Are or think you are ??? Are taking any medicines, vitamins, supplements, or herbs ??? Use marijuana ??? Use any illegal drugs ??? Have any allergies to anesthesia or dyes ??? Have any bleeding problems ??? Take blood-thinning medicines, like aspirin or warfarin ??? Have had abiopsy in the past ??? Have had radiation treatment to the biopsy site You will be given anesthesia to make you sleep and not feel pain during the surgery. Follow all directions about when to stop eating and drinking before the surgery. Plan to have someone take you home afterward. ?? What happens during a sentinel lymph node biopsy? The biopsy is often done on an outpatient basis. This means you can go home after the procedure. Insome cases, you may need to stay overnight. From start to finish, the procedure might take about anhour. It depends on whether it's part of another surgery or the only thing being done. This is how a sentinel lymph node biopsy is usually done: 1. You'll get a sedative to help you relax. 2. You mayget local or general anesthesia. Local means the medicines are used to numb the area so you don't feel pain. General anesthesia is when medicines are used to put you into a deep sleep during the surgery. 3. The surgeon will use a needle to inject a radioactive tracer or blue dye into the tumor or the tissue around it. Sometimes both the tracer and dye are used. 4. A scanner is used to find the lymph node or nodes that the radioactive tracer or the blue dye go to first. This is the sentinel lymph node. There can be more than one. 5. The surgeon will make a small cut (incision) in the skin and take out the node(s). 6. The incision is then closed with stitches or glue. It's covered with a wright ge until it heals. ?? What happens after a sentinel lymph node biopsy? Once the node(s) is removed, it's sent to a lab. There, a pathologist c checks it for cancer. Based on what the pathologist finds, your healthcare team will outline the rest of your treatment plan. If cancer is found, more lymph nodes need to be removed in a second surgery. Sometimes, the biopsy is planned so the pathologist can check the sentinel node as soon as it's removed. Then, if cancer is found, more lymph nodes can be removed during the same surgery. If no cancer is found, it's unlikely that the cancer has spread to other lymph nodes, so no more lymph node surgery is needed. After the biopsy, you may feel some pain at the site of the surgery. You may also be drowsy until the medicines wear off. Your healthcare provider will likely give you pain medicine. Pain should get better after a few days. You may have a little bleeding or swelling at the site of the biopsy. This will go away as you heal. Follow all directions from your provider about activity, taking medicine, and caring for the incision site after surgery. Call your healthcare provider right away if any of the following occur: ??? Increased swelling at the biopsy site ??? An increase in pain or redness at the site ??? Increased bleeding from the site ??? Pus or drainage at the site ??? Fever or chills ??? Any other concerns Know what problems to watch for and when you need to call your healthcare providers. Also know whatnumber to call after office hours and on weekends and holidays. ?? Next steps Before you agree to the test or the procedure, make sure you know: ??? The name of the test or procedure ??? The reason you are having the test or procedure ??? What results to expect and what they mean ??? The risks and benefits of the test or procedure ??? What the possible side effects or complications are ??? When and where you are to have the test or procedure ??? Who will do the test or proc edure and what that person???s qualifications are ??? What would happen if you did not have the test or procedure ??? Any alternative tests or procedures to think about ??? When and how you will get the results ??? Who to call after the test or procedure if you have questions or problems ??? How much you will have to pay for the test or procedure ?? Last Reviewed Date: 2022 ?? [employer]. All rights reserved. This information is not intended as a substitute for professional medical care. Always follow your healthcare professional's instructions. ?? * Lisa Billingsley RN: PERFORM Event Display: Patient Education Leaflets Authored Date: [id number] Surgery Medical Daystay Surgical Overnight Discharge Instructions ?? 295 Medical Daystay/Surgical Overnight Discharge Instructions ? Since your coordination and judgment may be altered by medication and/or anesthesia, a responsible adult must drive you home from the hospital. ? If you have received medication for pain or sedation while under our care, you should not drive, operate machinery, drink alcohol, or sign any legal documents for 24 hours.?? You should have someone with you at home tonight. ? Remain at home the day of discharge.?? You may be up and about unless otherwise instructed by your physician. ? You may resume your daily prescription medication schedule.?? Any depressant medication should be avoided for 24 hours unless otherwise instructed by your surgeon or anesthesiologist. ? Call your physician for a follow-up appointment.? If you experience unusual or severe pain not relied by your pain medication, excessive bleedingor drainage, persistent nausea and vomiting, excessive swelling or redness, foul odor from incisionsite or fever over 100.6F, you need to call your physician. ? A follow-up phone call by a nurse will be made the day after your procedure.?? If you have stayed with us over night, you will not be receiving a follow-up phone call. ? Nausea and vomiting are a common side effect of prescription pain medication.?? We recommend that pills are not taken on an empty stomach.?? While taking any prescription pain medication you should not drive or drink alcohol. ? Patient Care team information Care Team Personnel Name: Amira Suero RN Position: S RN Member Role: Primary Care Nurse Name: Humberto Howell Position: Reference Physician Member Role: PCP Address: Address: [address] [place] [address]- Name: Amira Madrid RN Position: S OB RN Member Role: Primary Care Nurse Name: Gloria Melissa RN Position: S RN Member Role: Primary Care Nurse Care Team Related Persons Name: SANDOVAL MCINTOSH Address: home [address] [place] [address] Name: DEMARCUS MCINTOSH Address: home [address] [place] [address] Name: VALERY CAR Address: [address] Address: home [address] [address] Name: JASPAL CAR Address: [place] [address] Name: STEFFANIE CAR Address: [place] [address] Name: JASE DE OLIVEIRA
--- OUTSIDE RECORDS SUMMARY | 2024-04-23 04:23 | XMS_ITS | Continuity of Care Document ---
Author Organization [facility] Address [address] [place] [address]- Care Team Providers Care Supervisor [employer] Name Role Phone Humberto Howell Primary Care Physician Encounter [facility] Date(s): 09/02/23 - 10/02/23 [facility] [address] [place] [address] Attending Physician: Neela Barragan Admitting Physician: Neela Barragan Referring Physician: AdmtrNeela Allergies, Adverse Reactions, Alerts Substance Reaction Severity Status Benadryl face swells, throat swells, angioedema Active Bee Stings face and throat swel ls, can't breathe, passes out Active Latex Rash Active RisperDAL pyschosis Active Other Environmental Allergy detergents and soaps [...] 07/08/18 14:59:18 EST, Route to Pharmacy Electronically, [id number], [id number] Start Date: 07/08/18 Status: Ordered [...] 2As per patient was diagnosed in a [place] [facility] Social History Social History Type Response Smoking Status Current every day felipe entered on: 07/22/16 Sex Patient Care team information Care Team Personnel Name: Amira Suero RN Position: S RN Member Role: Primary Care Nurse Name: Humberto Howell Position: Reference Physician Member Role: PCP Address: Address: [address] [place] [address]- Name: Amira Madrid RN Position: S OB RN Member Role: Primary Care Nurse Name: Gloria Melissa RN Position: S RN Member Role: Primary Care Nurse Care Team Related Persons Name: SANDOVAL MCINTOSH Address: home [address] [place] [address] Name: DEMARCUS MCINTOSH Address: home [address] [place] [address] Name: VALERY CAR Address: [address] Address: home [address] [address] Name: JASPAL CAR Address: [place] [address] Name: STEFFANIE CAR Address: [place] [address] Name: JASE DE OLIVEIRA
--- OUTSIDE RECORDS SUMMARY | 2024-04-23 04:23 | XMS_ITS | Continuity of Care Document ---
Author Organization [facility] Address [address] [place] [address]- Care Team Providers Care Branch Or Department Chief Librarian Name Role Phone Humberto Howell Primary Care Physician [phone] Encounter [facility] Date(s): 09/02/23 - 09/08/23 [facility] [address] [place] [address] Discharge Disposition: A-D/C Home Attending Physician: Brendan Rayo DO Admitting Physician: Brendan Rayo DO Referring Physician: Jill Molina DO Allergies, [...] 07/08/18 14:59:18 EST, Route to Pharmacy Electronically, [id number], [id number] Start Date: 07/08/18 Status: Ordered Problem List [...] Reference Physician Member Role: PCP Address: Address: [address] [place] [address] [address] [place] [address]- Name: Amira Madrid RN Position: [facility] OB RN Member Role: Primary Care Nurse Name: Gloria Melissa RN Position: S RN Member Role: Primary Care Nurse Care Team Related Persons Name: SANDOVAL MCINTOSH Address: home [address] [place] [address] Name: DEMARCUS MCINTOSH Address: home [address] [place] [address] Name: VALERY CAR Address: [address] Address: [address] [address] Name: JASPAL CAR Address: [place] [address] Name: STEFFNAIE CAR Address: [place] [address] Name: JASE DE OLIVEIRA
--- OUTSIDE RECORDS SUMMARY | 2024-04-23 04:23 | XMS_ITS | Continuity of Care Document ---
Author Organization [facility] ter Address [address] [place] [address]- Care Team Providers Care Straightener Name Role Phone Humberto Howell Primary Care Physician [place] [facility] [place]13/[place] - 08/13/[address] [address]- Discharge Disposition: A-D/C Walkout Attending Physician: Not on Staff, Attending MD Admitting Physician: Not on Staff, Admitting MD Referring Physician: Not on Staff, Referring MD Allergies, Adverse Reactions, Alerts Substance Reaction Severity Status Benadryl angioedema Active Bee Stings Active Latex Rash Active Other Environmental Allergy detergents and soaps with dyes in them Active RisperDAL Active Immunizations Given and Recorded Vaccine Date Status Refusal Reason tetanus/diphtheria/pertussis, acel(Tdap) 03/31/18 Given tetanus/diphtheria/pertussis, acel(Tdap) 1 02/26/13 Given tetanus/diphtheria/pertussis, acel(Tdap) 02/28/12 Given influenza virus vaccine, inactivated 10/28/17 Give n influenza virus vaccine, inactivated 09/22/12 Give n influenza virus vaccine, inactivated 2 06/02/11 Gi emir Measles/Mumps/Rubella Virus Vaccine 02/26/13 Given Human Papillomavirus Vaccine 3 06/11/11 Given influ virus vac, H1N1, inactive(oldterm) 06/05/09 Given 1Admin Note: vis given 2Admin Note: VIS given 02/25/11 3Admin Note: #1 in series. VIS given dated 10/30/2009 Medications Colace sodium 100 mg oral capsule 100 mg, 1, capsule, By Mouth, 2 times a day, PRN, # 40 capsule, Refills 1, Tot. Refills 1, Maintenance, for constipation, 05/28/18 14:49:41 EDT, Print Requisition Start Date: 05/28/18 Status: Ordered ibuprofen 600 mg oral tablet 600 mg, 1, tablet, By Mouth, Every 6 hours, # 40 tablet, Refills 1, Tot. Refills 1, Maintenance, 05/28/18 14:49:38 EDT, Print Requisition Start Date: 05/28/18 Status: Ordered 1 0 Refills, Maintenance, 03/31/18 13:35:44 EDT Start Date: 03/31/18 Status: Ordered traZODone 150 mg oral tablet [...] 07/08/18 14:59:18 EST, Route to Pharmacy Electronically, [id number], [id number] Start Date: 07/08/18 Status: Ordered ZyPREXA 5 mg oral tablet See Instructions, take 1/2 tab at hs po for one night then take 1 tab qhs., # 30 tablet, Refills 1,Tot. Refills 1, Maintenance, 07/08/18 14:57:40 EST, Instructions Replace Required Details, Route toPharmacy Electronically, [id number]... Start Date: 07/08/18 Status: Ordered Problem List [...] 2As per patient was diagnosed in a [facility] Vital Signs Most recent to oldest [Reference Range]: 1 2 3 Height 170 cm (08/13/23 4:10 AM) 170 cm (08/13/23 2:28 AM) 170 cm (08/13/23 12:32 AM) Weight 104.3 kg (08/13/23 4:10 AM) 104.3 kg (08/13/23 2:28 AM) 104.3 kg (08/13/23 12:32 AM) Oxygen Saturation [94-100 %] 100 % (08/13/23 4:10 AM) 98 % (08/13/23 12:32 AM) Pulse Rate [55-90 bpm] 85 bpm (08/13/23 4:10 AM) 99 bpm *H* (08/13/23 12:32 AM) Body Mass Index [18.5-24.99 kg/m2] 36.09 kg/m2 *>HHI* (08/13/23 4:10 AM) 36.09 kg/m2 *>HHI* (08/13/23 12:32 AM) Blood Pressure [90-138/55-84 mm Hg] 113/63mm Hg (08/13/23 4:10 AM) 119/71mm Hg (08/13/23 12:32 AM) Respiratory Rate [16-30 br/min] 16 br/min (08/13/23 4:10 AM) 19 br/min (08/13/23 12:32 AM) Temperature [96.8-100.4 DegF] 97.9 DegF (08/13/23 12:32 AM) Mode of Delivery (Oxygen) Room air (08/13/23 4:10 AM) Room air (08/13/23 12:32 AM) Blood pressure sites Arm, right (08/13/23 4:10 AM) Arm, left (08/13/23 12:32 AM) Temperature Route Oral (08/13/23 12:32 AM) Dry Weight 104.3 kg (08/13/23 4:10 AM) 104.3 kg (08/13/23 2:28 AM) 104.3 kg (08/13/23 12:32 AM) Weight Obtained Via Standing scale (08/13/23 12:32 AM) Dry Weight Obtained Via Standing scale (08/13/23 12:32 AM) Social History Social History Type Response Smoking Status Current every day noé wang entered on: 07/22/16 Sex Patient Care team information Care Team Personnel Name: Humberto Howell Position: Reference Physician Member Role: PCP Address: Address: [address] [place] [address]- Name: Amira Madrid RN Position: S OB RN Member Role: Primary Care Nurse Care Team Related Persons Name: SANDOVAL MCINTOSH Address: home [address] [place] [address] Name: DEMARCUS MCINTOSH Address: [address] [place] [address] Name: VALERY CAR Address: [address] Address: home [address] [address] Name: JASPAL CAR Address: [place] [address] Name: STEFFANIE CAR Address: [place] [address] Name: JASE DE OLIVEIRA
--- OUTSIDE RECORDS SUMMARY | 2024-04-23 04:24 | XMS_ITS | Continuity of Care Document ---
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 VIS given dated 10/30/2009 Medications amoxicillin-clavulanate 875 mg-125 mg oral tablet 1 tablet, By Mouth, 2 times a day, for 7 days, # 14 tablet, 0 Refills, Acute 08/27/23 10:23:00 EST,08/20/23 10:23:00 EST, Tablet, [facility], Partial fill upon patient request if the prescription is for a schedule II opioid drug., 168,... Start Date: 08/20/23 Stop Date: 08/27/23 Status: Ordered busPIRone 5 mg oral tablet 5 mg, 1, tablet, By Mouth, 3 times a day, # 270 tablet, Refills 0, Maintenance, 08/15/23 16:26:00 EST, Partial fill upon patient request if the prescription is for a schedule II opioid drug. Start Date: 08/15/23 Status: Ordered Colace sodium 100 mg oral capsule 100 mg, 1, capsule, By Mouth, 2 times a day, PRN, # 40 capsule, Refills 1, Tot. Refills 1, Maintenance, for constipation, 05/28/18 14:49:41 EDT, Print Requisition Start Date: 05/28/18 Status: Ordered divalproex sodium 250 mg oral [...] opioid drug. Start Date: 08/15/23 Status: Ordered ibuprofen 600 mg oral tablet 600 mg, 1, tablet, By Mouth, Every 6 hours, PRN, # 40 tablet, Refills 1, Tot. Refills 1, Maintenance, Pain , Moderate, 08/20/23 10:24:00 EST, Route to Pharmacy Electronically, [facility], 168, cm, 08/20/23 5:27:00 EST, Height, 104.3, kg,... Start Date: 08/20/23 Stop Date: 09/09/23 Status: Ordered LORazepam 1 mg oral tablet 1 tablet = 1 mg, By Mouth, Daily, 0 Refills, Maintenance, 08/15/23 16:25:00 EST, Tablet, Partial fill upon patient request if the prescription is for a schedule II opioid drug. Start Date: 08/15/23 Status: Ordered Nicoderm C-Q Clear 21 mg/24 hr transdermal film, extended release 1 patch, Topically, Daily, # 30 patch, 0 Refills, Maintenance, 08/20/23 10:23:00 EST, Patch, [facility] [place] [facility], Partial fill upon patient request if the prescription is for a schedule II opioid drug., 168, cm, 08/20/23 5:27:00 EST, Height, 104.... Start Date: 08/20/23 Status: Ordered oxyCODONE 5 mg oral tablet 5 mg, 1, tablet, By Mouth, Every 6 hours, PRN, for 5 days, # 15 tablet, Refills 0, Tot. Refills 0, Acute 08/25/23 10:36:00 EST, Pain , Severe, 08/20/23 10:36:00 EST, Route to Pharmacy Electronically,[facility], Partial fill upon patient... Start Date: 08/20/23 Stop Date: 08/25/23 Status: Ordered oxyCODONE 5 mg oral tablet 10 mg, Tablet, By Mouth, Every 6 hours, PRN for Pain , Severe, Routine, 08/15/23 9:22:00 EST Start Date: 08/15/23 Stop Date: 08/20/23 Status: Discontinued prazosin 5 mg oral capsule 5 mg, 1, capsule, By Mouth, 3 times a day, # 270 capsule, Refills 0, Maintenance, 08/15/23 16:25:00EST, Partial fill upon patient request if the prescription is for a schedule II opioid drug. Start Date: 08/15/23 Status: Ordered 1 0 Refills, Maintenance, 03/31/18 13:35:44 EDT Start Date: 03/31/18 Status: Ordered topiramate 25 mg oral tablet [...] 07/08/18 14:59:18 EST, Route to Pharmacy Electronically, [id number], [facility] #[id number] Start Date: 07/08/18 Status: Ordered ZyPREXA 5 mg oral tablet See Instructions, take 1/2 tab at hs po for one night then take 1 tab qhs., # 30 tablet, Refills 1,Tot. Refills 1, Maintenance, 07/08/18 14:57:40 EST, Instructions Replace Required Details, Route toPharmacy Electronically, [id number]... Start Date: 07/08/18 Status: Ordered Problem List [...] per patient was diagnosed in a snf Results Orders for Microbiology Reports Name Date AFB Culture w/ AFB Smear, Respiratory Anaerobic Culture 08/15/23 Wound Deep Culture w/ Gram Smear (DEEP W OUND CULTURE) 08/15/23 Blood Culture #2 08/14/23 Blood Culture 08/14/23 Microbiology Reports TEST:Anaerobic Culture STATUS:Auth (Verified) BODY SITE: SOURCE:ASPIRA COLLECTED DATE/TIME:08/15/23 8:46 PM Anaerobic Culture SPECIMEN DESCRIPTION : ASPIRATE BREAST LT E SWAB SPECIAL REQUESTS : NONE CULTURE : CORYNEBACTERIUM SPECIES SUSCEPTIBILITY TESTING NOT ROUTINELY PERFORMED ON THIS ISOLATE. ISOLATED FROM BROTH ONLY NO ANAEROBES ISOLATED REPORT STATUS : FINAL 08/18/2023 TEST:Deep Wound Culture STATUS:Auth (Verified) BODY SITE: SOURCE:E SWAB COLLECTED DATE/TIME:08/15/23 8:46 PM Deep Wound Culture SPECIMEN DESCRIPTION : E SWAB ASPIRATE BREAST LEFT SPECIAL REQUESTS : NONE GRAM STAIN : 4+ POLYMORPHONUCLEAR LEUKOCYTES 4+ GRAM NEGATIVE RODS 3+ GRAM POSITIVE COCCI CULTURE : 4+ STREPTOCOCCUS CONSTELLATUS This isolate was identified using Maldi-TOF system SUSCEPTIBILITY TESTING NOT ROUTINELY PERFORMED ON THIS ISOLATE. Please consult the laboratory ([phone]) within 7 days if more definitive studies are clinically indicated. REPORT STATUS : FINAL 08/18/2023 TEST:AFB Culture w/AFB Smear, Respiratory STATUS:Unauthenticated BODY SITE: SOURCE:EXPECT COLLECTED DATE/TIME:08/15/23 8:46 PM AFB Culture w/AFB Smear, Respiratory SPECIMEN DESCRIPTION : EXPECTORATED SPUTUM SPUTUM SPECIAL REQUESTS : NONE DIRECT EXAM : NO ACID FAST BACILLI SEEN ON DIRECT SMEAR, TEST PERFORMED AT [facility] POSITIVE FOR AFB BACILLI UPON FURTHER INVESTIGATION A [place] SMEAR WAS PEFORMED AND WAS FOUND TO BE POSITIVE FOR AFB Result reported to the [facility]. CRITICAL VALUE CALLED AND VERIFIED BY READBACK FOR: POSITIVE AFB SMEAR TO DR COCHRAN, 08/18/22, 1235, TECH 169 CULTURE : SPECIMEN SENT TO [facility], [place], [place] REPORT STATUS : PRELIMINARY REPORT TEST:Blood Culture, Second Order STATUS:Auth (Verified) BODY SITE: SOURCE:Blood COLLECTED DATE/TIME:08/14/23 9:07 PM Blood Culture, Second Order SPECIMEN DESCRIPTION : BLOOD LAC SPECIAL REQUESTS : NONE CULTURE : NO GROWTH 5 DAYS. REPORT STATUS : FINAL 08/19/2023 TEST:Blood Culture STATUS:Auth (Verified) BODY SITE: SOURCE:Blood COLLECTED DATE/TIME:08/14/23 9:01 PM Blood Culture SPECIMEN DESCRIPTION : BLOOD RAC SPECIAL REQUESTS : NONE CULTURE : NO GROWTH 5 DAYS. REPORT STATUS : FINAL 08/19/2023 Radiology Reports * Exam Date Time Procedure Performing Provider Status 08/17/23 2:[address] Abd/Pelvis W/ IV Contrast Only Kaylee Suarez-Tori; Auth (Verified) Notes: (CT Abd/Pelvis W/ IV Contrast Only) Reason For Exam: Mass on Other Study RESULT: CT Abd/Pelvis W/ IV Contrast Only CT Chest W/ Contrast, CT Abd/Pelvis W/ IV Contrast Only INDICATION: Reason: Tumor Primary; Clinical Question(s): Other:; Concern for breast malignancy withlymphadenopathy; Order Comment: TECHNIQUE: Helical CT scan of the chest, abdomen, and pelvis with IV contrast, formatted in 3 planes. 100 cc of Omnipaque 300 was administered intravenously. This study was performed without oral contrast. Weight-based protocol was performed using automatic exposure control. COMPARISON: No pertinent prior CTs available for comparison. Correlation with left breast ultrasound 08/14/2023. FINDINGS: Chemical Recovery Operator view findings, lines and tubes: None. Trachea and airways: Patent without evidence of tracheal or endobronchial lesion. Lungs and pleura: Small fissural lymph node in the left lower lobe (38/205). Minimal dependent atelectasis in the left lower lobe. No effusion or pneumothorax. Mediastinum and zenobia: No mass or hematoma. Small volume of residual anterior mediastinal thymic tissue. No mediastinal or hilar lymphadenopathy. No esophageal abnormality. Heart: Heart is normal in size. No pericardial effusion. Aorta: No aortic aneurysm. Pulmonary arteries: Normal caliber. No evidence of pulmonary embolism on this study performed without angiographic technique. Chest wall soft tissues: Diffuse skin thickening of the left breast with associated fat stranding. The recently described mass, on the ultrasound is not well demonstrated on this study. Enlarged leftaxillary lymph nodes are demonstrated measuring up to 1.5 cm in short axis (20/201). Diaphragm: Intact. Liver: Normal in attenuation and morphology. Focal fatty infiltration versus variant perfusion adjacent to the falciform ligament. No suspicious lesion. Gallbladder: Cholelithiasis. No evidence of acute cholecystitis. Bile ducts: No biliary ductal dilation. Spleen: Normal in size. Pancreas: No suspicious lesion or ductal dilatation. Adrenal glands: No nodule. Kidneys and ureters: No hydronephrosis, stone, or suspicious lesion. Bladder: No wall thickening or surrounding stranding. Reproductive organs: Anteverted uterus. Postsurgical changes of the lower uterine segment. Visualization of the ovaries bilaterally. Trace fluid in the adnexa bilaterally, most likely physiologic. Stomach, small bowel, and large bowel: Normal caliber stomach and bowel loops. No surrounding inflammatory changes. Appendix: No evidence of acute appendicitis. Peritoneum and retroperitoneum: Trace fluid in the cul-de-sac and both adnexa, likely physiologic. No pneumoperitoneum. No omental or mesenteric lesions. Lymph nodes: No enlarged lymph nodes. Blood vessels: No vascular calcifications or aneurysm. No evidence of venous thrombosis. Abdominal and pelvic wall soft tissues: Nodular thickening of the lower abdominal wall at the levelof the scar measuring 2.4 x 2.8 x 2.9 cm on the right and 1.9 x 2.8 x 2.7 cm on the left.There is faint surrounding fat stranding. Bones: No acute abnormality. Mild degenerative changes of symphysis pubis. No definite suspicious osseous lesion. IMPRESSION: 1. The known left breast mass or suspicious lesion is not well demonstrated on this study. There ishowever diffuse skin thickening of the left breast. This could be inflammatory or neoplastic. Clinical correlation is recommended. 2. Mildly enlarged left axillary lymph nodes which measure up to 1.5 cm. These are indeterminate, though suspicious given the presence of the left breast lesion. Tissue sampling is suggested. 3. No definite other focus of metastatic disease identified in the chest abdomen or pelvis. 4. Nodular soft tissue thickening at the scar in the anterior pelvis. Their appearance issuspicious for scar endometriomas, though nodular scarring could've a similar appearance. 5. Slight medialization of the ovaries bilaterally which can be seen with endometriosis. Consider nonemergent follow-up pelvic MRI. 6. Cholelithiasis. WSN: [id number] Ordering Physician: Sierra Pedersen Dictated By: Greg Padron MD Dictated Date/Time: 08/17/23 4:04 pm Reviewed By: Greg Padron MD Signed By: Greg Padron MD Signed Date/Time: 08/17/23 4:04 pm Transcribed By: GRAZYNA Transcribed Date/Time: 08/17/23 3:42 pm * Exam Date Time Procedure Performing Provider Status 08/17/23 2:[address] Chest W/ Contrast Natailia Smith ; Veda (Verified) Notes: (CT Chest W/ Contrast) Reason For Exam: Tumor Primary RESULT: CT Chest W/ Contrast CT Chest W/ Contrast, CT Abd/Pelvis W/ IV Contrast Only INDICATION: Reason: Tumor Primary; Clinical Question(s): Other:; Concern for breast malignancy withlymphadenopathy; Order Comment: TECHNIQUE: Helical CT scan of the chest, abdomen, and pelvis with IV contrast, formatted in 3 planes. 100 cc of Omnipaque 300 was administered intravenously. This study was performed without oral contrast. Weight-based protocol was performed using automatic exposure control. COMPARISON: No pertinent prior CTs available for comparison. Correlation with left breast ultrasound 08/14/2023. FINDINGS: Chemical Recovery Operator view findings, lines and tubes: None. Trachea and airways: Patent without evidence of tracheal or endobronchial lesion. Lungs and pleura: Small fissural lymph node in the left lower lobe (38/205). Minimal dependent atelectasis in the left lower lobe. No effusion or pneumothorax. Mediastinum and zenobia: No mass or hematoma. Small volume of residual anterior mediastinal thymic tissue. No mediastinal or hilar lymphadenopathy. No esophageal abnormality. Heart: Heart is normal in size. No pericardial effusion. Aorta: No aortic aneurysm. Pulmonary arteries: Normal caliber. No evidence of pulmonary embolism on this study performed without angiographic technique. Chest wall soft tissues: Diffuse skin thickening of the left breast with associated fat stranding. The recently described mass, on the ultrasound is not well demonstrated on this study. Enlarged leftaxillary lymph nodes are demonstrated measuring up to 1.5 cm in short axis (20/201). Diaphragm: Intact. Liver: Normal in attenuation and morphology. Focal fatty infiltration versus variant perfusion adjacent to the falciform ligament. No suspicious lesion. Gallbladder: Cholelithiasis. No evidence of acute cholecystitis. Bile ducts: No biliary ductal dilation. Spleen: Normal in size. Pancreas: No suspicious lesion or ductal dilatation. Adrenal glands: No nodule. Kidneys and ureters: No hydronephrosis, stone, or suspicious lesion. Bladder: No wall thickening or surrounding stranding. Reproductive organs: Anteverted uterus. Postsurgical changes of the lower uterine segment. Visualization of the ovaries bilaterally. Trace fluid in the adnexa bilaterally, most likely physiologic. Stomach, small bowel, and large bowel: Normal caliber stomach and bowel loops. No surrounding inflammatory changes. Appendix: No evidence of acute appendicitis. Peritoneum and retroperitoneum: Trace fluid in the cul-de-sac and both adnexa, likely physiologic. No pneumoperitoneum. No omental or mesenteric lesions. Lymph nodes: No enlarged lymph nodes. Blood vessels: No vascular calcifications or aneurysm. No evidence of venous thrombosis. Abdominal and pelvic wall soft tissues: Nodular thickening of the lower abdominal wall at the levelof the scar measuring 2.4 x 2.8 x 2.9 cm on the right and 1.9 x 2.8 x 2.7 cm on the left.There is faint surrounding fat stranding. Bones: No acute abnormality. Mild degenerative changes of symphysis pubis. No definite suspicious osseous lesion. IMPRESSION: 1. The known left breast mass or suspicious lesion is not well demonstrated on this study. There ishowever diffuse skin thickening of the left breast. This could be inflammatory or neoplastic. Clinical correlation is recommended. 2. Mildly enlarged left axillary lymph nodes which measure up to 1.5 cm. These are indeterminate, though suspicious given the presence of the left breast lesion. Tissue sampling is suggested. 3. No definite other focus of metastatic disease identified in the chest abdomen or pelvis. 4. Nodular soft tissue thickening at the scar in the anterior pelvis. Their appearance issuspicious for scar endometriomas, though nodular scarring could've a similar appearance. 5. Slight medialization of the ovaries bilaterally which can be seen with endometriosis. Consider nonemergent follow-up pelvic MRI. 6. Cholelithiasis. WSN: [id number] Ordering Physician: Sierra Pedersen Dictated By: Greg Padron MD Dictated Date/Time: 08/17/23 4:04 pm Reviewed By: Greg Padron MD Signed By: Greg Padron MD Signed Date/Time: 08/17/23 4:04 pm Transcribed By: GRAZYNA Transcribed Date/Time: 08/17/23 3:42 pm * Exam Date Time Procedure Performing Provider Status 08/14/23 10:56 PM Chest 2 Views Frontal and Lat Charissa z , Krissy; Auth (Verified) Notes: (Chest 2 Views Frontal and Lat) Reason For Exam: Shortness of Breath RESULT: Chest 2 Views Frontal and Lat Chest 2 Views Frontal and Lat Hx of Present Illness: Left breast pain with malodorous discharge from nipple x 3 days. Has intermittent N V D x 3 days. Was seen by [facility] provider at [facility] and sent to ED for further eval tx. Has familial history of breast cancer.; Reason: Shortness of Breath; Clinical Question(s): CHF COMPARISON: None. FINDINGS: LINES AND TUBES: None. LUNGS AND PLEURA: Clear lungs. Normal pulmonary vascularity. No pleural effusion. No pneumothorax. HEART, MEDIASTINUM AND ZENOBIA: Heart is normal in size. Normal mediastinal and hilar contour. BONES AND SOFT TISSUES: No acute abnormality. IMPRESSION: No acute abnormality. WSN: [id number] Ordering Physician: Sandra Rios Dictated By: Luis Nye MD Dictated Date/Time: 08/14/23 11:21 p Reviewed By: uLis Nye MD Signed By: Luis Nye MD Signed Date/Time: 08/14/23 11:21 pm Transcribed By: GRAZYNA Transcribed Date/Time: 08/14/23 11:21 pm * Exam Date Time Procedure Performing Provider Status 08/14/23 6:42 PM US Breast Left Limited Noemy Dumont; Auth (Verified) Notes: (US Breast Left Limited) Reason For Exam: Abscess RESULT: US Breast Left Limited US Breast Left Limited INDICATION: Hx of Present Illness: Left breast pain with malodorous discharge from nipple x 3 days.Has intermittent N V D x 3 days. Was seen by [facility] provider at [facility] and sent to ED for further eval tx. Has familial history of breast cancer.; Reason: Abscess COMPARISON: TECHNIQUE: Ultrasound examination of the breast performed after hours in the emergency Department. FINDINGS: There is a lobulated hypoechoic lesion located at the site of clinical concern of the left breast 9:00 position adjacent to the nipple. The lesion measures approximately 2.0 x 1.7 cm. The lesion appears echogenic and solid and shows color Doppler uptake. IMPRESSION: Indeterminate lobulated hypoechoic lesion within the left subareolar tissues at the 9:00 position. This is not an abscess. A tumor-malignancy could have this appearance. Further nonemergent outpatient imaging to include mammography. BI-RADS category 0. RECOMMENDATION: Follow-up nonemergent mammography and other imaging as indicated. WSN: [id number] Ordering Physician: Genet Montalvo Dictated By: Luis Nye MD Dictated Date/Time: 08/14/23 7:21 pm Reviewed By: Luis Nye MD Signed By: Luis Nye MD Signed Date/Time: 08/14/23 7:21 pm Transcribed By: GRAZYNA Transcribed Date/Time: 08/14/23 7:19 pm Vital Signs Most recent to oldest [Reference Range]: 1 2 3 Height 168 cm (08/20/23 5:27 AM) 168 cm (08/19/23 8:50 PM) 168 cm (08/19/23 2:40 PM) Weight 102.1 kg (08/15/23 6:33 PM) Oxygen Saturation [94-100 %] 100 % (08/20/23 5:27 AM) 99 % (08/19/23 8:50 PM) 100 % (08/19/23 2:40 PM) Pulse Rate [55-90 bpm] 71 bpm (08/20/23 5:27 AM) 77 bpm (08/19/23 8:50 PM) 87 bpm (08/19/23 2:40 PM) Body Mass Index [18.5-24.99 kg/m2] 36.17 kg/m2 *>HHI* (08/15/23 6:33 PM) Blood Pressure [90-138/55-84 mm Hg] 111/64mm Hg (08/20/23 5:27 AM) 94/51mm Hg (08/19/23 8:50 PM) 114/67mm Hg (08/19/23 2:40 PM) Respiratory Rate [16-30 br/min] 18 br/min (08/20/23 7:42 AM) 18 br/min (08/20/23 5:27 AM) 16 br/min (08/19/23 9:18 PM) Temperature [96.8-100.4 DegF] 98.1 DegF (08/20/23 5:27 AM) 97.8 DegF (08/19/23 8:50 PM) 98.2 DegF (08/19/23 2:40 PM) Liters per Minute 0 L/min (08/18/23 8:23 PM) Mode of Delivery (Oxygen) Room air (08/20/23 5:27 AM) Room air (08/19/23 8:50 PM) Room air (08/19/23 2:40 PM) Blood pressure sites Arm, left (08/20/23 5:27 AM) Arm, left (08/19/23 8:50 PM) Arm, left (08/19/23 2:40 PM) Temperature Route Oral (08/20/23 5:27 AM) Oral (08/19/23 8:50 PM) Oral (08/19/23 2:40 PM) Dry Weight 104.3 kg (08/15/23 6:33 PM) Social History Social History Type Response Smoking Status Current every day noé wang entered on: 07/22/16 Sex Laboratory * Jill Molina DO: REVIEW Event Display: Cytology Reports General Authored Date: [id number] Patient Name: ANNAMARIE MCINTOSH Lab Patient : 1990 (Age: 33) Collection Date: 08/17/2023 Accession Date: 08/18/2023 Sign Out Date: 08/19/2023 Tissue Source: 1:BREAST, LEFT ABSCESS, NEEDLE ASPIRATION: Final Diagnosis: BREAST, LEFT ABSCESS, NEEDLE ASPIRATION: NEGATIVE FOR MALIGNANT CELLS. Abundant acute inflammatory cells present, consistent with an abscess. Primary Pathologist:LAUREN WOLFF M.D. electronically signed out by: LAUREN WOLFF M.D. / [facility] Clinical History: General medical, Breast abscess, Breast mass, Smoker, Hemoptysis Gross Description: Received less than 1cc of red fluid 1 ThinPrep cellular enhancement technique Phone #: [phone], On-Call Pathologist: [id number] Admission evaluation note * Rosy RAMIREZ, Rodrick: PERFORM, MODIFY, MODIFY Event Display: Admission Note Authored Date: [id number] Patient: ??ANNAMARIE MCINTOSH ? Age:??33 Years?Sex:??Female?:??1990?? Chief Complaint/Reason for Consultation from snf, seen by [facility], 3 days of swelling, pain and redness to L breast, hx of cyst, + drainage, foul smelling, pt offers no other complaints History of Present Illness 33-year-old female homeless, significant family history of breast cancer presenting with left??breast mass ?? History mainly from patient. ??Patient is homeless??currently.?? She has significant family history of breast cancer with 2 of her aunts had??breast cancer on left side and 3 of her cousins. ??Hergrandmother??had colon cancer. Patient reporting having??cyst in left breast 2 years ago that she treated by herself.?? 3 days ago patient started to have??left breast pain,??redness, warmness and??thick purulent??malodor??discharge from nipple. ??Started to have fever and chills for 2 days.?? Patient also reporting??hemoptysis for 1 day 4 times small amount of blood with??sputum??less than??1 tablespoon??and vomited 1 time??that she thinks might have blood.?Patient not sure if she has contact with sick people. In??presentation patient is slightly tachycardic, blood pressure on lower side down to 95/58, room air.?? Blood workup with leukocytosis 14.4, creatinine 0.8, negative flu a, RSV and COVID.?? Chest x-ray without acute abnormality.?? Ultrasound left breast with Indeterminate lobulated hypoechoic lesion within the left subareolar tissues at the 9:00 position. This is not an abscess. A tumor-malignancy could have this appearance. Further nonemergent outpatient imaging to include mammography.?? At bedside patient is comfortable, denying nausea or vomiting at this point, complaining of left breast pain.?? Breast exam done with help of??nurse at bedside and updated picture??[facility]??after getting permission from the patient Review of Systems All review of systems negative except above Objective Vital Signs?? Temperature: 98.2 DegF (08/15/23 06:42:00) Temperature Route: Oral (08/15/23 06:42:00) Pulse Rate: 88 bpm (08/15/23 06:42:00) Respiratory Rate: 18 br/min (08/15/23 06:42:00) Systolic Blood Pressure: 95 mm Hg (08/15/23 06:42:00) Diastolic Blood Pressure: 58 mm Hg (08/15/23 06:42:00) Blood pressure sites: Arm, right (08/15/23 06:42:00) Mean Arterial Pressure: 82 mm Hg (08/15/23 00:58:00) Pulse Pressure: 37 mm Hg (08/15/23 06:42:00) Oxygen Saturation: 100 % (08/15/23 06:42:00) Mode of Delivery (Oxygen): Room air (08/15/23 06:42:00) Early Warning Score: 1 (08/15/23 06:43:18) ? Intake/Output? 08/14 23:46 08/15 07:00 08/14 07:00 08/13 07:00 08/12 07:00 ?? 08/15 08:51 08/15 08:51 08/15 06:59 08/14 06:59 08/13 06:59 Intake ?200 ?0 ?200 ?0 ?0 Output ?0 ?0 ?0 ?0 ?0 Net Total ?200 ?0 ?200 ?0 ?0 ? Physical Exam General?NAD, AAO HEENT?PERRLA, oropharynx clear, moist mucus membranes Pulm?CTA bilaterally, no wheezes/rhonchi/rales CV?RRR, +S1/S2, no murmurs/rubs GI?Soft, nontender, nondistended, no organomegaly, bowel sounds are present Neuro?Moves all extremities MS?no obvious deformity Psych?Mood appropriate to situation?? Left breast skin induration, erythema, nipple retraction Assessment/Plan 33-year-old female homeless, significant family history of breast cancer presenting with left??breast mass ? Lt breast mass (N63.0) significant family history of breast cancer with 2 of her aunts had??breast cancer on left side and3 of her cousins. ??Her grandmother??had colon cancer. ??Patient reporting having??cyst in left breast 2 years ago that she treated by herself.?? 3 days ago patient started to have??left breast pain,??redness, warmness and??thick purulent??malodor??discharge from nipple. ??Started to have fever andchills for 2 days. Ultrasound left breast with Indeterminate lobulated hypoechoic lesion within the left subareolar tissues at the 9:00 position. This is not an abscess. A tumor- malignancy could have this appearance. Further nonemergent outpatient imaging to include mammography. ?? -Consulting surgery -Bactrim for possible??purulent cellulitis -Follow-up test ?? Hemoptysis (R04.2) ED team has concern of??TB??given patient homeless and has 1 day of hemoptysis. I doubt patient has TB??with her systemic symptoms most like related to breast lesion??and have no significant respiratory symptoms except for 1 day. -Consulting ID??for further recommendation ?? Active smoker (F17.200): nicotine patch ?? Full code Ambulating no need for chemical??prophylaxis Regular diet ?? OMN: Left breast mass with possible??malignancy,??concern of TB??getting ID involved ?? Histories Allergies Allergies ?(Active and Proposed Allergies Only) Latex? (Severity: Unknown severity, Onset: Unknown) ?Reactions: Rash RisperDAL? (Severity: Unknown severity, Onset: Unknown) Other Environmental Allergy? (Severity: Unknown severity, Onset: Unknown) ?Reactions: detergents and soaps with dyes in them Bee Stings? (Severity: Unknown severity, Onset: Unknown) Benadryl? (Severity: Unknown severity, Onset: Unknown) ?Reactions: angioedema ? Past Medical History/Problem List Active Problems??(10) BMI 30+ - obesity Breast lump present Fibromyalgia History of delivery x3 Marijuana use depression PTSD (post-traumatic stress disorder) Severe obesity (BMI 35.0-39.9) with comorbidity Tobacco use Uterine scar x3 ? Past Surgical History delivery only;: 05/27/18 Nexplanon insertion and removal: 02/24/13 delivery x3;: 2011 ? Social History Alcohol Details:??Started at age: 10 Years. ??Stopped at age: 18 Years. ??Previous treatment: None. Details:??Use: Past. ??Frequency: Daily. ??Type: Liquor. ??Other: sober since 2010. Exercise Details:??Regular exercise: Yes. Home/Environment Details:??DCF involvement: [facility] for therapy. Nutrition/Health Details:??Diet: Regular. Sexual Details:??Sexually involved in last 6 months: Yes. Substance Abuse Details:??Use: Current. ??Type: Marijuana. Tobacco Details:??Current every day smoker ? Family History Mother: Alcoholism; Depression; Diabetes mellitus type II; Hypertension; Mental illness; Migraine Father: Alcoholism Mat. Grandmother: Cancer of breast Sister (onset age 26): Cancer of breast Pat. Grandmother: Cancer of breast Other (paternal aunt): Cancer of breast Mat. Grandfather: Cancer of breast Sister: Cancer of liver ? 17-MAY-2016 04:31:46<$> ? Medications Home Medications Docusate (Colace sodium 100 mg oral capsule)?100?Milligram?1?capsule?By Mouth?2 times a day?as needed?for constipation Ibuprofen (ibuprofen 600 mg oral tablet)?600?Milligram?1?tablet?By Mouth?Every 6 hours Olanzapine (ZyPREXA 5 mg oral tablet)?See Instructions?take 1/2 tab at hs po for one night then take 1 tab qhs. Olanzapine (ZyPREXA 2.5 mg oral tablet)?2.5?Milligram?1?tablet?By Mouth?2 times aday?as needed?Agitation Trazodone (traZODone 150 mg oral tablet)?1?tab(s)?150?Milligram?By Mouth?Daily at bedtime?please cancel rx for perphenazine ? Results Abnormal Labs ?? BLOOD COUNT & DIFF ??Abs. Imm Gran ??0.1 k/mm3 () ??08/14/2023 17:36 ??Abs. NRBC ??0.0 k/mm3 () ??08/14/2023 17:36 ??Abs. Neut ??10.4 k/mm3 (High) ??08/14/2023 17:36 ??Imm Gran ??0.4 % () ??08/14/2023 17:36 ??Nucleated RBC (Automated) ??0.0 #/100 WBC'S () ??08/14/2023 17:36 ??RDW-SD ??43.8 femtoliters () ??08/14/2023 17:36 ??WBC ??14.4 k/mm3 (High) ??08/14/2023 17:36 ? CHEM GENERAL ??Bicarbonate Level ??21 mmol/L (Low) ??08/14/2023 17:36 ??Estimated GFR Creatinine ??101 ML/MIN/1.73 M2 () ??08/14/2023 17:36 ? COAG ??D-Dimer ??0.37 mg/L FEU () ??08/14/2023 23:08 ? MISC. CHEMISTRY ??Hold Gel Top ??SPECIMEN DISCARDED AFTER 1 WEEK () ??08/14/2023 23:08 ??Hold Kumari Top ??SPECIMEN DISCARDED AFTER 1 WEEK () ??08/14/2023 21:01 ? VIROLOGY ??COVID-19 PCR Result ??NEGATIVE () ??08/14/2023 23:41 ??COVID-19 PCR Specimen Source ??NASAL () ??08/14/2023 23:41 ??Influenza A PCR ??NEGATIVE () ??08/14/2023 23:41 ??Influenza B PCR ??NEGATIVE () ??08/14/2023 23:41 ??RSV PCR ??NEGATIVE () ??08/14/2023 23:41 ? Note: Critical results are displayed in red. ? EKG study * Event Display: EKG Authored Date: * Event Display: ECG 12-Lead Authored Date: Please click on pdf link to open report * Event Display: ECG 12-Lead Authored Date: Ventricular Rate: 100 BPM Atrial Rate: 100 BPM P-R Interval: 146 ms QRS Duration: 80 ms Q-T Interval: 352 ms QTC Calculation(Bazett): 454 ms P Black: 50 degrees R Black: 46 degrees T Black: 36 degrees Normal sinus rhythm Normal ECG When compared with ECG of 09-APR-2016 15:52, No significant change was found Confirmed by MARYCARMEN RAMIREZ [facility] ([id number]) on 08/15/2023 1:05:01 PM [place]: [facility] * Jairo RAMIREZ, [place]: PERFORM, MODIFY Event Display: Progress Note Hospital Authored Date: [id number] Patient: ??ANNAMARIE MCINTOSH ? Age:??33 Years?Sex:??Female?:??1990?? Subjective Patient seen and examined Denies any chest pain shortness of breath nausea vomiting diarrhea Biopsies results pending Review of Systems All systems were reviewed and are negative unless mentioned above. Allergies Allergies ?(Active and Proposed Allergies Only) Latex? (Severity: Unknown severity, Onset: Unknown) ?Reactions: Rash RisperDAL? (Severity: Unknown severity, Onset: Unknown) Other Environmental Allergy? (Severity: Unknown severity, Onset: Unknown) ?Reactions: detergents and soaps with dyes in them Bee Stings? (Severity: Unknown severity, Onset: Unknown) Benadryl? (Severity: Unknown severity, Onset: Unknown) ?Reactions: angioedema ? Objective Measurements?? Height: 168 cm (08/19/23) Weight: 102.1 kg (08/15/23) Dry Weight: 104.3 kg (08/15/23) Body Mass Index:??36.17 kg/m2??Critical (08/15/23) ? Vital Signs?? Temperature: 98.2 DegF (08/19/23 14:40:00) Temperature Route: Oral (08/19/23 14:40:00) Pulse Rate: 87 bpm (08/19/23 14:40:00) Respiratory Rate: 16 br/min (08/19/23 15:20:00) Systolic Blood Pressure: 114 mm Hg (08/19/23 14:40:00) Diastolic Blood Pressure: 67 mm Hg (08/19/23 14:40:00) Blood pressure sites: Arm, left (08/19/23 14:40:00) Mean Arterial Pressure: 83 mm Hg (08/19/23 14:40:00) Pulse Pressure: 47 mm Hg (08/19/23 14:40:00) Oxygen Saturation: 100 % (08/19/23 14:40:00) Liters per Minute: 0 L/min (08/18/23 20:23:00) Mode of Delivery (Oxygen): Room air (08/19/23 14:40:00) Early Warning Score: 0 (08/19/23 15:21:13) ? Intake/Output? 08/14 23:46 08/19 07:00 08/18 07:00 08/17 07:00 08/16 07:00 ?? 08/19 15:35 08/19 15:35 08/19 06:59 08/18 06:59 08/17 06:59 Intake ?970 ?0 ?480 ? 50 ?0 Output ?350 ?0 ?350 ?0 ?0 Net Total ?620 ?0 ?130 ? 50 ?0 ? Urine Count ?2 ?0 ?1 ?0 ?1 ? Physical Exam General?NAD, AAO HEENT?PERRLA, oropharynx clear, moist mucus membranes Pulm?CTA bilaterally, no wheezes/rhonchi/rales CV?RRR, +S1/S2, no murmurs/rubs GI?Soft, nontender, nondistended, no organomegaly, bowel sounds are present Neuro?Moves all extremities MS?no obvious deformity Psych?Mood appropriate to situation?? Left breast skin induration, erythema, nipple retraction??with improvement in her discharge.?? Periareolar tenderness present??but erythema appears to be??improving along with induration. _ Home Medications BusPIRone (busPIRone 5 mg oral tablet)?5?Milligram?1?tablet?By Mouth?3 times a day Divalproex Sodium (divalproex sodium 250 mg oral tablet, extended release)?2?tab(s)?500?Milligram?By Mouth?Daily Docusate (Colace sodium 100 mg oral capsule)?100?Milligram?1?capsule?By Mouth?2 times a day?as needed?for constipation Gabapentin (gabapentin 300 mg oral capsule)?300?Milligram?1?capsule?By Mouth?Daily at bedtime Ibuprofen (ibuprofen 600 mg oral tablet)?600?Milligram?1?tablet?By Mouth?Every 6 hours Lorazepam (LORazepam 1 mg oral tablet)?1?tab(s)?1?Milligram?By Mouth?Daily Olanzapine (ZyPREXA 5 mg oral tablet)?See Instructions?take 1/2 tab at hs po for one night then take 1 tab qhs. Olanzapine (ZyPREXA 2.5 mg oral tablet)?2.5?Milligram?1?tablet?By Mouth?2 times aday?as needed?Agitation Prazosin (prazosin 5 mg oral capsule)?5?Milligram?1?capsule?By Mouth?3 times a day Topiramate (topiramate 25 mg oral tablet)?25?Milligram?TAKE 1 TABLET (25 mg) ONCE DAILY FOR THE FIRST WEEK, THEN TAKE 1 TABLET TWICE A DAY Trazodone (traZODone 150 mg oral tablet)?1?tab(s)?150?Milligram?By Mouth?Daily at bedtime?please cancel rx for perphenazine ? Inpatient Medications Medications (19) Active SCHEDULED: (7) Amoxicillin 875 mg/Clavulanate 125 mg Tablet (Augmentin 875 Tablet) ??1 tablet, By Mouth, 2 times aday Lorazepam 1 mg Tablet (LORazepam 1 mg oral tablet) ??1 mg, By Mouth, Daily NaCl 0.9% Flush 3ml (NaCL 0.9% Flush) ??3 mL, IV Push, Every 8 hours Nicotine 21 mg / 24 hour Patch (Nicotine Topical) ??21 mg, Topically, Daily Remove Patch (Remove ??Patch) ??1 each, Topically, Daily Topiramate 25 mg Tablet (Topamax Tablet) ??50 mg, By Mouth, Daily Trazodone 50 mg Tablet (traZODone 50 mg oral tablet) ??150 mg, By Mouth, Daily at bedtime CONTINUOUS: (0) PRN: (12) Acetaminophen 325 mg Tablet (Acetaminophen Tablet) ??650 mg, By Mouth, Every 4 hours Dextromethorphan-Guaifenesin 20 mg-200 mg/10 mL Liqu UD (Robitussin DM Liquid) ??10 mL, By Mouth, Every 4 hours Docusate Sodium 100 mg Capsule (Docusate Sodium Capsule) ??100 mg 1 capsule, By Mouth, 2 times a day Melatonin 3 mg Tablet (Melatonin Tablet) ??3 mg, By Mouth, Daily at bedtime MorPHINE 2 mg Inj Syringe (MorPHINE Inj) ??2 mg, IV Push Slowly, Once NaCl 0.9% Flush 3ml (NaCL 0.9% Flush) ??3 mL, IV Push, Every 8 hours Olanzapine 2.5 mg Tablet (ZyPREXA 2.5 mg oral tablet) ??2.5 mg, By Mouth, 2 times a day Ondansetron 2mg/mL Inj (2mL Vial) (Zofran Inj) ??4 mg, IV Push, Every 6 hours OxyCODONE 5 mg IR Tablet (oxyCODONE 5 mg oral tablet) ??10 mg, By Mouth, Every 6 hours Polyethylene Glycol 17 Gm Powder (MiraLax Powder) ??17 Gm 1 pack/packet, By Mouth, Daily Senna Tablet ??8.6 mg 1 tablet, By Mouth, 2 times a day Simethicone 80 mg Chewable Tablet (Simethicone Tablet) ??80 mg, Chew, 3 times a day ? 72 Hour Antibiotic History Active Antibiotics Calendar Day Last Administered First Administered Amoxicillin-Clavulanate??1 tablet, By Mouth, 2 times a day ?3 08/19/2023 08:01 08/17/2023 15:09 ? Stopped Antibiotics Stop Date/Time Last Administered First Administered Vancomycin??1,500 mg, 166.67 mL/hr, IVPB, Every 12 hours 08/17/2023 13:59 08/17/2023 09:41 08/15/2023 22:03 ? Results Recent Labs BLOOD COUNT & DIFF WBC 5.7 k/mm3 ()?? 08/19/2023 01:28 RBC 4.41 m/mm3 ()?? 08/19/2023 01:28 Hgb 11.7 Gm/dL ()?? 08/19/2023 01:28 Hct 35.7 % ()?? 08/19/2023 01:28 MCV 81.0 femtoliters ()?? 08/19/2023 01:28 MCH 26.5 pg (Low)?? 08/19/2023 01:28 MCHC 32.8 g/dL (Low)?? 08/19/2023 01:28 Platelet Count 256 k/mm3 ()?? 08/19/2023 01:28 RDW-SD 42.8 femtoliters ()?? 08/19/2023 01:28 MPV 11.3 femtoliters ()?? 08/19/2023 01:28 Nucleated RBC (Automated) 0.0 #/100 WBC'S ()?? 08/19/2023 01:28 Abs. NRBC 0.0 k/mm3 ()?? 08/19/2023 01:28 Abs. Neut 2.2 k/mm3 ()?? 08/19/2023 01:28 Abs. Lymph 2.7 k/mm3 ()?? 08/19/2023 01:28 Abs. [place] 0.6 k/mm3 ()?? 08/19/2023 01:28 Abs. Eo 0.2 k/mm3 ()?? 08/19/2023 01:28 Abs. Baso 0.0 k/mm3 ()?? 08/19/2023 01:28 Neut % 39.3 % (Low)?? 08/19/2023 01:28 Lymph % 47.2 % (High)?? 08/19/2023 01:28 [place] % 9.6 % ()?? 08/19/2023 01:28 Eos % 3.2 % ()?? 08/19/2023 01:28 Baso % 0.5 % ()?? 08/19/2023 01:28 Imm Gran 0.2 % ()?? 08/19/2023 01:28 Abs. Imm Gran 0.0 k/mm3 ()?? 08/19/2023 01:28 ?? CHEM GENERAL Sodium 137 mmol/L ()?? 08/19/2023 01:28 Potassium 4.6 mmol/L ()?? 08/19/2023 01:28 Chloride 104 mmol/L ()?? 08/19/2023 01:28 Bicarbonate Level 21 mmol/L (Low)?? 08/19/2023 01:28 Anion Gap 12 ()?? 08/19/2023 01:28 Glucose Level 78 mg/dL ()?? 08/19/2023 01:28 BUN 11 mg/dL ()?? 08/19/2023 01:28 Creatinine-Blood 0.9 mg/dL ()?? 08/19/2023 01:28 Estimated GFR Creatinine 87 ML/MIN/1.73 M2 ()?? 08/19/2023 01:28 Calcium 9.3 mg/dL ()?? 08/19/2023 01:28 Magnesium 1.9 mg/dL ()?? 08/19/2023 01:28 ? Urinalysis?? No qualifying data available. ?? Assessment/Plan 33-year-old female homeless, significant family history of breast cancer presenting with left??breast mass. ??Currently being worked up for breast abscess??VS malignancy??within the??help of??breast surgery??and infectious disease.?Currently showing improvement in her??erythema and??discharge??and will undergo??left axilla lymph or biopsy by surgery today.?? Further plans??as per surgery??but will likely require mammogram??and breast ultrasound??for malignancy workup as outpatient. ? Lt breast mass (N63.0) Significant family history of breast cancer with 2 of her aunts had??breast cancer on left side and3 of her cousins. ??Her grandmother??had colon cancer. ??Patient reporting having??cyst in left breast 2 years ago that she treated by herself.? 4-5 days ago patient started to have??left breast pain,??redness, warmness and??thick purulent??malodor??discharge from nipple. ??Started to have fever and chills for 2 days. Ultrasound left breast?? Indeterminate lobulated hypoechoic lesion within the left subareolar tissues at the 9:00 position. This is not an abscess. A tumor- malignancy could have this appearance CT scan of the chest??inconclusive??to rule out malignancy. Breast surgery on board???appreciate recommendations Wound culture growing Streptococcus CONSTELLATUS. ??ID??consult on the patient and??recommended??trying the patient on oral Augmentin 875-125 mg BID for 10 day abx course. Pain management with oxycodone and morphine as needed.? Patient is status post??left breast??mass biopsy along with??axillary lymph node biopsy ? Recommendations: Continue Augmentin??for total of 10-day course Blood cultures so far negative Follow-up biopsy results Left breast mammogram??as outpatient ?? Surgical oncology will arrange outpatient follow-up??and patient is cleared for discharge ?? Hemoptysis (R04.2) ED team has concern of??TB??given patient homeless and has 1 day of hemoptysis. TB ruled out. ??Precautions removed. Patient's AFP smear is positive, discussed with ID Dr. Cochran??as per him??it is not tuberculosis ?? Active smoker (F17.200): nicotine patch ?? Concerns for endometriosis CT scan is concerning for endometriosis.?? Can be followed up as outpatient ?? Homeless Patient is currently homeless, social and human services assistant working on placement As per social and human services assistant patient will have a place in the snf most likely tomorrow ?? Full code Ambulating no need for chemical??prophylaxis Regular diet ? Discharge planning Plan for discharge tomorrow??once snf available ?? Diagnoses Breast abscess ??(N61.1) Breast mass ??(N63.0) Hemoptysis ??(R04.2) Smoker ??(F17.200) Therapeutic drug monitoring ??(Z51.81) ? * Jessica Zacarias RN: PERFORM, SIGN, VERIFY Event Display: Progress Note Hospital Authored Date: Patient: ANNAMARIE MCINTOSH Age: 33 years Sex: Female : 1990 Associated Diagnoses: None Author: Jessica Zacarias RN Findings Problem Related to Alteration in Integumentary : Alteration in Integumentary/new 08/19/2023 11:00 EST Alteration in Integumentary Related to Other: Breast abscess Goals & Outcomes, Integumentary Nutritional intake is adequate for metabolic needs, Pt will maintain adequate fluid & nutritional balance, Pt will maintain intact skin integrity, Wound will progress towards healing Interventions, Integumentary Cleanse all wounds with Normal Saline BH Goals/Interventions, Integumentary Yes Integumentary, Problem Start 08/18/2023 23:29 Reviewed plan with, Integumentary Patient Patient Progression, Integumentary Pt progressing according to plan . Narrative/Incidental P: Alteration in Integumentary I: See CIS E: Pt AAOx4, pt spoke with forensic social worker about homeless situation. C/O left breast mass with purulent drainage. Covered with a dry sterile dressing, Pt showered this am, takes PRN oxy for pain management, VSS, bed low and locked, saefety maintained. * Catherine RAMIREZ, [place]: PERFORM, MODIFY, MODIFY, MODIFY Event Display: Progress Note Hospital Authored Date: [id number] Patient: ??ANNAMARIE MCINTOSH ? Age:??33 Years?Sex:??Female?:??1990?? Subjective Patient seen and examined at bedside this morning. No acute events overnight. Patient is now s/p bedside breast and axillary lymph node biopsy with clip placement (08/18). Continues to report some pain at site of biopsy but overall is controlled with pain medication. Still having some nausea but hasnot had any additional diarrhea. No fevers overnight. WBC remains normal. Review of Systems Negative except as reviewed above. Physical Exam Vitals & Measurements T:??98.2?F?? HR:??74??(Peripheral)?? RR:??18?? BP:??104/53?? SpO2:??100%?? HT:??168??cm?? WT:??102.1??kg?? BMI:??36.17?? General: Awake, alert, resting comfortably. HEENT:??Normocephalic, atraumatic. Breast/Axilla: LEFT breast with some residual erythema around NAC. Small area of drainage a the 9-o-clock position, serous fluid. Biopsy site over left breast and axilla c/d/i. No hematoma or ecchymosis. Mildly tender. Cardio: Non-labored breathing on room air. Abdomen: Non-distended. Extremities: Full ROM, moving all limbs spontaneously. Psych:??Appropriate mood and affect. Assessment/Plan 33-year-old homeless female??with past medical history of obesity, active tobacco and marijuana??use,??fibromyalgia, deliveries,??PTSD, anxiety??who presented to the ED from her??homeless snf??with her??fianc?? with 4 days of left breast pain.?US of the left breast was performed which demonstrated a lobulated hypoechoic lesion. Radiology specifically noted?? this is not an abscess. A tumor-malignancy could have this appearance. However, physical exam reveals erythema,??induration and purulent drainage consistent with abscess. Additionally, cultures grew strep constellatus suggesting infectious etiology.??Lastly, she appears to be responding to the antibiotic therapy with a downtrend in??her WBC. Aspiration of fluid attempted??on admission??- only a scant amount appreciated, this was sent for cytology and results are pending. A targeted US of the breast and axilla performed?? - please see separate note and images. In the breast, it is unclear if there is an underlying mass or un-drained fluid collection behind the nipple and left axilla, which demonstrated enlarged lymph nodes with lobular morphology and thickened cortices suspicious for metastatic disease to the axilla vs reactive lymphadenopathy. CT chest/abdomen/pelvis was performed which did not show evidenceof metastatic disease. The breast lesion was not well demonstrated on this study but left axillary lymphadenopathy was identified. Patient underwent an US-guided core needle biopsy of the left axillary lymph node??and breast mass on 08/18. She tolerated this well. Remains hemodynamically stable and afebrile today. Will await pathology and cytology results. Sputum culture from 08/15 does appear to be growing acid fast bacilli. ?? Recommendations: - Appreciate ID consultation for antibiotic recommendations - Follow up breast/axillary lymph node pathology: sent 08/18 - Follow-up blood cultures: NGTD 08/18 - Follow-up cytology: sent 08/17 - Left breast mammogram & formal L axillary US to be performed as outpatient (unable to obtain while inpatient) - Rest of care per primary team ? To be discussed with Dr. Molina. Breast Surgery [id number] Intake and Output Intake and Output Results?? This visit (24 hour periods starting at 07:00 EST)? 08/18/23 *?? 08/17/23?? 08/16/23?? Total Summary?Intake mL?? 480?? 50?? --?Output mL?? 350?? --?? --?Fluid Balance ?? 130?? 50?? --?? Intake (2)?Magnesium Sulfate mL?? --?? 50?? --?Oral Fluids mL?? 480?? --?? --?Total?? 480?? 50?? --?? Output (1)?Urine Voided mL?? 350?? --?? --?Total?? 350?? --?? --?? Counts (3)?Oral Fluids mL?? 480?? --?? --?Urine Count ?? 1?? --?? --?Urine Voided mL?? 350?? --?? --? * This column has not completed the indicated time period.?? Labs Last 24 Hours BLOOD COUNT & DIFF ? Event Name?? Event Result?? Date/Time?? WBC 5.7 k/mm3 08/19/23 01:28:00 RBC 4.41 m/mm3 08/19/23 01:28:00 Hgb 11.7 Gm/dL 08/19/23 01:28:00 Hct 35.7 % 08/19/23 01:28:00 MCV 81 femtoliters 08/19/23 01:28:00 MCH 26.5 pg??Low 08/19/23 01:28:00 MCHC 32.8 g/dL??Low 08/19/23 01:28:00 Platelet Count 256 k/mm3 08/19/23 01:28:00 MPV 11.3 femtoliters 08/19/23 01:28:00 Nucleated RBC (Automated) 0 #/100 WBC'S 08/19/23 01:28:00 ? CHEM GENERAL ? Event Name?? Event Result?? Date/Time?? Sodium 137 mmol/L 08/19/23 01:28:00 Chloride 104 mmol/L 08/19/23 01:28:00 Bicarbonate Level 21 mmol/L??Low 08/19/23 01:28:00 Anion Gap 12 08/19/23 01:28:00 Glucose Level 78 mg/dL 08/19/23 01:28:00 BUN 11 mg/dL 08/19/23 01:28:00 Creatinine-Blood 0.9 mg/dL 08/19/23 01:28:00 Magnesium 1.9 mg/dL 08/19/23 01:28:00 ? * Jill Molina DO: PERFORM Event Display: Progress Note Hospital Authored Date: From a breast standpoint, she is doing well. ??The biopsy sites are without hematoma??or ecchymosis.?? Awaiting final pathology. ??She will follow-up with our office in approximately 1 to 2 weeks with pathology results??available. ??At this point she is okay to discharge??from??the breast surgery perspective, and should continue on antibiotics for the abscess as an outpatient.?? Appreciate??infectious disease recommendations and primary team assistance. Consult note * Chencho Cochran MD: PERFORM Event Display: Consultation Note Authored Date: Patient: ??ANNAMARIE MCINTOSH ? Age:??33 Years?Sex:??Female?:??1990?? History of Present Illness CC:??ID consulted by Drs. Gallegos and Tonio for breast infection and hemoptysis ?? HPI: history from patient and chart 33 y/o F with complex PMH/Past psychiatric history who was admitted with worsening left breast pain, drainage.?? this was complicated by n/v and hemoptysis.?? she has a history of residing in homeless shelters. she reports that her weight has been up and down, she has been having sweats for less than 2 weeks since admission??the breast lesion has been opened for drainage and culture shows strep constellatus. she has a normal chest x-ray her sputum for AFB has a negative DNA probe ?? she has been on ceftriaxone, vanco and bactrim since admission Review of Systems as??per HPI Physical Exam Vitals & Measurements Vital Signs?? Temperature: 98.4 DegF (08/17/23 12:17:00) Temperature Route: Oral (08/17/23 12:17:00) Pulse Rate: 66 bpm (08/17/23 12:17:00) Respiratory Rate: 17 br/min (08/17/23 12:17:00) Systolic Blood Pressure: 104 mm Hg (08/17/23 12:17:00) Diastolic Blood Pressure: 71 mm Hg (08/17/23 12:17:00) Blood pressure sites: Arm, right (08/17/23 12:17:00) Mean Arterial Pressure: 82 mm Hg (08/17/23 12:17:00) Pulse Pressure: 33 mm Hg (08/17/23 12:17:00) Oxygen Saturation: 97 % (08/17/23 12:17:00) Mode of Delivery (Oxygen): Room air (08/17/23 12:17:00) Early Warning Score: 0 (08/17/23 12:17:39) ?? GENERAL: appears somewhat uncomfortable and taking large slow breaths, conversant on room air EYES: no scleral icterus RESPIRATORY:?? no audible wheezes SKIN: ??the erythema on the left chest is faint and within the drawn lines.?? NEUROLOGICAL: No facial droop, moving all 4 extremities.? Assessment/Plan Assessment:??33 y/o F with extensive history as above including unstable housing who presents with left breast cyst pain, swelling, redness and now drainage with strep on culture. also hemoptysis in the ED in the setting of vomiting which she describes as also bloody. Her CXR was without acute process. Her sputum AFB MTB PCR was negative ?? Breast abscess (N61.1):? f/u with surgery regarding any need for surgery stop vanco start PO amox-clav 875-125 mg BID for 10 day abx course ?? Hemoptysis (R04.2):? f/u pending AFB studies I removed the airborne isolation as her DNA probe was negative and unlikely to have pulmonary TB ?? Therapeutic drug monitoring (Z51.81):??her renal function has tolerated vanco, we are stopping as no MRSA isolated on culture ? I discussed the plan with the patient _ and all questions were answered to their apparent satisfaction. ?? Dr[facility] Elizalde updated by [facility] ?ID will sign off. ??Please feel free to call with further questions. Problem List/Past Medical History Ongoing BMI 30+ - obesity Breast lump present Fibromyalgia History of delivery x3 HPV - Human papillomavirus Marijuana use depression PTSD (post-traumatic stress disorder) Severe obesity (BMI 35.0-39.9) with comorbidity Tobacco use Uterine scar x3 Procedure/Surgical History ??? delivery only; (05/27/2018)???Nexplanon insertion and removal (02/24/2013)??? delivery x3; (2011) Medications Inpatient Acetaminophen Tablet, 650 mg, By Mouth, Every 4 hours, PRN Docusate Sodium Capsule, 100 mg= 1 capsule, By Mouth, 2 times a day, PRN LORazepam 1 mg oral tablet, 1 mg, By Mouth, Daily Melatonin Tablet, 3 mg, By Mouth, Daily at bedtime, PRN MiraLax Powder, 17 Gm= 1 pack/packet, By Mouth, Daily, PRN MorPHINE Inj, 2 mg, IV Push Slowly, Once, PRN NaCL 0.9% Flush, 3 mL, IV Push, Every 8 hours NaCL 0.9% Flush, 3 mL, IV Push, Every 8 hours, PRN Nicotine Topical, 21 mg, Topically, Daily oxyCODONE 5 mg oral tablet, 10 mg, By Mouth, Every 6 hours, PRN Remove Patch, 1 each, Topically, Daily Robitussin DM Liquid, 10 mL, By Mouth, Every 4 hours, PRN Senna Tablet, 8.6 mg= 1 tablet, By Mouth, 2 times a day, PRN Simethicone Tablet, 80 mg, Chew, 3 times a day, PRN Topamax Tablet, 50 mg, By Mouth, Daily traZODone 50 mg oral tablet, 150 mg, By Mouth, Daily at bedtime Vancomycin IVPB, 1500 mg, 15 mg/kg, IVPB, Every 12 hours Zofran Inj, 4 mg, IV Push, Every 6 hours, PRN ZyPREXA 2.5 mg oral tablet, 2.5 mg, By Mouth, 2 times a day, PRN Home busPIRone 5 mg oral tablet, 5 mg= 1 tablet, By Mouth, 3 times a day Colace sodium 100 mg oral capsule, 100 mg= 1 capsule, By Mouth, 2 times a day, PRN, 1 refills divalproex sodium 250 mg oral tablet, extended release, 500 mg= 2 tablet, By Mouth, Daily gabapentin 300 mg oral capsule, 300 mg= 1 capsule, By Mouth, Daily at bedtime ibuprofen 600 mg oral tablet, 600 mg= 1 tablet, By Mouth, Every 6 hours, 1 refills LORazepam 1 mg oral tablet, 1 mg= 1 tablet, By Mouth, Daily prazosin 5 mg oral capsule, 5 mg= 1 capsule, By Mouth, 3 times a day 1 topiramate 25 mg oral tablet, 25 mg traZODone 150 mg oral tablet, 150 mg= 1 tablet, By Mouth, Daily at bedtime, 2 refills ZyPREXA 2.5 mg oral tablet, 2.5 mg= 1 tablet, By Mouth, 2 times a day, PRN, 1 refills ZyPREXA 5 mg oral tablet, See Instructions, 1 refills Antibiotic History Active Antibiotics Calendar Day Last Administered First Administered Vancomycin??1,500 mg, 166.67 mL/hr, IVPB, Every 12 hours ?3 08/17/2023 09:41 08/15/2023 22:03 ? Stopped Antibiotics Stop Date/Time Last Administered First Administered Sulfamethoxazole/Trimethoprim??1 tablet, By Mouth, 2 times a day 08/16/2023 15:38 08/16/2023 11:01 08/15/2023 12:55 Vancomycin??1 Gm, 200 mL, 200 mL/hr, IVPB, Once 08/15/2023 00:18 08/15/2023 00:16 08/15/2023 00:16 Ceftriaxone??1 Gm, 100 mL/hr, IVPB, Once 08/14/2023 22:32 08/14/2023 22:31 08/14/2023 22:31 Allergies Bee Stings Benadryl??(angioedema) Latex??(Rash) Other Environmental Allergy??(detergents and soaps with dyes in them) RisperDAL Social History Alcohol Started at age: 10 Years. Stopped at age: 18 Years. Previous treatment: None. Exercise Regular exercise: Yes. Home/Environment DCF involvement: [facility] for therapy. Nutrition/Health Diet: Regular. Sexual Sexually involved in last 6 months: Yes. Substance Abuse Use: Current. Type: Marijuana. Tobacco Current every day smoker Family History Alcoholism: Mother and Father. Cancer of breast: Sister, Mat. Grandfather, Mat. Grandmother, Other and Pat. Grandmother. Cancer of liver 17-MAY-2016 04:31:46<$>: Sister. Congestive heart failure: Negative: Mother. Depression: Mother. Diabetes mellitus type II: Mother. Hypertension: Mother. Mental illness: Mother. Migraine: Mother. Immunizations Vaccine Date Status influenza virus vaccine, inactivated 08/16/2023 Given tetanus/diphtheria/pertussis, acel(Tdap) 03/31/2018 Given influenza virus vaccine, inactivated 10/28/2017 Given Measles/Mumps/Rubella Virus Vaccine 02/26/2013 Given tetanus/diphtheria/pertussis, acel(Tdap) 02/26/2013 Given Comments : vis given influenza virus vaccine, inactivated 09/22/2012 Given tetanus/diphtheria/pertussis, acel(Tdap) 02/28/2012 Given Human Papillomavirus Vaccine 06/11/2011 Given Comments : #1 in series. VIS given dated 10/30/2009 influenza virus vaccine, inactivated 06/02/2011 Given Comments : VIS given 02/25/11 influ virus vac, H1N1, inactive(oldterm) 06/05/2009 Given Lab Results *Tagged Labs ? Culture/Event_id: ?AFB Culture w/AFB Smear, Respiratory/[id number]?? Collect date: ?08/15/23 20:46 ? Result Status: ?Preliminary Result Date: ?08/17/23 11:58 ? SPECIMEN DESCRIPTION : EXPECTORATED SPUTUM SPUTUM ?? SPECIAL REQUESTS : NONE ?? DIRECT EXAM : NO ACID FAST BACILLI SEEN ON DIRECT SMEAR, TEST PERFORMED AT [facility] ?? CULTURE : SPECIMEN SENT TO [facility], [place], [place] ?REPORT STATUS : ?? PRELIMINARY REPORT ? Culture/Event_id: ?Deep Wound Culture/[id number]?? Collect date: ?08/15/23 20:46 ? Result Status: ?Preliminary Result Date: ?08/17/23 09:32 ? SPECIMEN DESCRIPTION : E SWAB ??ASPIRATE BREAST LEFT ?? SPECIAL REQUESTS : NONE ?? GRAM STAIN : 4+ POLYMORPHONUCLEAR LEUKOCYTES ?4+ GRAM NEGATIVE RODS ?3+ GRAM POSITIVE COCCI ?? CULTURE : 4+ STREPTOCOCCUS CONSTELLATUS ??This isolate was identified using ? Maldi-TOF system SUSCEPTIBILITY TESTING NOT ROUTINELY PERFORMED ON THIS ? ISOLATE. ?REPORT STATUS : ?? PRELIMINARY REPORT ?? Test Name Test Result Date/Time WBC 7.0 k/mm3 08/17/2023 05:34 EST Hgb 10.5 Gm/dL 08/17/2023 05:34 EST Platelet Count 192 k/mm3 08/17/2023 05:34 EST BUN 8 mg/dL 08/17/2023 05:34 EST Creatinine-Blood 0.9 mg/dL 08/17/2023 05:34 EST MTB Complex DNA MTBC Not Detected. 08/16/2023 22:46 EST Diagnostic Results (08/14/2023 22:56 EST Chest 2 Views Frontal and Lat) ? Reason For Exam Shortness of Breath ?? RESULT: Chest 2 Views Frontal and Lat Chest 2 Views Frontal and Lat? Hx of Present Illness: Left breast pain with malodorous discharge from nipple x 3 days. Has intermittent N V D x 3 days. Was seen by [facility] provider at [facility] and sent to ED for further eval tx. Has familial history of breast cancer.; Reason: Shortness of Breath; Clinical Question(s): CHF ?? COMPARISON: None. ?? FINDINGS: ?? LINES AND TUBES:?? None. ?? LUNGS AND PLEURA: Clear lungs. Normal pulmonary vascularity.?? No pleural effusion.?? No pneumothorax. ?? HEART, MEDIASTINUM AND ZENOBIA:?? Heart is normal in size. Normal mediastinal and hilar contour. ?? BONES AND SOFT TISSUES:?? No acute abnormality. ?? IMPRESSION: ?? No acute abnormality. ? [1] (08/14/2023 22:56 EST Chest 2 Views Frontal and Lat) ? Reason For Exam Shortness of Breath ?? RESULT: Chest 2 Views Frontal and Lat Chest 2 Views Frontal and Lat? Hx of Present Illness: Left breast pain with malodorous discharge from nipple x 3 days. Has intermittent N V D x 3 days. Was seen by [facility] provider at [facility] and sent to ED for further eval tx. Has familial history of breast cancer.; Reason: Shortness of Breath; Clinical Question(s): CHF ?? COMPARISON: None. ?? FINDINGS: ?? LINES AND TUBES:?? None. ?? LUNGS AND PLEURA: Clear lungs. Normal pulmonary vascularity.?? No pleural effusion.?? No pneumothorax. ?? HEART, MEDIASTINUM AND ZENOBIA:?? Heart is normal in size. Normal mediastinal and hilar contour. ?? BONES AND SOFT TISSUES:?? No acute abnormality. ?? IMPRESSION: ?? No acute abnormality. ? [2] [1]??Chest 2 Views Frontal and Lat; Luis Nye MD 08/14/2023 22:56 EST [2]??Chest 2 Views Frontal and Lat; Luis Nye MD 08/14/2023 22:56 EST * Osiel Madrigal MD: PERFORM, MODIFY Event Display: Consultation Note Authored Date: [id number] Patient: ??DAYNA, ANNAMARIE ? Age:??33 Years?Sex:??Female?:??1990?? Chief Complaint ?Consulting Provider: Rodrick Gallegos MD ?Consulted Surgeon: Theodora Ariza MD ?Reason for Consultation:??left breast lesion History of Present Illness Annamarie is a 33-year-old homeless female??with past medical history of obesity, active tobacco and marijuana??use,??fibromyalgia, deliveries,??PTSD, anxiety??who presented to the ED from her??homeless snf??with her??fianc?? with 4 days of left breast pain. ??This was associated with foul-smelling nipple discharge. ??This was??additionally associated with a plethora of symptoms including headaches, migraines, fevers, chills,??hematemesis, hemoptysis, nausea, vomiting,??seeing double. Workup has included labs demonstrating a leukocytosis of 14,400, the remainder labs were within normal limits.?? She had an ultrasound of the left breast which showed a 2.0 x 1.7 cm lesion at the 9 o 'clock position adjacent to the nipple of the left breast that is echogenic and solid and shows color Doppler uptake.?? The ultrasound report declares This is not an abscess.?? A tumor???malignancy could have this appearance. ?? For these findings, breast surgery consultation was requested. ?? On evaluation, she claims that she has had a cyst in a similar location in the past that she haddrained spontaneously, roughly 1 year ago.?? She has never had any other infections of the breast.?? She has never had difficulty with breast-feeding after her previous pregnancies. Review of Systems Negative except as noted above Physical Exam Vitals & Measurements T:??98.3?F?? HR:??81??(Peripheral)?? RR:??21?? BP:??104/55?? SpO2:??98%?? General:??Alert, in mild distress.?? Diaphoretic Mental Status:??Oriented to person, place and time. Normal. ??Affect. Head:??Normocephalic. Eyes:??Extraocular muscles intact. Ear, Nose and Throat:??Oropharynx clear, mucous membranes moist. Ears and nose without masses, lesions or deformities. Neck:??Supple, Full range of motion. Respiratory:??Nonlabored breathing in room air Breasts:??The right breast is nontender with no signs of erythema, no lesions or masses appreciated. ??The left breast??has??erythema??and a mass located at the 9 o'clock position next to the left nipple. ??It is fluctuant on examination with some purulent material draining from the central aspect of the??lesion.?? It is very tender to palpation as is the remainder of the breast. ??There is no nipple discharge able to be expressed.?? No other lesions or??tumors are appreciated??throughout the remainder of the breast.?? There is nipple retraction??present.?? There are no lesions??or masses present within the left axilla. Cardiovascular:??Regular rate and rhythm Gastrointestinal:??Abdomen soft, non-tender, non-distended.?? Neurologic:??No focal neurological deficits. Moves all extremities spontaneously. Sensation intact bilaterally Assessment/Plan Annamarie is a 33-year-old homeless female??with past medical history of obesity, active tobacco and marijuana??use,??fibromyalgia, deliveries,??PTSD, anxiety??who presented to the ED from her??homeless snf??with her??fianc?? with 4 days of left breast pain. ??While her ultrasound shows??solid components to a??left breast lesion,??physical exam does reveal induration and fluctuance. ??She therefore likely has an infected cyst??based on her history of a cyst in a similar location, butgiven her family history, nipple retraction, and atypical presentation,??breast cancer is not completely excluded.?? We performed an aspiration at bedside with??roughly 3mL of??foul-smelling??green/brown??purulent material??which was sent for both culture and cytology??to??assess for??cancer or infectious etiologies. ?? Recommendations: IV antibiotics for likely infected cyst Follow-up blood cultures Follow-up cytology Ultrasound of the??left axilla Left mammography May need incision and drainage??pending??cytology, cultures, and response to antibiotics ?? Green surgery/breast surgery will continue to follow ?? Discussed with ??To [id number] with questions or concerns Problem List/Past Medical History Ongoing BMI 30+ - obesity Breast lump present Fibromyalgia History of delivery x3 HPV - Human papillomavirus Marijuana use depression PTSD (post-traumatic stress disorder) Severe obesity (BMI 35.0-39.9) with comorbidity Tobacco use Uterine scar x3 Procedure/Surgical History delivery only;: 05/27/18 Nexplanon insertion and removal: 02/24/13 delivery x3;: 2011 Home Medications BusPIRone: 5 mg = 1 tablet, By Mouth, 3 times a day Divalproex Sodium: 500 mg = 2 tablet, By Mouth, Daily Docusate: 100 mg = 1 capsule, By Mouth, 2 times a day, PRN (for constipation) Gabapentin: 300 mg = 1 capsule, By Mouth, Daily at bedtime Ibuprofen: 600 mg = 1 tablet, By Mouth, Every 6 hours Lorazepam: 1 mg = 1 tablet, By Mouth, Daily Multivitamin, Olanzapine: See Instructions, take 1/2 tab at hs po for one night then take 1 tab qhs. Olanzapine: 2.5 mg = 1 tablet, By Mouth, 2 times a day, PRN (Agitation) Prazosin: 5 mg = 1 capsule, By Mouth, 3 times a day Topiramate: 25 mg, TAKE 1 TABLET (25 mg) ONCE DAILY FOR THE FIRST WEEK, THEN TAKE 1 TABLET TWICE A DAY Trazodone: 150 mg = 1 tablet, By Mouth, Daily at bedtime, please cancel rx for perphenazine Allergies Bee Stings Benadryl??(angioedema) Latex??(Rash) Other Environmental Allergy??(detergents and soaps with dyes in them) RisperDAL Social History Alcohol Started at age: 10 Years. Stopped at age: 18 Years. Previous treatment: None. Exercise Regular exercise: Yes. Home/Environment DCF involvement: [facility] for therapy. Nutrition/Health Diet: Regular. Sexual Sexually involved in last 6 months: Yes. Substance Abuse Use: Current. Type: Marijuana. Tobacco Current every day smoker Family History Mother: Alcoholism; Depression; Diabetes mellitus type II; Hypertension; Mental illness; Migraine Father: Alcoholism Mat. Grandmother: Cancer of breast Sister (onset age 26): Cancer of breast Pat. Grandmother: Cancer of breast Other (paternal aunt): Cancer of breast Mat. Grandfather: Cancer of breast Sister: Cancer of liver ? 17-MAY-2016 04:31:46<$> Multiple aunts and cousins on her maternal side with??breast cancer Sister with ovarian cancer, liver cancer, but no breast cancer specifically Maternal??grandmother and paternal grandmother with breast cancer Lab Results Labs Last 24 Hours BLOOD COUNT & DIFF ? Event Name?? Event Result?? Date/Time?? WBC 14.4 k/mm3??High 08/14/23 17:36:00 RBC 4.57 m/mm3 08/14/23 17:36:00 Hgb 12.4 Gm/dL 08/14/23 17:36:00 Hct 37.1 % 08/14/23 17:36:00 MCV 81.2 femtoliters 08/14/23 17:36:00 MCH 27.1 pg 08/14/23 17:36:00 MCHC 33.4 g/dL 08/14/23 17:36:00 Platelet Count 236 k/mm3 08/14/23 17:36:00 MPV 11.1 femtoliters 08/14/23 17:36:00 Nucleated RBC (Automated) 0 #/100 WBC'S 08/14/23 17:36:00 ? CHEM GENERAL ? Event Name?? Event Result?? Date/Time?? Sodium 138 mmol/L 08/14/23 17:36:00 Chloride 104 mmol/L 08/14/23 17:36:00 Bicarbonate Level 21 mmol/L??Low 08/14/23 17:36:00 Anion Gap 13 08/14/23 17:36:00 Glucose Level 79 mg/dL 08/14/23 17:36:00 BUN 9 mg/dL 08/14/23 17:36:00 Creatinine-Blood 0.8 mg/dL 08/14/23 17:36:00 ? Note * Jessica Zacarias RN: PERFORM Event Display: Discharge/Transfer Note Hospital Authored Date: [id number] Nursing Discharge Note Entered On: 08/20/2023 14:23 EST Performed On: 08/20/2023 14:22 EST by Jessica Zacarias RN Nursing Discharge Note 2 Discharge Time : 08/20/2023 11:45 EST Discharge Level of Care at Discharge : Home/Skilled Nursing/Foster Care Patient Left Unit Via : Wheelchair Patient Accompanied Off Unit with : Responsible adult DC Instructions Provided & Signed by Pt : Yes Patient Understands D/C Instructions : Yes Patient Instructions Discharge Signed : Yes Did Pt have Specialty Bed or Wound Vac : No Jessica Zacarias RN - 08/20/2023 14:22 EST * Regis Gill MD: PERFORM, MODIFY Event Display: Discharge/Transfer Note Hospital Authored Date: [id number] Patient: ??ANNAMARIE MCINTOSH ? Age:??33 Years?Sex:??Female?:??1990?? Patient Information Discharge Location: S64 Primary Care Physician: Humberto Howell Admit Date/Time: 08/14/23 23:46 Discharge Disposition Discharge Disposition Usp Discharge Diagnosis Breast abscess (N61.1) Breast mass (N63.0) Hemoptysis (R04.2) Smoker (F17.200) Therapeutic drug monitoring (Z51.81) ?? _ Discharge Medications Amoxicillin-Clavulanate (amoxicillin-clavulanate 875 mg-125 mg oral tablet)?1?tab(s)?By Mouth?2 times a day?for 7?Days BusPIRone (busPIRone 5 mg oral tablet)?5?Milligram?1?tablet?By Mouth?3 times a day Divalproex Sodium (divalproex sodium 250 mg oral tablet, extended release)?2?tab(s)?500?Milligram?By Mouth?Daily Docusate (Colace sodium 100 mg oral capsule)?100?Milligram?1?capsule?By Mouth?2 times a day?as needed?for constipation Gabapentin (gabapentin 300 mg oral capsule)?300?Milligram?1?capsule?By Mouth?Daily at bedtime Ibuprofen (ibuprofen 600 mg oral tablet)?600?Milligram?1?tablet?By Mouth?Every 6 hours?as needed?for 10?Days?Pain , Moderate Lorazepam (LORazepam 1 mg oral tablet)?1?tab(s)?1?Milligram?By Mouth?Daily Nicotine (Nicoderm C-Q Clear 21 mg/24 hr transdermal film, extended release)?1?patch(es)?Topically?Daily Olanzapine (ZyPREXA 5 mg oral tablet)?See Instructions?take 1/2 tab at hs po for one night then take 1 tab qhs. Olanzapine (ZyPREXA 2.5 mg oral tablet)?2.5?Milligram?1?tablet?By Mouth?2 times aday?as needed?Agitation Oxycodone (oxyCODONE 5 mg oral tablet)?5?Milligram?1?tablet?By Mouth?Every 6 hours?as needed?for 5?Days?Pain , Severe Prazosin (prazosin 5 mg oral capsule)?5?Milligram?1?capsule?By Mouth?3 times a day Topiramate (topiramate 25 mg oral tablet)?25?Milligram?TAKE 1 TABLET (25 mg) ONCE DAILY FOR THE FIRST WEEK, THEN TAKE 1 TABLET TWICE A DAY Trazodone (traZODone 150 mg oral tablet)?1?tab(s)?150?Milligram?By Mouth?Daily at bedtime?please cancel rx for perphenazine ? Quality Measures Tobacco Use Treatment:?Cessation Medication Prescribed on Discharge:??Tobacco Cessation Medication Prescribed ? Medications Started Augmentin, oxycodone Medications Discontinued None Doses Changed None Allergies Allergies ?(Active and Proposed Allergies Only) Latex? (Severity: Unknown severity, Onset: Unknown) ?Reactions: Rash RisperDAL? (Severity: Unknown severity, Onset: Unknown) Other Environmental Allergy? (Severity: Unknown severity, Onset: Unknown) ?Reactions: detergents and soaps with dyes in them Bee Stings? (Severity: Unknown severity, Onset: Unknown) Benadryl? (Severity: Unknown severity, Onset: Unknown) ?Reactions: angioedema ? PCP Follow-Up/Heads-Up Needs CBC BMP in 7 days. ??Needs to follow-up on??breast biopsy results Hospital Course ??33-year-old female homeless, significant family history of breast cancer presenting with left??breast mass. ??Currently being worked up for breast abscess??VS malignancy??within the??help of??breast surgery??and infectious disease.?Currently showing improvement in her??erythema and??discharge??and will undergo??left axilla lymph or biopsy by surgery today.?? Further plans??as per surgery??but will likely require mammogram??and breast ultrasound??for malignancy workup as outpatient. ? Lt breast mass (N63.0) Significant family history of breast cancer with 2 of her aunts had??breast cancer on left side and3 of her cousins. ??Her grandmother??had colon cancer. ??Patient reporting having??cyst in left breast 2 years ago that she treated by herself.? 4-5 days ago patient started to have??left breast pain,??redness, warmness and??thick purulent??malodor??discharge from nipple. ??Started to have fever and chills for 2 days. Ultrasound left breast?? Indeterminate lobulated hypoechoic lesion within the left subareolar tissues at the 9:00 position. This is not an abscess. A tumor- malignancy could have this appearance CT scan of the chest??inconclusive??to rule out malignancy. Breast surgery on board???appreciate recommendations Wound culture growing Streptococcus CONSTELLATUS. ??ID??consult on the patient and??recommended??trying the patient on oral Augmentin 875-125 mg BID for 10 day abx course. Currently on oxycodone in the hospital Patient is status post??left breast??mass biopsy along with??axillary lymph node biopsy Biopsy results still pending ?? Recommendations: Continue Augmentin??for total of 10-day course Blood cultures so far negative Follow-up biopsy results Left breast mammogram??as outpatient Surgical oncology will arrange outpatient follow-up ? Hemoptysis (R04.2) ED team has concern of??TB??given patient homeless and has 1 day of hemoptysis. TB ruled out. ??Precautions removed. Patient's AFP smear is positive, discussed with ID Dr. Cochran??as per him??it is not tuberculosis ?? Active smoker (F17.200):??Continue nicotine patch ?? Concerns for endometriosis CT scan is concerning for endometriosis.?? Can be followed up as outpatient ?? Homeless Patient is currently homeless, currently has snf arranged ?? Full code Ambulating no need for chemical??prophylaxis Regular diet ? Discharge to snf today Objective Assessment and Plan ? Measurements?? Height: 168 cm (08/20/23) Weight: 102.1 kg (08/15/23) Dry Weight: 104.3 kg (08/15/23) Body Mass Index:??36.17 kg/m2??Critical (08/15/23) ? Vital Signs?? Temperature: 98.1 DegF (08/20/23 05:27:00) Temperature Route: Oral (08/20/23 05:27:00) Pulse Rate: 71 bpm (08/20/23 05:27:00) Respiratory Rate: 18 br/min (08/20/23 07:42:00) Systolic Blood Pressure: 111 mm Hg (08/20/23 05:27:00) Diastolic Blood Pressure: 64 mm Hg (08/20/23 05:27:00) Blood pressure sites: Arm, left (08/20/23 05:27:00) Mean Arterial Pressure: 80 mm Hg (08/20/23 05:27:00) Pulse Pressure: 47 mm Hg (08/20/23 05:27:00) Oxygen Saturation: 100 % (08/20/23 05:27:00) Mode of Delivery (Oxygen): Room air (08/20/23 05:27:00) Early Warning Score: 0 (08/20/23 07:50:30) ? Intake/Output? 08/14 23:46 08/20 07:00 08/19 07:00 08/18 07:00 08/17 07:00 ?? 08/20 10:29 08/20 10:29 08/20 06:59 08/19 06:59 08/18 06:59 Intake ?970 ?0 ?0 ?480 ? 50 Output ?350 ?0 ?0 ?350 ?0 Net Total ?620 ?0 ?0 ?130 ? 50 ? Urine Count ?3 ?0 ?0 ?1 ?0 ? . Physical Exam General?NAD, AAO HEENT?PERRLA, oropharynx clear, moist mucus membranes Pulm?CTA bilaterally, no wheezes/rhonchi/rales CV?RRR, +S1/S2, no murmurs/rubs GI?Soft, nontender, nondistended, no organomegaly, bowel sounds are present Neuro?Moves all extremities MS?no obvious deformity Psych?Mood appropriate to situation?? Left breast skin induration, erythema improving Consultants Surgical oncology Infectious disease Pending Results AFB Culture w/ AFB Smear, Respiratory ordered on 08/15/2023 Add On Lab Order ordered on 08/15/2023 Add On Lab Order ordered on 08/16/2023 MM Diagnostic Mammo SD Left ordered on 08/16/2023 Pathology Tissue Request ordered on 08/18/2023 Sterile Body Fluid Culture W/ Gram Smear ordered on 08/15/2023 Follow-Up Appointments Added Follow Up ?Time Frame ?Comments Cristhian COSTELLO, Humberto Lyles Patient Instructions Continue antibiotics as prescribed Please follow with your PCP in 7 days to check CBC, BMP??and also for follow-up on??breast biopsy results Please follow-up with??surgical oncology??in??2 to 3 weeks, phone #[phone] or [phone]??for breast biopsy results You will need to follow-up with??breast mammogram,??left breast ultrasound as outpatient Wound care instructions??to breast biopsy site You can keep ice to the biopsy sites, take Tylenol and ibuprofen for pain.?? Keep studies in place.??Okay to shower. ??Continue dressing as needed Home Health Face to Face ^[facility] Results Discharge Labs BACTERIOLOGY MTB Complex DNA MTBC Not Detected. ()?? 08/16/2023 22:46 ? BLOOD COUNT & DIFF WBC 5.7 k/mm3 ()?? 08/19/2023 01:28 RBC 4.41 m/mm3 ()?? 08/19/2023 01:28 Hgb 11.7 Gm/dL ()?? 08/19/2023 01:28 Hct 35.7 % ()?? 08/19/2023 01:28 MCV 81.0 femtoliters ()?? 08/19/2023 01:28 MCH 26.5 pg (Low)?? 08/19/2023 01:28 MCHC 32.8 g/dL (Low)?? 08/19/2023 01:28 Platelet Count 256 k/mm3 ()?? 08/19/2023 01:28 RDW-SD 42.8 femtoliters ()?? 08/19/2023 01:28 MPV 11.3 femtoliters ()?? 08/19/2023 01:28 Nucleated RBC (Automated) 0.0 #/100 WBC'S ()?? 08/19/2023 01:28 Abs. NRBC 0.0 k/mm3 ()?? 08/19/2023 01:28 Abs. Neut 2.2 k/mm3 ()?? 08/19/2023 01:28 Abs. Lymph 2.7 k/mm3 ()?? 08/19/2023 01:28 Abs. [place] 0.6 k/mm3 ()?? 08/19/2023 01:28 Abs. Eo 0.2 k/mm3 ()?? 08/19/2023 01:28 Abs. Baso 0.0 k/mm3 ()?? 08/19/2023 01:28 Neut % 39.3 % (Low)?? 08/19/2023 01:28 Lymph % 47.2 % (High)?? 08/19/2023 01:28 [place] % 9.6 % ()?? 08/19/2023 01:28 Eos % 3.2 % ()?? 08/19/2023 01:28 Baso % 0.5 % ()?? 08/19/2023 01:28 Imm Gran 0.2 % ()?? 08/19/2023 01:28 Abs. Imm Gran 0.0 k/mm3 ()?? 08/19/2023 01:28 ?? CHEM GENERAL Sodium 137 mmol/L ()?? 08/19/2023 01:28 Potassium 4.6 mmol/L ()?? 08/19/2023 01:28 Chloride 104 mmol/L ()?? 08/19/2023 01:28 Bicarbonate Level 21 mmol/L (Low)?? 08/19/2023 01:28 Anion Gap 12 ()?? 08/19/2023 01:28 Glucose Level 78 mg/dL ()?? 08/19/2023 01:28 BUN 11 mg/dL ()?? 08/19/2023 01:28 Creatinine-Blood 0.9 mg/dL ()?? 08/19/2023 01:28 Estimated GFR Creatinine 87 ML/MIN/1.73 M2 ()?? 08/19/2023 01:28 Calcium 9.3 mg/dL ()?? 08/19/2023 01:28 Magnesium 1.9 mg/dL ()?? 08/19/2023 01:28 Lactate 0.7 mmol/L ()?? 08/14/2023 17:36 ?? COAG D-Dimer 0.37 mg/L FEU ()?? 08/14/2023 23:08 ? ENDOCRINE/TUMOR MARKER Blood <1 mIU/mL ()?? 08/14/2023 23:08 ? MISC. CHEMISTRY Hold Gel Top SPECIMEN DISCARDED AFTER 1 WEEK ()?? 08/14/2023 23:08 Hold Kumari Top SPECIMEN DISCARDED AFTER 1 WEEK ()?? 08/14/2023 21:01 ?? URINE OTHER Est Creatinine Clearance 83.69 mL/min ()?? 08/17/2023 06:55 ? VIROLOGY Influenza A PCR NEGATIVE ()?? 08/14/2023 23:41 Influenza B PCR NEGATIVE ()?? 08/14/2023 23:41 RSV PCR NEGATIVE ()?? 08/14/2023 23:41 COVID-19 PCR Specimen Source NASAL ()?? 08/14/2023 23:41 COVID-19 PCR Result NEGATIVE ()?? 08/14/2023 23:41 ? Microbiology ?? Blood Culture?? Completed?? Source: Blood Body Site: ?? Collected Dt/Tm: 08/14/2023 21:01 Last Updated Dt/Tm: 08/14/2023 17:46 ?SPECIMEN DESCRIPTION : BLOOD RACSPECIAL REQUESTS : NONECULTURE : NO GROWTH 5 DAYS.REPORT STATUS: FINAL 08/19/2023 Blood Culture #2?? Completed?? Source: Blood Body Site: ?? Collected Dt/Tm: 08/14/2023 21:07 Last Updated Dt/Tm: 08/14/2023 17:46 ?SPECIMEN DESCRIPTION : BLOOD LACSPECIAL REQUESTS : NONECULTURE : NO GROWTH 5 DAYS.REPORT STATUS: FINAL 08/19/2023 COVID-19, RSV, and Flu A/B, Rapid PCR?? Completed?? Source: Nasal Body Site: Nose Collected Dt/Tm: 08/14/2023 22:44 Last Updated Dt/Tm: 08/15/2023 00:47 Anaerobic Culture?? Completed?? Source: Aspirate Body Site: Breast Left Collected Dt/Tm: 08/15/2023 20:46 Last Updated Dt/Tm: 08/15/2023 22:35 ?SPECIMEN DESCRIPTION : ASPIRATE BREAST LT E SWABSPECIAL REQUESTS : NONECULTURE : CORYNEBACTERIUM SPECIES ??SUSCEPTIBILITY TESTING NOT ROUTINELY PERFORMED ? ON THIS ISOLATE. ISOLATED FROM BROTH ONLY ?NO ANAEROBES ISOLATEDREPORT STATUS : FINAL 08/18/2023 MTB DNA with Rifampin Resistance, Sputum?? Completed?? Source: Sputum Expectorated Body Site: ?? Collected Dt/Tm: 08/16/2023 22:46 Last Updated Dt/Tm: 08/17/2023 12:13 ? _45 minutes spent on discharge * Josh RN, Rory: PERFORM Event Display: Patient Education/Instruction Authored Date: [id number] Inpatient Adult Discharge Instructions [address] [address] Name: ANNAMARIE MCINTOSH : 1990 Visit: 08/14/2023 23:46:00 Current Date: 08/20/2023 11:11 Account: [id number] Inpatient Adult Discharge Instructions We would like to thank [...] and their families. Surveys are administered by [employer] ?? If further treatment with your primary care physician or another doctor is recommended, it is important for you to keep the appointment. Call your primary care physician or return to the Emergency Department immediately if your condition worsens, fails to improve, or new symptoms develop. If you need to find a doctor, you can call [facility] Link for a referral at [phone] or toll free at [phone] or log in to [email or web address].. ?? [facility], in keeping with [facility] guidance, no longer requires face masks [...] a health care marilia of your choosing. [email or web address] is a website that allows you to securely view your medical information including your hospital discharge summary, office visit summaries, medications and follow-up visits. You can also request appointments, renew medications, and request access to your medical information using a health care marilia of your choosing, or just ask a question. You can enroll at [email or web address] or register during your next office visit. You have been discharged from [facility], Patient Care Unit: S64. If you have any questions regarding these instructions after you leave, please call us and we will be happy to assist you. [facility] Your Care Team Attending Physician Regis Gill MD Consulting Providers Galilea Alexander MD; Dimas RAMIREZ, Chencho Cates; Jill Molina DO Discharging Providers Regis Gill MD Reason for Admission from snf, seen by [facility], 3 days of swelling, pain and redness to L breast, hx of cyst, + drainage, foul smelling, pt offers no other complaints Your Diagnosis Breast abscess Breast mass Smoker Hemoptysis Therapeutic drug monitoring Tests Performed Below is a partial list of the tests performed during your hospitalization. You may have had other tests and procedures not included in this list. Please discuss all test results with your provider. [id number] Basic Metabolic Panel CBC w/ Differential COVID-19, RSV, and Flu A/B, Rapid PCR D Dimer HOLD GEL TUBE HOLD KUMARI TUBE Lactate Level Magnesium Level MTB DNA with Rifampin Resistance, Sputum BLOOD QUANTITATIVE CT Abd/Pelvis W/ IV Contrast Only CT Chest W/ IV Contrast Diagnostic Mammo SD MM Left?-- Results Pending -- US Breast Left Limited XR Chest 2 Views Frontal and Lat You will be contacted within 72 hours with your results. Primary Care Provider Humberto Howell Advance Directive Health Care Proxy on File Yes - Health Care Proxy Discharge Vitals Temperature: 98.1 DegF Height: 168 cm Pulse Rate: 71 bpm Weight: 102.1 kg Respiratory Rate: 18 br/min Body Mass Index:??36.17 kg/m2??Critical Systolic Blood Pressure: 111 mm Hg Body surface area: 2.18 Diastolic Blood Pressure: 64 mm Hg ?? Oxygen Saturation: 100 % ?? Studies Pending All tests and labs ordered during this hospital stay have been completed unless listed below. Please discuss all pending results with your provider listed above in these instructions. ?? AFB Culture w/ AFB Smear, Respiratory Add On Lab Order MM Diagnostic Mammo SD Left (Diagnostic Mammo SD MM Left) Pathology Tissue Request () Sterile Body Fluid Culture W/ Gram Smear What to do next Instructions From Your Doctor Continue antibiotics as prescribed Please follow with your PCP in 7 days to check CBC, BMP??and also for follow-up on??breast biopsy results Please follow-up with??surgical oncology??in??2 to 3 weeks, phone #[phone] or [phone]??for breast biopsy results You will need to follow-up with??breast mammogram,??left breast ultrasound as outpatient Wound care instructions??to breast biopsy site You can keep ice to the biopsy sites, take Tylenol and ibuprofen for pain.?? Keep studies in place.??Okay to shower. ??Continue dressing as needed Discharge Orders Diet:??Regular Diet You Need to Schedule the Following Appointments Follow Up with??Cristhian COSTELLO, Humberto Lyles Where: [address] [place] [address]- Discharge Medications MCINTOSHANNAMARIE ALLRED :1990 Visit Date:08/14/2023 Medications: Please continue your medications until treatment is completed or stopped by your provider. Medications not listed below should be discontinued. Discuss any questions related to medications with your provider. What How Much When Instructions Next Dose New Amoxicillin-Clavulanate (amoxicillin-clavulanate 875 mg-125 mg oral tablet) 1 tab(s) Oral Twice a day Duration: 7 Days Pickup at [place] [address] One more dose tonight ?? Given this morning 08/20 at 0745am New Nicotine (Nicoderm C-Q Clear 21 mg/ 24 hr transdermal film, extended release) 1 patch(es) Topically Daily Pickup at [place] [address] Tomorrow 08/21 ?? Given this morning 08/20 at 0745am New Oxycodone (oxyCODONE 5 mg oral tablet) 1 tab(s) Oral Every 6 hours as needed for Pain , Severe Duration: 5 Days Pickup at [place] [address] As needed - next dose available at 1:45pm ?? Last dose given today 08/20 at 7:45am Changed Ibuprofen (ibuprofen 600 mg oral tablet) 1 tab(s) Oral Every 6 hours as needed for Pain , Moderate Duration: 10 Days Pickup at [facility] [place] [facility] As needed ?? Not given today 08/20 Unchanged BusPIRone (busPIRone 5 mg oral tablet) 1 tab(s) Oral 3 times a day Today 08/20, resume regular schedule ?? Not given in hospital Unchanged Divalproex Sodium (divalproex sodium 250 mg oral tablet, extended release) 2 tab(s) Oral Daily Today 08/20, resume regular schedule ?? Not given in hospital Unchanged Docusate (Colace sodium 100 mg oral capsule) 1 capsule Oral Twice a day as needed for for constipation As needed ?? Not given today 08/20 Unchanged Gabapentin (gabapentin 300 mg oral capsule) 1 capsule Oral Daily at Bedtime Tonight 08/20 ?? Not given in hospital Unchanged Lorazepam (LORazepam 1 mg oral tablet) 1 tab(s) Oral Daily Tomorrow 08/21 ?? Given this morning 08/20 at 7:45am Unchanged Multivitamin, ( 1) Resume regular schedule Unchanged Olanzapine (ZyPREXA 2.5 mg oral tablet) 1 tab(s) Oral Twice a day as needed for Agitation As needed ?? Not given today 08/20 Unchanged Olanzapine (ZyPREXA 5 mg oral tablet) See instructions take 1/ 2 tab at hs po for one night then take 1 tab qhs. ?? Resume regular schedule ?? Not given today 08/20 Unchanged Prazosin (prazosin 5 mg oral capsule) 1 capsule Oral 3 times a day Today 08/20, resume regular schedule ?? Not given in hospital Unchanged Topiramate (topiramate 25 mg oral tablet) 25 Milligram TAKE 1 TABLET (25 mg) ONCE DAILY FOR THE FIRST WEEK, THEN TAKE 1 TABLET TWICE A DAY ?? Tomorrow 08/21 ?? Given this morning 08/20 at 7:45am Unchanged Trazodone (traZODone 150 mg oral tablet) 1 tab(s) Oral Daily at Bedtime please cancel rx for perphenazine ?? Tonight 08/20 ?? Pharmacy Information [facility] [place] [facility]: [address] [place], [place] [id number] [phone] Test Results Below is a partial list of the most recent Laboratory test results done prior to this discharge. You may have had other tests and procedures not included in this list. Please discuss all test resultswith your provider. Est Creatinine Clearance - 83.69 mL/min (08/17/2023) [id number] (08/17/2023) ? ?Cytology Reports General -

Patient Name: YUMIKO MCINTOSH Lab gt;Patient : 1990 (Age: 33) Collection Date: 08/17/2023
Accession Date: 08/18/2023
Sign Out Date: 08/19/2023

Tissue Source:
1:BREAST, LEFT ABSCESS, NEEDLE ASPIRATION:<br/&g t;

Final Diagnosis:

BREAST, LEFT ABSCESS, NEEDLE ASPIRATION:
NEGATIVE FOR MALIGNANT CELLS.
Abundant acute inflammatory cells present, consistent with an abscess.

Primary Pathologist:LAUREN WOLFF M.D.
electronically signed out by: LAUREN WOLFF M.D. / [facility]

Clinical Histor y:
General medical, Breast abscess, Breast mass, Smoker, Hemoptysis

Gross Description:
Received less than 1cc of red fluid
1 ThinPrep cellular enhancement technique

Phone #: [phone], On-Call Pathologist: [phone] Basic Metabolic Panel (08/19/2023) ???Sodium - 137 mmol/L???Potassium - 4.6 mmol/L???Chloride - 104 mmol/L???Bicarbonate Level - 21 mmol/L???Anion Gap - 12???Glucose Level - 78 mg/dL???BUN - 11 mg/dL???Creatinine-Blood - 0.9 mg/dL???Estimated GFR Creatinine - 87 ML/MIN/1.73 M2???Calcium - 9.3 mg/dL CBC w/ Differential (08/19/2023) ???WBC - 5.7 k/mm3???RBC - 4.41 m/mm3???Hgb - 11.7 Gm/dL???Hct - 35.7 %???MCV - 81.0 femtoliters???MCH - 26.5 pg???MCHC - 32.8 g/dL???Platelet Count - 256 k/mm3???RDW-SD - 42.8 femtoliters???MPV - 11.3 femtoliters???Nucleated RBC (Automated) - 0.0 #/100 WBC'S???Abs. NRBC - 0.0 k/mm3???Abs. Neut - 2.2 k/mm3???Abs. Lymph - 2.7 k/mm3???Abs. [place] - 0.6 k/mm3???Abs. Eo - 0.2 k/mm3???Abs. Baso - 0.0 k/mm3???Neut % - 39.3 %???Lymph % - 47.2 %???[place] % - 9.6 %???Eos % - 3.2 %???Baso % - 0.5 %???Imm Gran - 0.2 %???Abs. Imm Gran - 0.0 k/mm3 COVID-19, RSV, and Flu A/B, Rapid PCR (08/14/2023) ???Influenza A PCR - NEGATIVE???Influenza B PCR - NEGATIVE???RSV PCR - NEGATIVE???COVID-19 PCR Specimen Source - NASAL???COVID-19 PCR Result - NEGATIVE D Dimer (08/14/2023) ???D-Dimer - 0.37 mg/L FEU HOLD GEL TUBE (08/14/2023) ???Hold Gel Top - SPECIMEN DISCARDED AFTER 1 WEEK HOLD KUMARI TUBE (08/14/2023) ???Hold Kumari Top - SPECIMEN DISCARDED AFTER 1 WEEK Lactate Level (08/14/2023) ???Lactate - 0.7 mmol/L Magnesium Level (08/19/2023) ???Magnesium - 1.9 mg/dL MTB DNA with Rifampin Resistance, Sputum (08/16/2023) ???MTB Complex DNA - MTBC Not Detected. BLOOD QUANTITATIVE (08/14/2023) ? ?Blood - <1 mIU/mL Immunizations This Visit Given Vaccine Date influenza virus vaccine, inactivated 08/16/2023 Allergies (NKA means No Known Allergies) Bee Stings Benadryl??(angioedema) Latex??(Rash) Other Environmental Allergy??(detergents and soaps with dyes in them) RisperDAL Problems Active Problems??(10) BMI 30+ - obesity?? Breast lump present?? Fibromyalgia?? History of delivery x3?? Marijuana use?? depression?? PTSD (post-traumatic stress disorder)?? Severe obesity (BMI 35.0-39.9) with comorbidity?? Tobacco use?? Uterine scar x3?? Education Materials Below is the list of Educational Leaflet Providered with your Discharge Instructions. Valuables and Belongings I fully understand and agree that [facility] accepts no responsibility for all my [...] to send valuables and belongings home. ?? Date for Pt to Sign Valuables/Belongings: 08/15/23 10:42:00 ?? Other Discharge Information ? Pulmonary Rehab Status?? Pulmonary Rehab Discharge Status?? Respiratory Rate: 18 br/min ? Common Emergency Awareness Tips IS IT [...] are strongly encouraged to quit. Please call [facility] Link at [phone] or [phone] or log in to [email or web address] for referrals to smoking cessation programs. ?? 059 Suicide & Crisis Lifeline is available 23/02 if you or someone you know needs to find a reason to keep living. By calling 086 you'll be connected to a skilled, trained counselor at a crisis center in your area. INPATIENT DISCHARGE INSTRUCTIONS SIGNATURE PAGE ANNAMARIE MCINTOSH Location:[facility] Registration Date and Time:08/14/2023 23:46 EST Primary Care Physician: Humberto Howell, Attending Physician: Jairo RAMIREZ, Regis, I ANNAMARIE MCINTOSH, have received the above patient education materials/instructions and have verbalized understanding. If ambulance or transport services are being used I further acknowledge being given a choice of service. ?? If you need to contact me, please call me at this number: . Patient/Project Engineer Name: Patient/Project Engineer Signature: Relationship to Patient: Witness Name/Signature: Date: Patient Care team information Care Team Personnel Name: Amira Suero RN Position: S RN Member Role: Primary Care Nurse Name: Hamida Martin RN Position: S RN Member Role: Primary Care Nurse Name: Humberto Howell Position: Reference Physician Member Role: PCP Address: Address: [address] [place] [address] [address] [place], [place] [address] Name: Amira Madrid RN Position: [facility] RN Member Role: Primary Care Nurse Name: Gloria Melissa RN Position: S RN Member Role: Primary Care Nurse Care Team Related Persons Name: SANDOVAL MCINTOSH Address: [address] [place] [address] Name: DEMARCUS MCINTOSH Address: [address] [place] [address] Name: VALERY CAR Address: [address] Address: [address] [address] Name: JASPAL CAR Address: [place] [address] Name: STEFFANIE CAR Address: [place] [address] Name: JASE DE OLIVEIRA
--- NOTE | 2024-04-23 06:06 | ED_ITS ---
HPI - Extremity Problem General Chief complaint: Extremity Injury, Upper Stated complaint: right wrist/hit wrist on counter -WC claim Time Seen by Provider: 04/23/24 06:01 Source: patient Mode of arrival: ambulatory Limitations: no limitations History of Present Illness ED Provider: Dr. Blue HPI Narrative: While at work at [employer] patient hit her wrist against the shelving hard two times Onset (ago): hour(s) Location: right Related Data Previous Rx's ?Medication ?Instructions ?Recorded divalproex 250 mg tablet,extended 250 mg PO BID 30 days #60 tabs 05/19/23 release 24 hr gabapentin 300 mg capsule 300 mg PO BID 30 days #60 caps 05/19/23 hydroxyzine HCl 50 mg tablet 50 mg PO Q4H PRN mild anxiety 05/19/23 (1-5) 30 days #60 tabs lorazepam 1 mg tablet 1 mg PO TID 30 days #90 tabs 05/19/23 olanzapine 10 mg tablet 10 mg PO BEDTIME 30 days #30 tabs 05/19/23 olanzapine 5 mg tablet 5 mg PO BID PRN anxiety/agitation 05/19/23 30 days #60 tabs olanzapine 5 mg tablet 5 mg PO BID@0900,1500 30 days #60 05/19/23 tabs prazosin 1 mg capsule 2 mg PO BID@0900,1500 30 days #120 05/19/23 caps prazosin 5 mg capsule 5 mg PO BEDTIME 30 days #30 caps 05/19/23 sennosides 8.6 mg-docusate sodium 2 tab PO BID PRN constipation 30 05/19/23 50 mg tablet (Senna Plus) days #60 tabs topiramate 25 mg tablet 50 mg (2 x 25 mg) PO BID 30 days 05/19/23 #120 tabs trazodone 100 mg tablet 100 mg PO BEDTIME 30 days #30 tabs 05/19/23 naproxen 500 mg tablet (Naprosyn) 500 mg PO BID #20 tabs 04/23/24 Allergies Allergy/AdvReac Type Severity Reaction Status Date / Time diphenhydramine Allergy Severe Anaphylaxis Verified 04/23/24 04:08 [From Benadryl] latex [LATEX] Allergy Intermediate RASH Verified 04/23/24 04:08 Review of Systems Review of Systems: Yes all other systems are reviewed and are negative Neurologic: Denies Sensory deficit (Neuro) PMFSH Past Medical History Medical History Breast cyst Anemia Asthma TBI (traumatic brain injury) Migraine Fibromyalgia PTSD (post-traumatic stress disorder) Psychosis Bipolar disorder Anxiety Surgical History History of surgery Hx of section History of tubal ligation Family History Family History Father No problems noted. Mother Liver cancer Sister Breast cancer Maternal Grandmother Breast cancer Social History Social History Household Members: Significant Other Housing: Homeless Housing Other:: halfway Do you presently have visiting nurse or other home services: No Unable to assess alcohol history related to: Unknown Alcohol intake: unknown Comment: reports med was effective for neck pain Patient Tobacco Use Status: Current everyday Tobacco user Tobacco use type: Cigarette Cigarette Packs Per Day: 0.33 Cigarettes Per Day: 6.6 Years Smoked: 27 e-Cigarette/Vaping Use: Never Used Second Hand Smoke Exposure: Yes Substance Use Type: Marijuana Advance Directives: No Advance Directives Information Provided: Yes Do you have a plan to hurt others: No Plan service: No Sexual orientation: Straight/Heterosexual Physical Exam Vital Signs: Vital Signs: Last Vital Signs Temp 98.1 F 04/23/24 04:07 Pulse 81 04/23/24 04:07 Resp 16 04/23/24 04:07 BP 130/101 H 04/23/24 04:07 Pulse Ox 98 04/23/24 04:07 O2 Del Method Room Air 04/23/24 04:07 BMI result Body Mass Index 28.2 Const: Nutritional Appearance: average body habitus and obese Orientation/consciousness: oriented to person and patient oriented x3 Limitations: no limitations HEENT: Head: Yes normal to inspection Ears: external ears normal General nose exam: Normal external nose present Mouth: Normal oral and palatal mucosa present and oropharynx normal Throat: Yes posterior oropharynx normal Eyes: General: appearance normal, both eyes and all related structures Neck: Other: supple Neck: Yes normal visual inspection Chest: Chest palpation & inspection: normal inspection of the chest Resp: Auscultation: clear to auscultation bilaterally Cardio: Jugular venous distension: no JVD Rate: regular rate Rhythm: regular rhythm Heart sounds: S1 normal heart sound present and S2 normal heart sound present GI: Inspection: Yes normal to inspection Palpation (GI): Soft to palpation, nontender and No hepatosplenomegaly present Auscultation: normal bowel sounds : General: Yes no CVA tenderness Back/Spine/Pelvis: Back: no CVA tenderness Skin: General skin exam: no rashes or lesions noted Neuro: General: oriented to person and patient oriented x3 Cranial nerves: Yes CN's II-XII intact bilaterally Motor exam (neuro): 5/5 motor strength present throughout Sensory Exam: No Sensory deficit (Neuro) Extrem: Other: right wrist with ecchymosis to the palmar surface Psych: Appearance: grossly normal Course Reevaluation(s) Reevaluation #1: will place wrist in splint and start NSAIDs Time: 06:13 Medical Decision Making Differential Diagnosis Differential Diagnoses: The differential diagnosis associated with the presentation includes (wrist fracture, wrist contusion, wrist sprain) Independent Interpretation I performed an independent interpretation of an: Plain X-Ray (wrist: no fracture or dislocation) Independent Historian Clinical information obtained from an independent historian. History obtained from or confirmed by: Spouse Prescription Management I considered prescription management with: Pain Medication (will not give narcotics) Discharge Plan Discharge Clinical Impression: Finger sprain, Contusion of right wrist Patient Disposition: Home, Self-Care Instructions: Wrist Injury (ED) Prescriptions: New naproxen [Naprosyn] 500 mg tablet 500 mg PO BID Qty: 20 0RF No Action prazosin 1 mg Capsule 2 mg PO BID@0900,1500 30 Days Qty: 120 0RF Protocol: Hold for SBP< HOLD for SBP < : 90 olanzapine 10 mg Tablet 10 mg PO BEDTIME 30 Days Qty: 30 0RF prazosin 5 mg Capsule 5 mg PO BEDTIME 30 Days Qty: 30 0RF Protocol: Hold for SBP< HOLD for SBP < : 90 gabapentin 300 mg Capsule 300 mg PO BID 30 Days Qty: 60 0RF lorazepam 1 mg Tablet 1 mg PO TID 30 Days Qty: 90 0RF divalproex 250 mg Tablet Extended Release 24 Hr 250 mg PO BID 30 Days Qty: 60 0RF sennosides-docusate sodium [Senna Plus] 8.6-50 mg Tablet 2 tab PO BID PRN (Reason: constipation) 30 Days Qty: 60 0RF olanzapine 5 mg Tablet 5 mg PO BID@0900,1500 30 Days Qty: 60 0RF olanzapine 5 mg Tablet 5 mg PO BID PRN (Reason: anxiety/agitation) 30 Days Qty: 60 0RF topiramate 25 mg Tablet 50 mg PO BID 30 Days Qty: 120 0RF hydroxyzine HCl 50 mg Tablet 50 mg PO Q4H PRN (Reason: mild anxiety (1-5)) 30 Days Qty: 60 0RF trazodone 100 mg Tablet 100 mg PO BEDTIME 30 Days Qty: 30 0RF Referrals: Humberto Morrow PA-C [Primary Care Provider] - 1 week Print Language: Colombian
[2024-04-23] MEDS: Ibuprofen 800 MG TABLET PO (06:33)
[2024-04-23 06:37] VITALS: BP 101/60; PULSE 70; RESP 18; TEMP 36.6; O2SAT 99
== END 2024-04-23 06:39 | disposition home or self-care (01) ==
PROVIDERS: Emergency Provider Emergency Medicine; PCP Physician Assistant
DX: S60.211A Contusion of right wrist, initial encounter (principal); S63.619A Unspecified sprain of unspecified finger, initial encounter; W22.8XXA Striking against or struck by other objects, initial encounter; Y93.89 Activity, other specified; Y92.511 Restaurant or cafe as the place of occurrence of the external cause; Y99.0 Civilian activity done for income or pay; Z79.899 Other long term (current) drug therapy
CPT/HCPCS: 73110; 99283

== ENCOUNTER 2024-05-11 16:49 | Inpatient (IN) | payer OTHER, SELFPAY ==
[2024-05-11 17:46] VITALS: BP 128/82; PULSE 100; RESP 14; TEMP 36.9; O2SAT 100; BMI 28.1
[2024-05-11 17:55] VITALS: RESP 16
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
[2024-05-11 18:02] LABS: Appearance Urine Clear; Color Urine Dark Yellow; Glucose Urine UA Negative (Negative); Leukocyte Esterase Urine Negative (Negative); Nitrite Urine Negative (Negative); PH 5.5 (5.0-9.0); Specific Gravity - Urine >= 1.030 (1.005-1.025); Urine Blood Negative (Negative); Urine Ketones Negative (Negative); Urine Protein Negative (Neg-Trace)
[2024-05-11 18:15] LABS: MANUAL DIFF FLAG NO
[2024-05-11 18:22] LABS: Basophils Percent Auto 0.5 % (0-2); Eosinophils Absolute Auto 0.2 X10*3/uL (0.0-0.4); Eosinophils Percent Auto 2.3 % (0-4); Hematocrit 35.6 % (37.0-47.0); Hemoglobin 11.7 g/dl (12.0-16.0); Imm Gran Abs Auto 0.03 X10*3/uL (0.00-0.03); Imm Gran Pct Auto 0.3 % (0.0-0.4); Lymphocytes Absolute Auto 2.3 X10*3/uL (1.2-4.9); Lymphocytes Percent Auto 25.4 % (20-40); Mean Corpuscular HGB Conc 32.9 g/dl (31.0-35.0); Mean Corpuscular Hemoglobin 26.5 pg (27.0-33.0); Mean Corpuscular Volume 80.7 fL (80.0-98.0); Mean Platelet Volume 10.2 fL (9.4-12.3); Monocytes Absolute Auto 0.4 X10*3/uL (0.1-1.2); Monocytes Percent Auto 4.1 % (2-11); Neutrophils Percent Auto 67.4 % (45-73); Platelet Count 278 X10*3/uL (160-400); Red Blood Count 4.41 X10*6/uL (4.20-5.50); White Blood Count 8.9 X10*3/uL (4.8-10.8)
[2024-05-11 19:03] LABS: Calcium 9.7 mg/dL (8.4-10.2); Chloride 108 mmol/L (96-108); HCG Quantitative < 2 mIU/mL; Potassium 4.1 mmol/L (3.3-5.1); Sodium 142 mmol/L (135-145)
[2024-05-11 19:22] LABS: Alanine Aminotransferase 21 U/L (0-31); Albumin Level 4.3 g/dL (3.5-5.0); Alkaline Phosphatase 52 U/L (39-117); Anion Gap 12 (12-20); Aspartate Amino Transferase 18 U/L (5-31); Bilirubin Total 0.3 mg/dL (0.0-1.0); Blood Urea Nitrogen 16 mg/dL (9-16); Carbon Dioxide 26 mmol/L (22-29); Creatinine Clr Calc Pharmacy 123.3; Estimated Glomerular Filt Rate > 60; Ethanol < 10 mg/dL; Glucose Random 81 mg/dL (60-115); Magnesium 1.9 mg/dL (1.6-2.6); Total Protein 7.4 g/dL (6.5-8.0)
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
[2024-05-11 19:45] LABS: Amphetamine Screen Urine Not Detected (Not Detect); Barbiturates, Urine Not Detected (Not Detect); Benzodiazepines Screen Urine Not Detected (Not Detect); Buprenorphine Scr Not Detected (Not Detect); Cannabinoid Screen Urine POSITIVE (Not Detect); Cocaine Screen Urine Not Detected (Not Detect); Fentanyl, urine Not Detected (Not Detect); Methadone Screen, Urine Not Detected (Not Detect); Opiate Screen Urine Not Detected (Not Detect); Oxycodone Screen Urine Not Detected (Not Detect); Phencyclidine Screen Urine Not Detected (Not Detect)
[2024-05-11] MEDS: Acetaminophen 325 MG TABLET 650 MG PO (20:39)
[2024-05-11] MEDS: LORazepam 1 MG TABLET PO (20:39)
--- NOTE | 2024-05-11 23:01 | MHC.CARE ---
Pt evaluated by the CARE Team and is an adult bedsearch. Disposition made are to Pt, James Rodríguez MD and POD RN. Pt on a section 12A for safety.
--- NOTE | 2024-05-12 | ECG_ITS ---
Test Reason : CHECK FOR QTC PROLOGATION Blood Pressure : / mmHG Vent. Rate : 097 BPM Atrial Rate : 097 BPM P-R Int : 124 ms QRS Dur : 080 ms QT Int : 342 ms P-R-T Axes : 003 052 046 degrees QTc Int : 434 ms Normal sinus rhythm Normal ECG When compared with ECG of 11-MAY-2023 13:52, Nonspecific T wave abnormality now evident in Inferior leads Referred By: James Rodríguez Electronically Signed By:LONI PEREZ MD
--- NOTE | 2024-05-12 07:46 | PC.NURSE ---
Assumed care of patient at 0645, patient appears to be in no apparent distress this am, ambulating around BH pod with steady gait, calm and cooperative. Patient aware of plan of care for inpatient bedsearch at this time
[2024-05-12 07:59] VITALS: BP 110/74; PULSE 80; RESP 18; TEMP 36.6; O2SAT 100
[2024-05-12] MEDS: LORazepam 1 MG TABLET PO (08:31)
[2024-05-12] MEDS: Ibuprofen 600 MG TABLET PO (08:31)
[2024-05-12 14:26] VITALS: BP 111/73; PULSE 79; RESP 18; TEMP 36.4; O2SAT 100
[2024-05-12 14:28] VITALS: BMI 26.7
[2024-05-12] MEDS: LORazepam 1 MG TABLET 2 MG PO (14:32)
[2024-05-12] MEDS: HaloperidoL 5 MG TABLET PO (14:32)
--- NOTE | 2024-05-12 18:17 | PC.ADMIT ---
Nursing admission note: 34 year old female DX: BiPolar 1, unspecified psychosis, PTSD. Referred for treatment by CARE team. Signed conditional voluntary for admission. Self presented to [facility] due to concerns regarding increased life stress, +HI, +SI, +AH, exacerbation of PTSD symptoms. Patient engages easily. Mood is labile, emotionally dysregulated, volitile. States she feels angry, rage , I need help keeping it in because if it comes out I'm gonna shut off . Affect varied. Intense eye contact at times. Reports thoughts are racing, I am analyzing all the time, can't sort it out . Tangential. Reports dissociative episodes, I see byrd , visions in my head come out and collide . Endorses flashbacks. Reports +HI, to kill everybody that did me wrong and make them feel the pain I feel . States she feels uncomfortable, split from my body, I can't cope . A hot ball of not . Denies SI at this time. Reports +AH, voices tell me to kill everyone around me before you kill yourself. Clear out the universe so it can be born with better people . Patient reports she has not been on medication and currently does not have any current providers. Current stressors include homelessness, children in DCF custody and working excessive hours. Reports sleep disturbances, night terrors . Difficulty falling and maintaining sleep. Decreased appetite with unknown amount of weight loss. TOX screen positive for cannabis. Medical history includes fibromyalgia, and asthma. Patient oriented to unit, placed on unit safety checks. See nursing assessment, crisis evaluation for further details.
[2024-05-12] MEDS: OLANZapine 2.5 MG TABLET PO (19:14)
[2024-05-12] MEDS: hydrOXYzine HCL 25 MG TABLET PO (19:14)
--- NOTE | 2024-05-12 19:29 | PC.NURSE ---
Patient submitted 3 day notice.
[2024-05-12 21:47] VITALS: BP 112/64; PULSE 61; RESP 16; TEMP 36.4; O2SAT 100
[2024-05-12 21:49] VITALS: BP 112/64
[2024-05-12] MEDS: Divalproex Sodium ER 500 MG TAB.ER.24H PO (21:49)
[2024-05-12] MEDS: Prazosin HCL 1 MG CAPSULE PO (21:49)
[2024-05-12] MEDS: traZODone HCL 100 MG TABLET PO (21:49)
[2024-05-12] MEDS: OLANZapine 10 MG TABLET PO (21:50)
[2024-05-13 07:53] VITALS: BP 96/52; PULSE 86; RESP 16; TEMP 36.4; O2SAT 98
[2024-05-13] MEDS: OLANZapine 2.5 MG TABLET PO (08:23)
[2024-05-13 09:45] LABS: Estimated Average Glucose 97 mg/dL; Hemoglobin A1C 97.6051 umol/L; Total Hemoglobin (HGBA1C) 3096.9793 umol/L
[2024-05-13 09:59] LABS: Cholesterol 151 mg/dL (<200); HDL Cholesterol 48 mg/dL (>40); LDL Cholesterol Calculated 86 mg/dL (<100); Triglycerides 87 mg/dL (<150)
[2024-05-13 10:10] LABS: Free T4 (Free Thyroxine) 1.14 ng/dL (0.71-1.85); Thyroid Stimulating Hormone 1.62 uIU/mL (0.32-4.0)
[2024-05-13 10:23] LABS: Folate 4.5 ng/mL (> or = 4.0); Vitamin B12 454 pg/mL (200-900)
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
[2024-05-13] MEDS: LORazepam 1 MG TABLET 2 MG PO (12:41)
[2024-05-13] MEDS: HaloperidoL 5 MG TABLET PO (12:41)
[2024-05-13 19:32] VITALS: BP 109/66; PULSE 82; RESP 16; TEMP 36.4; O2SAT 100
[2024-05-13] MEDS: Divalproex Sodium ER 250 MG TAB.ER.24H 750 MG PO (20:06)
[2024-05-13] MEDS: OLANZapine 10 MG TABLET PO (20:06)
[2024-05-13] MEDS: Prazosin HCL 1 MG CAPSULE 2 MG PO (20:06)
[2024-05-13] MEDS: traZODone HCL 100 MG TABLET PO (20:06)
[2024-05-14] MEDS: LORazepam 1 MG TABLET 2 MG PO (07:11)
[2024-05-14] MEDS: HaloperidoL 5 MG TABLET PO (07:11)
[2024-05-14 07:26] VITALS: BP 102/67; PULSE 91; RESP 16; TEMP 36.4; O2SAT 100
[2024-05-14] MEDS: OLANZapine 5 MG TABLET PO ×2 (08:48→14:18)
[2024-05-14] MEDS: Acetaminophen 325 MG TABLET 650 MG PO (09:43)
[2024-05-14] MEDS: Milk of Magnesia 30 ML ORAL.SUSP PO (09:43)
--- NOTE | 2024-05-14 19:34 | HO.PSYCHPN ---
Subjective Subjective Date of Service: 05/14/24 Reason For Visit: HI Interim History: slept well but awoke in a panic. agreeable to increase prazosin. also asking to increase morning zyprexa and HS VPA. per staff, dep/anx. withdrawn. + meds. isolative. poor sleep. feeling a little better. ativan and haldol helpful. Mental Status Exam Mental Status Exam Narrative: appropriately dressed, and groomed. cooperative, no PMA/PMR. speech nml in rate, loudness, amount, latency. decreased prosody. thoughts linear and logical. affect constricted, normo-intense, min-labile. mood improved. no SI/HI/AVH expressed. Insight and judgment fair Diagnostics Vital Signs (24Hr): Vital Signs - 24 hr 05/14/24 07:26 Temperature 97.5 F Pulse Rate 91 Respiratory Rate 16 Blood Pressure 102/67 Pulse Oximetry 100 Oxygen Delivery Method Room Air BMI result Body Mass Index 26.7 Labs 05/11/24 18:12 05/11/24 18:12 Labs: Laboratory Results - last 48 hr 05/13/24 08:23 Estimat Average Glucose 97 Hemoglobin A1c % 5.0 Triglycerides 87 Cholesterol 151 LDL Cholesterol, Calc 86 HDL Cholesterol 48 Vitamin B12 454 Folate 4.5 TSH 1.62 Free T4 1.14 Medications Medications Current Medications Acetaminophen (Acetaminophen 325 Mg Tablet) 650 mg PO Q6H PRN PRN Reason: Headache/Pain Mild Scale (1-3) Last Admin: 05/14/24 09:43 Dose: 650 mg Al Hydroxide/Mg Hydroxide (Magnesium Hydrox/Alum Hydrox 30 Ml Oral.Susp) 30 ml PO Q6H PRN PRN Reason: Heartburn/Nausea Divalproex Sodium (Divalproex Sodium Er 500 Mg Tab.Er.24h) 1,000 mg PO BEDTIME CATHERINE Hydroxyzine HCl (Hydroxyzine Hcl 25 Mg Tablet) 25 mg PO Q6H PRN PRN Reason: Anxiety Last Admin: 05/12/24 19:14 Dose: 25 mg Magnesium Hydroxide (Milk Of Magnesia 30 Ml Oral.Susp) 30 ml PO DAILY PRN PRN Reason: Constipation Last Admin: 05/14/24 09:43 Dose: 30 ml Nicotine Polacrilex (Nicotine Polacrilex 2 Mg Gum) 4 mg BUCCAL Q2H PRN PRN Reason: Nicotine Cravings Olanzapine (Olanzapine 10 Mg Tablet) 10 mg PO BEDTIME CATHERINE Last Admin: 05/13/24 20:06 Dose: 10 mg Olanzapine (Olanzapine 2.5 Mg Tablet) 2.5 mg PO Q4H PRN PRN Reason: anxiety Last Admin: 05/12/24 19:14 Dose: 2.5 mg Olanzapine (Olanzapine 7.5 Mg Tablet) 7.5 mg PO DAILY CATHERINE Olanzapine (Olanzapine 5 Mg Tablet) 5 mg PO Q4H PRN PRN Reason: agitation Last Admin: 05/14/24 14:18 Dose: 5 mg Prazosin HCl (Prazosin Hcl 1 Mg Capsule) 3 mg PO BEDTIME CATHERINE; Protocol Trazodone HCl (Trazodone Hcl 50 Mg Tablet) 50 mg PO BEDTIME MRX1 PRN PRN Reason: Insomnia Trazodone HCl (Trazodone Hcl 100 Mg Tablet) 100 mg PO BEDTIME CATHERINE Last Admin: 05/13/24 20:06 Dose: 100 mg Allergies Allergies Allergy/AdvReac Type Severity Reaction Status Date / Time diphenhydramine Allergy Severe Anaphylaxis Verified 05/11/24 17:47 [From Benadryl] latex [LATEX] Allergy Intermediate RASH Verified 05/11/24 17:47 risperidone [From Risperdal] AdvReac Blurry Verified 05/11/24 17:47 Vision Assessment & Plan Assessment & Plan (1) Homicidal ideation: Status: Acute Code(s): R45.850 - Homicidal ideations (2) Cannabis use disorder: Status: Acute Code(s): F12.90 - Cannabis use, unspecified, uncomplicated (3) Depression: Status: Acute Code(s): F32.A - Depression, unspecified (4) PTSD (post-traumatic stress disorder): Status: Acute Code(s): F43.10 - Post-traumatic stress disorder, unspecified Plan 05/12: restart VPA 500 QHS, zyprexa 10 QHS, zyprexa 2.5 daily, prazosin 1 QHS, trazodone 100 mg QHS. 05/13: increase VPA to 750 QHS. increase zyprexa to 5 mg daily. increase prazosin to 2 mg daily. continue zyprexa 10 QHS, trazodone 100 QHS. 05/14: mood improved, slept well but awoke in a panic. increase prazosin to 3 QHS, VPA to 1000 QHS, and morning zyprexa to 7.5. DC haldol and ativan as pt does not want to be taking anything in the hospital she won't be prescribed upon discharge. zyprexa 5 PRNs ordered instead. Reason for continued inpatient stay Substantial Risk for: harm to self, harm to others and rapid decompensation Time Spent With Patient Time: Total time managing care of this patient today ____ minutes.
[2024-05-14 19:48] VITALS: BP 111/66; PULSE 86; RESP 16; TEMP 36.4; O2SAT 100
[2024-05-14] MEDS: Prazosin HCL 1 MG CAPSULE 3 MG PO (21:07)
[2024-05-14] MEDS: OLANZapine 10 MG TABLET PO (21:07)
[2024-05-14] MEDS: traZODone HCL 100 MG TABLET PO (21:08)
[2024-05-14] MEDS: Divalproex Sodium ER 500 MG TAB.ER.24H 1000 MG PO (21:08)
[2024-05-15] MEDS: OLANZapine 5 MG TABLET PO ×2 (07:16→13:13)
[2024-05-15 07:33] VITALS: BP 108/67; PULSE 90; RESP 16; TEMP 36.9; O2SAT 100
[2024-05-15] MEDS: OLANZapine 7.5 MG TABLET PO (09:28)
[2024-05-15 11:12] VITALS: BP 138/65
[2024-05-15] MEDS: Prazosin HCL 1 MG CAPSULE PO (11:12)
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
[2024-05-15 19:50] VITALS: BP 115/74; PULSE 90; RESP 16; TEMP 37.1; O2SAT 99
[2024-05-15] MEDS: Divalproex Sodium ER 500 MG TAB.ER.24H 1000 MG PO (20:35)
[2024-05-15] MEDS: Prazosin HCL 1 MG CAPSULE 3 MG PO (20:35)
[2024-05-15] MEDS: OLANZapine 10 MG TABLET PO (20:35)
[2024-05-15] MEDS: traZODone HCL 100 MG TABLET PO (20:35)
[2024-05-15] MEDS: traZODone HCL 50 MG TABLET PO (22:59)
[2024-05-16] MEDS: OLANZapine 5 MG TABLET PO ×3 (07:14→17:19)
[2024-05-16 07:42] VITALS: BP 129/62; PULSE 92; RESP 16; TEMP 36.4; O2SAT 99
[2024-05-16] MEDS: OLANZapine 7.5 MG TABLET PO (08:39)
[2024-05-16] MEDS: Prazosin HCL 1 MG CAPSULE PO ×2 (08:39→11:22)
[2024-05-16 11:22] VITALS: BP 129/83
--- NOTE | 2024-05-16 17:58 | HO.PSYCHPN ---
Subjective Subjective Date of Service: 05/16/24 Reason For Visit: HI Interim History: would like to discharge tomorrow. has court weds re child custody. c/o morning anxiety, no sedation. asking to increase morning prazosin to 2 mg. per staff, also getting zyprexa PRN in the morning. Mental Status Exam Mental Status Exam Narrative: appropriately dressed, and groomed. cooperative, no PMA/PMR. speech nml in rate, loudness, amount, latency. decreased prosody. thoughts linear and logical. affect constricted, normo-intense, non-labile. mood anxious. no SI/HI/AVH expressed. Insight and judgment fair Diagnostics Vital Signs (24Hr): Vital Signs - 24 hr 05/15/24 19:50 05/16/24 07:42 05/16/24 11:22 Temperature 98.7 F 97.5 F Pulse Rate 90 92 Respiratory Rate 16 16 Blood Pressure 115/74 129/62 129/83 Pulse Oximetry 99 99 Oxygen Delivery Method Room Air Room Air BMI result Body Mass Index 26.7 Labs 05/11/24 18:12 05/11/24 18:12 Medications Medications Current Medications Acetaminophen (Acetaminophen 325 Mg Tablet) 650 mg PO Q6H PRN PRN Reason: Headache/Pain Mild Scale (1-3) Last Admin: 05/14/24 09:43 Dose: 650 mg Al Hydroxide/Mg Hydroxide (Magnesium Hydrox/Alum Hydrox 30 Ml Oral.Susp) 30 ml PO Q6H PRN PRN Reason: Heartburn/Nausea Divalproex Sodium (Divalproex Sodium Er 500 Mg Tab.Er.24h) 1,000 mg PO BEDTIME [facility] Last Admin: 05/15/24 20:35 Dose: 1,000 mg Magnesium Hydroxide (Milk Of Magnesia 30 Ml Oral.Susp) 30 ml PO DAILY PRN PRN Reason: Constipation Last Admin: 05/14/24 09:43 Dose: 30 ml Nicotine Polacrilex (Nicotine Polacrilex 2 Mg Gum) 4 mg BUCCAL Q2H PRN PRN Reason: Nicotine Cravings Olanzapine (Olanzapine 10 Mg Tablet) 10 mg PO BEDTIME [facility] Last Admin: 05/15/24 20:35 Dose: 10 mg Olanzapine (Olanzapine 7.5 Mg Tablet) 7.5 mg PO DAILY [facility] Last Admin: 05/16/24 08:39 Dose: 7.5 mg Olanzapine (Olanzapine 5 Mg Tablet) 5 mg PO Q4H PRN PRN Reason: agitation Last Admin: 05/16/24 17:19 Dose: 5 mg Prazosin HCl (Prazosin Hcl 1 Mg Capsule) 3 mg PO BEDTIME CATHERINE; Protocol Last Admin: 05/15/24 20:35 Dose: 3 mg Prazosin HCl (Prazosin Hcl 1 Mg Capsule) 2 mg PO DAILY CATHERINE; Protocol Trazodone HCl (Trazodone Hcl 100 Mg Tablet) 100 mg PO BEDTIME CATHERINE Last Admin: 05/15/24 20:35 Dose: 100 mg Trazodone HCl (Trazodone Hcl 50 Mg Tablet) 50 mg PO BEDTIME MRX1 PRN PRN Reason: Sleep Last Admin: 05/15/24 22:59 Dose: 50 mg Allergies Allergies Allergy/AdvReac Type Severity Reaction Status Date / Time diphenhydramine Allergy Severe Anaphylaxis Verified 05/11/24 17:47 [From Benadryl] latex [LATEX] Allergy Intermediate RASH Verified 05/11/24 17:47 risperidone [From Risperdal] AdvReac Blurry Verified 05/11/24 17:47 Vision Assessment & Plan Assessment & Plan (1) Homicidal ideation: Status: Acute Code(s): R45.850 - Homicidal ideations (2) Cannabis use disorder: Status: Acute Code(s): F12.90 - Cannabis use, unspecified, uncomplicated (3) Depression: Status: Acute Code(s): F32.A - Depression, unspecified (4) PTSD (post-traumatic stress disorder): Status: Acute Code(s): F43.10 - Post-traumatic stress disorder, unspecified Plan 05/12: restart VPA 500 QHS, zyprexa 10 QHS, zyprexa 2.5 daily, prazosin 1 QHS, trazodone 100 mg QHS. 05/13: increase VPA to 750 QHS. increase zyprexa to 5 mg daily. increase prazosin to 2 mg daily. continue zyprexa 10 QHS, trazodone 100 QHS. 05/14: mood improved, slept well but awoke in a panic. increase prazosin to 3 QHS, VPA to 1000 QHS, and morning zyprexa to 7.5. DC haldol and ativan as pt does not want to be taking anything in the hospital she won't be prescribed upon discharge. zyprexa 5 PRNs ordered instead. 05/15: anxious during day. slept well. agrees to add prazosin 1 mg daily. angered by male peer's excessive attentions. 05/16: increase morning prazosin to 2 mg per pt request. discharge tomorrow. Reason for continued inpatient stay Substantial Risk for: harm to self, harm to others and rapid decompensation Time Spent With Patient Time: Total time managing care of this patient today ____ minutes.
[2024-05-16] MEDS: LORazepam 1 MG TABLET PO (18:22)
[2024-05-16 20:00] VITALS: BP 120/72; PULSE 92; RESP 16; TEMP 36.4; O2SAT 100
[2024-05-16] MEDS: traZODone HCL 100 MG TABLET PO (20:32)
[2024-05-16] MEDS: Divalproex Sodium ER 500 MG TAB.ER.24H 1000 MG PO (20:32)
[2024-05-16] MEDS: OLANZapine 10 MG TABLET PO (20:32)
[2024-05-16] MEDS: Prazosin HCL 1 MG CAPSULE 3 MG PO (20:33)
[2024-05-17] MEDS: OLANZapine 5 MG TABLET PO ×2 (06:40→11:06)
[2024-05-17 08:00] VITALS: BP 114/78; PULSE 106; TEMP 36.6; O2SAT 98
[2024-05-17] MEDS: Prazosin HCL 1 MG CAPSULE 2 MG PO (08:32)
[2024-05-17] MEDS: OLANZapine 7.5 MG TABLET PO (08:32)
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
== END 2024-05-17 12:36 | disposition home or self-care (01) | DRG 751 ==
LOC: HO.ED 22:56 → HO.PADLT16 05-12 13:33
PROVIDERS: Physician Assistant Medical; Admitting Provider Psychiatry & Neurology Psychiatry; Emergency Provider Internal Medicine; PCP Physician Assistant; Visit Provider Psychiatry & Neurology Psychiatry
DX: F33.1 Major depressive disorder, recurrent, moderate (principal); R45.850 Homicidal ideations; F12.90 Cannabis use, unspecified, uncomplicated; F43.12 Post-traumatic stress disorder, chronic; F17.210 Nicotine dependence, cigarettes, uncomplicated; Z59.01 Sheltered homelessness; Z62.810 Personal history of physical and sexual abuse in childhood; Z71.6 Tobacco abuse counseling; Z79.899 Other long term (current) drug therapy
CPT/HCPCS: 36415; 80053; 80061; 80307; 81003; 82607; 82746; 83036; 83735; 84439; 84443; 84702; 85025; 93005; 99285; S9485

== ENCOUNTER → 2024-05-12 11:56 | Outpatient (BNV) | payer OTHER, SELFPAY | PROVIDERS: Admitting Provider Psychiatry & Neurology Psychiatry; Emergency Provider Internal Medicine; PCP Physician Assistant; Visit Provider Internal Medicine Cardiovascular Disease | DX: I45.81 Long QT syndrome (principal) | CPT/HCPCS: 93010 ==

== ENCOUNTER → 2024-05-12 13:28 | Outpatient (BNV) | payer OTHER, SELFPAY | PROVIDERS: Admitting Provider Psychiatry & Neurology Psychiatry; Emergency Provider Internal Medicine; PCP Physician Assistant; Visit Provider Psychiatry & Neurology Psychiatry | DX: F33.2 Major depressive disorder, recurrent severe without psychotic features (principal); R45.850 Homicidal ideations; F12.90 Cannabis use, unspecified, uncomplicated; F43.11 Post-traumatic stress disorder, acute | CPT/HCPCS: 90792; 99232; 99239 ==

== ENCOUNTER 2024-05-21 17:51 | Emergency (ER) | payer OTHER, SELFPAY ==
--- NOTE | ~2024-05-21 | XR_ITS ---
EXAMINATION: XR HAND/WRIST, RIGHT CLINICAL INFORMATION: Pain and swelling in right hand COMPARISON: None available. TECHNIQUE: PA, lateral, and oblique views of the right hand and wrist. FINDINGS: The bones are normal and soft tissues prominent dorsally. No fracture. Alignment is anatomic. Joint spaces are maintained. No erosions or soft tissue calcifications. XR/XR hand wrist RT IMPRESSION: Normal radiographs of the hand and wrist. Soft tissues swelling Electronically signed by: Mimi Segal MD 05/21/2024 06:45 PM EDT
[2024-05-21 18:03] VITALS: BP 113/63; PULSE 117; RESP 20; TEMP 36.9; O2SAT 100; BMI 32.1
--- NOTE | 2024-05-21 18:04 | ED_ITS ---
HPI - Extremity Injury (Upper) General Chief Complaint: Extremity Injury, Lower Stated Complaint: rt hand wound Time Seen by Provider: 05/21/24 20:41 Source: patient, RN notes reviewed and old records reviewed Mode of arrival: ambulatory History of Present Illness ED Provider: Hermila Cunningham PA-C HPI narrative: 34-year-old female with a past medical history of depression, PTSD, bipolar, presenting to the ED complaining of right hand/wrist pain and swelling radiating to forearm s/p scraping buckets at work. States felt and heard a pop to right arm. Reports remote injury to same area. Denies direct injury/trauma or fall today, numbness, tingling, weakness. Related Data Previous Rx's ?Medication ?Instructions ?Recorded divalproex 500 mg tablet,extended 1,000 mg (2 x 500 mg) PO BEDTIME 05/17/24 release 24 hr 30 days #60 tabs olanzapine 10 mg tablet 10 mg PO BEDTIME 30 days #30 tabs 05/17/24 olanzapine 5 mg tablet 12.5 mg (2.5 x 5 mg) PO DAILY 05/17/24 agitation 30 days #75 tabs prazosin 1 mg capsule 2 mg PO DAILY 30 days #60 caps 05/17/24 prazosin 1 mg capsule 3 mg PO BEDTIME 30 days #90 caps 05/17/24 trazodone 100 mg tablet 200 mg (2 x 100 mg) PO BEDTIME 30 05/17/24 days #60 tabs Allergies Allergy/AdvReac Type Severity Reaction Status Date / Time diphenhydramine Allergy Severe Anaphylaxis Verified 05/21/24 18:07 [From Benadryl] latex [LATEX] Allergy Intermediate RASH Verified 05/21/24 18:07 risperidone [From Risperdal] AdvReac Blurry Verified 05/21/24 18:07 Vision Review of Systems Review of Systems: Yes all other systems are reviewed and are negative Constitutional: Constitutional: Reports as per HPI [facility] Past Medical History Attestation statement: The following information was validated with the patient. Source: old records reviewed Medical History Breast cyst Anemia Asthma TBI (traumatic brain injury) Migraine Fibromyalgia PTSD (post-traumatic stress disorder) Psychosis Bipolar disorder Anxiety Surgical History History of surgery Hx of section History of tubal ligation Family History Family History Father No problems noted. Mother Liver cancer Sister Breast cancer Maternal Grandmother Breast cancer Social History Social History Household Members: None Housing: Homeless Housing Other[facility] Do you presently have visiting nurse or other home services: No Unable to assess alcohol history related to: Unknown Alcohol intake: unknown Comment: reports med was effective for neck pain Patient Tobacco Use Status: Current everyday Tobacco user Tobacco use type: Cigarette Cigarette Packs Per Day: 0.33 Cigarettes Per Day: 5 Years Smoked: 27 e-Cigarette/Vaping Use: Currently Using Second Hand Smoke Exposure: No Substance Use Type: Marijuana Advance Directives: No Do you have a plan to hurt others: No Plan service: No Sexual orientation: Straight/Heterosexual Physical Exam Vital Signs: Vital Signs: Last Vital Signs Temp 98.4 F 05/21/24 18:03 Pulse 117 H 05/21/24 18:03 Resp 20 05/21/24 18:03 BP 113/63 05/21/24 18:03 Pulse Ox 100 05/21/24 18:03 O2 Del Method Room Air 05/21/24 18:03 BMI result Body Mass Index 32.1 Const: General: cooperative, healthy appearing and no acute distress Orientation/consciousness: patient oriented x3 Limitations: no limitations HEENT: Head: Yes normal to inspection and Yes atraumatic Ears: hearing grossly normal bilaterally General nose exam: Normal external nose present Face and sinus: Yes normal facial exam Eyes: General: appearance normal, both eyes and all related structures EOM: EOMs intact bilaterally Neck: Neck: Yes normal visual inspection and Yes no meningeal signs Resp: Effort & Inspection: normal respiratory effort and no respiratory distress Cardio: Rate: regular rate Skin: Rashes: no rashes Wounds: no wounds Neuro: General: patient oriented x3, tone normal and no meningeal signs Cranial nerves: Yes CN's II-XII intact bilaterally Gait exam (Neuro): Normal gait present Extrem: Other: Right hand and wrist volar aspect with appreciable swelling and diffuse tenderness to palpation. ROM intact with discomfort. No snuffbox tenderness. [id number] opposition intact. Neurovascularly intact. No crepitus. Course Course Course Narrative: This is a Rapid Medical Exam performed in triage by Hermila Cunningham PA-C. Full HPI, ROS and PE to be performed by primary ED provider. 34 yo F w/PMHx depression, PTSD, bipolar, presenting to the ED c/o re-injured R hand s/p scraping buckets at work. Denies direct trauma or injury. Reports hand jolted with pressure of scraping oil. PE: wearing brace from previous injury. +right hand and wrist swelling w/limited ROM 2/2 pain. NV intact Plan: XR XR hand wrist RT IMPRESSION: Normal radiographs of the hand and wrist. Soft tissues swelling > patient already has wrist brace. Results discussed with patient including worrisome signs and symptoms and strict return precautions, and when to return to the emergency department. They verbalized understanding and feel safe for discharge at this time. Medical Decision Making Medical Decision Making MDM Narrative: 34-year-old female with a past medical history of depression, PTSD, bipolar, presenting to the ED complaining of right hand/wrist pain and swelling radiating to forearm s/p scraping buckets at work. On exam tachycardic likely from pain, NAD, nontoxic appearing, physical exam as noted above. Concern for fracture vs sprain. Low suspicion for septic joint/arthritis or cellulitis. Plan: X-rays Please refer to course for remaining clinical decision making, interpretation of labs/imaging results, and discussions with consultants and/or family members. Differential Diagnosis Differential Diagnoses: The differential diagnosis associated with the presentation includes As above Independent Interpretation I performed an independent interpretation of an: Plain X-Ray Radiology Impression Discussion of test interpretation with radiology: I have reviewed the radiologist's reading. External Record Review External record reviewed: Inpatient record, Office record, Outpatient record, Prior outpatient labs, Prior outpatient radiology, Primary care record and Outside ED record Tests considered The following testing was considered but not selected: As above Prescription Management I considered prescription management with: Pain Medication Discharge Plan Discharge Clinical Impression: Sprain of right wrist, Hand pain Patient Disposition: Home, Self-Care Instructions: Sprain (ED), Arthralgia (ED) Additional Instructions: Continue to wear wrist splint Take Tylenol and Motrin at home for pain/swelling Ice Follow-up with your doctor If symptoms persist or worsen return to the ED Prescriptions: No Action prazosin 1 mg Capsule 3 mg PO BEDTIME 30 Days Qty: 90 0RF Protocol: Hold for SBP< HOLD for SBP < : 90 prazosin 1 mg Capsule 2 mg PO DAILY 30 Days Qty: 60 0RF Protocol: Hold for SBP< HOLD for SBP < : 90 olanzapine 5 mg Tablet 12.5 mg PO DAILY 30 Days Qty: 75 0RF olanzapine 10 mg Tablet 10 mg PO BEDTIME 30 Days Qty: 30 0RF trazodone 100 mg Tablet 200 mg PO BEDTIME 30 Days Qty: 60 0RF divalproex 500 mg Tablet Extended Release 24 Hr 1,000 mg PO BEDTIME 30 Days Qty: 60 0RF Referrals: Humberto Morrow PA-C [Primary Care Provider] - 1 week Stand Alone Forms: Work/School Release Print Language: Pashto
[2024-05-21 21:00] VITALS: BP 113/63; PULSE 117; RESP 20; TEMP 36.9; O2SAT 100
== END 2024-05-21 21:01 | disposition home or self-care (01) ==
PROVIDERS: Emergency Provider Emergency Medicine; PCP Physician Assistant
DX: S63.501A Unspecified sprain of right wrist, initial encounter (principal); X50.9XXA Other and unspecified overexertion or strenuous movements or postures, initial encounter; M79.641 Pain in right hand; Y93.G1 Activity, food preparation and clean up; Y92.511 Restaurant or cafe as the place of occurrence of the external cause; Y99.0 Civilian activity done for income or pay
CPT/HCPCS: 73110; 73130; 99282; 99283

== ENCOUNTER 2024-05-29 16:40 | Emergency (ER) | payer OTHER, SELFPAY ==
[2024-05-29 16:53] VITALS: BP 116/65; PULSE 98; RESP 18; TEMP 37.1; O2SAT 100; BMI 31.8
--- NOTE | 2024-05-29 16:53 | ED.GENADULT ---
HPI - General Adult General Chief complaint: General Medical Stated complaint: legs and feet swelling-vomiting Time Seen by Provider: 05/29/24 19:30 Source: patient Mode of arrival: ambulatory Limitations: no limitations History of Present Illness ED Provider: rebel REICH narrative: Patient homeless lives in the truck comes here for both lower extremity swelling for last few days no shortness a breath no liver problems no history of alcohol use no pain in the calf area Related Data Previous Rx's ?Medication ?Instructions ?Recorded divalproex 500 mg tablet,extended 1,000 mg (2 x 500 mg) PO BEDTIME 05/17/24 release 24 hr 30 days #60 tabs olanzapine 10 mg tablet 10 mg PO BEDTIME 30 days #30 tabs 05/17/24 olanzapine 5 mg tablet 12.5 mg (2.5 x 5 mg) PO DAILY 05/17/24 agitation 30 days #75 tabs prazosin 1 mg capsule 2 mg PO DAILY 30 days #60 caps 05/17/24 prazosin 1 mg capsule 3 mg PO BEDTIME 30 days #90 caps 05/17/24 trazodone 100 mg tablet 200 mg (2 x 100 mg) PO BEDTIME 30 05/17/24 days #60 tabs cefuroxime axetil 250 mg tablet 250 mg PO BID 7 days #14 tabs 05/29/24 hydrochlorothiazide 25 mg tablet 25 mg PO QAM #30 tabs 05/29/24 Allergies Allergy/AdvReac Type Severity Reaction Status Date / Time diphenhydramine Allergy Severe Anaphylaxis Verified 05/29/24 16:57 [From Benadryl] latex [LATEX] Allergy Intermediate RASH Verified 05/29/24 16:57 risperidone [From Risperdal] AdvReac Blurry Verified 05/29/24 16:57 Vision Review of Systems Review of Systems: Yes all other systems are reviewed and are negative PMFSH Past Medical History Medical History Breast cyst Anemia Asthma TBI (traumatic brain injury) Migraine Fibromyalgia PTSD (post-traumatic stress disorder) Psychosis Bipolar disorder Anxiety Surgical History History of surgery Hx of section History of tubal ligation Family History Family History Father No problems noted. Mother Liver cancer Sister Breast cancer Maternal Grandmother Breast cancer Social History Social History Household Members: None Housing: Homeless Housing Other:: residential Do you presently have visiting nurse or other home services: No Unable to assess alcohol history related to: Unknown Alcohol intake: unknown Comment: reports med was effective for neck pain Patient Tobacco Use Status: Current everyday Tobacco user Tobacco use type: Cigarette Cigarette Packs Per Day: 0.33 Cigarettes Per Day: 5 Years Smoked: 27 Smoked in Last 30 Days: Yes e-Cigarette/Vaping Use: Currently Using Second Hand Smoke Exposure: No Use of substances other than those prescribed or required for medical reasons: Yes Substance Use Type: Marijuana Advance Directives: No Advance Directives Information Provided: No Do you have a plan to hurt others: No Plan Patient : No service: No Sexual orientation: Straight/Heterosexual Physical Exam ED Vital Signs: Vital Signs - 24 hr 05/29/24 16:53 05/29/24 20:00 05/29/24 20:01 Temperature 98.8 F 98.3 F Pulse Rate 98 77 Respiratory Rate 18 Blood Pressure 116/65 105/63 Pulse Oximetry 100 100 Oxygen Delivery Method Room Air Room Air 05/29/24 20:02 05/29/24 20:02 05/29/24 21:35 Temperature 98.0 F Pulse Rate 79 83 91 Respiratory Rate 16 Blood Pressure 117/68 120/72 123/64 Pulse Oximetry 99 Oxygen Delivery Method Room Air 05/29/24 21:43 Temperature 98.0 F Pulse Rate 91 Respiratory Rate 16 Blood Pressure 123/64 Pulse Oximetry 99 Oxygen Delivery Method Room Air BMI result Body Mass Index 31.8 Appearance: Alert. Oriented X3. No acute distress. Phobia Eyes: No pallor or icterus ENT: Pharynx normal. Oral Mucosa moist Neck: Normal inspection. Neck supple. CVS: Normal heart rate and rhythm. Pulses normal. Respiratory: No respiratory distress. Equal air entry bilateral, no wheezing/rales/rhonchi Abdomen: Soft and nontender. Bowel sounds are present, no mass palpable, no CVA tenderness Skin: Skin warm and dry. Normal skin color. Normal skin turgor. Extremities: Nonpitting bilateral lower extremity edema. No calf tenderness Neuro: Oriented X 3. No motor deficit. No sensory deficit.No cerebellar signs , cranial nerves II-XII intact Course Course Course Narrative: This is a rapid medical exam. Deferred additional HPI, ROS, PE to primary provider. 34-year-old female with a past medical history of depression, PTSD, bipolar here with vomiting/diarrhea x 2 days, feels BS is low, general weakness and reports swelling in LE bilaterally. Will obtain labs, UA, viral testing, orthos. VSS -Hansa Sheffield GEOSPATIAL TECHNOLOGIST Medications Administered Discontinued Medications Generic Name Dose Route Start Last Admin Trade Name Freq PRN Reason Stop Dose Admin Cefuroxime Axetil 500 mg 05/29/24 21:05 05/29/24 21:34 Cefuroxime Axetil 500 Mg Tablet PO 05/29/24 21:06 500 mg ONCE ONE Administration Medical Decision Making Medical Decision Making [facility] Narrative: Patient has bilateral non pitting leg edema likely chronic as patient's said as swelling has increased will start on hydrochlorothiazide no signs of failure clinically not DVT Differential Diagnosis Differential Diagnoses: The differential diagnosis associated with the presentation includes Lab Data [facility] Lab Attestation statement: I reviewed the patient's lab results. 05/29/24 17:00 05/29/24 17:00 Labs: Lab Results 05/29/24 05/29/24 Range/Units 17:00 20:05 WBC 10.3 (4.8-10.8) X10*3/uL RBC 4.27 (4.20-5.50) X10*6/uL Hgb 11.2 L (12.0-16.0) g/dl Hct 34.2 L (37.0-47.0) % MCV 80.1 (80.0-98.0) fL MCH 26.2 L (27.0-33.0) pg MCHC 32.7 (31.0-35.0) g/dl RDW 15.5 (11.0-16.0) % Plt Count 265 (160-400) X10*3/uL MPV 10.4 (9.4-12.3) fL Immature Gran % (Auto) 0.3 (0.0-0.4) % Neut % (Auto) 66.9 (45-73) % Lymph % (Auto) 24.7 (20-40) % [place] % (Auto) 6.5 (2-11) % Eos % (Auto) 1.3 (0-4) % Baso % (Auto) 0.3 (0-2) % Lymph # (Auto) 2.6 (1.2-4.9) X10*3/uL [place] # (Auto) 0.7 (0.1-1.2) X10*3/uL Eos # (Auto) 0.1 (0.0-0.4) X10*3/uL Baso # (Auto) 0.0 (0.0-0.2) X10*3/uL Abs Immat Gran (auto) 0.03 (0.00-0.03) X10*3/uL Absolute Neuts (auto) 6.9 (2.0-8.3) x10*3/uL Absolute Nucleated RBC 0.000 (0.0-0.012) X10*3/uL Nucleated RBC % (auto) 0.0 (0.0-0.2) /100WBC Sodium 138 (135-145) mmol/L Potassium 4.1 (3.3-5.1) mmol/L Chloride 107 (96-108) mmol/L Carbon Dioxide 23 (22-29) mmol/L Anion Gap 12 (12-20) BUN 9 (9-16) mg/dL Creatinine 0.67 (0.5-1.4) mg/dL Estim Creat Clear Calc 133.2 Estimated GFR > 60 Random Glucose 89 (60-115) mg/dL Calcium 9.6 (8.4-10.2) mg/dL Magnesium 1.8 (1.6-2.6) mg/dL Total Bilirubin 0.5 (0.0-1.0) mg/dL Direct Bilirubin 0.2 (0.0-0.5) mg/dL AST 27 (5-31) U/L ALT 49 H (0-31) U/L Alkaline Phosphatase 54 (39-117) U/L Total Creatine Kinase 175 H (26-140) U/L B-Natriuretic Peptide 64 (<100) pg/mL Total Protein 7.1 (6.5-8.0) g/dL Albumin 4.0 (3.5-5.0) g/dL Urine Color RED Urine Appearance Turbid Urine pH 6.5 (5.0-9.0) Ur Specific [place] 1.025 (1.005-1.025) Urine Protein 300 (3+) H (Neg-Trace) mg/dL Urine Glucose (UA) 100 H (Negative) mg/dL Urine Ketones 15 (Negative) mg/dL Urine Blood Large (3+) H (Negative) Urine Nitrite Positive H (Negative) Ur Leukocyte Esterase Moderate (2+) H (Negative) Urine RBC >20 H (0-2) /HPF Urine WBC >50 H (0-5) /HPF Ur Squamous Epith Cells 6-10 (0-2) /HPF Urine Bacteria 3+ (None Seen) Hyaline Casts 0-2 (0-2) /LPF Urine Test NEGATIVE (NEGATIVE) Influenza Type A (PCR) NEGATIVE (Negative) Influenza Type B (PCR) NEGATIVE (Negative) RSV RNA Qual (PCR) NEGATIVE (Negative) SARS-CoV-2 RNA (RT-PCR) NEGATIVE (Negative) Discharge Plan Discharge Clinical Impression: Dependent edema, UTI (urinary tract infection) Patient Disposition: Home, Self-Care Instructions: Urinary Tract Infection in Women (DC), Leg Edema (ED) Additional Instructions: Keep your legs elevated Antibiotic as prescribed Take water pill every day in the morning to decrease the leg swelling Follow up with your PCP Prescriptions: New cefuroxime axetil 250 mg tablet 250 mg PO BID 7 Days Qty: 14 0RF hydrochlorothiazide 25 mg tablet 25 mg PO QAM Qty: 30 0RF No Action prazosin 1 mg Capsule 3 mg PO BEDTIME 30 Days Qty: 90 0RF Protocol: Hold for SBP< HOLD for SBP < : 90 prazosin 1 mg Capsule 2 mg PO DAILY 30 Days Qty: 60 0RF Protocol: Hold for SBP< HOLD for SBP < : 90 olanzapine 5 mg Tablet 12.5 mg PO DAILY 30 Days Qty: 75 0RF olanzapine 10 mg Tablet 10 mg PO BEDTIME 30 Days Qty: 30 0RF trazodone 100 mg Tablet 200 mg PO BEDTIME 30 Days Qty: 60 0RF divalproex 500 mg Tablet Extended Release 24 Hr 1,000 mg PO BEDTIME 30 Days Qty: 60 0RF Interventions: ED Discharge Assessment Last Done: 05/29/24 21:43 Discharge Date/Time: 05/29/24 21:44 Print Language: Argentine
[2024-05-29 17:05] LABS: MANUAL DIFF FLAG NO
[2024-05-29 17:13] LABS: Basophils Percent Auto 0.3 % (0-2); Eosinophils Absolute Auto 0.1 X10*3/uL (0.0-0.4); Eosinophils Percent Auto 1.3 % (0-4); Hematocrit 34.2 % (37.0-47.0); Hemoglobin 11.2 g/dl (12.0-16.0); Imm Gran Abs Auto 0.03 X10*3/uL (0.00-0.03); Imm Gran Pct Auto 0.3 % (0.0-0.4); Lymphocytes Absolute Auto 2.6 X10*3/uL (1.2-4.9); Lymphocytes Percent Auto 24.7 % (20-40); Mean Corpuscular HGB Conc 32.7 g/dl (31.0-35.0); Mean Corpuscular Hemoglobin 26.2 pg (27.0-33.0); Mean Corpuscular Volume 80.1 fL (80.0-98.0); Mean Platelet Volume 10.4 fL (9.4-12.3); Monocytes Absolute Auto 0.7 X10*3/uL (0.1-1.2); Monocytes Percent Auto 6.5 % (2-11); Neutrophils Absolute Auto 6.9 x10*3/uL (2.0-8.3); Neutrophils Percent Auto 66.9 % (45-73); Platelet Count 265 X10*3/uL (160-400); Red Blood Count 4.27 X10*6/uL (4.20-5.50); Red Cell Distribution Width 15.5 % (11.0-16.0); White Blood Count 10.3 X10*3/uL (4.8-10.8)
[2024-05-29 17:20] LABS: Alanine Aminotransferase 49 U/L (0-31); Alkaline Phosphatase 54 U/L (39-117); Anion Gap 12 (12-20); Aspartate Amino Transferase 27 U/L (5-31); Bilirubin Direct 0.2 mg/dL (0.0-0.5); Bilirubin Total 0.5 mg/dL (0.0-1.0); Blood Urea Nitrogen 9 mg/dL (9-16); Calcium 9.6 mg/dL (8.4-10.2); Carbon Dioxide 23 mmol/L (22-29); Chloride 107 mmol/L (96-108); Creatinine Clr Calc Pharmacy 133.2; Estimated Glomerular Filt Rate > 60; Glucose Random 89 mg/dL (60-115); Magnesium 1.8 mg/dL (1.6-2.6); Potassium 4.1 mmol/L (3.3-5.1); Sodium 138 mmol/L (135-145); Total Protein 7.1 g/dL (6.5-8.0)
[2024-05-29 17:43] LABS: Influenza A PCR NEGATIVE (Negative); Influenza B PCR NEGATIVE (Negative); Resp Syncy Virus RNA Qual PCR NEGATIVE (Negative); SARS COV2 PCR INHOUSE NEGATIVE (Negative)
[2024-05-29 20:00] VITALS: TEMP 36.8; O2SAT 100
[2024-05-29 20:01] VITALS: BP 105/63; PULSE 77
[2024-05-29 20:02] VITALS: BP 117/68; BP 120/72; PULSE 79; PULSE 83
[2024-05-29 20:15] LABS: Appearance Urine Turbid; Color Urine RED; Glucose Urine UA 100 mg/dL (Negative); Leukocyte Esterase Urine Moderate (2+) (Negative); Nitrite Urine Positive (Negative); PH 6.5 (5.0-9.0); Specific Gravity - Urine 1.025 (1.005-1.025); UMIC TRIGGER UACC YES; Urine Blood Large (3+) (Negative); Urine Ketones 15 mg/dL (Negative); Urine Protein 300 (3+) mg/dL (Neg-Trace)
[2024-05-29 20:16] LABS: UPreg QC Valid YES; Urine Pregnancy NEGATIVE (NEGATIVE)
[2024-05-29 20:22] LABS: Bacteria Urine 3+ (None Seen); Hyaline Casts Urine 0-2 /LPF (0-2); RBC Urine >20 /HPF (0-2); UACC Culture Trigger YES; WBC Urine >50 /HPF (0-5)
[2024-05-29 20:32] LABS: B Type Natriuretic Peptide 64 pg/mL (<100)
--- NOTE | 2024-05-29 20:55 | PC.NURSE ---
po trial. given carlito sylvie, crackers and sandwich. pt tolerated well
[2024-05-29] MEDS: cefuroxime axetiL 500 MG TABLET PO (21:34)
[2024-05-29 21:35] VITALS: BP 123/64; PULSE 91; RESP 16; TEMP 36.7; O2SAT 99
[2024-05-29 21:43] VITALS: BP 123/64; PULSE 91; RESP 16; TEMP 36.7; O2SAT 99
== END 2024-05-29 21:44 | disposition home or self-care (01) ==
PROVIDERS: Nurse Practitioner Family; Emergency Provider Internal Medicine; PCP Physician Assistant
DX: R60.0 Localized edema (principal); R11.2 Nausea with vomiting, unspecified; N39.0 Urinary tract infection, site not specified; R06.02 Shortness of breath; Z03.818 Encounter for observation for suspected exposure to other biological agents ruled out; Z79.899 Other long term (current) drug therapy
CPT/HCPCS: 0241U; 80048; 80076; 81001; 81025; 82550; 83735; 83880; 85025; 87086; 99284

== ENCOUNTER 2024-08-30 12:38 | Inpatient (IN) | payer OTHER, SELFPAY ==
[2024-08-30 12:53] VITALS: BP 143/85; PULSE 99; RESP 20; TEMP 37.4; O2SAT 99; BMI 29.3
--- NOTE | 2024-08-30 12:53 | ED.PSYCH ---
HPI - Psych General Chief Complaint: Psychiatric Symptoms Stated Complaint: Crisis SI Time Seen by Provider: 08/30/24 13:46 Source: patient, RN notes reviewed and old records reviewed Mode of arrival: ambulatory Limitations: no limitations History of Present Illness ED Provider: Erica HPI Narrative: Patient is a 34-year-old female with history of TBI, anemia, bipolar disorder, depression, cannabis use disorder, PTSD, fibromyalgia, migraines, asthma, currently experiencing homelessness presenting to the emergency department complaining of suicidal and homicidal ideation. Currently living in her vehicle, has increased stressors at work, and DCF involvement with her children. Has been struggling since the of her brother in June. Reporting homicidal ideation towards everyone that's done me wrong. Complains of headache as well. Admits to cannabis use. Denies alcohol or other drug use. MD complaint: suicidal ideation, feels depressed, homicidal ideation and anxiety If self harm: admits thoughts of self harm Related Data Previous Rx's ?Medication ?Instructions ?Recorded divalproex 500 mg tablet,extended 1,000 mg (2 x 500 mg) PO BEDTIME 05/17/24 release 24 hr 30 days #60 tabs olanzapine 10 mg tablet 10 mg PO BEDTIME 30 days #30 tabs 05/17/24 olanzapine 5 mg tablet 12.5 mg (2.5 x 5 mg) PO DAILY 05/17/24 agitation 30 days #75 tabs prazosin 1 mg capsule 2 mg PO DAILY 30 days #60 caps 05/17/24 prazosin 1 mg capsule 3 mg PO BEDTIME 30 days #90 caps 05/17/24 trazodone 100 mg tablet 200 mg (2 x 100 mg) PO BEDTIME 30 05/17/24 days #60 tabs cefuroxime axetil 250 mg tablet 250 mg PO BID 7 days #14 tabs 05/29/24 hydrochlorothiazide 25 mg tablet 25 mg PO QAM #30 tabs 05/29/24 Allergies Allergy/AdvReac Type Severity Reaction Status Date / Time diphenhydramine Allergy Severe Anaphylaxis Verified 08/30/24 13:04 [From Benadryl] latex [LATEX] Allergy Intermediate RASH Verified 08/30/24 13:04 risperidone [From Risperdal] AdvReac Blurry Verified 08/30/24 13:04 Vision Review of Systems Review of Systems: As per HPI Yes all other systems are reviewed and are negative Constitutional: Constitutional: Reports as per HPI [facility] Past Medical History Medical History Breast cyst Anemia Asthma TBI (traumatic brain injury) Migraine Fibromyalgia PTSD (post-traumatic stress disorder) Psychosis Bipolar disorder Anxiety Surgical History History of surgery Hx of section History of tubal ligation Family History Family History Father No problems noted. Mother Liver cancer Sister Breast cancer Maternal Grandmother Breast cancer Social History Social History Household Members: None Housing: Homeless Housing Other:: halfway Do you presently have visiting nurse or other home services: No Unable to assess alcohol history related to: Unknown Alcohol intake: unknown Comment: reports med was effective for neck pain Patient Tobacco Use Status: Current everyday Tobacco user Tobacco use type: Cigarette Cigarette Packs Per Day: 0.33 Cigarettes Per Day: 5 Years Smoked: 27 e-Cigarette/Vaping Use: Currently Using Second Hand Smoke Exposure: No Substance Use Type: Marijuana Advance Directives: No Advance Directives Information Provided: Yes Do you have a plan to hurt others: Clear service: No Sexual orientation: Straight/Heterosexual Physical Exam Vital Signs: Vital Signs: Last Vital Signs Temp 99.4 F 08/30/24 12:53 Pulse 99 08/30/24 12:53 Resp 20 08/30/24 12:53 BP 143/85 H 08/30/24 12:53 Pulse Ox 99 08/30/24 12:53 BMI result Body Mass Index 29.3 Vital signs have been reviewed and appear to be correct. Blood pressure normal. Heart rate normal. Respiratory rate normal. Temperature normal. Oxygen saturation normal. Const: General: cooperative, healthy appearing and no acute distress Orientation/consciousness: oriented to person, oriented to place, oriented to time and patient oriented x3 Limitations: no limitations HEENT: Head: Yes normocephalic and Yes atraumatic Ears: external ears normal General nose exam: Normal external nose present Face and sinus: Yes face symmetric Mouth: oropharynx normal and moist mucous membranes Throat: Yes uvula midline Eyes: Pupils: Equal, round and reactive pupils present Neck: Neck: Yes normal visual inspection and Yes supple Resp: Effort & Inspection: normal respiratory effort and able to speak in complete sentences Auscultation: clear to auscultation bilaterally Cardio: Rate: regular rate Rhythm: regular rhythm Heart sounds: S1 normal heart sound present and S2 normal heart sound present GI: Palpation (GI): Soft to palpation and nontender Auscultation: normoactive bowel sounds : General: Yes no CVA tenderness Back/Spine/Pelvis: Back: no CVA tenderness Skin: General skin exam: elasticity normal and turgor normal Neuro: General: oriented to person, oriented to place, oriented to time, patient oriented x3, moves all extremities, no focal motor deficits and CN's II-XI intact bilaterally Cranial nerves: Yes Equal, round and reactive pupils present Cognition (Neuro): normal cognition Extrem: General: Yes full ROM, Yes no pedal edema and Yes no calf tenderness Psych: Mental Status: mental status grossly normal Speech and movement: Normal speech and movement present Affect: Hostile affect present and Irritable affect present Thought process: Normal thought process present Thought content: Suicidality present, Homicidality present, no hallucinations and Depressive thoughts present Course Course Course Narrative: This is an RME: Additional HPI, ROS, PE not included below will be deferred to primary provider. RME assessment and note performed by: Rosario Santana PA-C This is a [id number]-female, with a hx of asthma, TBI, fibromyalgia, PTSD, psychosis, bipolar disorder anxiety, who presents to the ER with complaints of worsening depression. Reports that she has no med providers or therapists. Reports that she wants to go and find DCF, parents, everyone that have done me wrong I want to kill them . She states that she is living in a car, working 14 hours a day, recently lost custody of her children. Admits to smoking marijuana, no etoh or drug use Plan: Labs, care team, UA, further ER eval needed Medications Administered Discontinued Medications Generic Name Dose Route Start Last Admin Trade Name Freq PRN Reason Stop Dose Admin Acetaminophen 650 mg 08/30/24 13:56 08/30/24 14:27 Acetaminophen 325 Mg Tablet PO 08/30/24 13:57 650 mg ONCE ONE Administration Medical Decision Making Medical Decision Making MDM Narrative: Patient is a 34-year-old female with history of TBI, anemia, bipolar disorder, depression, cannabis use disorder, PTSD, fibromyalgia, migraines, asthma, currently experiencing homelessness presenting to the emergency department complaining of suicidal and homicidal ideation. On exam patient is awake, A+Ox3, VS WNL, afebrile, normal neurological exam without focal deficits, physical exam findings as above. Given reported symptoms and physical exam findings, initial differential includes but is not limited to depression, anxiety, suicidal ideation, homicidal ideation. Patient engaging minimally in assessment. Labs unremarkable. EKG shows normal sinus rhythm. Will medically clear at this time for CARE team eval and place on physician observation. Differential Diagnosis Differential Diagnoses: The differential diagnosis associated with the presentation includes As per [facility] Admission/Observation Consideration of admission/observation: Escalation of care including admission/observation considered Patient would have been admitted to the hospital had their work up had any findings where hospital admission was appropriate and their clinical presentation warranted hospital admission. Consult Healthcare Provider Management of the patient was discussed with: Behavioral Health Provider Lab Data [facility] Lab Attestation statement: I reviewed the patient's lab results. As per [facility] 08/30/24 13:18 08/30/24 13:18 Labs: Lab Results 08/30/24 08/30/24 Range/Units 13:18 14:22 WBC 7.1 (4.8-10.8) X10*3/uL RBC 4.92 (4.20-5.50) X10*6/uL Hgb 12.7 (12.0-16.0) g/dl Hct 37.7 (37.0-47.0) % MCV 76.6 L (80.0-98.0) fL MCH 25.8 L (27.0-33.0) pg MCHC 33.7 (31.0-35.0) g/dl RDW 16.9 H (11.0-16.0) % Plt Count 225 (160-400) X10*3/uL MPV 10.1 (9.4-12.3) fL Immature Gran % (Auto) 0.3 (0.0-0.4) % Neut % (Auto) 58.5 (45-73) % Lymph % (Auto) 30.4 (20-40) % [place] % (Auto) 7.3 (2-11) % Eos % (Auto) 2.9 (0-4) % Baso % (Auto) 0.6 (0-2) % Lymph # (Auto) 2.2 (1.2-4.9) X10*3/uL [place] # (Auto) 0.5 (0.1-1.2) X10*3/uL Eos # (Auto) 0.2 (0.0-0.4) X10*3/uL Baso # (Auto) 0.0 (0.0-0.2) X10*3/uL Abs Immat Gran (auto) 0.02 (0.00-0.03) X10*3/uL Absolute Neuts (auto) 4.2 (2.0-8.3) x10*3/uL Absolute Nucleated RBC 0.000 (0.0-0.012) X10*3/uL Nucleated RBC % (auto) 0.0 (0.0-0.2) /100WBC Sodium 139 (135-145) mmol/L Potassium 3.8 (3.3-5.1) mmol/L Chloride 107 (96-108) mmol/L Carbon Dioxide 25 (22-29) mmol/L Anion Gap 11 L (12-20) BUN 10 (9-16) mg/dL Creatinine 0.72 (0.5-1.4) mg/dL Estim Creat Clear Calc 119.0 Estimated GFR > 60 Random Glucose 83 (60-115) mg/dL Calcium 9.3 (8.4-10.2) mg/dL Total Bilirubin 0.5 (0.0-1.0) mg/dL Direct Bilirubin 0.2 (0.0-0.5) mg/dL AST 21 (5-31) U/L ALT 13 (0-31) U/L Alkaline Phosphatase 59 (39-117) U/L Total Protein 7.9 (6.5-8.0) g/dL Albumin 4.3 (3.5-5.0) g/dL Beta HCG, Quant < 2 mIU/mL Urine Color Dark Yellow Urine Appearance Clear Urine pH 6.0 (5.0-9.0) Ur Specific [place] 1.025 (1.005-1.025) Urine Protein Trace (Neg-Trace) mg/dL Urine Glucose (UA) Negative (Negative) mg/dL Urine Ketones 15 (Negative) mg/dL Urine Blood Negative (Negative) Urine Nitrite Negative (Negative) Ur Leukocyte Esterase Trace H (Negative) Urine RBC 0-2 (0-2) /HPF Urine WBC 0-5 (0-5) /HPF Ur Squamous Epith Cells 3-5 (0-2) /HPF Urine Bacteria None Seen (None Seen) Hyaline Casts 3-5 (0-2) /LPF Urine Opiates Screen Not Detected (Not Detect) Ur Buprenorphine Scrn Not Detected (Not Detect) ng/mL Ur Oxycodone Screen Not Detected (Not Detect) ng/mL Urine Methadone Screen Not Detected (Not Detect) ng/mL Urine Fentanyl Screen Not Detected (Not Detect) Ur Barbiturates Screen Not Detected (Not Detect) Ur Phencyclidine Scrn Not Detected (Not Detect) Ur Amphetamines Screen Not Detected (Not Detect) U Benzodiazepines Scrn Not Detected (Not Detect) Urine Cocaine Screen Not Detected (Not Detect) U Marijuana (THC) Screen POSITIVE H (Not Detect) Ethyl Alcohol < 10 mg/dL Independent Interpretation I performed an independent interpretation of an: EKG (normal sinus rhythm, rate 94bpm,normal SD interval and QTc) External Record Review External record reviewed: Inpatient record, Office record and Outpatient record Discharge Plan Discharge Clinical Impression: Homicidal ideation, Suicidal ideation Patient Disposition: Still a Patient Prescriptions: No Action prazosin 1 mg Capsule 3 mg PO BEDTIME 30 Days Qty: 90 0RF Protocol: Hold for SBP< HOLD for SBP < : 90 prazosin 1 mg Capsule 2 mg PO DAILY 30 Days Qty: 60 0RF Protocol: Hold for SBP< HOLD for SBP < : 90 olanzapine 5 mg Tablet 12.5 mg PO DAILY 30 Days Qty: 75 0RF olanzapine 10 mg Tablet 10 mg PO BEDTIME 30 Days Qty: 30 0RF trazodone 100 mg Tablet 200 mg PO BEDTIME 30 Days Qty: 60 0RF divalproex 500 mg Tablet Extended Release 24 Hr 1,000 mg PO BEDTIME 30 Days Qty: 60 0RF cefuroxime axetil 250 mg tablet 250 mg PO BID 7 Days Qty: 14 0RF hydrochlorothiazide 25 mg tablet 25 mg PO QAM Qty: 30 0RF Print Language: Thai
--- NOTE | 2024-08-30 13:02 | ECG_ITS ---
Test Reason : check qt Blood Pressure : */* mmHG Vent. Rate : 94 BPM Atrial Rate : 94 BPM P-R Int : 144 ms QRS Dur : 86 ms QT Int : 348 ms P-R-T Axes : 48 34 37 degrees QTcB Int : 435 ms Normal sinus rhythm Normal ECG When compared with ECG of 12-May-2024 11:56, No significant change was found Referred By: Rosario Santana Electronically Signed By: ADRIA ALVES
[2024-08-30 13:04] VITALS: BP 143/85; PULSE 99; RESP 20; TEMP 37.4; O2SAT 99
[2024-08-30 13:22] LABS: MANUAL DIFF FLAG NO
[2024-08-30 13:23] LABS: Basophils Percent Auto 0.6 % (0-2); Eosinophils Absolute Auto 0.2 X10*3/uL (0.0-0.4); Eosinophils Percent Auto 2.9 % (0-4); Hematocrit 37.7 % (37.0-47.0); Hemoglobin 12.7 g/dl (12.0-16.0); Imm Gran Abs Auto 0.02 X10*3/uL (0.00-0.03); Imm Gran Pct Auto 0.3 % (0.0-0.4); Lymphocytes Absolute Auto 2.2 X10*3/uL (1.2-4.9); Lymphocytes Percent Auto 30.4 % (20-40); Mean Corpuscular HGB Conc 33.7 g/dl (31.0-35.0); Mean Corpuscular Hemoglobin 25.8 pg (27.0-33.0); Mean Corpuscular Volume 76.6 fL (80.0-98.0); Mean Platelet Volume 10.1 fL (9.4-12.3); Monocytes Absolute Auto 0.5 X10*3/uL (0.1-1.2); Monocytes Percent Auto 7.3 % (2-11); Neutrophils Absolute Auto 4.2 x10*3/uL (2.0-8.3); Neutrophils Percent Auto 58.5 % (45-73); Platelet Count 225 X10*3/uL (160-400); Red Blood Count 4.92 X10*6/uL (4.20-5.50); Red Cell Distribution Width 16.9 % (11.0-16.0); White Blood Count 7.1 X10*3/uL (4.8-10.8)
[2024-08-30 13:52] LABS: Ethanol < 10 mg/dL
[2024-08-30 13:59] LABS: Alanine Aminotransferase 13 U/L (0-31); Albumin Level 4.3 g/dL (3.5-5.0); Alkaline Phosphatase 59 U/L (39-117); Anion Gap 11 (12-20); Aspartate Amino Transferase 21 U/L (5-31); Bilirubin Direct 0.2 mg/dL (0.0-0.5); Bilirubin Total 0.5 mg/dL (0.0-1.0); Blood Urea Nitrogen 10 mg/dL (9-16); Calcium 9.3 mg/dL (8.4-10.2); Carbon Dioxide 25 mmol/L (22-29); Chloride 107 mmol/L (96-108); Estimated Glomerular Filt Rate > 60; Glucose Random 83 mg/dL (60-115); HCG Quantitative < 2 mIU/mL; Potassium 3.8 mmol/L (3.3-5.1); Sodium 139 mmol/L (135-145); Total Protein 7.9 g/dL (6.5-8.0)
[2024-08-30] MEDS: Acetaminophen 325 MG TABLET 650 MG PO (14:27)
[2024-08-30 14:28] LABS: Appearance Urine Clear; Color Urine Dark Yellow; Glucose Urine UA Negative (Negative); Leukocyte Esterase Urine Trace (Negative); Nitrite Urine Negative (Negative); Specific Gravity - Urine 1.025 (1.005-1.025); UMIC TRIGGER UACC YES; Urine Blood Negative (Negative); Urine Ketones 15 mg/dL (Negative); Urine Protein Trace mg/dL (Neg-Trace)
[2024-08-30 14:33] LABS: Bacteria Urine None Seen (None Seen); RBC Urine 0-2 /HPF (0-2); WBC Urine 0-5 /HPF (0-5)
[2024-08-30 14:49] LABS: Amphetamine Screen Urine Not Detected (Not Detect); Barbiturates, Urine Not Detected (Not Detect); Benzodiazepines Screen Urine Not Detected (Not Detect); Buprenorphine Scr Not Detected (Not Detect); Cannabinoid Screen Urine POSITIVE (Not Detect); Cocaine Screen Urine Not Detected (Not Detect); Fentanyl, urine Not Detected (Not Detect); Methadone Screen, Urine Not Detected (Not Detect); Opiate Screen Urine Not Detected (Not Detect); Oxycodone Screen Urine Not Detected (Not Detect); Phencyclidine Screen Urine Not Detected (Not Detect)
[2024-08-30] MEDS: LORazepam 1 MG TABLET PO (15:58)
[2024-08-30] MEDS: traZODone HCL 100 MG TABLET PO (20:45)
--- NOTE | 2024-08-30 21:20 | MHC.EDTECH ---
pt swearing at staff and becoming increasingly agitated and non redirectable. security at bed side
[2024-08-30 22:05] VITALS: BP 109/58
[2024-08-30] MEDS: Prazosin HCL 1 MG CAPSULE 3 MG PO (22:05)
[2024-08-30] MEDS: Divalproex Sodium ER 500 MG TAB.ER.24H 1000 MG PO (22:06)
[2024-08-30] MEDS: OLANZapine 10 MG TABLET PO (22:06)
[2024-08-30] MEDS: traZODone HCL 100 MG TABLET 200 MG PO (22:06)
[2024-08-31 06:32] VITALS: RESP 16
[2024-08-31 06:44] VITALS: BP 97/65; PULSE 110; RESP 20; TEMP 36.6; O2SAT 99
[2024-08-31] MEDS: Prazosin HCL 1 MG CAPSULE 2 MG PO (09:29)
[2024-08-31] MEDS: OLANZapine 2.5 MG TABLET 12.5 MG PO (09:30)
[2024-08-31] MEDS: hydroCHLOROthiazide 25 MG TABLET PO (09:30)
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
[2024-08-31 10:22] VITALS: BP 110/62; PULSE 95; RESP 16; TEMP 36.7; O2SAT 96
[2024-08-31] MEDS: OLANZapine 5 MG TABLET PO (11:17)
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
[2024-08-31 14:43] VITALS: BP 98/63; PULSE 114; RESP 16; TEMP 36.2; O2SAT 98
[2024-08-31 14:45] VITALS: BP 98/63
[2024-08-31] MEDS: OLANZapine ODT 10 MG TAB.RAPDIS TRANSLINGU ×2 (14:45→21:06)
[2024-08-31] MEDS: Prazosin HCL 1 MG CAPSULE PO (14:45)
--- NOTE | 2024-08-31 15:11 | PC.NURSE ---
08/31/2024 Annamarie Feliz signed a 3 day, up on 09/05/2024.
[2024-08-31 19:47] VITALS: BP 114/60; PULSE 83; TEMP 36.6; O2SAT 97
[2024-08-31] MEDS: Divalproex Sodium ER 500 MG TAB.ER.24H 1000 MG PO (21:06)
[2024-08-31] MEDS: Prazosin HCL 1 MG CAPSULE 3 MG PO (21:07)
[2024-08-31] MEDS: traZODone HCL 100 MG TABLET 200 MG PO (21:07)
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
[2024-09-01 07:52] LABS: Estimated Average Glucose 94 mg/dL; Hemoglobin A1C 96.2479 umol/L; Hemoglobin A1c % 4.9 % (<6.0); Total Hemoglobin (HGBA1C) 3173.9031 umol/L
[2024-09-01 08:01] LABS: Cholesterol 133 mg/dL (<200); HDL Cholesterol 46 mg/dL (>40); LDL Cholesterol Calculated 79 mg/dL (<100); Triglycerides 42 mg/dL (<150)
[2024-09-01] MEDS: Prazosin HCL 1 MG CAPSULE 2 MG PO (08:20)
[2024-09-01] MEDS: OLANZapine ODT 10 MG TAB.RAPDIS TRANSLINGU (08:20)
[2024-09-01 08:30] VITALS: BP 113/64; PULSE 88; RESP 16; TEMP 36.8; O2SAT 99
[2024-09-01] MEDS: hydroCHLOROthiazide 25 MG TABLET PO (08:53)
[2024-09-01] MEDS: OLANZapine 5 MG TABLET PO (08:56)
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
[2024-09-01] MEDS: LORazepam 1 MG TABLET 2 MG PO (09:16)
[2024-09-01] MEDS: LORazepam 1 MG TABLET PO ×2 (13:06→17:25)
[2024-09-01] MEDS: HaloperidoL 5 MG TABLET PO ×2 (13:07→17:25)
[2024-09-01 19:47] VITALS: BP 128/81; PULSE 92; TEMP 37.1; O2SAT 99
[2024-09-01] MEDS: Divalproex Sodium ER 500 MG TAB.ER.24H 1500 MG PO (20:34)
[2024-09-01] MEDS: traZODone HCL 100 MG TABLET 200 MG PO (20:35)
[2024-09-01] MEDS: Prazosin HCL 1 MG CAPSULE 3 MG PO (20:35)
[2024-09-01] MEDS: OLANZapine ODT 10 MG TAB.RAPDIS 20 MG TRANSLINGU (20:36)
[2024-09-02] MEDS: LORazepam 1 MG TABLET PO ×3 (05:00→17:53)
[2024-09-02] MEDS: HaloperidoL 5 MG TABLET PO (05:01)
[2024-09-02 07:50] VITALS: BP 123/79
[2024-09-02] MEDS: Prazosin HCL 1 MG CAPSULE 2 MG PO (07:50)
[2024-09-02] MEDS: OLANZapine ODT 10 MG TAB.RAPDIS 20 MG TRANSLINGU ×2 (07:50→20:31)
[2024-09-02] MEDS: hydroCHLOROthiazide 25 MG TABLET PO (07:50)
[2024-09-02 08:00] VITALS: BP 123/79; PULSE 111; TEMP 35.9; O2SAT 100
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
[2024-09-02 12:04] VITALS: BP 112/69
[2024-09-02] MEDS: cloNIDine HCL 0.1 MG TABLET PO (12:04)
[2024-09-02] MEDS: Lithium Carbonate ER 300 MG TABLET.ER 600 MG PO (12:04)
--- NOTE | 2024-09-02 12:07 | PC.NURSE ---
09/02/2024 Annamarie Feliz Retracted 3 Day.
[2024-09-02] MEDS: Baclofen 10 MG TABLET PO (17:53)
[2024-09-02 20:00] VITALS: BP 110/66; PULSE 100; TEMP 36.7; O2SAT 99
[2024-09-02 20:28] VITALS: BP 110/66
[2024-09-02] MEDS: Prazosin HCL 1 MG CAPSULE 3 MG PO (20:28)
[2024-09-02] MEDS: Divalproex Sodium ER 500 MG TAB.ER.24H 1500 MG PO (20:29)
[2024-09-02] MEDS: traZODone HCL 100 MG TABLET 200 MG PO (20:31)
[2024-09-03] MEDS: LORazepam 1 MG TABLET PO ×3 (00:56→20:35)
[2024-09-03] MEDS: HaloperidoL 5 MG TABLET PO ×2 (00:57→11:24)
[2024-09-03] MEDS: OLANZapine ODT 10 MG TAB.RAPDIS 20 MG TRANSLINGU ×2 (07:55→20:35)
[2024-09-03] MEDS: Lithium Carbonate ER 300 MG TABLET.ER 600 MG PO (07:55)
[2024-09-03] MEDS: Prazosin HCL 1 MG CAPSULE 2 MG PO (07:55)
[2024-09-03 08:15] VITALS: BP 104/61; PULSE 78; RESP 18; TEMP 36.4; O2SAT 100
[2024-09-03] MEDS: amLODIPine Besylate 2.5 MG TABLET PO (08:37)
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
[2024-09-03] MEDS: Benztropine Mesylate 0.5 MG TABLET PO ×2 (11:18→21:08)
[2024-09-03] MEDS: Divalproex Sodium ER 500 MG TAB.ER.24H 1500 MG PO (11:18)
[2024-09-03] MEDS: chlorproMAZINE HCl 25 MG TABLET 50 MG PO (13:50)
[2024-09-03 20:00] VITALS: BP 126/71; PULSE 79; TEMP 36.4; O2SAT 96
[2024-09-03] MEDS: traZODone HCL 100 MG TABLET 200 MG PO (20:35)
[2024-09-03] MEDS: Acetaminophen 325 MG TABLET 650 MG PO (20:35)
[2024-09-03 20:36] VITALS: BP 126/71
[2024-09-03] MEDS: Prazosin HCL 1 MG CAPSULE 3 MG PO (20:36)
[2024-09-04 06:23] VITALS: BP 112/67
[2024-09-04] MEDS: cloNIDine HCL 0.1 MG TABLET PO (06:23)
[2024-09-04 07:38] LABS: Valproate 93.2 mcg/mL (50.0-100.0)
[2024-09-04] MEDS: amLODIPine Besylate 2.5 MG TABLET PO (07:52)
[2024-09-04] MEDS: Benztropine Mesylate 0.5 MG TABLET PO ×2 (07:52→19:55)
[2024-09-04] MEDS: Lithium Carbonate ER 300 MG TABLET.ER 600 MG PO (07:52)
[2024-09-04] MEDS: OLANZapine ODT 10 MG TAB.RAPDIS 20 MG TRANSLINGU ×2 (07:52→19:53)
[2024-09-04] MEDS: Prazosin HCL 1 MG CAPSULE 2 MG PO (07:52)
[2024-09-04 08:00] VITALS: BP 122/78; PULSE 97; RESP 18; TEMP 36.3; O2SAT 100
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
[2024-09-04] MEDS: hydrOXYzine HCL 50 MG TABLET PO ×2 (10:06→18:21)
[2024-09-04] MEDS: Triamcinolone Acet 0.1 % Cream 15 GM TUBE 1 APPL TOPICAL ×2 (10:07→20:42)
[2024-09-04] MEDS: LORazepam 1 MG TABLET PO (13:23)
[2024-09-04] MEDS: chlorproMAZINE HCl 25 MG TABLET 50 MG PO ×2 (16:14→19:54)
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
[2024-09-04 19:53] VITALS: BP 142/86
[2024-09-04] MEDS: Prazosin HCL 1 MG CAPSULE 3 MG PO (19:53)
[2024-09-04] MEDS: traZODone HCL 100 MG TABLET 200 MG PO (19:54)
[2024-09-04] MEDS: Divalproex Sodium ER 500 MG TAB.ER.24H 1500 MG PO (19:55)
[2024-09-04 20:00] VITALS: BP 142/86; RESP 16; TEMP 36.5; O2SAT 99
--- NOTE | 2024-09-05 02:52 | PC.NURSE ---
Patient signed a 3 day notice 09/04/24 that will be up 09/07/24, provider, SW and UR notified.
[2024-09-05] MEDS: LORazepam 1 MG TABLET PO ×2 (06:05→11:02)
[2024-09-05] MEDS: chlorproMAZINE HCl 25 MG TABLET 50 MG PO (07:33)
[2024-09-05 08:00] VITALS: BP 117/65; PULSE 90; RESP 16; TEMP 36.4; O2SAT 100
[2024-09-05] MEDS: Benztropine Mesylate 0.5 MG TABLET PO (08:48)
[2024-09-05] MEDS: Prazosin HCL 1 MG CAPSULE 2 MG PO (08:48)
[2024-09-05] MEDS: OLANZapine ODT 10 MG TAB.RAPDIS 20 MG TRANSLINGU (08:48)
[2024-09-05] MEDS: amLODIPine Besylate 2.5 MG TABLET PO (08:48)
[2024-09-05] MEDS: Lithium Carbonate ER 300 MG TABLET.ER 600 MG PO (08:49)
[2024-09-05] MEDS: Triamcinolone Acet 0.1 % Cream 15 GM TUBE 1 APPL TOPICAL (08:49)
--- NOTE | 2024-09-05 15:17 | PM.PSYDC ---
DS: Providers Provider Date of admission: 08/31/24 08:32 Primary care physician: Humberto Morrow PA-C DS: Diagnosis Discharge Diagnosis (1) PTSD (post-traumatic stress disorder): Status: Acute (2) Bipolar disorder: Status: Acute (3) Cannabis use disorder: Status: Acute DS: Medications Discharge Medications Home Medications: Previous Rx's ?Medication ?Instructions ?Recorded amlodipine 2.5 mg tablet 2.5 mg PO DAILY #30 tabs 09/05/24 benztropine 0.5 mg tablet 0.5 mg PO BID #60 tabs 09/05/24 chlorpromazine 25 mg tablet 50 mg (2 x 25 mg) PO QID PRN 09/05/24 psychosis/ agitation #60 tabs divalproex 500 mg tablet,extended 1,500 mg (3 x 500 mg) PO BEDTIME 09/05/24 release 24 hr #90 tabs lithium carbonate 300 mg 600 mg (2 x 300 mg) PO DAILY #60 09/05/24 tablet,extended release tabs olanzapine 20 mg tablet (Zyprexa) 20 mg PO BID #60 tabs 09/05/24 prazosin 1 mg capsule 3 mg (3 x 1 mg) PO BEDTIME #90 caps 09/05/24 prazosin 2 mg capsule 2 mg PO DAILY #30 caps 09/05/24 trazodone 100 mg tablet 200 mg (2 x 100 mg) PO BEDTIME #60 09/05/24 tabs triamcinolone acetonide 0.1 % 1 appl topical BID #10 grams 09/05/24 topical cream Data Data Completed and Pending Completed studies during hospitalization [Text1]: 08/30/24 08/30/24 09/01/24 13:18 14:22 07:19 WBC 7.1 RBC 4.92 Hgb 12.7 Hct 37.7 MCV 76.6 L MCH 25.8 L MCHC 33.7 RDW 16.9 H Plt Count 225 MPV 10.1 Immature Gran % (Auto) 0.3 Neut % (Auto) 58.5 Lymph % (Auto) 30.4 [place] % (Auto) 7.3 Eos % (Auto) 2.9 Baso % (Auto) 0.6 Lymph # (Auto) 2.2 [place] # (Auto) 0.5 Eos # (Auto) 0.2 Baso # (Auto) 0.0 Abs Immat Gran (auto) 0.02 Absolute Neuts (auto) 4.2 Absolute Nucleated RBC 0.000 Nucleated RBC % (auto) 0.0 Sodium 139 Potassium 3.8 Chloride 107 Carbon Dioxide 25 Anion Gap 11 L BUN 10 Creatinine 0.72 Estim Creat Clear Calc 119.0 Estimated GFR > 60 Random Glucose 83 Estimat Average Glucose 94 Hemoglobin A1c % 4.9 Calcium 9.3 Total Bilirubin 0.5 Direct Bilirubin 0.2 AST 21 ALT 13 Alkaline Phosphatase 59 Total Protein 7.9 Albumin 4.3 Triglycerides 42 Cholesterol 133 LDL Cholesterol, Calc 79 HDL Cholesterol 46 Beta HCG, Quant < 2 Urine Color Dark Yellow Urine Appearance Clear Urine pH 6.0 Ur Specific [place] 1.025 Urine Protein Trace Urine Glucose (UA) Negative Urine Ketones 15 Urine Blood Negative Urine Nitrite Negative Ur Leukocyte Esterase Trace H Urine RBC 0-2 Urine WBC 0-5 Ur Squamous Epith Cells 3-5 Urine Bacteria None Seen Hyaline Casts 3-5 Urine Opiates Screen Not Detected Ur Buprenorphine Scrn Not Detected Ur Oxycodone Screen Not Detected Urine Methadone Screen Not Detected Urine Fentanyl Screen Not Detected Ur Barbiturates Screen Not Detected Valproic Acid Ur Phencyclidine Scrn Not Detected Ur Amphetamines Screen Not Detected U Benzodiazepines Scrn Not Detected Urine Cocaine Screen Not Detected U Marijuana (THC) Screen POSITIVE H Ethyl Alcohol < 10 09/04/24 07:18 WBC RBC Hgb Hct MCV MCH MCHC RDW Plt Count MPV Immature Gran % (Auto) Neut % (Auto) Lymph % (Auto) [place] % (Auto) Eos % (Auto) Baso % (Auto) Lymph # (Auto) [place] # (Auto) Eos # (Auto) Baso # (Auto) Abs Immat Gran (auto) Absolute Neuts (auto) Absolute Nucleated RBC Nucleated RBC % (auto) Sodium Potassium Chloride Carbon Dioxide Anion Gap BUN Creatinine Estim Creat Clear Calc Estimated GFR Random Glucose Estimat Average Glucose Hemoglobin A1c % Calcium Total Bilirubin Direct Bilirubin AST ALT Alkaline Phosphatase Total Protein Albumin Triglycerides Cholesterol LDL Cholesterol, Calc HDL Cholesterol Beta HCG, Quant Urine Color Urine Appearance Urine pH Ur Specific [place] Urine Protein Urine Glucose (UA) Urine Ketones Urine Blood Urine Nitrite Ur Leukocyte Esterase Urine RBC Urine WBC Ur Squamous Epith Cells Urine Bacteria Hyaline Casts Urine Opiates Screen Ur Buprenorphine Scrn Ur Oxycodone Screen Urine Methadone Screen Urine Fentanyl Screen Ur Barbiturates Screen Valproic Acid 93.2 Ur Phencyclidine Scrn Ur Amphetamines Screen U Benzodiazepines Scrn Urine Cocaine Screen U Marijuana (THC) Screen Ethyl Alcohol DS: Summary Time Spent with Patient Time attestation: Total time managing care of this patient today ____ minutes. Discharge Plan Discharge Anticipated Discharge Date/Time: 09/05/24 15:00 Patient Disposition: Home, Self-Care Discharge Diagnosis: PTSD Bipolar Disorder Cannabis Use Disorder Homelessness Referrals: Clinical and Support Options Intake with Becky Atwood [Other] - 09/06/24 4:00 pm (You will need to make this appointment to receive appointments for therapy and medication management. You have also been referred for case management to support with housing resources and other resources in the community. ) Adult Community Crisis Support [Other] - 1 Week (For short term respite stay and community resource support. ) [facility] [place] [Other] - 1 Week (Open Hours Thursday: 12pm-4pm Thursday: 12pm-4pm Thursday: 12pm-4pm : 12pm-4pm) Humberto Morrow PA-C [Primary Care Provider] - 1 Week ([place] [facility] [place]. Please call provider to schedule follow up appointment after discharge. ) Discharge Medications: New benztropine 0.5 mg Tablet 0.5 mg PO BID Qty: 60 0RF lithium carbonate 300 mg Tablet Extended Release 600 mg PO DAILY Qty: 60 0RF amlodipine 2.5 mg Tablet 2.5 mg PO DAILY Qty: 30 0RF Protocol: Hold for SBP< HOLD for SBP < : 90 trazodone 100 mg Tablet 200 mg PO BEDTIME Qty: 60 0RF chlorpromazine 25 mg Tablet 50 mg PO QID PRN (Reason: psychosis/ agitation) Qty: 60 0RF divalproex 500 mg Tablet Extended Release 24 Hr 1,500 mg PO BEDTIME Qty: 90 0RF triamcinolone acetonide 0.1 % Cream 1 appl topical BID Qty: 10 0RF Protocol: Apply to: Apply to: arms olanzapine [Zyprexa] 20 mg tablet 20 mg PO BID Qty: 60 0RF prazosin 2 mg capsule 2 mg PO DAILY Qty: 30 0RF prazosin 1 mg capsule 3 mg PO BEDTIME Qty: 90 0RF Discontinued prazosin 1 mg Capsule 3 mg PO BEDTIME 30 Days Qty: 90 0RF Protocol: Hold for SBP< HOLD for SBP < : 90 prazosin 1 mg Capsule 2 mg PO DAILY 30 Days Qty: 60 0RF Protocol: Hold for SBP< HOLD for SBP < : 90 olanzapine 5 mg Tablet 12.5 mg PO DAILY 30 Days Qty: 75 0RF olanzapine 10 mg Tablet 10 mg PO BEDTIME 30 Days Qty: 30 0RF trazodone 100 mg Tablet 200 mg PO BEDTIME 30 Days Qty: 60 0RF divalproex 500 mg Tablet Extended Release 24 Hr 1,000 mg PO BEDTIME 30 Days Qty: 60 0RF cefuroxime axetil 250 mg tablet 250 mg PO BID 7 Days Qty: 14 0RF hydrochlorothiazide 25 mg tablet 25 mg PO QAM Qty: 30 0RF Discharge Orders: Discharge Order (Routine); Ordered 09/05/24 Ordered By: Tatiana Young Diet: Advance to usual diet Activity on Discharge: As tolerated Stand Alone Forms: Patient Portal Discharge page, Community Support Print Language: Trinidadian Care Plan Goals: Mood and Behavioral Stabilization Health Concerns: Mood and Behavioral Stabilization Plan of Treatment: Attend scheduled appointments Take medications as directed Call/Return as needed Assessment: Denies SI,HI,AH,VH No sx of acute navya or psychosis Feeling triggered by a peer on the unit, thus requesting discharge Declines transfer at this time. Discharge Date/Time: 09/05/24 14:16
== END 2024-09-05 14:16 | disposition home or self-care (01) | DRG 753 ==
LOC: HO.ED 14:18 → HO.PM5 08-31 08:40
PROVIDERS: Physician Assistant Medical; Admitting Provider Psychiatry & Neurology Psychiatry; Emergency Provider Emergency Medicine Emergency Medical Services; PCP Physician Assistant; Visit Provider Clinical Nurse Specialist Psychiatric/Mental Health, Adult
DX: F31.9 Bipolar disorder, unspecified (principal); R45.851 Suicidal ideations; R45.850 Homicidal ideations; F43.10 Post-traumatic stress disorder, unspecified; Z59.02 Unsheltered homelessness; Z62.810 Personal history of physical and sexual abuse in childhood; Z62.813 Personal history of forced labor or sexual exploitation in childhood; Z79.899 Other long term (current) drug therapy
CPT/HCPCS: 36415; 80048; 80061; 80076; 80164; 80307; 81001; 83036; 84702; 85025; 93005; 99285; S9485

== ENCOUNTER → 2024-08-30 13:02 | Outpatient (BNV) | payer OTHER, SELFPAY | PROVIDERS: Emergency Provider Emergency Medicine Emergency Medical Services; PCP Physician Assistant; Visit Provider Internal Medicine | DX: Z13.6 Encounter for screening for cardiovascular disorders (principal) | CPT/HCPCS: 93010 ==

== ENCOUNTER → 2024-08-31 08:32 | Outpatient (BNV) | payer OTHER, SELFPAY | PROVIDERS: Admitting Provider Psychiatry & Neurology Psychiatry; Emergency Provider Emergency Medicine Emergency Medical Services; PCP Physician Assistant; Visit Provider Psychiatry & Neurology Psychiatry | DX: F43.10 Post-traumatic stress disorder, unspecified (principal); F31.9 Bipolar disorder, unspecified; R45.851 Suicidal ideations; R45.850 Homicidal ideations; Z59.00 Homelessness unspecified; F12.90 Cannabis use, unspecified, uncomplicated | CPT/HCPCS: 90792 ==

== ENCOUNTER → 2024-08-31 08:32 | Outpatient (BNV) | payer OTHER, SELFPAY | PROVIDERS: Admitting Provider Psychiatry & Neurology Psychiatry; Emergency Provider Emergency Medicine Emergency Medical Services; PCP Physician Assistant; Visit Provider Clinical Nurse Specialist Psychiatric/Mental Health, Adult | DX: F31.4 Bipolar disorder, current episode depressed, severe, without psychotic features (principal); F43.11 Post-traumatic stress disorder, acute; F12.90 Cannabis use, unspecified, uncomplicated | CPT/HCPCS: 99232 ==

== ENCOUNTER 2025-02-09 14:07 | Inpatient (IN) | payer OTHER, SELFPAY ==
--- NOTE | 2025-02-09 14:11 | ED.PSYCH ---
HPI - Psych General Chief Complaint: Psychiatric Symptoms Stated Complaint: medication Time Seen by Provider: 02/09/25 14:27 Source: patient and RN notes reviewed Mode of arrival: ambulatory Limitations: no limitations History of Present Illness ED Provider: Rosario Covington PA-C [facility] Narrative: This is a [id number], with a hx of PTSD, bipolar disorder, cannabis use disorder, who presents to the ER with complaints of homicidal ideations. Reports that she has been going through alot lately and her boss has been dangling her to get back to the hospital for help and that caused her to have thoughts of slitting his throat. Reports that she had thoughts of killing her in her sleep. She has no suicidal ideation. Reports that she is hearing voices having alot of different conversations in my head . Reports that she is seeing her past and seeing her brother, reports that she is seeing herself killing people when she is upset. Sees alot of visions thoughout the day and has been dissociating my days and losing my days . Reports that she missed doctors appointments for therapy ?unsure if she has been compliant on meds. No physical complaints. No other complaints or concerns at this time. MD complaint: feels depressed and homicidal ideation Onset (ago): week(s) Duration: constant and getting worse History of same: Yes Relieving factors: none Exacerbating factors: none Context: not taking psychiatric medications Associated psychiatric symptoms: depression, homicidal ideation, racing thoughts, auditory hallucinations and visual hallucinations Associated symptoms: denies other symptoms Treatments prior to arrival: none Related Data Home Medications ?Medication ?Instructions ?Recorded ?Confirmed No Known Home Meds 02/10/25 02/10/25 Allergies Allergy/AdvReac Type Severity Reaction Status Date / Time diphenhydramine (From Allergy Severe Anaphylaxis Verified 02/09/25 14:14 Benadryl) latex (LATEX) Allergy Intermediate RASH Verified 02/09/25 14:14 risperidone (From Risperdal) AdvReac Blurry Verified 02/09/25 14:14 Vision Review of Systems Review of Systems: Yes all other systems are reviewed and are negative Constitutional: Constitutional: Reports as per [facility] Past Medical History Medical History Breast cyst Anemia Asthma TBI (traumatic brain injury) Migraine Fibromyalgia PTSD (post-traumatic stress disorder) Psychosis Bipolar disorder Anxiety Surgical History History of surgery Hx of section History of tubal ligation Family History Family History Father No problems noted. Mother Liver cancer Sister Breast cancer Maternal Grandmother Breast cancer Social History Social History Household Members: Unknown / Unable to assess Housing: Unknown / Unable to assess Housing Other:: fpc Do you presently have visiting nurse or other home services: No Unable to assess alcohol history related to: Unknown Alcohol intake: unknown Comment: reports med was effective for neck pain Patient Tobacco Use Status: Current someday Tobacco user Tobacco use type: Cigarette Cigarette Packs Per Day: 0.33 Cigarettes Per Day: 5 Years Smoked: 27 e-Cigarette/Vaping Use: Currently Using Second Hand Smoke Exposure: No Substance Use Type: Marijuana Advance Directives: Yes Advance Directives Information Provided: Yes Advance Directives on File: No Do you have a plan to hurt others: Clear, Feasible and Specific service: No Sexual orientation: Straight/Heterosexual Physical Exam Vital Signs: Vital Signs: Last Vital Signs Temp 97.6 F 02/10/25 08:30 Pulse 68 02/10/25 08:30 Resp 14 02/10/25 08:30 BP 111/71 02/10/25 08:30 Pulse Ox 100 02/10/25 08:30 O2 Del Method Room Air 02/10/25 08:30 BMI result Body Mass Index 32.6 Const: General: cooperative, comfortable and no acute distress Orientation/consciousness: patient oriented x3 Limitations: no limitations HEENT: Head: Yes normal to inspection, Yes normocephalic and Yes atraumatic Ears: hearing grossly normal bilaterally General nose exam: Normal external nose present Face and sinus: Yes normal facial exam Mouth: Normal oral and palatal mucosa present, oropharynx normal and moist mucous membranes Throat: Yes posterior oropharynx normal Eyes: General: appearance normal, both eyes and all related structures Eyelids: Yes eyelids normal Conjunctivae: conjunctivae normal Sclerae: sclerae normal Pupils: Equal, round and reactive pupils present EOM: EOMs intact bilaterally Neck: Neck: Yes normal visual inspection, Yes full ROM and Yes no lymphadenopathy Lymphatic: no lymphadenopathy noted Chest: Chest palpation & inspection: normal inspection of the chest Resp: Effort & Inspection: normal respiratory effort and able to speak in complete sentences Auscultation: clear to auscultation bilaterally, no crackles, no rales, no rhonchi and no wheezes Cardio: Rate: regular rate Rhythm: regular rhythm Heart sounds: S1 normal heart sound present and S2 normal heart sound present GI: Inspection: Yes normal to inspection Skin: General skin exam: no rashes or lesions noted Trauma: no lacerations or abrasions Wounds: no wounds Neuro: General: patient oriented x3 and moves all extremities Cranial nerves: Yes Equal, round and reactive pupils present Extrem: General: Yes normal to inspection Right upper extremity: normal to inspection Left upper extremity: normal to inspection Right lower extremity: normal to inspection Left lower extremity: normal to inspection Psych: Appearance: well kempt Mental Status: mental status grossly normal Speech and movement: Pressured speech present and Restless speech present Affect: Anxious affect present Attitude: Guarded attititude/behavior present Thought process: Circumstantial thought process present Thought content: Homicidality present Insight: Poor insight present (Psych) Judgement: Poor judgement present (Psych) Course Course Course Narrative: Time: 08:29 Date: 02/10/25 Provider: Lori Malloy DO Patient in physician observation for psychiatric evaluation.? No acute events reported overnight. No current complaints. VS stable.? Patient is in bed search status Will continue to monitor. Reevaluation(s) Reevaluation #1: Time: 12:09 Date: 02/10/25 Provider: Lori Malloy DO Physician observation ended at 1209pm. Patient to be admitted as inpatient to psychiatry. Medications Administered Discontinued Medications Generic Name Dose Route Start Last Admin Trade Name Freq PRN Reason Stop Dose Admin Hydroxyzine HCl 25 mg 02/09/25 17:36 02/09/25 17:39 Hydroxyzine Hcl 25 Mg Tablet PO 02/09/25 17:37 25 mg ONCE ONE Administration Lorazepam 2 mg 02/10/25 11:47 02/10/25 11:49 Lorazepam 1 Mg Tablet PO 02/10/25 11:48 2 mg ONCE ONE Administration Medical Decision Making Medical Decision Making MDM Narrative: This is a [id number]-female, with a hx of PTSD, bipolar disorder, cannabis use disorder, who presents to the ER with complaints of homicidal ideations. Also reporting associated visual and auditory hallucinations. Patient is tearful in triage, vital signs within normal limits. She has no physical complaints. Will obtain labs, UA, urine drug screen, and she will be seen by the crisis team. She was placed immediately back into a behavioral health bed given concerns for safety. She is cooperative. Course: Labs were obtained, she has no leukocytosis, stable H&H, chemistry within normal range. Urine does not appear to be infectious. Patient was seen by the care team recommending inpatient level of care. Given concerns, she was placed on a section 12 due to homicidal ideation. Physician observation initiated secondary to needing inpatient psychiatric bed. Patient was medicated with hydroxyzine given increasing anxiety. Phys observation initiated at 20:30PM. Differential Diagnosis Differential Diagnoses: The differential diagnosis associated with the presentation includes Suicidal ideation, homicidal ideation, depression, anxiety, med noncompliance Admission/Observation Consideration of admission/observation: Escalation of care including admission/observation considered Lab Data [facility] Lab Attestation statement: I reviewed the patient's lab results. see MDM and course 02/09/25 15:45 02/09/25 15:45 Labs: Lab Results 02/09/25 02/09/25 Range/Units 15:45 18:53 WBC 9.9 (4.8-10.8) X10*3/uL RBC 4.33 (4.20-5.50) X10*6/uL Hgb 11.5 L (12.0-16.0) g/dl Hct 34.8 L (37.0-47.0) % MCV 80.4 (80.0-98.0) fL MCH 26.6 L (27.0-33.0) pg MCHC 33.0 (31.0-35.0) g/dl RDW 16.2 H (11.0-16.0) % Plt Count 223 (160-400) X10*3/uL MPV 11.4 (9.4-12.3) fL Immature Gran % (Auto) 0.4 (0.0-0.4) % Neut % (Auto) 65.6 (45-73) % Lymph % (Auto) 25.0 (20-40) % [place] % (Auto) 5.0 (2-11) % Eos % (Auto) 3.5 (0-4) % Baso % (Auto) 0.5 (0-2) % Lymph # (Auto) 2.5 (1.2-4.9) X10*3/uL [place] # (Auto) 0.5 (0.1-1.2) X10*3/uL Eos # (Auto) 0.3 (0.0-0.4) X10*3/uL Baso # (Auto) 0.1 (0.0-0.2) X10*3/uL Abs Immat Gran (auto) 0.04 H (0.00-0.03) X10*3/uL Absolute Neuts (auto) 6.5 (2.0-8.3) x10*3/uL Absolute Nucleated RBC 0.000 (0.0-0.012) X10*3/uL Nucleated RBC % (auto) 0.0 (0.0-0.2) /100WBC Sodium 140 (135-145) mmol/L Potassium 4.2 (3.3-5.1) mmol/L Chloride 109 H (96-108) mmol/L Carbon Dioxide 24 (22-29) mmol/L Anion Gap 11 L (12-20) BUN 12 (9-16) mg/dL Creatinine 0.79 (0.5-1.4) mg/dL Estim Creat Clear Calc 118.2 Estimated GFR > 60 Random Glucose 87 (60-115) mg/dL Calcium 9.2 (8.4-10.2) mg/dL Total Bilirubin 0.4 (0.0-1.0) mg/dL AST 19 (5-31) U/L ALT 18 (0-31) U/L Alkaline Phosphatase 54 (39-117) U/L Total Protein 7.4 (6.5-8.0) g/dL Albumin 4.4 (3.5-5.0) g/dL Urine Color Yellow Urine Appearance Clear Urine pH 5.5 (5.0-9.0) Ur Specific [place] 1.020 (1.005-1.025) Urine Protein Negative (Neg-Trace) mg/dL Urine Glucose (UA) Negative (Negative) mg/dL Urine Ketones Negative (Negative) mg/dL Urine Blood Moderate (2+) H (Negative) Urine Nitrite Negative (Negative) Ur Leukocyte Esterase Negative (Negative) Urine RBC 3-5 H (0-2) /HPF Urine WBC 0-5 (0-5) /HPF Ur Squamous Epith Cells 3-5 (0-2) /HPF Urine Bacteria None Seen (None Seen) Hyaline Casts 0-2 (0-2) /LPF Urine Test NEGATIVE (NEGATIVE) Salicylates < 5.0 L (15-30) mg/dL Urine Opiates Screen Not Detected (Not Detect) Ur Buprenorphine Scrn Not Detected (Not Detect) ng/mL Ur Oxycodone Screen Not Detected (Not Detect) ng/mL Urine Methadone Screen Not Detected (Not Detect) ng/mL Urine Fentanyl Screen Not Detected (Not Detect) Acetaminophen < 3 (<30) mcg/mL Ur Barbiturates Screen Not Detected (Not Detect) Ur Phencyclidine Scrn Not Detected (Not Detect) Ur Amphetamines Screen Not Detected (Not Detect) U Benzodiazepines Scrn Not Detected (Not Detect) Urine Cocaine Screen Not Detected (Not Detect) U Marijuana (THC) Screen POSITIVE H (Not Detect) Ethyl Alcohol < 10 mg/dL COVID-19 (BALDO) Negative (Negative) COVID-19 Clin Com See Note Discharge Plan Discharge Clinical Impression: Homicidal ideation Patient Disposition: Admitted As Inpatient Interventions: [place]-Suicide Risk Severity Scale Last Done: 02/09/25 16:14
[2025-02-09 14:12] VITALS: BP 136/78; PULSE 97; RESP 16; TEMP 36.8; O2SAT 98; BMI 32.6
[2025-02-09 15:51] LABS: MANUAL DIFF FLAG NO
[2025-02-09 15:55] LABS: Hematocrit 34.8 % (37.0-47.0); Hemoglobin 11.5 g/dl (12.0-16.0); Imm Gran Abs Auto 0.04 X10*3/uL (0.00-0.03); Imm Gran Pct Auto 0.4 % (0.0-0.4); Lymphocytes Absolute Auto 2.5 X10*3/uL (1.2-4.9); Mean Corpuscular HGB Conc 33.0 g/dl (31.0-35.0); Mean Corpuscular Hemoglobin 26.6 pg (27.0-33.0); Mean Corpuscular Volume 80.4 fL (80.0-98.0); NRBC Abs Auto 0.000 X10*3/uL (0.0-0.012); NRBC Pct Auto 0.0 /100WBC (0.0-0.2); Platelet Count 223 X10*3/uL (160-400); Red Blood Count 4.33 X10*6/uL (4.20-5.50); White Blood Count 9.9 X10*3/uL (4.8-10.8)
[2025-02-09 16:04] LABS: COVID-19 Test Negative (Negative); IDNOW Serial# 58CA691E
[2025-02-09 16:10] LABS: Alanine Aminotransferase 18 U/L (0-31); Albumin Level 4.4 g/dL (3.5-5.0); Alkaline Phosphatase 54 U/L (39-117); Anion Gap 11 (12-20); Aspartate Amino Transferase 19 U/L (5-31); Blood Urea Nitrogen 12 mg/dL (9-16); Calcium 9.2 mg/dL (8.4-10.2); Carbon Dioxide 24 mmol/L (22-29); Chloride 109 mmol/L (96-108); Creatinine Clr Calc Pharmacy 118.2; Estimated Glomerular Filt Rate > 60; Potassium 4.2 mmol/L (3.3-5.1); Sodium 140 mmol/L (135-145); Total Protein 7.4 g/dL (6.5-8.0)
[2025-02-09 16:12] LABS: Acetaminophen LAB < 3 mcg/mL (<30); Salicylate < 5.0 mg/dL (15-30)
--- NOTE | 2025-02-09 17:40 | PC.NURSE ---
Pt c/o increased anxiety after being told she was being sectioned. Provider made aware and ordered hydroxyzine
--- NOTE | 2025-02-09 19:03 | PC.NURSE ---
patient appears to remain at rest presently respirations are even and unlabored patient appears in no distress.
[2025-02-09 19:09] LABS: Appearance Urine Clear; Glucose Urine UA Negative (Negative); PH 5.5 (5.0-9.0); Specific Gravity - Urine 1.020 (1.005-1.025); UMIC TRIGGER UA YES; UPreg QC Valid YES
[2025-02-09 19:10] LABS: Cannabinoid Screen Urine POSITIVE (Not Detect)
[2025-02-09 22:48] VITALS: BP 109/73; PULSE 75; RESP 18; TEMP 36.6; O2SAT 100
--- NOTE | 2025-02-09 23:50 | PC.NURSE ---
took over care from RN Cassie at 23:00, pt sleeping at this time, no sign of distress.
--- NOTE | 2025-02-10 | ECG_ITS ---
Test Reason : r/o prolonged qt Blood Pressure : */* mmHG Vent. Rate : 63 BPM Atrial Rate : 63 BPM P-R Int : 166 ms QRS Dur : 82 ms QT Int : 398 ms P-R-T Axes : 38 60 56 degrees QTcB Int : 407 ms Normal sinus rhythm with sinus arrhythmia Normal ECG When compared with ECG of 30-Aug-2024 13:05, Vent. rate has decreased by 31 bpm Nonspecific T wave abnormality no longer evident in Inferior leads Referred By: Rodrick García Electronically Signed By: Nick Cramer
--- NOTE | 2025-02-10 05:37 | PC.NURSE ---
Took over care from RN Cassie, pt sleeping all night, no sign of distress.
[2025-02-10 06:23] VITALS: RESP 16
--- NOTE | 2025-02-10 07:04 | PC.NURSE ---
Assumed care of patient at 0645, patient appears to be in no apparent distress this am, calm and cooperative, laying in bed. Continue plan for IPLOC
[2025-02-10 08:30] VITALS: BP 111/71; PULSE 68; RESP 14; TEMP 36.4; O2SAT 100
--- NOTE | 2025-02-10 08:31 | PC.NURSE ---
RE: med rec this RN completed med rec with patient. Pt reports she has been non-compliant with medications since last inpatient admission (Sep 2024)
--- NOTE | 2025-02-10 10:22 | PHA.MEDREC ---
Pharmacy Consult ? Medication Reconciliation Pharmacy has reviewed the medication reconciliation completed by nursing.
--- NOTE | 2025-02-10 11:51 | PC.NURSE ---
Addendum entered by Milady Pro 02/10/25 11:52: pt medicated with 2mg Ativan PO, now coloring in her room Original Note: Pt reporting some moderate agitation and anxiety r/t other pts going up
[2025-02-10 12:41] VITALS: BMI 32.3
[2025-02-10 12:48] VITALS: BP 122/60; PULSE 76; RESP 18; TEMP 36.9; O2SAT 99
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
[2025-02-10 22:15] VITALS: BP 116/76; PULSE 62; RESP 16; TEMP 36.2; O2SAT 100
[2025-02-11 07:28] LABS: Hemoglobin A1C 97.4613 umol/L; Total Hemoglobin (HGBA1C) 3200.3790 umol/L
[2025-02-11 07:30] LABS: Alanine Aminotransferase 13 U/L (0-31); Albumin Level 4.2 g/dL (3.5-5.0); Alkaline Phosphatase 56 U/L (39-117); Anion Gap 11 (12-20); Aspartate Amino Transferase 21 U/L (5-31); Blood Urea Nitrogen 8 mg/dL (9-16); Calcium 9.1 mg/dL (8.4-10.2); Carbon Dioxide 23 mmol/L (22-29); Chloride 109 mmol/L (96-108); Cholesterol 131 mg/dL (<200); Creatinine Clr Calc Pharmacy 112.0; Estimated Glomerular Filt Rate > 60; HDL Cholesterol 38 mg/dL (>40); Potassium 3.8 mmol/L (3.3-5.1); Sodium 139 mmol/L (135-145); Total Protein 7.1 g/dL (6.5-8.0); Triglycerides 78 mg/dL (<150)
[2025-02-11 08:00] VITALS: BP 125/67; PULSE 80; RESP 16; TEMP 36.2
[2025-02-11 22:25] VITALS: BP 123/69; PULSE 78; RESP 16
[2025-02-11] MEDS: Divalproex Sodium ER 250 MG TAB.ER.24H 750 MG PO (22:32)
--- NOTE | 2025-02-11 23:10 | HO.PSYCHPN ---
Subjective Subjective Date of Service: 02/11/25 Reason For Visit: medication Subjective Notes: 3 Day Healthcare Proxy: No Guardianship: No Medical Problems Affecting Mental Status: No Interim History: Medical record and nursing notes reviewed; case discussed during rounds with team/nursing staff, and met with patient for supportive therapy/psychoeducation, as well as medication management. Per chart review patient slept okay, but waking up having panic attack. Nurses instructed patient to do deep feeling technique. Patient also was agitated in the middle of the day being triggered by other peer. Reports she has anger issues. She used to be on high dose of Motrin medications to the point that she can not function well and can not work. She is open for medication but do not want to be too sedated. Reports she also having dissociated episode/disorder. She can not tell if she is having schizophrenic or schizoaffective bipolar type diagnosis as she reports that she was diagnosed the elbow diagnosis. She has been shower 3 times, pacing at times and listen to music as coping skills. Request medication for severe anxiety. She understands that benzos is not the 1st line for panic attack. Anti depressants like SSRI may make her manic at this point, therefore I chose to start her on propranolol for panic attack/anxiety. Medication Compliance: Yes Side effects from medications: No Attending Groups: Intermittent Review of Systems Acute medical concerns: No Medical Review of Systems: unchanged Review of Systems Review of Systems Yes all other systems are reviewed and are negative Constitutional: Reports as per HPI Mental Status Exam Mental Status Exam Narrative: Pt is alert and oriented; behavior is cooperative and anxious dressed in hospital attire; mood is described as severe anxiety , with anger issues; eye contact appropriate; Speech is normal rate, volume and not pressured; however she can be loud when she got agitated, thought process is organized and goal directed; Thought content is on tx; denies SI/SIB/HI/AVH. Reports some PTSD symptoms. Diagnostics Vital Signs (24Hr): Vital Signs - 24 hr 02/11/25 08:00 02/11/25 22:25 Temperature 97.1 F Pulse Rate 80 78 Respiratory Rate 16 16 Blood Pressure 125/67 123/69 BMI result Body Mass Index 32.3 Labs 02/09/25 15:45 02/11/25 07:00 Labs: Laboratory Results - last 48 hr 02/11/25 07:00 Sodium 139 Potassium 3.8 Chloride 109 H Carbon Dioxide 23 Anion Gap 11 L BUN 8 L Creatinine 0.83 Estim Creat Clear Calc 112.0 Estimated GFR > 60 Random Glucose 84 Estimat Average Glucose 94 Hemoglobin A1c % 4.9 Calcium 9.1 Total Bilirubin 0.4 AST 21 ALT 13 Alkaline Phosphatase 56 Total Protein 7.1 Albumin 4.2 Triglycerides 78 Cholesterol 131 LDL Cholesterol, Calc 78 HDL Cholesterol 38 L Medications Medications Current Medications Acetaminophen (Acetaminophen 325 Mg Tablet) 650 mg PO Q6H PRN PRN Reason: Headache/Pain, Scale 1-10 Al Hydroxide/Mg Hydroxide (Magnesium Hydrox/Alum Hydrox 30 Ml Oral.Susp) 30 ml PO Q6H PRN PRN Reason: Heartburn/Nausea Divalproex Sodium (Divalproex Sodium Er 250 Mg Tab.Er.24h) 750 mg PO BEDTIME CATHERINE Last Admin: 02/11/25 22:32 Dose: 750 mg Magnesium Hydroxide (Milk Of Magnesia 30 Ml Oral.Susp) 30 ml PO DAILY PRN PRN Reason: Constipation Melatonin (Melatonin 3 Mg Tablet) 9 mg PO BEDTIME CATHERINE Last Admin: 02/11/25 22:31 Dose: 9 mg Nicotine Polacrilex (Nicotine Polacrilex 2 Mg Gum) 4 mg BUCCAL Q2H PRN PRN Reason: Nicotine Cravings Last Admin: 02/11/25 16:06 Dose: 4 mg Olanzapine (Olanzapine 5 Mg Tablet) 5 mg PO Q4H PRN PRN Reason: agitation Last Admin: 02/11/25 15:33 Dose: 5 mg Olanzapine (Olanzapine 10 Mg Tablet) 10 mg PO BEDTIME CATHERINE Last Admin: 02/11/25 22:31 Dose: 10 mg Prazosin HCl (Prazosin Hcl 1 Mg Capsule) 2 mg PO BEDTIME CATHERINE; Protocol Last Admin: 02/11/25 22:30 Dose: 2 mg Propranolol HCl (Propranolol Hcl 10 Mg Tablet) 10 mg PO BID CATHERINE; Protocol Last Admin: 02/11/25 22:30 Dose: 10 mg Trazodone HCl (Trazodone Hcl 50 Mg Tablet) 50 mg PO BEDTIME MRX1 PRN PRN Reason: Insomnia Allergies Allergies Allergy/AdvReac Type Severity Reaction Status Date / Time diphenhydramine (From Allergy Severe Anaphylaxis Verified 02/09/25 14:14 Benadryl) latex (LATEX) Allergy Intermediate RASH Verified 02/09/25 14:14 risperidone (From Risperdal) AdvReac Blurry Verified 02/09/25 14:14 Vision Assessment & Plan Assessment & Plan (1) Bipolar disorder: Status: Acute Code(s): F31.9 - Bipolar disorder, unspecified (2) PTSD (post-traumatic stress disorder): Status: Acute Code(s): F43.10 - Post-traumatic stress disorder, unspecified (3) Homeless single person: Status: Acute Code(s): Z59.00 - Homelessness unspecified Plan Patient is a 34 year old female with hx of Bipolar d/o and PTSD who self presented to [facility] ER d/t auditory and visual hallucinations telling her to harm herself and her fiance, secondary to medication noncompliance for the past 2-3 months. Plan: 15 minute safety checks- 3 day notice up on February 15-Thursday Start: Zyprexa 10mg PO bedtime Zyprexa 5mg Q4HR PRN Depakote ER 500mg PO bedtime. Prazosin 1mg PO bedtime Obtain collateral Referral to outpatient psychiatric providers Encourage groups Discharge planning 02/11/25: Increase Depakote up to 750 mg at bedtime for mood. Increase prazosin 1 mg at bedtime for PTSD. Started melatonin 9 at bedtime scheduled. Started propranolol 10 mg twice a day for panic attack. Continue with Zyprexa 10 mg at bedtime with plan to increase up to 15 mg tomorrow night. She has been taking Zyprexa. Around the clock this morning for panic attack severe anxiety and agitation. I also given Ativan 1 mg x1 for panic attack. Denies any safety concerns. Less experience voices was yesterday. Compliant with medications. Has been using her coping skills by taking warm showers, pacing with had phone. Educate patient on mood regarding withdrawal from marijuana and nicotine use. She smoked up to 3 packs a day and cut down cold turkey being here. Remind patient she have Nicorette gum available as needed. Patient educated on: diagnosis, medication risk/benefits, substance abuse and therapeutic strategies Informed Consent: understands Reason for continued inpatient stay Substantial Risk for: med/psych decompensation Time Spent With Patient Time: Total time managing care of this patient today ____ minutes.
[2025-02-12 08:00] VITALS: BP 120/69; PULSE 75; RESP 20; TEMP 36.6; O2SAT 100
[2025-02-12 08:45] VITALS: BP 120/69; PULSE 75
--- NOTE | 2025-02-12 13:23 | HO.PSYCHPN ---
Subjective Subjective Date of Service: 02/12/25 Reason For Visit: medication Subjective Notes: 3 Day Healthcare Proxy: No Guardianship: No Medical Problems Affecting Mental Status: No Interim History: Medical record and nursing notes reviewed; case discussed during rounds with team/nursing staff, and met with patient for supportive therapy/psychoeducation, as well as medication management. Patient slept for 5 hours but reports no nightmares or night terrors. Medication changes yesterday seems helpful. Reports feeling better today, less anxious. The voices was lower, reports she hears her parents voices. No other safety concerns. She is pacing and listen to music as coping skills, able to advocate for self taking p.r.n.. Medication Compliance: Yes Side effects from medications: No Attending Groups: Intermittent Review of Systems Acute medical concerns: No Medical Review of Systems: unchanged Review of Systems Review of Systems Yes all other systems are reviewed and are negative Constitutional: Reports as per HPI Mental Status Exam Mental Status Exam Narrative: Pt is alert and oriented; behavior is cooperative and anxious dressed in hospital attire; mood is described as better and less anxious ; eye contact appropriate; Speech is normal rate, volume and not pressured; thought process is organized and goal directed; Thought content is on tx; denies SI/SIB/HI/VH. report voices lower down, Reports some PTSD symptoms. Per nursing, patient served sometimes self dialogue and appear to be responding to internal stimuli. Diagnostics Vital Signs (24Hr): Vital Signs - 24 hr 02/11/25 22:25 02/12/25 08:00 02/12/25 08:45 Temperature 97.8 F Pulse Rate 78 75 75 Respiratory Rate 16 20 Blood Pressure 123/69 120/69 120/69 Pulse Oximetry 100 Oxygen Delivery Method Room Air BMI result Body Mass Index 32.3 Labs 02/09/25 15:45 02/11/25 07:00 Labs: Laboratory Results - last 48 hr 02/11/25 07:00 Sodium 139 Potassium 3.8 Chloride 109 H Carbon Dioxide 23 Anion Gap 11 L BUN 8 L Creatinine 0.83 Estim Creat Clear Calc 112.0 Estimated GFR > 60 Random Glucose 84 Estimat Average Glucose 94 Hemoglobin A1c % 4.9 Calcium 9.1 Total Bilirubin 0.4 AST 21 ALT 13 Alkaline Phosphatase 56 Total Protein 7.1 Albumin 4.2 Triglycerides 78 Cholesterol 131 LDL Cholesterol, Calc 78 HDL Cholesterol 38 L Medications Medications Current Medications Acetaminophen (Acetaminophen 325 Mg Tablet) 650 mg PO Q6H PRN PRN Reason: Headache/Pain, Scale 1-10 Al Hydroxide/Mg Hydroxide (Magnesium Hydrox/Alum Hydrox 30 Ml Oral.Susp) 30 ml PO Q6H PRN PRN Reason: Heartburn/Nausea Divalproex Sodium (Divalproex Sodium Er 250 Mg Tab.Er.24h) 750 mg PO BEDTIME CATHERINE Last Admin: 02/11/25 22:32 Dose: 750 mg Magnesium Hydroxide (Milk Of Magnesia 30 Ml Oral.Susp) 30 ml PO DAILY PRN PRN Reason: Constipation Melatonin (Melatonin 3 Mg Tablet) 9 mg PO BEDTIME CATHERINE Last Admin: 02/11/25 22:31 Dose: 9 mg Nicotine Polacrilex (Nicotine Polacrilex 2 Mg Gum) 4 mg BUCCAL Q2H PRN PRN Reason: Nicotine Cravings Last Admin: 02/11/25 16:06 Dose: 4 mg Olanzapine (Olanzapine 5 Mg Tablet) 5 mg PO Q4H PRN PRN Reason: agitation Last Admin: 02/12/25 12:36 Dose: 5 mg Olanzapine (Olanzapine 7.5 Mg Tablet) 15 mg PO BEDTIME CATHERINE Prazosin HCl (Prazosin Hcl 1 Mg Capsule) 2 mg PO BEDTIME CATHERINE; Protocol Last Admin: 02/11/25 22:30 Dose: 2 mg Propranolol HCl (Propranolol Hcl 10 Mg Tablet) 10 mg PO BID CATHERINE; Protocol Last Admin: 02/12/25 08:45 Dose: 10 mg Trazodone HCl (Trazodone Hcl 50 Mg Tablet) 50 mg PO BEDTIME MRX1 PRN PRN Reason: Insomnia Allergies Allergies Allergy/AdvReac Type Severity Reaction Status Date / Time diphenhydramine (From Allergy Severe Anaphylaxis Verified 02/09/25 14:14 Benadryl) latex (LATEX) Allergy Intermediate RASH Verified 02/09/25 14:14 risperidone (From Risperdal) AdvReac Blurry Verified 02/09/25 14:14 Vision Assessment & Plan Assessment & Plan (1) Bipolar disorder: Status: Acute Code(s): F31.9 - Bipolar disorder, unspecified (2) PTSD (post-traumatic stress disorder): Status: Acute Code(s): F43.10 - Post-traumatic stress disorder, unspecified (3) Homeless single person: Status: Acute Code(s): Z59.00 - Homelessness unspecified Plan Patient is a 34 year old female with hx of Bipolar d/o and PTSD who self presented to [facility] ER d/t auditory and visual hallucinations telling her to harm herself and her fiance, secondary to medication noncompliance for the past 2-3 months. Plan: 15 minute safety checks- 3 day notice up on February 15-Thursday Start: Zyprexa 10mg PO bedtime Zyprexa 5mg Q4HR PRN Depakote ER 500mg PO bedtime. Prazosin 1mg PO bedtime Obtain collateral Referral to outpatient psychiatric providers Encourage groups Discharge planning 02/11/25: Increase Depakote up to 750 mg at bedtime for mood. Increase prazosin 1 mg at bedtime for PTSD. Started melatonin 9 at bedtime scheduled. Started propranolol 10 mg twice a day for panic attack. Continue with Zyprexa 10 mg at bedtime with plan to increase up to 15 mg tomorrow night. She has been taking Zyprexa. Around the clock this morning for panic attack severe anxiety and agitation. I also given Ativan 1 mg x1 for panic attack. Denies any safety concerns. Less experience voices was yesterday. Compliant with medications. Has been using her coping skills by taking warm showers, pacing with had phone. Educate patient on mood regarding withdrawal from marijuana and nicotine use. She smoked up to 3 packs a day and cut down cold turkey being here. Remind patient she have Nicorette gum available as needed. 02/12/25: She slept for 5 hours, was medication compliant. Agree with having Zyprexa increased up to 15 at bedtime. Blood pressure stable with propranolol. Continue to titrate to target panic attack. The voices lower the. Less PTSD symptoms-no nightmare nighttime last night and walking up not feeling panic attack. Three days up on the Patient educated on: medication risk/benefits, substance abuse and therapeutic strategies Informed Consent: understands Reason for continued inpatient stay Substantial Risk for: med/psych decompensation Time Spent With Patient Time: Total time managing care of this patient today ____ minutes.
[2025-02-12 20:31] VITALS: BP 131/70; PULSE 80; RESP 16; TEMP 36.7; O2SAT 100
[2025-02-12] MEDS: OLANZapine 7.5 MG TABLET 15 MG PO (20:36)
[2025-02-12] MEDS: Divalproex Sodium ER 250 MG TAB.ER.24H 750 MG PO (20:37)
[2025-02-13 08:00] VITALS: BP 132/62; PULSE 88; RESP 16; TEMP 36.4; O2SAT 99
[2025-02-13 08:19] VITALS: BP 132/62; PULSE 88
--- NOTE | 2025-02-13 12:39 | HO.PSYCHPN ---
Subjective Subjective Date of Service: 02/13/25 Reason For Visit: medication Subjective Notes: 3 Day Interim History: Active on unit, social with peers. attending groups. 3 day up on 02/15/25. Patient reports feeling much better than when I first came here ; pt stated, when I first came in, I was stuck between reality and what was going on in my head. Now I feel better . Focused on returning to work. Pt reports she feels frustrated d/t crisis report; pt stated, I don't respect the lies they made up in crisis about what I actually said to them. I didn't say I wanted to hurt my . denies SI/HI/VH/AH. Continue current tx plan. Medication Compliance: Yes Side effects from medications: No Attending Groups: Yes Mental Status Exam Mental Status Exam Narrative: Pt is alert and oriented; behavior is cooperative and calm; dressed in casual attire; mood is described as better ; eye contact appropriate; Speech is normal rate, volume and not pressured; thought process is organized and goal directed; Thought content is on tx; denies SI/HI/VH/AH. Diagnostics Vital Signs (24Hr): Vital Signs - 24 hr 02/12/25 20:31 02/13/25 08:00 02/13/25 08:19 Temperature 98.0 F 97.5 F Pulse Rate 80 88 88 Respiratory Rate 16 16 Blood Pressure 131/70 132/62 132/62 Pulse Oximetry 100 99 Oxygen Delivery Method Room Air Room Air BMI result Body Mass Index 32.3 Labs 02/09/25 15:45 02/11/25 07:00 Medications Medications Current Medications Acetaminophen (Acetaminophen 325 Mg Tablet) 650 mg PO Q6H PRN PRN Reason: Headache/Pain, Scale 1-10 Al Hydroxide/Mg Hydroxide (Magnesium Hydrox/Alum Hydrox 30 Ml Oral.Susp) 30 ml PO Q6H PRN PRN Reason: Heartburn/Nausea Divalproex Sodium (Divalproex Sodium Er 250 Mg Tab.Er.24h) 750 mg PO BEDTIME [facility] Last Admin: 02/12/25 20:37 Dose: 750 mg Magnesium Hydroxide (Milk Of Magnesia 30 Ml Oral.Susp) 30 ml PO DAILY PRN PRN Reason: Constipation Melatonin (Melatonin 3 Mg Tablet) 9 mg PO BEDTIME [facility] Last Admin: 02/12/25 20:35 Dose: 9 mg Nicotine Polacrilex (Nicotine Polacrilex 2 Mg Gum) 4 mg BUCCAL Q2H PRN PRN Reason: Nicotine Cravings Last Admin: 02/13/25 07:28 Dose: 4 mg Olanzapine (Olanzapine 5 Mg Tablet) 5 mg PO Q4H PRN PRN Reason: agitation Last Admin: 02/13/25 12:05 Dose: 5 mg Olanzapine (Olanzapine 7.5 Mg Tablet) 15 mg PO BEDTIME [facility] Last Admin: 02/12/25 20:36 Dose: 15 mg Prazosin HCl (Prazosin Hcl 1 Mg Capsule) 2 mg PO BEDTIME [facility]; Protocol Last Admin: 02/12/25 20:36 Dose: 2 mg Propranolol HCl (Propranolol Hcl 10 Mg Tablet) 10 mg PO BID [facility]; Protocol Last Admin: 02/13/25 08:19 Dose: 10 mg Trazodone HCl (Trazodone Hcl 50 Mg Tablet) 50 mg PO BEDTIME MRX1 PRN PRN Reason: Insomnia Allergies Allergies Allergy/AdvReac Type Severity Reaction Status Date / Time diphenhydramine (From Allergy Severe Anaphylaxis Verified 02/09/25 14:14 Benadryl) latex (LATEX) Allergy Intermediate RASH Verified 02/09/25 14:14 risperidone (From Risperdal) AdvReac Blurry Verified 02/09/25 14:14 Vision Assessment & Plan Assessment & Plan (1) Bipolar disorder: Status: Acute Code(s): F31.9 - Bipolar disorder, unspecified (2) PTSD (post-traumatic stress disorder): Status: Acute Code(s): F43.10 - Post-traumatic stress disorder, unspecified (3) Homeless single person: Status: Acute Code(s): Z59.00 - Homelessness unspecified Plan Patient is a 34 year old female with hx of Bipolar d/o and PTSD who self presented to [facility] d/t auditory and visual hallucinations telling her to harm herself and her fiance, secondary to medication noncompliance for the past 2-3 months. Plan: 15 minute safety checks- 3 day notice up on February 15-Thursday Start: Zyprexa 10mg PO bedtime Zyprexa 5mg Q4HR PRN Depakote ER 500mg PO bedtime. Prazosin 1mg PO bedtime Obtain collateral Referral to outpatient psychiatric providers Encourage groups Discharge planning 02/11/25: Increase Depakote up to 750 mg at bedtime for mood. Increase prazosin 1 mg at bedtime for PTSD. Started melatonin 9 at bedtime scheduled. Started propranolol 10 mg twice a day for panic attack. Continue with Zyprexa 10 mg at bedtime with plan to increase up to 15 mg tomorrow night. She has been taking Zyprexa. Around the clock this morning for panic attack severe anxiety and agitation. I also given Ativan 1 mg x1 for panic attack. Denies any safety concerns. Less experience voices was yesterday. Compliant with medications. Has been using her coping skills by taking warm showers, pacing with had phone. Educate patient on mood regarding withdrawal from marijuana and nicotine use. She smoked up to 3 packs a day and cut down cold turkey being here. Remind patient she have Nicorette gum available as needed. 02/12/25: She slept for 5 hours, was medication compliant. Agree with having Zyprexa increased up to 15 at bedtime. Blood pressure stable with propranolol. Continue to titrate to target panic attack. The voices lower the. Less PTSD symptoms-no nightmare nighttime last night and walking up not feeling panic attack. Three days up on the 02/13: Active on unit, social with peers. attending groups. 3 day up on 02/15/25. Patient reports feeling much better than when I first came here ; pt stated, when I first came in, I was stuck between reality and what was going on in my head. Now I feel better . Focused on returning to work. Pt reports she feels frustrated d/t crisis report; pt stated, I don't respect the lies they made up in crisis about what I actually said to them. I didn't say I wanted to hurt my . denies SI/HI/VH/AH. Continue current tx plan. Patient educated on: diagnosis and medication risk/benefits Reason for continued inpatient stay Substantial Risk for: med/psych decompensation Time Spent With Patient Time: Total time managing care of this patient today _20___ minutes.
[2025-02-13 20:00] VITALS: BP 115/73; PULSE 73; RESP 16; TEMP 36.5; O2SAT 100
[2025-02-13] MEDS: OLANZapine 7.5 MG TABLET 15 MG PO (20:06)
[2025-02-13 20:07] VITALS: BP 115/73; PULSE 73
[2025-02-13] MEDS: Divalproex Sodium ER 250 MG TAB.ER.24H 750 MG PO (20:07)
[2025-02-13 20:08] VITALS: BP 115/73
[2025-02-14 07:55] VITALS: BP 123/71; PULSE 83; RESP 16; TEMP 36.1; O2SAT 98
--- NOTE | 2025-02-14 09:35 | HO.PSYCHPN ---
Subjective Subjective Date of Service: 02/14/25 Reason For Visit: medication Subjective Notes: 3 Day Interim History: Active on unit, social with peers. attending groups. 3 day up on 02/15/25. Patient reports feeling good ; she is looking forward to discharging. Focused on returning to work. pt stated, I'm feeling better mentally. I'm sleeping better and using my coping skills . denies SI/HI/VH/AH. Valproic acid level 52.2 on 02/14/25. Pt reports she plans on following up with her outpatient providers. Medication Compliance: Yes Side effects from medications: No Attending Groups: Yes Mental Status Exam Mental Status Exam Narrative: Pt is alert and oriented; behavior is cooperative and calm; dressed in casual attire; mood is described as good ; eye contact appropriate; Speech is normal rate, volume and not pressured; thought process is organized; Thought content is on discharge; denies SI/HI/VH/AH. Diagnostics Vital Signs (24Hr): Vital Signs - 24 hr 02/13/25 20:00 02/13/25 20:07 02/13/25 20:08 Temperature 97.7 F Pulse Rate 73 73 Respiratory Rate 16 Blood Pressure 115/73 115/73 115/73 Pulse Oximetry 100 Oxygen Delivery Method Room Air 02/14/25 07:55 Temperature 97.0 F Pulse Rate 83 Respiratory Rate 16 Blood Pressure 123/71 Pulse Oximetry 98 Oxygen Delivery Method Room Air BMI result Body Mass Index 32.3 Labs 02/09/25 15:45 02/11/25 07:00 Medications Medications Current Medications Acetaminophen (Acetaminophen 325 Mg Tablet) 650 mg PO Q6H PRN PRN Reason: Headache/Pain, Scale 1-10 Last Admin: 02/13/25 20:08 Dose: 650 mg Al Hydroxide/Mg Hydroxide (Magnesium Hydrox/Alum Hydrox 30 Ml Oral.Susp) 30 ml PO Q6H PRN PRN Reason: Heartburn/Nausea Chlorpromazine HCl (Chlorpromazine Hcl 25 Mg Tablet) 25 mg PO TID PRN PRN Reason: agitation Last Admin: 02/14/25 04:50 Dose: 25 mg Divalproex Sodium (Divalproex Sodium Er 250 Mg Tab.Er.24h) 750 mg PO BEDTIME [facility] Last Admin: 02/13/25 20:07 Dose: 750 mg Magnesium Hydroxide (Milk Of Magnesia 30 Ml Oral.Susp) 30 ml PO DAILY PRN PRN Reason: Constipation Melatonin (Melatonin 3 Mg Tablet) 9 mg PO BEDTIME [facility] Last Admin: 02/13/25 20:06 Dose: 9 mg Nicotine Polacrilex (Nicotine Polacrilex 2 Mg Gum) 4 mg BUCCAL Q2H PRN PRN Reason: Nicotine Cravings Last Admin: 02/13/25 16:14 Dose: 4 mg Olanzapine (Olanzapine 7.5 Mg Tablet) 15 mg PO BEDTIME [facility] Last Admin: 02/13/25 20:06 Dose: 15 mg Prazosin HCl (Prazosin Hcl 1 Mg Capsule) 2 mg PO BEDTIME [facility]; Protocol Last Admin: 02/13/25 20:08 Dose: 2 mg Propranolol HCl (Propranolol Hcl 10 Mg Tablet) 10 mg PO BID [facility]; Protocol Last Admin: 02/14/25 08:37 Dose: 10 mg Trazodone HCl (Trazodone Hcl 50 Mg Tablet) 50 mg PO BEDTIME MRX1 PRN PRN Reason: Insomnia Allergies Allergies Allergy/AdvReac Type Severity Reaction Status Date / Time diphenhydramine (From Allergy Severe Anaphylaxis Verified 02/09/25 14:14 Benadryl) latex (LATEX) Allergy Intermediate RASH Verified 02/09/25 14:14 risperidone (From Risperdal) AdvReac Blurry Verified 02/09/25 14:14 Vision Assessment & Plan Assessment & Plan (1) Bipolar disorder: Status: Acute Code(s): F31.9 - Bipolar disorder, unspecified (2) PTSD (post-traumatic stress disorder): Status: Acute Code(s): F43.10 - Post-traumatic stress disorder, unspecified (3) Homeless single person: Status: Acute Code(s): Z59.00 - Homelessness unspecified Plan Patient is a 34 year old female with hx of Bipolar d/o and PTSD who self presented to [facility] d/t auditory and visual hallucinations telling her to harm herself and her fiance, secondary to medication noncompliance for the past 2-3 months. Plan: 15 minute safety checks- 3 day notice up on February 15-Thursday Start: Zyprexa 10mg PO bedtime Zyprexa 5mg Q4HR PRN Depakote ER 500mg PO bedtime. Prazosin 1mg PO bedtime Obtain collateral Referral to outpatient psychiatric providers Encourage groups Discharge planning 02/11/25: Increase Depakote up to 750 mg at bedtime for mood. Increase prazosin 1 mg at bedtime for PTSD. Started melatonin 9 at bedtime scheduled. Started propranolol 10 mg twice a day for panic attack. Continue with Zyprexa 10 mg at bedtime with plan to increase up to 15 mg tomorrow night. She has been taking Zyprexa. Around the clock this morning for panic attack severe anxiety and agitation. I also given Ativan 1 mg x1 for panic attack. Denies any safety concerns. Less experience voices was yesterday. Compliant with medications. Has been using her coping skills by taking warm showers, pacing with had phone. Educate patient on mood regarding withdrawal from marijuana and nicotine use. She smoked up to 3 packs a day and cut down cold turkey being here. Remind patient she have Nicorette gum available as needed. 02/12/25: She slept for 5 hours, was medication compliant. Agree with having Zyprexa increased up to 15 at bedtime. Blood pressure stable with propranolol. Continue to titrate to target panic attack. The voices lower the. Less PTSD symptoms-no nightmare nighttime last night and walking up not feeling panic attack. Three days up on the 02/13: Active on unit, social with peers. attending groups. 3 day up on 02/15/25. Patient reports feeling much better than when I first came here ; pt stated, when I first came in, I was stuck between reality and what was going on in my head. Now I feel better . Focused on returning to work. Pt reports she feels frustrated d/t crisis report; pt stated, I don't respect the lies they made up in crisis about what I actually said to them. I didn't say I wanted to hurt my . denies SI/HI/VH/AH. Continue current tx plan. 02/14: Active on unit, social with peers. attending groups. 3 day up on 02/15/25. Patient reports feeling good ; she is looking forward to discharging. Focused on returning to work. pt stated, I'm feeling better mentally. I'm sleeping better and using my coping skills . denies SI/HI/VH/AH. Valproic acid level 52.2 on 02/14/25. Pt reports she plans on following up with her outpatient providers. Patient educated on: diagnosis and medication risk/benefits Reason for continued inpatient stay Substantial Risk for: stable for discharge Time Spent With Patient Time: Total time managing care of this patient today _20___ minutes.
[2025-02-14 12:13] LABS: Alanine Aminotransferase 21 U/L (0-31); Albumin Level 4.6 g/dL (3.5-5.0); Alkaline Phosphatase 57 U/L (39-117); Aspartate Amino Transferase 20 U/L (5-31); Total Protein 7.5 g/dL (6.5-8.0)
[2025-02-14 13:59] LABS: Ammonia 31 umol/L (13-55)
[2025-02-14 20:00] VITALS: BP 113/74; PULSE 92; RESP 16; TEMP 36.4; O2SAT 100
[2025-02-14 21:46] VITALS: BP 113/74
[2025-02-14 21:47] VITALS: BP 113/74; PULSE 92
[2025-02-14] MEDS: OLANZapine 7.5 MG TABLET 15 MG PO (21:47)
[2025-02-14] MEDS: Divalproex Sodium ER 250 MG TAB.ER.24H 750 MG PO (21:48)
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
[2025-02-15 08:00] VITALS: BP 132/66; PULSE 90; RESP 20; TEMP 36.3; O2SAT 100
[2025-02-15 08:04] VITALS: BP 132/66; PULSE 90
== END 2025-02-15 10:57 | disposition home or self-care (01) | DRG 753 ==
LOC: HO.ED 15:51 → HO.PADLT16 02-10 12:03
PROVIDERS: Physician Assistant Medical; Admitting Provider Registered Nurse; Emergency Provider Emergency Medicine; PCP Physician Assistant; Responsible Provider Registered Nurse; Visit Provider Psychiatry & Neurology Psychiatry
DX: F31.9 Bipolar disorder, unspecified (principal); F43.10 Post-traumatic stress disorder, unspecified; Z20.822 Contact with and (suspected) exposure to COVID-19; Z59.02 Unsheltered homelessness; Z87.891 Personal history of nicotine dependence; Z79.899 Other long term (current) drug therapy
CPT/HCPCS: 36415; 80053; 80061; 80076; 80143; 80164; 80179; 80307; 81001; 81003; 81025; 82140; 83036; 85025; 87635; 93005; 99285; S9485

== ENCOUNTER → 2025-02-10 08:19 | Outpatient (BNV) | payer OTHER, SELFPAY | PROVIDERS: Admitting Provider Registered Nurse; Emergency Provider Emergency Medicine; PCP Physician Assistant; Responsible Provider Registered Nurse; Visit Provider Internal Medicine Cardiovascular Disease | DX: Z13.6 Encounter for screening for cardiovascular disorders (principal) | CPT/HCPCS: 93010 ==

== ENCOUNTER → 2025-02-10 12:02 | Outpatient (BNV) | payer OTHER, SELFPAY | PROVIDERS: Admitting Provider Registered Nurse; Emergency Provider Emergency Medicine; PCP Physician Assistant; Responsible Provider Registered Nurse; Visit Provider Nurse Practitioner Psychiatric/Mental Health | DX: F31.5 Bipolar disorder, current episode depressed, severe, with psychotic features (principal); F43.11 Post-traumatic stress disorder, acute; Z59.00 Homelessness unspecified | CPT/HCPCS: 99231; 99238 ==